=== PATIENT | male | born 1975 | race Hispanic/Latino ===

== ENCOUNTER 2018-02-06 14:19 | Emergency (ER) | payer SELFPAY ==
[2018-02-06] MEDS ORDERED: hydrALAZINE 25 MG TAB ONE (17:40)
[2018-02-06] MEDS ORDERED: hydrALAZINE 10 MG TAB PO SCH (17:45)
--- NOTE | 2018-02-08 14:47 | EKG ---
Test Reason : DIZZINESS Blood Pressure : / mmHG Vent. Rate : 071 BPM Atrial Rate : 071 BPM P-R Int : 148 ms QRS Dur : 082 ms QT Int : 378 ms P-R-T Axes : 034 014 075 degrees QTc Int : 410 ms Normal sinus rhythm Normal ECG Confirmed by SILVESTRE GRANGER ([id number]), newspaper photo editor SHERIN ALONSO ([id number]) on 02/08/2018 2:46:56 PM Referred By: Confirmed By:SILVESTRE GRANGER
== END 2018-02-06 18:46 | disposition home or self-care (01) ==
LOC: ERS 14:19
DX: E11.65 Type 2 diabetes mellitus with hyperglycemia (principal); H92.02 Otalgia, left ear; I10 Essential (primary) hypertension; E78.5 Hyperlipidemia, unspecified
CPT/HCPCS: 36416; 93005

== ENCOUNTER 2018-02-09 07:05 | Inpatient (IN) | payer SELFPAY ==
[2018-02-09] MEDS ORDERED: Metoclopramide HCl 10 MG/2 ML VIAL ONE (07:30)
[2018-02-09] MEDS ORDERED: Meclizine HCl 25 MG TAB ONE (07:30)
[2018-02-09] MEDS ORDERED: hydrALAZINE 20 MG/ML VIAL ONE (07:30)
[2018-02-09 07:53] LABS: #Basophils 0.1 thou/uL (0.0-0.2); #Eosinphils 0.3 thou/uL (0.0-0.7); #Lymphocytes 1.9 thou/uL (1.20-3.40); #Monocytes 0.6 thou/uL (0.11-0.59); #Neutrophils 5.2 thou/uL (1.40-6.50); %Eosinophils 3.9 % (0.0-10.0); %Lymphocytes 23.3 % (21.0-51.0); %Monocytes 7.6 % (0.0-10.0); %Neutrophils 64.2 % (42.0-75.0); Hemoglobin 15.9 g/dL (14.0-18.0); Mean Corpuscular HGB CONC 34.5 g/dL (32.0-36.0); Mean Corpuscular Hemoglobin 34.4 pg (27.0-31.0); Mean Corpuscular Volume 99.7 fl (80.0-94.0); Mean Platelet Volume 9.1 fL (7.4-10.4); Platelet Count 257 thou/uL (130-400); RBC Distribution Width 11.4 % (11.5-14.5); Red Blood Cell (RBC) Count 4.61 mill/uL (4.70-6.10); White Blood Cell (WBC) Count 8.1 thou/uL (4.8-10.8)
--- NOTE | 2018-02-09 08:05 | CT ---
CT HEAD WITHOUT CONTRAST: Date: 02/09/18 COMPARISON: None. HISTORY: Hypertension and dizziness. TECHNIQUE: Serial axial CT imaging at 5 mm intervals from vertex through skull base without contrast. FINDINGS: Imaged paranasal sinuses and mastoid air cells appear well aerated. There is no displaced calvarial f racture. No intracranial hemorrhage, midline shift, or mass effect is seen. There is hypodensity within the in ferior aspect of the left cerebellar hemisphere measuring 3.4 cm. This focal area of hypodensity with in the left inferior cerebellar hemisphere medially is suspicious for infarction, possibly acute. Rec ommend further evaluation with brain MRI. IMPRESSION: Age-indeterminate area of infarction suspected within left cerebellar hemisphere inferomedially. Furt her assessment via MRI with and without contrast is advised. POS: TACO
[2018-02-09 08:10] LABS: ALT (SGPT) 20 U/L (8-55); AST (SGOT) 13 U/L (5-34); Albumin 4.2 g/dL (3.5-5.0); Alkaline Phosphatase 50 U/L (40-150); Anion Gap 15 mmol/L (10-20); BUN (Urea Nitrogen) 16 mg/dL (8.9-20.6); Bilirubin, Total 0.5 mg/dL (0.2-1.2); CK (CPK) 37 U/L (30-200); Calc. Creatinine Clearance 0 mL/min (70-130); Calcium 10.2 mg/dL (7.8-10.44); Carbon Dioxide 28 mmol/L (22-29); Chloride 99 mmol/L (98-107); Estimated GFR-MDRD 63; Glucose 300 mg/dL (70-105); Potassium 4.2 mmol/L (3.5-5.1); Protein, Total 7.2 g/dL (6.0-8.3); Sodium 138 mmol/L (136-145)
[2018-02-09 08:14] LABS: CKMB 0.3 ng/mL (0-6.6); Troponin I Less than 0.010 ng/mL (< 0.028)
[2018-02-09] MEDS ORDERED: Aspirin 325 MG TAB ONE (08:25)
[2018-02-09 09:44] VITALS: BMI 25.1
[2018-02-09] MEDS ORDERED: Ondansetron HCl/PF 4 MG/2 ML Vial IVP PRN (09:50)
[2018-02-09] MEDS ORDERED: Acetaminophen 325 MG TAB PO PRN (09:50)
[2018-02-09] MEDS ORDERED: Ondansetron ODT 4 MG TAB SL PRN (09:50)
[2018-02-09 11:18] LABS: Troponin I Less than 0.010 ng/mL (< 0.028)
[2018-02-09] MEDS ORDERED: Gadobenate Dimeglumine 529 MG/1 ML (20ML VIAL) ONE (11:30)
[2018-02-09] MEDS ORDERED: hydrALAZINE 20 MG/ML VIAL SLOW IVP PRN (12:25)
[2018-02-09] MEDS ORDERED: HumaLOG 300 UNITS/3 ML VIAL SC PRN (12:25)
[2018-02-09] MEDS ORDERED: HYDROcodone/Acetaminophen 5/325 mg Tablet PO PRN (12:25)
[2018-02-09] MEDS ORDERED: Dextrose 5% in Water 1,000 ML IV PRN (12:25)
[2018-02-09] MEDS ORDERED: Dextrose 50% Abboject 50 ML SYRINGE SLOW IVP PRN (12:25)
--- NOTE | 2018-02-09 14:22 | HP ---
DATE OF ADMISSION: 02/09/2018 CHIEF COMPLAINT: Dizziness. HISTORY OF PRESENT ILLNESS: This is a 42-year-old young male with a known history of type 2 diabetes mellitus and hypertension, diagnosed more than 10 years ago, but he stopped taking medicati ons since then and never went to her primary care doctor. For the past 3 months, he has been noticin g worsening dizziness and some blurred vision, and he initially ignored until today. He was severely dizzy and was having difficulty with his vision and was having severe pain, so he came to the ER for further evaluation, and based on his symptoms, I did CT of the head which showed a cerebellar infarc tion, age undetermined on the left cerebellar hemispheres. The patient is seen today on the floor wh o is alert and oriented. Denies having any chest pain, no nausea, no vomiting, no diarrhea, no const ipation. He does also complain of tingling, numbness in his lower feet which has been going on for a long time. Denies having any vision problems right now, but he continues to have dizziness. PAST MEDICAL HISTORY: 1. Type 2 diabetes mellitus. 2. Hypertension. PAST SURGICAL HISTORY: None. PAST SURGICAL HISTORY: The patient had had an abscess on the buttocks when he was in the halfway many [place] ears ago and was treated with surgical incision and drainage. SOCIAL HISTORY: The patient is a known smoker and does drink alcohol and does drink beer almost ever y day. Last drink was on Tuesday. He denies having any withdrawal symptoms if he does not drink alco hol. No other history of illicit drug use. 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 FAMILY HISTORY: Has a significant family history of her mother dying at the age of 40s with severe M I and acute coronary artery disease. ALLERGIES: PENICILLIN. HOME MEDICATIONS: None. REVIEW OF SYSTEMS: All 12 systems are reviewed with the patient thoroughly and found to be negative. Systems reviewed are HEENT, CVS, HEAD LOFT WORKER, respiratory, GI, and . All systems are reviewed and found to be negative except the ones described in the HPI. Constitutional: Weight loss or gain, sense of well-being, ability to conduct usual activities, exerc ise tolerance. Skin/Breast: Rash, itching, changes in hair growth or loss, nail changes, breast lumps, tenderness, swelling, nipple discharge. Eyes: Vision, double vision, tearing, blind spots, pain. ENT/Mouth: Headaches (location, time of onset, duration, precipitating factors), vertigo, lightheadedness, injury. Vision, double vision, tearing, blind spots, pain, nose b leeding, colds, obstruction, discharge, dental difficulties, gingival bleeding, dentures, neck stiffn ess, pain, tenderness, masses in thyroid or other areas Cardiovascular: Precordial pain, substernal distress, palpitations, syncope, dyspnea on exertion, or thopnea, nocturnal paroxysmal dyspnea, edema, cyanosis, hypertension, heart murmurs, varicosities, ph lebitis, claudication. Respiratory: Pain, shortness of breath, wheezing, stridor, cough, hemoptysis, fever or night sweats Gastrointestinal: Poor appetite, dysphagia, indigestion, abdominal pain, heartburn, eructation, naus ea, vomiting, hematemesis, jaundice, constipation, or diarrhea, abnormal stools (clement-colored, tarry, bloody, greasy, foul smelling), flatulence, hemorrhoids, recent changes in bowel habits. Genitourinary: Urgency, frequency, dysuria, nocturia, hematuria, polyuria, oliguria, unusual (or kathy nge in) color of urine, stones, hesitancy, change in size of stream, dribbling, acute retention or in continence, libido, potency. Musculoskeletal: Pain, swelling, redness or heat of muscles or joints, limitation, of motion, muscular weakness, atrophy, cramps. Neurologic/Psychiatric: Convulsions, paralyses, tremor, incoordination, parasthesias, difficulties w ith memory of speech, sensory or motor disturbances, or muscular coordination (ataxia, tremor), emoti onal problems, anxiety, depression, previous psychiatric care, unusual perceptions, hallucinations. Allergy/Immunologic: Skin rash, anemia, bleeding tendency, polydipsia, polyuria, intolerance to heat or cold. PHYSICAL EXAMINATION: VITAL SIGNS: Blood pressures are 147/85, heart rate is 80, respiratory rate 16, saturation 97%. GENERAL: The patient is moderately built and moderately nourished. He does not appear to be in acut e distress at this time. Alert and oriented x3. HEENT: Atraumatic, normocephalic. PERRLA. Extraocular movements were intact. Oral mucosa is pink and moist. CARDIOVASCULAR: S1, S2 normal. No murmurs, rubs or gallops. LUNGS: Bilateral air entry was equal. No wheezing, no crackles. ABDOMEN: Soft, nontender. No guarding, no rebound tenderness. Bowel sounds normal. MUSCULOSKELETAL: No calf tenderness. No pedal edema. No joint tenderness. No joint swelling. SKIN: No cyanosis, no erythema, no rash, no pallor. CENTRAL NERVOUS SYSTEM: Examination was done. The patient has a gait abnormality otherwise no foca l neurologic deficits. No cranial nerve deficits were noted. LABORATORY DATA: Showed WBC 8.1, hemoglobin is 15.9, hematocrit is 46.0, platelets 257. Sodium 130, potassium 4.2, chloride is 99, BUN is 16, creatinine 1.24, blood sugar is 300. A CT of the head was done showing an evidence of a age undetermined left-sided cerebellar infarction, recommending us an MRI. ASSESSMENT: 1. Acute or subacute left cerebellar ischemic stroke. 2. Poorly controlled type 2 diabetes mellitus. 3. Poorly controlled hypertension. 4. Moderate dehydration. PLAN: 1. Plan is to closely monitor this patient. The patient is a high risk for coronary artery disease and stroke secondary to comorbidities and being noncompliant. We will order MRI of the brain with an d without contrast at this time and will do the MRA to look for any evidence of vertebral artery plaq ues. 2. We will do a 2D echo to look for any evidence of thromboembolic phenomenon contributing to the pr esent stroke. 3. The patient has poorly controlled type 2 diabetes mellitus. We will start the patient on Levemir 20 units at this time with sliding scale insulin and will get a hemoglobin A1c. We will need a diab etic education with the patient and possibly discharge the patient with metformin. 4. We will get a PT, OT evaluation for possible rehab placement. 5. The patient has uncontrolled hypertension. At this time, we will allow permissive hypertension a t least for 24 hours and will closely monitor the blood pressures. We will treat blood pressures if anything more than 180 systolic. 6. Deep venous thrombosis prophylaxis, Lovenox 40 mg subcu daily. I spent 75 minutes with this patient.
[2018-02-09 14:40] LABS: Troponin I Less than 0.010 ng/mL (< 0.028)
--- NOTE | 2018-02-09 15:59 | MRI ---
MRA NECK WITH AND WITHOUT GADOLINIUM CONTRAST: HISTORY: Vascular disease. CVA. FINDINGS: There is normal branching of the great vessels at the aortic arch. Vertebral and carotid arteries ar e patent. Each carotid bifurcation has a normal appearance. No evidence of stenosis or filling defe ct. IMPRESSION: Normal MRA neck. POS: TACO
--- NOTE | 2018-02-09 16:02 | MRI ---
MRI BRAIN WITH AND WITHOUT IV CONTRAST: Date: 02/09/18 HISTORY: Hypertension and dizziness. FINDINGS: Correlation is made with CT scan from earlier today. There is age-restricted diffusion predominantly in the inferomedial aspect of the left cerebellar hem isphere. These demonstrate low signal on ADC maps. There are foci of increased T1 signal without abn ormality on gradient echo sequences. There is minimal increased enhancement in the left cerebellar he misphere through the lateral aspect of the infarct. No significant mass effect is seen on the fourth ventricle. The ventricular sizes are normal and the basilar cisterns are patent. No midline shift or abnormal extra-axial fluid collections are seen. Th ere is foci of T2 prolongation in the periventricular white matter consistent with mild chronic small vessel ischemic disease. IMPRESSION: Acute left cerebellar hemispheric infarction with possible hemorrhagic components. Underlying mass or vascular malformation cannot be excluded. A follow-up exam is recommended. This exam was interpreted in consultation with Emile Beaver and Jl Crowder who concur. POS: TACO
--- NOTE | 2018-02-09 16:17 | MRI ---
MRA BRAIN NONCONTRAST: 02/09/18 HISTORY: CVA. FINDINGS: Good flow is apparent within each internal carotid artery and the vertebrobasilar system. [place] is patent with predominant origin of the right posterior cerebral artery. Superior cerebe llar arteries are patent. Inferior cerebellar arteries not well visualized. No focal aneurysm or fill ing defect are apparent. IMPRESSION: No acute vascular abnormalities are demonstrated. POS: TACO
[2018-02-09] MEDS: HumaLOG 300 UNITS/3 ML VIAL SC PRN (17:10)
[2018-02-09] MEDS ORDERED: Atorvastatin Calcium 40 MG TAB PO SCH (21:00)
[2018-02-09] MEDS ORDERED: Insulin Glargine 20 UNITS in Pre-Filled Syringe 1 EACH SC SCH (21:00)
--- NOTE | 2018-02-09 21:21 | CON ---
DATE OF CONSULTATION: 02/09/2018 CONSULTING PHYSICIAN: Hospitalist Service. IMPRESSION: Lacunar infarction in the left cerebellum resulting in secondary dizziness and ataxia. PLAN: 1. Aspirin. 2. Statin. 3. The patient can be discharged home tomorrow. HISTORY OF PRESENT ILLNESS: Mr. Bonds is a 42-year-old man with a past history of diabetes and hy pertension. He also has a history of tobacco and some alcohol use. He felt acute onset of dizziness with nausea and vomiting. He had difficulty walking straight. There was no slurred speech, difficu lty swallowing, lateralized weakness or numbness. His MRI of the brain revealed a left cerebellar in farct. His MRA of the carotids were clear. His echocardiogram shows a normal ejection fraction. He has been admitted for treatment. He denies any history of similar symptoms. He denies any illicit drug use. PAST MEDICAL HISTORY: As listed. ALLERGIES: PENICILLIN. SOCIAL HISTORY: As noted above. FAMILY HISTORY: Noncontributory. REVIEW OF SYSTEMS: Positive for some headache. No tinnitus or hearing loss. PHYSICAL EXAMINATION: GENERAL: He is alert and appropriate. His speech is fluent and clear. NEUROLOGIC: Cranial nerves II-XII are intact. Motor exam showed symmetric strength. Sensation is i ntact to light touch. No tremor or dysmetria was noted. The patient notes some instability when he is trying to sit up. HEENT: Unremarkable. NECK: Supple. EXTREMITIES: No cyanosis, clubbing, or edema. SUMMARY: This is a middle-aged man with a small stroke in the cerebellum. His prognosis is good for a full recovery. I agree with the workup and the plan of treatment. I would be happy to follow up with him as an outpatient.
[2018-02-09] MEDS: Docusate 100 MG CAP PO SCH (21:29)
[2018-02-09] MEDS: Famotidine 20 MG TAB PO SCH (21:29)
[2018-02-10 04:56] LABS: #Basophils 0.1 thou/uL (0.0-0.2); #Eosinphils 0.4 thou/uL (0.0-0.7); #Lymphocytes 2.7 thou/uL (1.20-3.40); #Monocytes 0.7 thou/uL (0.11-0.59); #Neutrophils 4.9 thou/uL (1.40-6.50); %Basophils 1.4 % (0.0-1.0); %Eosinophils 4.5 % (0.0-10.0); %Lymphocytes 30.2 % (21.0-51.0); %Monocytes 7.8 % (0.0-10.0); %Neutrophils 56.1 % (42.0-75.0); Hemoglobin 14.8 g/dL (14.0-18.0); Mean Corpuscular Hemoglobin 34.6 pg (27.0-31.0); Mean Corpuscular Volume 98.8 fl (80.0-94.0); Mean Platelet Volume 8.8 fL (7.4-10.4); Platelet Count 233 thou/uL (130-400); RBC Distribution Width 11.2 % (11.5-14.5); Red Blood Cell (RBC) Count 4.28 mill/uL (4.70-6.10); White Blood Cell (WBC) Count 8.8 thou/uL (4.8-10.8)
[2018-02-10 05:12] LABS: Anion Gap 12 mmol/L (10-20); BUN (Urea Nitrogen) 13 mg/dL (8.9-20.6); Calc. Creatinine Clearance 104 mL/min (70-130); Calcium 9.8 mg/dL (7.8-10.44); Carbon Dioxide 29 mmol/L (22-29); Cardiac Risk 4.7 (Less than 4.5); Chloride 100 mmol/L (98-107); Cholesterol 161 mg/dl (< 200 Desired); Estimated GFR-MDRD 85; Glucose 213 mg/dL (70-105); HDL Cholesterol 34 mg/dL (>60 Neg Risk); LDL Cholesterol, Calculated 92 mg/dL; Potassium 3.7 mmol/L (3.5-5.1); Sodium 137 mmol/L (136-145); Triglycerides 174 mg/dL (Less than 150)
[2018-02-10] MEDS: HumaLOG 300 UNITS/3 ML VIAL SC PRN ×2 (06:24→12:37)
[2018-02-10] MEDS ORDERED: Aspirin 81 mg Enteric Coated Tablet PO SCH (09:00)
[2018-02-10] MEDS ORDERED: Enoxaparin Sodium 40 MG/0.4 ML SYRINGE SC SCH (09:00)
[2018-02-10] MEDS: Famotidine 20 MG TAB PO SCH (09:26)
[2018-02-10] MEDS: Docusate 100 MG CAP PO SCH (09:26)
[2018-02-10 12:23] LABS: Hemoglobin A1c 10.5 % (4.0-6.0)
[2018-02-10 15:47] VITALS: BP 142/93; TEMP 98.3
[2018-02-10] MEDS ORDERED: Acetaminophen 325 MG TAB PO PRN (16:35)
== END 2018-02-10 18:15 | disposition home or self-care (01) | DRG 66 ==
LOC: ERS 07:05 → 2SE 09:28 → OBSVTOIN 09:28
PROVIDERS: ADMIT Family Medicine; ATTEND Family Medicine
DX: I63.9 Cerebral infarction, unspecified (principal); I10 Essential (primary) hypertension; Z88.0 Allergy status to penicillin; F17.210 Nicotine dependence, cigarettes, uncomplicated; E11.65 Type 2 diabetes mellitus with hyperglycemia; E86.0 Dehydration; R27.0 Ataxia, unspecified; Z79.84 Long term (current) use of oral hypoglycemic drugs; Z79.4 Long term (current) use of insulin
CPT/HCPCS: 36415; 36416; 70450; 70544; 70549; 70553; 80048; 80053; 80061; 82550; 82553; 83036; 84484; 85025; 93005; 93306; 96365; 96375; A9579; G8978-GP-CK; G8979-GP-CJ; G8987-GO-CI; G8988-GO-CI; G8989-GO-CI; G8996-GN-CH; G8997-GN-CH; G8998-GN-CH; J0360; J1650; J2405; J2765

== ENCOUNTER 2018-09-25 05:51 | Inpatient (IN) | payer SELFPAY ==
[2018-09-25] MEDS ORDERED: Nitroglycerin 50 MG/250 ML BOT 250 ML ONE (06:10)
[2018-09-25 06:29] LABS: #Basophils 0.1 thou/uL (0.0-0.2); #Eosinphils 0.3 thou/uL (0.0-0.7); #Lymphocytes 2.2 thou/uL (1.20-3.40); #Monocytes 0.9 thou/uL (0.11-0.59); #Neutrophils 11.6 thou/uL (1.40-6.50); %Basophils 0.9 % (0.0-1.0); %Eosinophils 2.2 % (0.0-10.0); %Lymphocytes 14.7 % (21.0-51.0); %Monocytes 5.6 % (0.0-10.0); %Neutrophils 76.7 % (42.0-75.0); Hemoglobin 14.7 g/dL (14.0-18.0); Mean Corpuscular Hemoglobin 33.6 pg (27.0-31.0); Mean Corpuscular Volume 98.6 fL (78.0-98.0); Mean Platelet Volume 10.6 fL (7.4-10.4); Platelet Count 223 thou/uL (130-400); RBC Distribution Width 11.4 % (11.5-14.5); Red Blood Cell (RBC) Count 4.37 mill/uL (4.70-6.10); White Blood Cell (WBC) Count 15.2 thou/uL (4.8-10.8)
[2018-09-25] MEDS ORDERED: Lorazepam 2 MG/ML VIAL ONE (06:35)
[2018-09-25] MEDS ORDERED: Furosemide 40 MG/4 ML VIAL ONE ×2 (06:36→14:34)
[2018-09-25] MEDS ORDERED: Ondansetron PF 4 MG/2 ML Vial ONE (06:40)
[2018-09-25 06:44] LABS: ALT (SGPT) 13 U/L (8-55); AST (SGOT) 12 U/L (5-34); Acetaminophen Less than 6.0 mcg/mL (10.0-30.0); Albumin 4.2 g/dL (3.5-5.0); Alcohol Less than 10 mg/dL (Less than 10); Alkaline Phosphatase 68 U/L (40-150); Anion Gap 12 mmol/L (10-20); BUN (Urea Nitrogen) 20 mg/dL (8.9-20.6); Bilirubin, Total 0.5 mg/dL (0.2-1.2); Calc. Creatinine Clearance 0 mL/min (70-130); Calcium 10.1 mg/dL (7.8-10.44); Carbon Dioxide 24 mmol/L (22-29); Chloride 104 mmol/L (98-107); Estimated GFR-MDRD 55; Globulin 3.3 g/dL (2.4-3.5); Glucose 359 mg/dL (70-105); Magnesium 2.1 mg/dL (1.6-2.6); Potassium 4.3 mmol/L (3.5-5.1); Protein, Total 7.5 g/dL (6.0-8.3); Salicylate Less than 8.0 mg/dL (15.0-30.0); Sodium 136 mmol/L (136-145)
[2018-09-25 07:06] LABS: CKMB 1.5 ng/mL (0-6.6)
[2018-09-25] MEDS ORDERED: Nitroglycerin 2% Ointment 1 INCH/1 GM Packet ONE ×2 (07:10→07:45)
[2018-09-25 07:25] LABS: Bilirubin Negative (Negative); Blood, Urine Moderate (Negative); Clarity CLEAR (Clear); Glucose, Urine (Dipstick) >=1000 mg/dL (Negative); Leukocyte Negative (Negative); Nitrite Negative (Negative); Protein, Urine (Dipstick) 30 mg/dL (Neg-Trace); Specific Gravity, Urine 1.017 (1.002-1.036); Urobilinogen 0.2 mg/dL (0.2-1.0); pH, Urine 5.5 (5.0-9.0)
[2018-09-25 07:27] LABS: Bacteria/HPF None Seen HPF (None Seen); Hyaline Casts/LPF 0-3 HYALINE CAST LPF (0-3 Hyaline); RBC/HPF 0-3 HPF (0-3); Squamous Epithelial None Seen HPF (0-3); WBC/HPF None Seen HPF (0-3)
[2018-09-25 07:35] LABS: Medtox Reader # READER 1; Phencyclidine (PCP) Not Detected (NotDetected); THC/Cannabinoid Screen Not Detected (NotDetected)
[2018-09-25 07:36] LABS: Amphetamine Not Detected (NotDetected); Barbiturates Screen Not Detected (NotDetected); Benzodiazepine Screen Not Detected (NotDetected); Cocaine Metabolite Screen Detected (NotDetected); Medtox Control Line Valid? VALID (VALID); Methadone Not Detected (NotDetected); Methamphetamine Not Detected (NotDetected); Opiate Screen Not Detected (NotDetected); Oxycodone Screen Not Detected (NotDetected); Tricyclic Screen Not Detected (NotDetected)
[2018-09-25] MEDS ORDERED: Zolpidem Tartrate 5 MG TAB PO PRN (08:03)
[2018-09-25] MEDS ORDERED: HYDROcodone/Acetaminophen 5/325 mg Tablet PO PRN (08:03)
[2018-09-25] MEDS ORDERED: Cepastat Lozenges 1 LOZ PO PRN (08:03)
[2018-09-25] MEDS ORDERED: Eucerin (Mineral Oil/Petrolatum,White) 30 gm Jar TOP PRN (08:03)
[2018-09-25] MEDS ORDERED: Bisacodyl 5 MG TAB PO PRN (08:03)
[2018-09-25] MEDS ORDERED: Loperamide HCl 2 MG CAP PO PRN (08:03)
[2018-09-25] MEDS ORDERED: Ondansetron ODT 4 MG TAB PO PRN (08:03)
[2018-09-25] MEDS ORDERED: Dextrose 5% in Water 1,000 ML IV PRN (08:03)
[2018-09-25] MEDS ORDERED: Senokot S 8.6-50 MG TAB PO PRN (08:03)
[2018-09-25] MEDS ORDERED: Loratadine 10 MG TAB PO PRN (08:03)
[2018-09-25] MEDS ORDERED: Diabetic Tussin 200 MG/10 ML UDCUP PO PRN (08:03)
[2018-09-25] MEDS ORDERED: Calcium Carbonate 500 MG ChewTAB PO PRN (08:03)
[2018-09-25] MEDS ORDERED: Nitroglycerin 0.4 MG TAB (25 Tab Bottle) SL PRN (08:03)
[2018-09-25] MEDS ORDERED: Bisacodyl 10 MG SUPP PR PRN (08:03)
[2018-09-25] MEDS ORDERED: hydrALAZINE 20 MG/ML VIAL SLOW IVP PRN (08:03)
[2018-09-25] MEDS ORDERED: Dextrose 50% Abboject 50 ML SYRINGE SLOW IVP PRN (08:03)
[2018-09-25] MEDS ORDERED: Artificial Tears 18 DROP/0.9 ML EA EYE PRN (08:03)
[2018-09-25] MEDS ORDERED: Sodium Chloride 0.65% Nasal 44 ML BOT EA NARE PRN (08:03)
[2018-09-25] MEDS ORDERED: Ondansetron PF 4 MG/2 ML Vial IVP PRN (08:03)
[2018-09-25 08:06] LABS: Hemoglobin A1c 10.5 % (4.0-6.0)
[2018-09-25] MEDS ORDERED: Aspirin Chewable 81 MG TAB ONE (08:39)
--- NOTE | 2018-09-25 08:48 | RAD ---
CHEST 1 VIEW: INDICATION: History of dyspnea. FINDINGS: There is airspace opacity within both infrahilar regions which is new. No pleural effusion or pneumo thorax is evident. No acute osseous abnormality is evident. IMPRESSION: Bilateral lower lobe airspace opacities. Recommend correlation for pneumonia. Radiographic followup to resolution is recommended. POS: BH
[2018-09-25] MEDS ORDERED: Lisinopril 10 MG TAB PO SCH (09:00)
[2018-09-25] MEDS ORDERED: Enoxaparin Sodium 40 MG/0.4 ML SYRINGE ONE (09:00)
[2018-09-25] MEDS ORDERED: Famotidine 20 MG TAB ONE (09:00)
[2018-09-25] MEDS: Enoxaparin Sodium 40 MG/0.4 ML SYRINGE SC SCH (09:05)
[2018-09-25] MEDS: Famotidine 20 MG TAB PO SCH ×2 (09:07→21:45)
[2018-09-25 10:24] LABS: Troponin I 0.041 ng/mL (< 0.028)
[2018-09-25] MEDS ORDERED: HumaLOG 300 UNITS/3 ML VIAL ONE (10:52)
[2018-09-25] MEDS: HumaLOG 300 UNITS/3 ML VIAL SC PRN ×3 (10:57→21:46)
--- NOTE | 2018-09-25 11:36 | HP ---
PRIMARY CARE PHYSICIAN: [facility]. REASON FOR ADMISSION: Hypertensive emergency, acute pulmonary edema, demand ischemia of myocardium, and acute kidney injury. HISTORY OF PRESENT ILLNESS: A 43-year-old male, who has underlying history of hypertension. He ran out all his medication about 2 to 3 months ago. He had cocaine abuse on last Tuesday. He abuses cocaine periodically, nowadays every week. He was not measuring his blood pressure and he was not taking any medication. Last night, the patient was having increasing shortness of breath, diaphoresis, and orthopnea. He was not able to talk in full sentence and that is why his condition deteriorated slowly over period of time and he decided to come to emergency room for evaluation. When he came to emergency room, he was tachypneic, tachycardic, and hypertensive with the highest blood pressure was 222/156. His saturation was 78% on room air and after that, he required BiPAP. He improved significantly after Lasix and nitroglycerin drip. Subsequently, BiPAP was discontinued and nitroglycerin drip was discontinued and the patient kept on nitroglycerin patch. His blood pressure was well controlled. He was comfortable this morning. He had routine blood test, which showed elevated troponin as well as acute kidney injury. His blood sugar is also out of control. His urine drug screen is also positive for cocaine. REVIEW OF SYSTEMS: CONSTITUTIONAL: Negative for weight loss or gain, ability to conduct usual activities. SKIN: Negative for rash, itching. EYES: Negative for double vision, pain. ENT/MOUTH: Negative for nose bleeding, neck stiffness, pain, tenderness. CARDIOVASCULAR: Negative for palpitations, dyspnea on exertion, orthopnea. RESPIRATORY: Negative for shortness of breath, wheezing, cough, hemoptysis, fever or night sweats. GASTROINTESTINAL: Negative for poor appetite, abdominal pain, heartburn, nausea, vomiting, constipation, or diarrhea. GENITOURINARY: Negative for urgency, frequency, dysuria, nocturia. MUSCULOSKELETAL: Negative for pain, swelling. NEUROLOGIC/PSYCHIATRIC: Negative for anxiety, depression. ALLERGY/IMMUNOLOGIC: Negative for skin rash, bleeding tendency. Please see my HPI for pertinent positive and negative. All other review of systems reviewed and negative except as mentioned in HPI. PAST MEDICAL HISTORY: Diabetes type 2, hypertension, dyslipidemia, polysubstance abuse, and history of TIA. PAST SURGICAL HISTORY: Left thigh cyst removal. PAST PSYCHIATRIC HISTORY: Reviewed and negative. SOCIAL HISTORY: The patient drinks alcohol on weekend. He abuses cocaine periodically. He currently denies any smoking. FAMILY HISTORY: No family history of coronary artery disease, stroke, or cancer. ALLERGY: Penicillin. CURRENT HOME MEDICATIONS: The patient ran out of all his previous medication. He was not taking any medication before coming to the hospital. EMERGENCY ROOM COURSE: The patient was given aspirin 324 mg, nitroglycerin patch, Lasix 40 mg, Ativan 1 mg, and Zofran 4 mg. The patient was also given nitroglycerin drip and subsequently it was discontinued. PHYSICAL EXAMINATION: VITAL SIGNS: Highest blood pressure in the emergency room; blood pressure 222/156, pulse 111, respiratory rate 28, and saturation 78% on room air. Weight 81.1 kg. GENERAL: The patient is currently alert and awake. No obvious acute distress. HEENT: Head; normocephalic and atraumatic. Eyes, pupils are round and reactive to light. Extraocular muscle intact. ENT, oropharynx within normal limits. Moist mucous membranes. No oral lesion. No pharyngeal erythema. No exudate. NECK: Supple. No JVD. No thyromegaly. No carotid bruit. LUNGS: Basilar rales noted. CARDIAC: S1 and S2. Regular. Tachycardia. No murmur. No gallop. No rub. ABDOMEN: Soft. Bowel sounds present. Nontender and nondistended. No organomegaly. No mass. No suprapubic tenderness. BACK: Unremarkable. No CVA tenderness. EXTREMITIES: Upper extremities, passive movement of all joints are normal. Lower extremities, no edema. Good distal pulsation. SKIN: No skin rash. HEMATOLOGICAL SYSTEM: No lymphadenopathy. PSYCHIATRIC: Normal affect. NEUROLOGIC: Nonfocal examination. SIGNIFICANT IMAGING DATA: EKG showing sinus tachycardia, left atrial enlargement. Chest x-ray showing pulmonary congestion with edema. LABORATORY DATA: Significant labs, CBC; WBC 15.2, hemoglobin 14.7, MCV 98.6, and platelet 223. BMP; sodium 136, potassium 4.3, chloride 104, BUN 20, creatinine 1.40, glucose 359, and calcium 10.1. LFT; AST 12, ALT 13, alkaline phosphatase 68, and albumin 4.2. CK-MB 1.5, troponin 0.041, and BNP 240.5. TSH 0.80. Urinalysis showing protein, glucose, and trace rbc. Urine drug screen positive for cocaine. Serum drug screen negative. Influenza A and B negative. ASSESSMENT AND PLAN: 1. Hypertensive emergency. This patient's blood pressure was severely high when he came in, that was resolved with the nitroglycerin drip and currently controlled with nitroglycerin patch. He has pulmonary edema as well as acute kidney injury and that is why, he has end-organ damage and in this way, the patient has hypertensive emergency, which has been controlled with parenteral medication in the emergency room. 2. Acute pulmonary edema, resolved with Lasix and nitroglycerin drip. Currently, he is off bilevel positive airway pressure and he is saturating normal with 2 L nasal cannula. 3. Demand ischemia of myocardium, likely due to hypertensive emergency. We will do serial cardiac enzyme x3. Cardiology has been consulted from the emergency room. 4. Acute kidney injury, likely due to very high blood pressure. We will monitor renal function. We will repeat labs tomorrow. We will avoid nephrotoxic agents. 5. History of hypertension with medication noncompliance. We will start his lisinopril 10 mg p.o. daily. 6. Dyslipidemia. We will start Lipitor 40 mg p.o. at bedtime. 7. Diabetes type 2, uncontrolled. We will start NPH insulin 6 units subcu twice daily. Diabetic diet will be given. We will also resume metformin upon discharge. 8. Polysubstance abuse including cocaine abuse, counseling is given to avoid polysubstance abuse. Healthy lifestyle measure discussed with the patient. 9. Deep venous thrombosis prophylaxis, Lovenox 40 mg subcu daily. Gastrointestinal prophylaxis, Pepcid 20 mg p.o. b.i.d. CODE STATUS: The patient is full code. The patient does not have any surrogate decision maker. DISPOSITION PLAN: Based on clinical course, we are expecting the patient's stay in hospital more than 2 midnights. Plan of care discussed with the patient in detail. Job ID: [id number]
[2018-09-25] MEDS: Acetaminophen 325 MG TAB PO PRN (12:26)
[2018-09-25] MEDS ORDERED: Acetaminophen 325 MG TAB ONE (12:27)
[2018-09-25 13:29] LABS: Troponin I 0.042 ng/mL (< 0.028)
[2018-09-25] MEDS: Furosemide 40 MG/4 ML VIAL SLOW IVP SCH (14:38)
[2018-09-25] MEDS: Aspirin 325 MG TAB PO SCH (16:34)
[2018-09-25] MEDS: NPH, Human Insulin Isophane 300 UNIT/3 ML VIAL SC SCH ×2 (16:34→21:46)
[2018-09-25] MEDS: Nitroglycerin 2% Ointment 1 INCH/1 GM Packet TOP SCH ×2 (16:34→21:45)
--- NOTE | 2018-09-25 17:10 | CON ---
DATE OF CONSULTATION: HISTORY: Kory Bonds is a 43-year-old male with history of hypertension, diabetes, and hypercholesterolemia. He also was admitted in January 2018 for dizziness. MRI of the brain revealed acute left cerebellar hemispheric infarct with possible hemorrhagic component. Also, echocardiogram at that time revealed ejection fraction of 60% to 65% with moderate concentric left ventricular hypertrophy, mild mitral regurgitation, and mild tricuspid regurgitation. He ran out of his medication 2 to 3 months ago. He also abused cocaine on September 22. He awoke in the middle of night, last night, with acute onset of shortness of breath, diaphoresis, and orthopnea. He denied any chest discomfort. In the emergency room, blood pressure was 222/156, O2 saturation 78%. He required BiPAP. He was placed on a nitroglycerin drip as well as given intravenous Lasix. He denies any cough or fever. He denies any leg edema. PAST MEDICAL HISTORY: Hypertension, diabetes, and hypercholesterolemia, left cerebral hemispheric infarct with possible hemorrhagic component in January 2018. MEDICATIONS: None at the present time. When he was discharged in January 2018, he was on metformin 1000 b.i.d., lisinopril 10 mg b.i.d., atorvastatin 40 at bedtime, aspirin 81 daily. ALLERGIES: PENICILLIN. SOCIAL HISTORY: He does not smoke. He drinks a 12 pack of beer per day. He also abuses cocaine. OPERATIONS: Drainage of left buttocks abscess in 2009. FAMILY HISTORY: Unremarkable. REVIEW OF SYSTEMS: A 10-point review of systems is otherwise unremarkable. PHYSICAL EXAMINATION: VITAL SIGNS: Blood pressure of 142/93, pulse of 83. Sinus rhythm. HEENT: PERRL. NECK: Supple. CHEST: Reveals crackles at the right base and crackles one long term of the left posterior lung field. CARDIOVASCULAR: S1 and S2 normal without any S3, S4, or murmurs. Carotid upstrokes are normal without bruits. ABDOMEN: Normal bowel sounds without tenderness or organomegaly. EXTREMITIES: Revealed no clubbing, cyanosis, or edema. NEUROLOGIC: Grossly intact. SKIN: Warm and dry. LABORATORY DATA: EKG reveals normal sinus rhythm with possible left atrial enlargement. Chest x-ray revealed increased pulmonary vascularity. White count 15,200, hemoglobin 14.7, hematocrit 43.1, platelets 223,000. Sodium 136, potassium 4.3, chloride 104, carbon dioxide 24, BUN 20, creatinine 1.40. BNP 240.5. TSH is normal. Troponin I 0.042. IMPRESSION: 1. Acute pulmonary edema, probably due to noncompliance with blood pressure medications. 2. Mildly elevated troponin I without chest discomfort, probably due to demand ischemia. 3. Glucose of 445, secondary noncompliance with diabetes medications. 4. History of hypercholesterolemia. 5. EtOH abuse-12 pack per day. He did have normal ejection fraction in January 2018, but certainly may have developed alcoholic cardiomyopathy. 6. Noncompliance with medications. 7. Cocaine abuse. 8. Left cerebellar CVA 01/2018. RECOMMENDATIONS: Echocardiogram will be performed to reassess left ventricular function. He will be placed on thiamine with history of 12-pack per day EtOH abuse. He will need to be watched closely for withdrawal from alcohol. He will gently be diuresed. Job ID: [id number] [facility]
[2018-09-25] MEDS: Carvedilol 3.125 MG TAB PO SCH (17:11)
[2018-09-25] MEDS: Atorvastatin Calcium 40 MG TAB PO SCH (21:45)
[2018-09-26] MEDS: Acetaminophen 325 MG TAB PO PRN (04:05)
[2018-09-26 05:25] LABS: #Basophils 0.1 thou/uL (0.0-0.2); #Eosinphils 0.4 thou/uL (0.0-0.7); #Lymphocytes 2.7 thou/uL (1.20-3.40); #Monocytes 0.7 thou/uL (0.11-0.59); #Neutrophils 5.3 thou/uL (1.40-6.50); %Basophils 1.1 % (0.0-1.0); %Eosinophils 4.6 % (0.0-10.0); %Lymphocytes 29.4 % (21.0-51.0); %Monocytes 7.9 % (0.0-10.0); %Neutrophils 57.1 % (42.0-75.0); Hemoglobin 12.4 g/dL (14.0-18.0); Mean Corpuscular HGB CONC 34.4 g/dL (32.0-36.0); Mean Corpuscular Hemoglobin 34.2 pg (27.0-31.0); Mean Corpuscular Volume 99.3 fL (78.0-98.0); Mean Platelet Volume 10.5 fL (7.4-10.4); Platelet Count 185 thou/uL (130-400); RBC Distribution Width 11.3 % (11.5-14.5); Red Blood Cell (RBC) Count 3.64 mill/uL (4.70-6.10); White Blood Cell (WBC) Count 9.3 thou/uL (4.8-10.8)
[2018-09-26 05:42] LABS: Anion Gap 10 mmol/L (10-20); BUN (Urea Nitrogen) 22 mg/dL (8.9-20.6); Calc. Creatinine Clearance 76 mL/min (70-130); Calcium 9.6 mg/dL (7.8-10.44); Carbon Dioxide 29 mmol/L (22-29); Cardiac Risk 4.6 (Less than 4.5); Chloride 102 mmol/L (98-107); Cholesterol 185 mg/dl (< 200 Desired); Estimated GFR-MDRD 54; Glucose 298 mg/dL (70-105); HDL Cholesterol 40 mg/dL (>60 Neg Risk); LDL Cholesterol, Calculated 110 mg/dL; Potassium 4.2 mmol/L (3.5-5.1); Sodium 137 mmol/L (136-145); Triglycerides 174 mg/dL (Less than 150)
[2018-09-26] MEDS: Furosemide 40 MG/4 ML VIAL SLOW IVP SCH ×2 (05:44→13:56)
[2018-09-26] MEDS: Aspirin 325 MG TAB PO SCH (09:15)
[2018-09-26] MEDS: Carvedilol 3.125 MG TAB PO SCH ×2 (09:16→16:43)
[2018-09-26] MEDS: metFORMIN 500 MG TAB PO SCH ×2 (09:17→16:43)
[2018-09-26] MEDS: Aspirin 81 mg Enteric Coated Tablet PO SCH (09:18)
[2018-09-26] MEDS: Enoxaparin Sodium 40 MG/0.4 ML SYRINGE SC SCH (09:18)
[2018-09-26] MEDS: Famotidine 20 MG TAB PO SCH ×2 (09:19→21:34)
[2018-09-26] MEDS: Lisinopril 10 MG TAB PO SCH ×2 (09:19→21:34)
[2018-09-26] MEDS: NPH, Human Insulin Isophane 300 UNIT/3 ML VIAL SC SCH ×2 (09:50→21:34)
[2018-09-26] MEDS: HumaLOG 300 UNITS/3 ML VIAL SC PRN ×2 (11:31→18:17)
--- NOTE | 2018-09-26 12:12 | PDOC.PN ---
- Subjective Encounter Start Date: 09/26/18 Encounter Start Time: 07:15 -: old records requested/rev Patient seen and examined. No new complaints. No overnight events - Objective Resuscitation Status - Order Detail: 09/25/18 07:35 Resuscitation Status Routine Resuscitation Status: FULL: Full Resuscitation MAR Reviewed: Yes Vital Signs & Weight: Vital Signs (12 hours) Temp Pulse Resp BP Pulse Ox 09/26/18 11:29 98 F 66 16 109/58 L 95 09/26/18 08:41 97.7 F 67 16 135/75 97 09/26/18 06:00 94 L 09/26/18 03:41 97.6 F 68 14 120/71 97 Weight Weight 169 lb 3.2 oz I&O: 09/25/18 09/26/18 09/27/18 06:59 06:59 06:59 Intake Total 910 Output Total 0 Balance 910 Result Diagrams: 09/26/18 05:03 09/26/18 05:03 Additional Labs: Accuchecks 09/26/18 09/26/18 09/25/18 10:59 05:48 20:30 POC Glucose 447 H 261 H 263 H 09/25/18 09/25/18 17:00 12:25 POC Glucose 337 H 291 H EKG Reviewed by me: Yes (nsr) Phys Exam - Physical Examination Constitutional: NAD HEENT: PERRLA, moist MMs, sclera anicteric Neck: no JVD, supple Respiratory: no wheezing, no rales, no rhonchi, clear to auscultation bilateral Cardiovascular: RRR, no significant murmur, no rub Gastrointestinal: soft, non-tender, no distention, positive bowel sounds Musculoskeletal: no edema, pulses present Neurological: non-focal, normal sensation, moves all 4 limbs Lymphatic: no nodes Psychiatric: normal affect, A&O x 3 Skin: no rash, normal turgor Dx/Plan (1) Hypertensive emergency Code(s): I16.1 - HYPERTENSIVE EMERGENCY Status: Resolved (2) Acute pulmonary edema Code(s): J81.0 - ACUTE PULMONARY EDEMA Status: Resolved (3) Cocaine abuse Code(s): F14.10 - COCAINE ABUSE, UNCOMPLICATED Status: Chronic (4) Diabetes type 2, uncontrolled Code(s): E11.65 - TYPE 2 DIABETES MELLITUS WITH HYPERGLYCEMIA Status: Chronic (5) Noncompliance with medication regimen Code(s): Z91.14 - PATIENT'S OTHER NONCOMPLIANCE WITH MEDICATION REGIMEN Status : Chronic (6) Demand ischemia Code(s): I24.8 - OTHER FORMS OF ACUTE ISCHEMIC HEART DISEASE Status: Acute (7) CKD (chronic kidney disease) stage 3, GFR 30-59 ml/min Code(s): N18.3 - CHRONIC KIDNEY DISEASE, STAGE 3 (MODERATE) Status: Chronic - Plan cont current plan of care * today echo * DC nitro patch * start lisinopril * cardiology following * medication reviewed as below * symptomatic treatment. * increase nph 10 unit sc bid Review of Systems - Review of Systems ENT: negative: Ear Pain, Ear Discharge, Nose Pain, Nose Discharge, Nose Congestion, Mouth Pain, Mouth Swelling, Throat Pain, Throat Swelling, Other Respiratory: negative: Cough, Dry, Shortness of Breath, Hemoptysis, SOB with Excertion, Pleuritic Pain, Sputum, Wheezing Cardiovascular: negative: chest pain, palpitations, orthopnea, paroxysmal nocturnal dyspnea, edema, light headedness, other Gastrointestinal: negative: Nausea, Vomiting, Abdominal Pain, Diarrhea, Constipation, Melena, Hematochezia, Other Genitourinary: negative: Dysuria, Frequency, Incontinence, Hematuria, Retention , Other Musculoskeletal: negative: Neck Pain, Shoulder Pain, Arm Pain, Back Pain, Hand Pain, Leg Pain, Foot Pain, Other Skin: negative: Rash, Lesions, Deon, Bruising, Other - Medications/Allergies Allergies/Adverse Reactions: Allergies Allergy/AdvReac Type Severity Reaction Status Date / Time penicillin Allergy Verified 09/25/18 15:50 Medications: Current Medications Acetaminophen (Tylenol) 650 mg PO Q4H PRN PRN Reason: Headache/Fever/Mild Pain (1-3) Last Admin: 09/26/18 04:05 Dose: 650 mg Hydrocodone Bitart/Acetaminophen ([place] 5/325) 1 tab PO Q4H PRN PRN Reason: Moderate Pain (4-6) Artificial Tears (Tears Naturale) 2 drop EA EYE PRN PRN PRN Reason: Dry Eyes Aspirin (Aspirin) 325 mg PO DAILY [facility] Last Admin: 09/26/18 09:15 Dose: Not Given Aspirin (Ecotrin) 81 mg PO DAILY [facility] Last Admin: 09/26/18 09:18 Dose: 81 mg Atorvastatin Calcium (Lipitor) 40 mg PO [facility] Last Admin: 09/25/18 21:45 Dose: 40 mg Bisacodyl (Dulcolax) 10 mg PO DAILYPRN PRN PRN Reason: Constipation Bisacodyl (Dulcolax) 10 mg NC DAILYPRN PRN PRN Reason: Constipation Calcium Carbonate (Tums) 1,000 mg PO Q4H PRN PRN Reason: Heartburn or Indigestion Carvedilol (Coreg) 3.125 mg PO BID-[facility] Last Admin: 09/26/18 09:16 Dose: 3.125 mg Dextrose/Water (Dextrose 50%) 25 gm SLOW IVP PRN PRN PRN Reason: Hypoglycemia Enoxaparin Sodium (Lovenox) 40 mg SC 0900 [facility] Last Admin: 09/26/18 09:18 Dose: 40 mg Famotidine (Pepcid) 20 mg PO BID [facility] Last Admin: 09/26/18 09:19 Dose: 20 mg Furosemide (Lasix) 40 mg SLOW IVP 0600,1400 [facility] Last Admin: 09/26/18 05:44 Dose: 40 mg Glucagon (Glucagon) 1 mg IM PRN PRN PRN Reason: Hypoglycemia Guaifenesin (Robitussin Sf) 200 mg PO Q4H PRN PRN Reason: Cough Hydralazine HCl (Apresoline) 10 mg SLOW IVP Q4H PRN PRN Reason: SBP > 180 and HR < 70 Dextrose/Water (D5w) 1,000 mls @ 0 mls/hr IV .Q0M PRN PRN Reason: Hypoglycemia Insulin Human Lispro (Humalog) 0 units SC .BEDTIME SLIDING SC PRN PRN Reason: Bedtime Correctional Scale Last Admin: 09/25/18 21:46 Dose: 3 unit Insulin Human Lispro (Humalog) 0 units SC .AGGRESSIVE SLIDING PRN PRN Reason: Aggressive Correctional Scale Last Admin: 09/26/18 11:31 Dose: 13 units Insulin Human NPH (Humulin N) 10 unit SC BID [facility] Last Admin: 09/26/18 09:50 Dose: 10 unit Lisinopril (Zestril) 10 mg PO BID [facility] Last Admin: 09/26/18 09:19 Dose: 10 mg Loperamide HCl (Imodium) 2 mg PO PRN PRN PRN Reason: Diarrhea/Loose Stools Loratadine (Claritin) 10 mg PO DAILYPRN PRN PRN Reason: Sinus Symptoms Metformin HCl (Glucophage) 1,000 mg PO BID-[facility] Last Admin: 09/26/18 09:17 Dose: 1,000 mg Mineral Oil/White Petrolatum (Eucerin Cream) 0 gm TOP BIDPRN PRN PRN Reason: Dry Skin Nitroglycerin (Nitrostat) 0.4 mg SL Q5MIN PRN PRN Reason: Chest Pain Ondansetron HCl (Zofran Odt) 4 mg PO Q6H PRN PRN Reason: Nausea/Vomiting Ondansetron HCl (Zofran) 4 mg IVP Q6H PRN PRN Reason: Nausea/Vomiting Senna/Docusate Sodium (Senokot S) 2 tab PO BID PRN PRN Reason: Constipation Sodium Chloride ([place] Nasal Golden 0.65%) 0 ml EA NARE QIDPRN PRN PRN Reason: Nasal Congestion Sodium Chloride (Flush - Normal Saline) 10 ml IVF Q12HR [facility] Last Admin: 09/26/18 09:20 Dose: 10 ml Sodium Chloride (Flush - Normal Saline) 10 ml IVF PRN PRN PRN Reason: Saline Flush Throat Lozenges (Cepastat Lozenges) 1 suraj PO Q2H PRN PRN Reason: Sore Throat Zolpidem Tartrate (Ambien) 5 mg PO HSPRN PRN PRN Reason: Insomnia
[2018-09-26 14:02] VITALS: BMI 25.7
[2018-09-26] MEDS: Atorvastatin Calcium 40 MG TAB PO SCH (21:34)
[2018-09-27] MEDS: Furosemide 40 MG/4 ML VIAL SLOW IVP SCH (06:10)
[2018-09-27 07:38] VITALS: TEMP 97.5
[2018-09-27] MEDS: Famotidine 20 MG TAB PO SCH (09:04)
[2018-09-27] MEDS: Aspirin 81 mg Enteric Coated Tablet PO SCH (09:04)
[2018-09-27] MEDS: metFORMIN 500 MG TAB PO SCH (09:04)
[2018-09-27] MEDS: Lisinopril 10 MG TAB PO SCH (09:05)
[2018-09-27] MEDS: NPH, Human Insulin Isophane 300 UNIT/3 ML VIAL SC SCH (09:05)
[2018-09-27] MEDS: Carvedilol 3.125 MG TAB PO SCH (09:05)
[2018-09-27] MEDS: Enoxaparin Sodium 40 MG/0.4 ML SYRINGE SC SCH (09:05)
--- NOTE | 2018-09-27 10:09 | DIS ---
DATE OF ADMISSION: 09/25/2018 DATE OF DISCHARGE: 09/27/2018 PRIMARY CARE PHYSICIAN: [facility] Call admission. DISCHARGE DISPOSITION: Home. PRIMARY DISCHARGE DIAGNOSES: 1. Hypertensive emergency, resolved. 2. Acute pulmonary edema, resolved. 3. Cocaine abuse. 4. Demand ischemia. SECONDARY DISCHARGE DIAGNOSES: Chronic kidney disease, stage 3; diabetes type 2, noncompliance with medication regimen; polysubstance abuse. PRIMARY PROCEDURE/OPERATION: None. RADIOLOGICAL INVESTIGATION: Chest x-ray showed pulmonary edema. Echocardiography showed diastolic dysfunction. SIGNIFICANT LABORATORY DATA: WBC 9.3, hemoglobin 12.4, and platelet 185. Sodium 137, potassium 4.2, BUN 22, creatinine 1.41, and calcium 9.6. Hemoglobin A1c 10.5. LDL 110. Troponin 0.041. LFT normal. BNP 240. Urinalysis, glucosuria. Urine drug screen positive for cocaine. Serum drug screen negative. Influenza A and B negative. DISCHARGE MEDICATIONS: 1. Aspirin 81 mg p.o. daily. 2. Lipitor 40 mg p.o. at bedtime. 3. Coreg 3.125 mg b.i.d. 4. Glyburide 5 mg p.o. b.i.d. 5. Folic acid 1 mg daily. 6. Hydrochlorothiazide 25 mg p.o. daily. 7. Lisinopril 10 mg p.o. b.i.d. 8. Metformin 1000 mg p.o. b.i.d. 9. Thiamine 100 mg p.o. daily. CONTRAINDICATION: None. CODE STATUS: Full code. INPATIENT HEALTH EDUCATION TEACHER: Dr. Swanson was consulted while in the hospital. TEST RESULTS PENDING ON DISCHARGE: None. ALLERGIES: PENICILLIN. DISCHARGE PLAN: Post-hospital, the patient will follow up with primary care physician in 1 week. HOSPITAL COURSE: A 43-year-old male, who did cocaine on Tuesday and over weekend, he was feeling not good. The night before admission, he was feeling shortness of breath and his shortness of breath gotten worse very quickly. He was not able to breathe. He was hypoxic on admission. He was very hypertensive on admission. Chest x-ray was consistent with pulmonary edema. Initially in the emergency room, he required BiPAP. He was also given Lasix. Subsequently, he was admitted to telemetry floor. In the emergency room, nitroglycerin drip was discontinued and his blood pressure was controlled with nitroglycerin patch. He did not require any further BiPAP. While in the hospital, we consulted Cardiology. His urine drug screen was positive for cocaine. He had demand ischemia with cocaine. His blood sugar was out of control. While in the hospital, we gave him insulin, but the patient reported to try oral medication and that is why we changed to glyburide and metformin upon discharge. The above-mentioned medication adjusted while in the hospital. At this point, the patient's blood pressure is well controlled. He is completely asymptomatic. He is on room air, ambulatory, tolerating p.o. well. The patient is seen and examined at bedside today. All review of systems reviewed with him and negative. His physical examination is normal. Counseling has been provided to avoid any illicit drugs. Dietary education was given. All new medication prescription sent to his pharmacy. The patient is medically stable for discharge today. Job ID: [id number]
[2018-09-27] MEDS: HumaLOG 300 UNITS/3 ML VIAL SC PRN (12:39)
[2018-09-27 12:49] VITALS: BP 134/82
--- NOTE | 2018-10-07 17:36 | EKG ---
Test Reason : Blood Pressure : / mmHG Vent. Rate : 094 BPM Atrial Rate : 094 BPM P-R Int : 132 ms QRS Dur : 080 ms QT Int : 354 ms P-R-T Axes : 031 -04 087 degrees QTc Int : 442 ms Normal sinus rhythm Possible Left atrial enlargement Borderline ECG Confirmed by JOY JEFFRIES ([id number]), electronic news gathering editor SHERIN ALONSO ([id number]) on 10/07/2018 5:35:48 PM Referred By: Confirmed By:JOY JEFFRIES
--- NOTE | 2018-10-07 17:36 | EKG ---
Test Reason : Blood Pressure : / mmHG Vent. Rate : 097 BPM Atrial Rate : 097 BPM P-R Int : 128 ms QRS Dur : 082 ms QT Int : 344 ms P-R-T Axes : 042 022 081 degrees QTc Int : 436 ms Normal sinus rhythm Possible Left atrial enlargement Borderline ECG Confirmed by JOY JEFFRIES ([id number]), newspaper photo editor SHERIN ALONSO ([id number]) on 10/07/2018 5:35:47 PM Referred By: ADRI JEFFRIES Confirmed By:JOY JEFFRIES
== END 2018-09-27 13:08 | disposition home or self-care (01) | DRG 304 ==
LOC: ERS 05:51 → ERHOLD 07:55 → 2NO 15:41
PROVIDERS: ADMIT Internal Medicine; ATTEND Internal Medicine
PROC: 5A09357 Assistance with Respiratory Ventilation, Less than 24 Consecutive Hours, Continuous Positive Airway Pressure (ICD-10-PCS; principal; 2018-09-25)
DX: I16.1 Hypertensive emergency (principal); J81.0 Acute pulmonary edema; N17.9 Acute kidney failure, unspecified; I24.8 Other forms of acute ischemic heart disease; E78.5 Hyperlipidemia, unspecified; F19.10 Other psychoactive substance abuse, uncomplicated; F10.10 Alcohol abuse, uncomplicated; F14.10 Cocaine abuse, uncomplicated; I12.9 Hypertensive chronic kidney disease with stage 1 through stage 4 chronic kidney disease, or unspecified chronic kidney disease; N18.3 Chronic kidney disease, stage 3 (moderate); E11.22 Type 2 diabetes mellitus with diabetic chronic kidney disease; R09.02 Hypoxemia; Z86.73 Personal history of transient ischemic attack (TIA), and cerebral infarction without residual deficits; Z98.890 Other specified postprocedural states; Z88.0 Allergy status to penicillin; Z71.51 Drug abuse counseling and surveillance of drug abuser; Z79.82 Long term (current) use of aspirin; Z79.84 Long term (current) use of oral hypoglycemic drugs; Z91.14 Patient's other noncompliance with medication regimen
CPT/HCPCS: 36415; 36416; 71045; 80048; 80053; 80061; 80306; 80307; 81003; 81015; 82553; 83036; 83735; 83880; 84443; 84484; 85025; 87804; 93005; 93306; 94660; 96365; 96375; 96376; J1650; J1815; J1940; J2060; J2405; J3411; J7050

== ENCOUNTER 2018-10-23 01:15 | Observation (INO) | payer SELFPAY ==
[2018-10-23 02:19] LABS: CKMB 1.8 ng/mL (0-6.6)
[2018-10-23 02:39] LABS: #Basophils 0.1 thou/uL (0.0-0.2); #Eosinphils 0.5 thou/uL (0.0-0.7); #Lymphocytes 1.9 thou/uL (1.20-3.40); #Monocytes 0.5 thou/uL (0.11-0.59); #Neutrophils 4.1 thou/uL (1.40-6.50); %Eosinophils 6.9 % (0.0-10.0); %Lymphocytes 26.9 % (21.0-51.0); %Monocytes 6.8 % (0.0-10.0); %Neutrophils 58.4 % (42.0-75.0); Hemoglobin 12.4 g/dL (14.0-18.0); Mean Corpuscular HGB CONC 35.1 g/dL (32.0-36.0); Mean Corpuscular Hemoglobin 34.9 pg (27.0-31.0); Mean Corpuscular Volume 99.3 fL (78.0-98.0); Mean Platelet Volume 10.1 fL (7.4-10.4); Platelet Count 196 thou/uL (130-400); Red Blood Cell (RBC) Count 3.54 mill/uL (4.70-6.10); White Blood Cell (WBC) Count 7.1 thou/uL (4.8-10.8)
[2018-10-23 02:46] LABS: ALT (SGPT) 21 U/L (8-55); AST (SGOT) 19 U/L (5-34); Albumin 3.9 g/dL (3.5-5.0); Alkaline Phosphatase 52 U/L (40-150); Anion Gap 10 mmol/L (10-20); BUN (Urea Nitrogen) 21 mg/dL (8.9-20.6); Bilirubin, Total 0.2 mg/dL (0.2-1.2); Calc. Creatinine Clearance 0 mL/min (70-130); Carbon Dioxide 25 mmol/L (22-29); Chloride 108 mmol/L (98-107); Estimated GFR-MDRD 71; Globulin 2.8 g/dL (2.4-3.5); Glucose 251 mg/dL (70-105); Potassium 4.4 mmol/L (3.5-5.1); Protein, Total 6.7 g/dL (6.0-8.3); Sodium 139 mmol/L (136-145)
[2018-10-23] MEDS ORDERED: Furosemide 40 MG/4 ML VIAL ONE (03:42)
[2018-10-23] MEDS ORDERED: Nitroglycerin 2% Ointment 1 INCH/1 GM Packet ONE (03:42)
[2018-10-23] MEDS ORDERED: Aspirin Chewable 81 MG TAB ONE (03:42)
[2018-10-23 03:50] LABS: Amphetamine Not Detected (NotDetected); Barbiturates Screen Not Detected (NotDetected); Benzodiazepine Screen Not Detected (NotDetected); Cocaine Metabolite Screen Detected (NotDetected); Medtox Control Line Valid? VALID (VALID); Medtox Reader # READER 1; Methadone Not Detected (NotDetected); Methamphetamine Not Detected (NotDetected); Opiate Screen Not Detected (NotDetected); Oxycodone Screen Not Detected (NotDetected); Phencyclidine (PCP) Not Detected (NotDetected); THC/Cannabinoid Screen Not Detected (NotDetected); Tricyclic Screen Not Detected (NotDetected)
[2018-10-23 05:18] LABS: Troponin I 0.072 ng/mL (< 0.028)
--- NOTE | 2018-10-23 05:32 | HP ---
PRIMARY CARE PHYSICIAN: None. CHIEF COMPLAINT: Shortness of breath. HISTORY OF PRESENT ILLNESS: The patient is a 43-year-old male with past medical history of cocaine abuse, hypertension, diabetes, who presents to the emergency department for shortness of breath. The patient has had some cocaine recently and then today he became very hypoxic and came to the ER. While the patient was in the ER, the patient was started on BiPAP and was given Lasix and nitroglycerin paste, which improved the patient's symptoms. The patient reports now he is feeling a lot better at this point. The patient reports that he has been trying to quit cocaine, but he is having a hard time. The patient reports also drinking alcohol at this point. The patient does not have a PCP. PAST MEDICAL HISTORY: Drug abuse, alcohol abuse, hypertension, and diabetes. PAST SURGICAL HISTORY: Removal of cyst. FAMILY HISTORY: Positive for diabetes. SOCIAL HISTORY: Positive for drug use and alcohol use. He denies any smoking. ALLERGIES: PENICILLIN. HOME MEDICATIONS: Include hydrochlorothiazide. I reviewed the chart indicate that the patient was on; 1. Aspirin. 2. Lipitor. 3. Coreg. 4. Glyburide. 5. Folic acid. 6. Hydrochlorothiazide and lisinopril. 7. Metformin. 8. Thiamine. REVIEW OF SYSTEMS: Negative other than mentioned in the HPI. PHYSICAL EXAMINATION: VITAL SIGNS: Blood pressure 168/107, pulse 94, respiratory rate 21, temperature 98.2 Fahrenheit, and O2 saturation 97% on 2 L of oxygen. GENERAL: The patient is alert, on nasal cannula, and in no acute distress. HEENT: Head is atraumatic. Ear, nose, and throat, no exudate, drainage, or bleeding noted. NECK: No lymphadenopathy noted. CARDIOVASCULAR: No murmur, rubs, or gallops. Regular rate and rhythm. PULMONARY: Clear bilaterally. No wheezes or rales noted. ABDOMEN: Soft, nontender. Bowel sounds positive. EXTREMITIES: Lower extremity, no edema noted. NEUROLOGIC: The patient is alert and he is cooperative. SKIN: No rashes noted. LABORATORY DATA: Sodium 139, potassium 4.4, chloride 108, carbon dioxide 25, BUN 21, creatinine 1.12, and glucose 251. Troponin 0.048. BNP 160. CK-MB 1.8. Hemoglobin 12.4, WBC 7.1, hematocrit 35.2, and platelets 196. Toxicology screen positive for cocaine, otherwise negative. EKG reviewed and appears to have normal sinus and no ST-segment elevation noted. X-ray, official report pending, but appears to have no pulmonary congestion or acute cardiopulmonary abnormality noted. ASSESSMENT: 1. Acute respiratory failure due to hypoxia. 2. Cocaine abuse. 3. Diabetes. 4. Hypertension. PLAN: The patient doing well after he was treated with BiPAP, Lasix, and nitroglycerin paste. The patient now breathing well on nasal cannula. We will admit to tele for further observation. We will wean off oxygen. DuoNebs added. Anticipate discharge today if the patient appears to remain stable. Elevated blood pressure likely due to noncompliance with his medication, cocaine use. We will add hydralazine p.r.n. Restart home medication. Diabetes type 2 with hyperglycemia. We will start SSI. Restart home medications at discharge. Cocaine abuse. The patient was counseled on drug abuse and advised to seek help. The patient was also counseled on alcohol abuse. The patient is full code. Medical power of disability attorney, the patient's aunt. DVT prophylaxis addressed. Job ID: [id number]
--- NOTE | 2018-10-23 05:58 | RAD ---
CHEST TWO VIEWS: INDICATIONS: History of dyspnea. COMPARISON: 03/12/2015 FINDINGS: There is perihilar interstitial prominence, which is nonspecific but can be seen with viral illness o r other atypical infectious agents. No artur consolidation is evident. Heart size is normal. No pl eural effusion is noted. No acute osseous abnormality is noted. IMPRESSION: Perihilar interstitial prominence, nonspecific and can be seen with atypical infectious processes. R ecommend radiographic followup. POS: [facility]
[2018-10-23 06:29] VITALS: BMI 26.9
[2018-10-23] MEDS ORDERED: Acetaminophen 325 MG TAB PO PRN (06:52)
[2018-10-23] MEDS ORDERED: hydrALAZINE 20 MG/ML VIAL SLOW IVP PRN (06:52)
[2018-10-23] MEDS ORDERED: Dextrose 5% in Water 1,000 ML IV PRN (06:52)
[2018-10-23] MEDS ORDERED: HumaLOG 300 UNITS/3 ML VIAL SC PRN (06:52)
[2018-10-23] MEDS ORDERED: Dextrose 50% Abboject 50 ML SYRINGE SLOW IVP PRN (06:52)
[2018-10-23] MEDS ORDERED: Ondansetron PF 4 MG/2 ML Vial IVP PRN (06:52)
[2018-10-23 08:19] LABS: Troponin I 0.095 ng/mL (< 0.028)
[2018-10-23] MEDS ORDERED: Nitroglycerin 2% Ointment 1 INCH/1 GM Packet TOP SCH (09:00)
[2018-10-23] MEDS ORDERED: Enoxaparin Sodium 40 MG/0.4 ML SYRINGE SC SCH (09:00)
[2018-10-23] MEDS ORDERED: Hydrochlorothiazide 25 MG TAB PO SCH (09:00)
[2018-10-23] MEDS ORDERED: Lisinopril 10 MG TAB PO SCH (09:00)
[2018-10-23] MEDS ORDERED: Aspirin 81 mg Enteric Coated Tablet PO SCH (09:00)
[2018-10-23 12:22] VITALS: TEMP 98.1
[2018-10-23 14:31] VITALS: BP 140/79
--- NOTE | 2018-10-23 15:53 | DIS ---
DATE OF ADMISSION: 10/23/2018 DATE OF DISCHARGE: 10/23/2018 DISCHARGE DISPOSITION: Home. PRIMARY CARE PHYSICIAN: Dr. Brownlee. DISCHARGE DIAGNOSES: 1. Chest pain secondary to coronary spasm from cocaine intoxication. 2. Demand ischemia from cocaine abuse. 3. Hypertension. 4. Diabetes mellitus. 5. Cocaine abuse. DISCHARGE MEDICATIONS: Discharge medications remain the same as admission medication. No changes were made and are as follows; 1. Aspirin 81 mg daily. 2. Lisinopril 10 mg p.o. b.i.d. 3. Hydrochlorothiazide 25 mg daily. 4. Carvedilol 3.125 mg p.o. b.i.d. the patient will resume this after 48 hours once the cocaine is out of his system to prevent unopposed alpha blocking action. 5. Lipitor 40 mg daily. 6. Metformin 1000 mg p.o. b.i.d. 7. Glyburide 5 mg p.o. b.i.d. PROCEDURES DONE IN HOSPITAL: Chest x-ray, which was unremarkable. HISTORY OF PRESENT ILLNESS: Mr. Bonds is a 43-year-old male with known history of diabetes. Hypertension, and cocaine abuse, multiple hospitalization with same presentation, came back again with similar presentation with chest pain, shortness of breath, and generalized malaise. He was found to have uncontrolled hypertension upon presentation and was briefly treated with BiPAP for hypoxia in the ER. He was admitted for further evaluation and cardiac enzymes were ordered. Please see history and physical for further details. HOSPITAL COURSE: Mr. Bonds was monitored overnight. He was quickly weaned off BiPAP and was hemodynamically stable. His blood pressure was controlled and he was restarted on his home medication except for the exception of beta-malissa as he was positive for cocaine abuse. On my examination this morning, he is feeling much better except for some headache, which is likely due to some nitroglycerin paste applied earlier. Otherwise, he is stable and eager to go home. Long discussion was made with the patient about his cocaine abuse history and he is willing to quit. I have instructed him to stay off his carvedilol for another few days until the cocaine is excreted out of his system. He will follow up with primary care physician in the outpatient setting as well. PHYSICAL EXAMINATION: VITAL SIGNS: This morning, temperature 98.1, saturating 97% on room air, and blood pressure 158/95. GENERAL: No acute distress. CHEST: Clear to auscultation bilaterally. HEART: Rate and rhythm are regular. DISCHARGE PLAN: Discharge plan was discussed with the patient, who verbalized understanding. Job ID: [id number]
[2018-10-23] MEDS ORDERED: glyBURIDE 5 MG TAB PO SCH (17:00)
[2018-10-23] MEDS ORDERED: Atorvastatin Calcium 40 MG TAB PO SCH (21:00)
== END 2018-10-23 17:38 | disposition home or self-care (01) ==
LOC: ERS 01:15 → 2SW 05:08
PROVIDERS: ADMIT Family Medicine; ATTEND Family Medicine
DX: F14.129 Cocaine abuse with intoxication, unspecified (principal); R07.9 Chest pain, unspecified; I24.8 Other forms of acute ischemic heart disease; I10 Essential (primary) hypertension; F14.10 Cocaine abuse, uncomplicated; E11.65 Type 2 diabetes mellitus with hyperglycemia; J96.01 Acute respiratory failure with hypoxia; Z88.0 Allergy status to penicillin; Z91.14 Patient's other noncompliance with medication regimen; Z79.82 Long term (current) use of aspirin; Z79.84 Long term (current) use of oral hypoglycemic drugs; Z79.899 Other long term (current) drug therapy; Z98.890 Other specified postprocedural states
CPT/HCPCS: 36415; 36416; 71046; 80053; 80306; 82553; 83880; 84484; 85025; 93005; 96372; 96374; G0378; J1650; J1940

== ENCOUNTER 2018-11-06 15:48 | Emergency (ER) | payer SELFPAY ==
[2018-11-06 17:11] LABS: #Basophils 0.1 thou/uL (0.0-0.2); #Eosinphils 0.2 thou/uL (0.0-0.7); #Lymphocytes 2.2 thou/uL (1.20-3.40); #Monocytes 0.6 thou/uL (0.11-0.59); #Neutrophils 6.4 thou/uL (1.40-6.50); %Basophils 1.3 % (0.0-1.0); %Eosinophils 2.5 % (0.0-10.0); %Lymphocytes 22.9 % (21.0-51.0); %Monocytes 5.9 % (0.0-10.0); %Neutrophils 67.5 % (42.0-75.0); Hemoglobin 13.6 g/dL (14.0-18.0); Mean Corpuscular Hemoglobin 32.8 pg (27.0-31.0); Mean Corpuscular Volume 96.5 fL (78.0-98.0); Mean Platelet Volume 9.8 fL (7.4-10.4); Platelet Count 236 thou/uL (130-400); RBC Distribution Width 11.3 % (11.5-14.5); Red Blood Cell (RBC) Count 4.13 mill/uL (4.70-6.10); White Blood Cell (WBC) Count 9.4 thou/uL (4.8-10.8)
--- NOTE | 2018-11-06 17:21 | RAD ---
TWO VIEW CHEST: Comparison: 10-23-18 Indication: New onset shortness of breath, emergency exam. FINDINGS: Lungs are clear. No effusion or pneumothorax. No free air beneath the hemidiaphragms. Cardiac silhoue tte is normal in size. Osseous structures intact. IMPRESSION: No focal consolidation. POS: [facility]
[2018-11-06 17:32] LABS: ALT (SGPT) 18 U/L (8-55); AST (SGOT) 14 U/L (5-34); Albumin 4.3 g/dL (3.5-5.0); Alkaline Phosphatase 68 U/L (40-150); Anion Gap 12 mmol/L (10-20); BUN (Urea Nitrogen) 17 mg/dL (8.9-20.6); Bilirubin, Total 0.4 mg/dL (0.2-1.2); Calc. Creatinine Clearance 0 mL/min (70-130); Calcium 9.8 mg/dL (7.8-10.44); Carbon Dioxide 29 mmol/L (22-29); Chloride 100 mmol/L (98-107); Estimated GFR-MDRD 51; Globulin 2.7 g/dL (2.4-3.5); Glucose 328 mg/dL (70-105); Sodium 136 mmol/L (136-145)
[2018-11-06 17:54] LABS: CKMB 1.4 ng/mL (0-6.6)
[2018-11-06 20:36] LABS: Troponin I 0.038 ng/mL (< 0.028)
[2018-11-06] MEDS ORDERED: cloNIDine 0.1 MG TAB ONE (20:52)
[2018-11-06] MEDS ORDERED: Aspirin 325 MG TAB ONE (20:52)
--- NOTE | 2018-11-11 17:02 | EKG ---
Test Reason : Blood Pressure : / mmHG Vent. Rate : 070 BPM Atrial Rate : 070 BPM P-R Int : 136 ms QRS Dur : 080 ms QT Int : 398 ms P-R-T Axes : 040 012 089 degrees QTc Int : 429 ms Normal sinus rhythm Nonspecific ST and T wave abnormality Abnormal ECG No acute changes compared to old EKG Confirmed by SILVESTRE GRANGER ([id number]), clinical editor LAURA BURTON ([id number]) on 11/11/2018 5:01:32 PM Referred By: Confirmed By:SILVESTRE GRANGER
== END 2018-11-06 21:30 | disposition home or self-care (01) ==
LOC: ERS 15:48
DX: R06.02 Shortness of breath (principal); I11.0 Hypertensive heart disease with heart failure; I50.9 Heart failure, unspecified; E11.9 Type 2 diabetes mellitus without complications; E78.5 Hyperlipidemia, unspecified; F41.9 Anxiety disorder, unspecified; F32.9 Major depressive disorder, single episode, unspecified; Z79.84 Long term (current) use of oral hypoglycemic drugs; Z79.899 Other long term (current) drug therapy
CPT/HCPCS: 36415; 71046; 80053; 82553; 83880; 84484; 85025; 93005

== ENCOUNTER 2019-07-24 06:50 | Inpatient (IN) | payer OTHER, SELFPAY ==
[2019-07-24 07:24] LABS: #Lymphocytes 0.6 thou/uL (1.20-3.40); #Monocytes 0.2 thou/uL (0.11-0.59); #Neutrophils 7.7 thou/uL (1.40-6.50); %Eosinophils 0.1 % (0.0-10.0); %Lymphocytes 6.6 % (21.0-51.0); %Monocytes 2.2 % (0.0-10.0); %Neutrophils 91.1 % (42.0-75.0); Mean Corpuscular HGB CONC 34.7 g/dL (32.0-36.0); Mean Corpuscular Hemoglobin 33.8 pg (27.0-31.0); Mean Corpuscular Volume 97.5 fL (78.0-98.0); Mean Platelet Volume 11.6 fL (7.4-10.4); Platelet Count 121 thou/uL (130-400); RBC Distribution Width 11.5 % (11.5-14.5); Red Blood Cell (RBC) Count 4.44 mill/uL (4.70-6.10); White Blood Cell (WBC) Count 8.5 thou/uL (4.8-10.8)
[2019-07-24 07:39] LABS: Bacteria/HPF None Seen HPF (None Seen); Bilirubin Negative (Negative); Blood, Urine 1+ (Negative); Clarity Clear (Clear); Glucose, Urine (Dipstick) Greater than 1000 mg/dL (Negative); Leukocyte Negative Leu/uL (Negative); Nitrite Negative (Negative); Protein, Urine (Dipstick) 300 mg/dL (Neg-Trace); RBC/HPF 0-3 HPF (0-3); Squamous Epithelial 0-3 HPF (0-3); Urobilinogen Normal mg/dL (Less than 2); WBC/HPF 0-3 HPF (0-3)
[2019-07-24 07:41] LABS: Acetaminophen Less than 6.0 mcg/mL (10.0-30.0); Alcohol Less than 10 mg/dL (Less than 10); CK (CPK) 237 U/L (30-200); Salicylate Less than 8.0 mg/dL (15.0-30.0)
[2019-07-24 07:43] LABS: ALT (SGPT) 21 U/L (8-55); AST (SGOT) 38 U/L (5-34); Albumin 3.4 g/dL (3.5-5.0); Alkaline Phosphatase 92 U/L (40-110); Anion Gap 12 mmol/L (10-20); BUN (Urea Nitrogen) 33 mg/dL (8.9-20.6); Bilirubin, Total 0.4 mg/dL (0.2-1.2); Calc. Creatinine Clearance 0 mL/min (70-130); Calcium 8.5 mg/dL (7.8-10.44); Carbon Dioxide 27 mmol/L (22-29); Chloride 91 mmol/L (98-107); Estimated GFR-MDRD 33; Globulin 3.4 g/dL (2.4-3.5); Glucose 386 mg/dL (70-105); Lipase 111 U/L (8-78); Potassium 3.4 mmol/L (3.5-5.1); Protein, Total 6.8 g/dL (6.0-8.3); Sodium 127 mmol/L (136-145)
--- NOTE | 2019-07-24 07:45 | RAD ---
Chest one view HISTORY: Fever. Dyspnea. COMPARISON: 11/06/2018. FINDINGS: Cardiac silhouette is magnified by projection. Pulmonary vasculature slightly engorged. Ethan ewhat dense infiltrate with air bronchograms in the right upper and lower lobes and the left lower lobe. Mediastinum is midline. No evidence of pneumothorax. potable water treatment operator leads overlie the chest. IMPRESSION: Bilateral multifocal pneumonitis. Consider pneumonia.
[2019-07-24 08:02] LABS: CKMB 0.4 ng/mL (0-6.6)
[2019-07-24 08:03] LABS: Cocaine Metabolite Screen Not Detected (NotDetected); Medtox Reader # READER 1; Methamphetamine Not Detected (NotDetected); Opiate Screen Not Detected (NotDetected); Phencyclidine (PCP) Not Detected (NotDetected); THC/Cannabinoid Screen Not Detected (NotDetected)
[2019-07-24 08:04] LABS: Amphetamine Not Detected (NotDetected); Barbiturates Screen Not Detected (NotDetected); Benzodiazepine Screen Not Detected (NotDetected); Medtox Control Line Valid? VALID (VALID); Methadone Not Detected (NotDetected); Oxycodone Screen Not Detected (NotDetected); Tricyclic Screen Not Detected (NotDetected)
[2019-07-24] MEDS ORDERED: Acetaminophen 500 MG TAB ONE (08:33)
[2019-07-24] MEDS ORDERED: Aspirin Chewable 81 MG TAB ONE (09:03)
[2019-07-24 10:26] LABS: Lactic Acid 1.7 mmol/L (0.5-2.2)
[2019-07-24 10:32] LABS: Troponin I 0.084 ng/mL (< 0.028)
[2019-07-24] MEDS ORDERED: Bisacodyl 10 MG SUPP PR PRN (11:45)
[2019-07-24] MEDS ORDERED: HumaLOG 300 UNITS/3 ML VIAL SC PRN (11:45)
[2019-07-24] MEDS ORDERED: Calcium Carbonate 500 MG ChewTAB PO PRN (11:45)
[2019-07-24] MEDS ORDERED: Dextrose 5% in Water 1,000 ML IV PRN (11:45)
[2019-07-24] MEDS ORDERED: Senokot S 8.6-50 MG TAB PO PRN (11:45)
[2019-07-24 12:09] VITALS: BMI 25.9
[2019-07-24 12:28] LABS: HBCM Index 0.04 S/CO (0-0.79); HBSAg Index 0.15 S/CO (0-0.99); HIV (1/2) Antibody/Antigen Non-Reactive (NonReactive); HIV 1/2 INDEX 0.11 S/CO (<1.00); Hep A IgM AB Non-Reactive (NonReactive); Hep A IgM S/CO 0.04 S/CO (0-0.79); Hep B Surf Ag Non-Reactive S/CO (NonReactive); Hepatitis B Core IgM Abs Non-Reactive (NonReactive)
[2019-07-24 12:30] LABS: Hep C IgG Ab Reflex HepC Qnt (NonReactive); Hep C Index 11.42 S/CO (0-0.79)
--- NOTE | 2019-07-24 12:31 | HP ---
REASON FOR ADMISSION: Sepsis, pneumonia, acute kidney injury, hyponatremia, substance abuse, likely noncompliance with medication. HISTORY OF PRESENTING ILLNESS: The patient gives history of not feeling good from Tuesday. He has been coughing green sputum and had severe nausea and vomiting. He has not been able to eat anything from the last 2 days. He did not know that he was brought to the emergency room by his girlfriend until he realized he was in the ER. The patient does not recall if he passed out. No complaints of chest pain or palpitation. He has shortness of breath on minimal exertion. He also states he has had prior stroke and is a little unsteady on his gait, but manages to do all his activities of daily living by himself. No trouble swallowing per patient. Admits to using cocaine a week back. No complaints of chest pain or palpitations at present. On arrival, had a fever of 103 in the ER. PAST MEDICAL AND SURGICAL HISTORY: History of diabetes mellitus, type 2; history of CHF with diastolic dysfunction in the past; history of left cerebellar CVA in January of 2018; dyslipidemia; hypertension; history of testicular and abdominal surgeries in the past; left thigh cyst removal; and prior history of pleural effusions, likely due to congestive heart failure. CURRENT MEDICATIONS: The patient does not recall any of his medications. He knows he takes eight tablets, but no insulin as such. Per prior records here, the patient is on: 1. Aspirin 81 mg daily. 2. Atorvastatin 40 mg p.o. at bedtime. 3. Coreg 3.125 mg twice daily. 4. Glyburide 5 mg twice daily. 5. Hydrochlorothiazide 25 mg daily. 6. Lisinopril 10 mg twice daily. 7. Metformin 1000 mg twice daily. ALLERGIES: ALLERGIC TO PENICILLIN. PERSONAL HISTORY: The patient admits to using cocaine a week back. Drinks on social occasions per the patient. Smokes 3 to 4 cigarettes a day. Lives with his girlfriend. FAMILY HISTORY: The mother at the age of 53 years, she has had history of heart failure. He does not know much about his father. CODE STATUS: Full. Power of contract attorney is his , Ms. Susie Kraft. The patient has a 24-year-old son as well. REVIEW OF SYSTEMS: CONSTITUTIONAL: Negative for weight loss or gain, ability to conduct usual activities. SKIN: Negative for rash, itching. EYES: Negative for double vision, pain. ENT/MOUTH: Negative for nose bleeding, neck stiffness, pain, tenderness. CARDIOVASCULAR: Negative for palpitations, dyspnea on exertion, orthopnea. RESPIRATORY: Negative for shortness of breath, wheezing, cough, hemoptysis, fever or night sweats. GASTROINTESTINAL: Negative for poor appetite, abdominal pain, heartburn, nausea , vomiting, constipation, or diarrhea. GENITOURINARY: Negative for urgency, frequency, dysuria, nocturia. MUSCULOSKELETAL: Negative for pain, swelling. NEUROLOGIC/PSYCHIATRIC: Negative for anxiety, depression. ALLERGY/IMMUNOLOGIC: Negative for skin rash, bleeding tendency. PHYSICAL EXAMINATION: GENERAL: The patient is a 44-year-old male, who is currently not in any acute distress. VITAL SIGNS: Blood pressure 184/112, pulse 106 per minute, respiratory rate 26 per minute, temperature 103.3 degrees Fahrenheit, and saturating 94% on room air. NECK: Supple. No elevated JVD. HEENT: Eyes, extraocular muscles intact. Pupils reacting to light. Oral cavity, mucous membranes are dry. No exudates or congestion. CARDIOVASCULAR SYSTEM: S1 and S2 heard. Regular rhythm. RESPIRATORY SYSTEM: Air entry 1+ bilateral. Coarse rales bilateral. ABDOMEN: Soft. Bowel sounds heard. No tenderness, rigidity, or guarding. EXTREMITIES: No peripheral edema or calf tenderness. VASCULAR SYSTEM: Peripheral pulses 1+ bilateral. No ischemic ulcerations or gangrene. CENTRAL NERVOUS SYSTEM: No gross focal deficits noted. The patient is lethargic, but responds well to verbal questions. PSYCHIATRIC SYSTEM: No obvious hallucinations or delusions. LABORATORY DATA: White count of 8, H and H 15 and 43, platelet count 121 with 91% neutrophils, and MCV is 97. Sodium 127, potassium 3.4, serum chloride 91, bicarb is 27, BUN 33, creatinine 2.1, serum glucose 386, AST 38, ALT 21, alkaline phosphatase 92, and total bilirubin 0.4. Troponin I is indeterminate, peaking up to 0.08. CK-MB 0.4. Albumin is 3.4. Lipase is 111. TSH 1.3. UA shows greater than 1000 mg/dL of glucose, more than 300 mg/dL of protein. Urine drug screen is negative. Beta-hydroxybutyrate is 0.28. Influenza A and B antigens are negative. IMAGING STUDIES: Chest x-ray done shows multifocal pneumonia. EKG done shows sinus tach at 112 beats per minute. There is LVH strain pattern with poor R-wave progression seen. CLINICAL IMPRESSION AND PLAN: The patient will be admitted to telemetry for pneumonia, sepsis, acute kidney injury, history of substance abuse, multiple electrolyte abnormalities, intractable nausea and vomiting with abdominal pain likely due to cocaine. The patient will be gently hydrated with normal saline at 100 mL per hour. He will be on cefepime and Levaquin. We will continue his glyburide at 5 mg twice daily and aggressive sliding scale Humalog for now. We will continue aspirin, Lipitor, and Coreg for now. Consultations with Dr. Hinds for Pulmonology and Dr. Stafford for Nephrology will be obtained. We will obtain an HIV test and acute hepatitis panel as well. The patient has known history of noncompliance with medications. We will continue to closely monitor him on telemetry. Job ID: [id number] [id number]
[2019-07-24] MEDS: Ondansetron PF 4 MG/2 ML Vial IVP PRN ×2 (13:13→18:46)
[2019-07-24] MEDS: Guaifenesin DM 100-10/5 ML UDCUP PO PRN ×2 (13:16→19:50)
[2019-07-24] MEDS: Acetaminophen 325 MG TAB PO PRN ×2 (13:48→19:50)
[2019-07-24] MEDS ORDERED: Sodium Chloride 0.9% 1,000 ML IV SCH (16:15)
[2019-07-24] MEDS ORDERED: Lactated Ringer's 1,000 ML IV SCH (16:45)
--- NOTE | 2019-07-24 17:36 | CON ---
DATE OF CONSULTATION: 07/24/2019 SERVICE: Pulmonary Medicine. REASON FOR CONSULT: Pneumonia. HISTORY OF PRESENT ILLNESS: The patient is a 44-year-old male with past medical history significant for incarceration. Otherwise, he was in his usual state of health up until five days prior to admission. He started having nausea, and vomiting. He was unable to keep down any food. He started having shaking chills, rigors, and fevers though. He felt hot and cold, had some sweats. He did not have any hot, red, or swollen joints, constipation, diarrhea, abdominal pain, or chest pain. He presented to the Emergency Department because he was increasingly short of breath. There, he was discovered to have an abnormal chest x-ray consistent with a pneumonia. He was appropriately given some antibiotics and tucked into the hospital. I was consulted because he had three lobes involved, consistent with a more severe pneumonia. PAST MEDICAL HISTORY: 1. Type 2 diabetes mellitus. 2. Chronic diastolic heart failure. 3. History of left CVA. 4. Polysubstance drug abuse, including cocaine. 5. Dyslipidemia. 6. Hypertension. PAST SURGICAL HISTORY: 1. Testicular surgery. 2. Abdominal surgery. 3. Removal of growth from left thigh. ALLERGIES: PENICILLIN. MEDICATIONS: List of his inpatient medications was reviewed. Multiple updates were made including modification to antibiotics. FAMILY HISTORY: Noncontributory. SOCIAL HISTORY: Negative for current significant alcohol use. He does use cocaine. The last use was about a week and a half ago. He smokes less than a half a pack on a daily basis and has greater than a 20 pack year history of smoking. He was previously incarcerated, but has been out of shelter for a long period of time. Currently lives with his girlfriend. REVIEW OF SYSTEMS: General, head, ears, eyes, nose, throat, cardiovascular, respiratory, GI, , musculoskeletal, neurologic, and skin is negative except as mentioned in HPI. PHYSICAL EXAMINATION: VITAL SIGNS: Afebrile, pulse 84, blood pressure 133/81 respirations 14, and saturation 90% on room air. GENERAL: The patient is awake and alert, in no apparent distress. LUNGS: Very good air entry. No prolonged expiratory phase is present. There is extensive crackling present, but it is much worse on the right compared to the left. No prolonged expiratory phase or wheezing is appreciated. HEART: Normal rate. Regular. ABDOMEN: Soft, nontender, and nondistended. Bowel sounds are positive. MUSCULOSKELETAL: No cyanosis or clubbing. There is no pitting edema. SKIN: Dry. His tongue is dry. NEUROLOGIC: Grossly nonfocal. : No Cruz. LABORATORY DATA: WBC 8.5, hemoglobin 15.0, and platelets 121,000. Neutrophil count is 91%. Troponin is gently uptrending and BNP 41. Lactate 1.7. Creatinine 2.17, well above baseline. Basic metabolic profile and liver function studies are unremarkable. TSH falls within the normal limits. Urinalysis is unremarkable except for proteinuria and glycosuria. Urine drug screen is pretty completely unremarkable, consistent with the patient's story. Salicylates, acetaminophen, and alcohol level are negative. Beta-hydroxybutyrate is unremarkable. Hepatitis C is positive, though he has previously cleared this based on what his history. IMAGING: Chest x-ray demonstrates multi focal consolidating lesions with air bronchograms in the right upper lobe, right lower lobe and to a lesser extent to left lower lobe. This is not a cardiogenic process so far as I can tell. The cardiac silhouette appears to be fairly small. ASSESSMENT: 1. Acute hypoxic respiratory failure. 2. Community-acquired pneumonia, severe. 3. History of hepatitis C, resolved. PLAN: We will do a strep and urine Legionella antigen. T-spot. I will send a hepatitis C RNA load. Antibiotics are going to be directed at community- acquired organisms. As such, we can drop the cefepime, and just simply give him Rocephin. This will be 2 g daily. Once he clears his inflammatory profile, we can consider him for transition oral agents. That being said, I would like to make certain blood cultures x2 are negative before that occurs. This patient has a very high chance of getting worse before getting better. I agree with Dr. Turner, that he is on the dry side. 70 minutes have been devoted to this patient in various activities. I personally reviewed all imaging studies and laboratory data noted within this document. For fifty percent of this time, I was interacting with the patient at the bedside or coordinating care with the care team. For the remainder of the time I was immediately available to the patient in the hospital unit. Job ID: [id number] [facility]
[2019-07-24] MEDS: cefTRIAXone\\ROCEPHIN 2 GM in Sodium Chloride 0.9% 100 ML IVPB SCH (18:40)
[2019-07-24] MEDS: Carvedilol 3.125 MG TAB PO SCH (18:43)
[2019-07-24] MEDS: glyBURIDE 5 MG TAB PO SCH (18:44)
[2019-07-24] MEDS: HumaLOG 300 UNITS/3 ML VIAL SC PRN (18:50)
[2019-07-24] MEDS: Atorvastatin Calcium 40 MG TAB PO SCH (19:50)
[2019-07-24 20:14] LABS: Legionella Urinary Ag Negative (Negative); Strep pneumo Urine Ag NEGATIVE (NEGATIVE)
[2019-07-24] MEDS ORDERED: Cefepime 1 GM in Sodium Chloride 0.9% 100 ML IVPB SCH (21:00)
[2019-07-24] MEDS ORDERED: Benzonatate 100 MG CAP PO SCH (21:00)
[2019-07-24] MEDS: Melatonin 3 MG TAB PO PRN (22:26)
[2019-07-25 05:45] LABS: Anion Gap 11 mmol/L (10-20); BUN (Urea Nitrogen) 20 mg/dL (8.9-20.6); Calc. Creatinine Clearance 80 mL/min (70-130); Calcium 7.3 mg/dL (7.8-10.44); Carbon Dioxide 24 mmol/L (22-29); Chloride 101 mmol/L (98-107); Estimated GFR-MDRD 61; Sodium 133 mmol/L (136-145)
[2019-07-25 05:49] LABS: Glucose 54 mg/dL (70-105); Phosphorus 1.9 mg/dL (2.3-4.7)
[2019-07-25 06:01] LABS: #Lymphocytes 0.7 thou/uL (1.20-3.40); #Monocytes 0.2 thou/uL (0.11-0.59); #Neutrophils 3.7 thou/uL (1.40-6.50); %Basophils 0.9 % (0.0-1.0); %Eosinophils 0.1 % (0.0-10.0); %Monocytes 4.7 % (0.0-10.0); %Neutrophils 79.3 % (42.0-75.0); Hemoglobin 12.8 g/dL (14.0-18.0); Mean Corpuscular HGB CONC 33.6 g/dL (32.0-36.0); Mean Corpuscular Hemoglobin 32.5 pg (27.0-31.0); Mean Corpuscular Volume 96.6 fL (78.0-98.0); Mean Platelet Volume 11.1 fL (7.4-10.4); Platelet Count 118 thou/uL (130-400); RBC Distribution Width 11.5 % (11.5-14.5); Red Blood Cell (RBC) Count 3.93 mill/uL (4.70-6.10); White Blood Cell (WBC) Count 4.6 thou/uL (4.8-10.8)
[2019-07-25] MEDS ORDERED: Sodium Chloride 0.9% 1,000 ML IV SCH (08:08)
[2019-07-25] MEDS ORDERED: Potassium Phosphate 30 MMOL in Sodium Chloride 0.9% 500 ML IVPB SCH (08:15)
[2019-07-25] MEDS ORDERED: Potassium Chloride 20 MEQ TAB PO SCH (08:15)
[2019-07-25] MEDS ORDERED: Magnesium Sulfate 2 GM in Sodium Chloride 0.9% 100 ML IVPB SCH (08:15)
[2019-07-25] MEDS ORDERED: Magnesium 2 GM/50 ML 2 GM in Premix Bag 1 BAG IVPB SCH (08:30)
[2019-07-25] MEDS: Carvedilol 3.125 MG TAB PO SCH ×2 (09:14→17:59)
[2019-07-25] MEDS: Enoxaparin Sodium 30 MG/0.3 ML SYRINGE SC SCH (09:15)
[2019-07-25] MEDS: Aspirin 81 mg Enteric Coated Tablet PO SCH (09:15)
[2019-07-25] MEDS: glyBURIDE 5 MG TAB PO SCH ×2 (09:15→17:28)
[2019-07-25] MEDS ORDERED: Labetalol HCl 100 MG/20 ML VIAL SLOW IVP PRN (09:37)
[2019-07-25] MEDS ORDERED: Lisinopril 10 MG TAB PO SCH ×3 (09:55→21:00)
--- NOTE | 2019-07-25 10:06 | PRG ---
DATE OF SERVICE: 07/25/2019 SERVICE: Pulmonary Medicine. INTERVAL HISTORY: The patient is doing outstanding from respiratory standpoint. Breathing comfortably. His appetite is much improved. Denies any fevers currently. He did have a chill or two overnight, but it was less dramatic than he experienced previously. Otherwise, there has been no interval change to his condition. PHYSICAL EXAMINATION: VITAL SIGNS: Afebrile currently with a T-max overnight of 102.1. Pulse 96, blood pressure 185/100, respirations 18, saturation 95% on 2.5 L nasal cannula. GENERAL: The patient is awake and alert, in no apparent distress. LUNGS: Decent air entry. Rhonchi are present. It is little worse on the right compared to the left. HEART: Normal rate and regular. ABDOMEN: Soft, nontender, and nondistended. Bowel sounds are positive. MUSCULOSKELETAL: No cyanosis or clubbing. There is no pitting. The skin tenting is improved. NEUROLOGIC: Grossly nonfocal. LABORATORY DATA: WBC 4.6, hemoglobin 12.8, platelets 118,000. Neutrophil count is 79% and downtrending. Blood sugar 84. Phosphorus 1.9, magnesium 1.6, potassium 3.0. Sodium has improved to 133. Strep and Legionella urine antigens are negative. Blood cultures x2 and influenza A and B are negative. ASSESSMENT: 1. Acute hypoxic respiratory failure. 2. Community-acquired pneumonia, severe. 3. Acute kidney injury, resolved. 4. History of hepatitis C, status post therapy. DISCUSSION AND PLAN: The patient is actually doing quite a bit better from respiratory standpoint. His appetite has improved dramatically and he is tolerating p.o. As such, IV fluids will be interrupted. We will add back some of his home blood pressure medications including the lisinopril. I will hold off the lisinopril and hydrochlorothiazide. Pulmonary/Critical Care will continue to follow along while the patient remains inhouse. Ultimately, on discharge from the hospital, he will need a repeat chest x-ray in 4 to 6 weeks to verify these infiltrates have cleared. Job ID: [id number]
[2019-07-25] MEDS: Acetaminophen 325 MG TAB PO PRN (12:03)
--- NOTE | 2019-07-25 13:49 | RAD ---
CHEST ONE VIEW: INDICATIONS: Hypoxia and fever. COMPARISON: 07/24/2019 FINDINGS: Bilateral air space opacities persist. Cardiomegaly is stable appearing. No pleural effusion or pneum othorax is evident. No acute osseous abnormality is evident. IMPRESSION: Persistent multifocal air space opacities, suspicious for pneumonia. POS: TPC
[2019-07-25] MEDS: cefTRIAXone\\ROCEPHIN 2 GM in Sodium Chloride 0.9% 100 ML IVPB SCH (17:59)
--- NOTE | 2019-07-25 20:52 | PDOC.HOSPP ---
- Subjective Encounter Date: 07/25/19 Encounter Time: 20:46 Subjective: The patient continues to feel short of breath and has some discomfort when taking a deep breath. He is coughing up clear phlegm. He is still on oxygen, but doesn't wear it at home. - Objective Vital Signs & Weight: Vital Signs (12 hours) Temp Pulse Resp BP BP Pulse Ox Pulse Ox 07/25/19 18:08 66 16 95 07/25/19 17:10 18 94 L 07/25/19 15:30 97.5 F L 77 20 126/80 92 L 07/25/19 14:15 82 L 07/25/19 13:34 82 18 07/25/19 11:59 100.4 F H 108 H 20 163/93 H 93 L 07/25/19 10:33 159/84 H 07/25/19 09:24 148/79 H Weight Admit Weight 170 lb Weight 170 lb 14.4 oz I&O: 07/24/19 07/25/19 07/26/19 06:59 06:59 06:59 Intake Total 2160 Output Total 850 650 Balance -850 1510 Result Diagrams: 07/25/19 04:55 07/25/19 04:55 Additional Labs: Accuchecks 07/25/19 07/25/19 07/25/19 20:20 18:56 18:08 POC Glucose 98 74 57 L* 07/25/19 07/25/19 07/25/19 16:40 10:33 05:38 POC Glucose 53 L* 90 84 07/25/19 05:12 POC Glucose 54 L* Hospitalist ROS - Review of Systems Constitutional: denies: fever, chills - Medication Medications: Active Medications Generic Name Dose Route Start Last Admin Trade Name Freq PRN Reason Stop Dose Admin Acetaminophen 650 mg 07/24/19 11:45 07/25/19 12:03 Tylenol PO 650 mg Q4H PRN Administration Headache/Fever/Mild Pain (1-3) Albuterol/Ipratropium 3 ml 07/24/19 13:00 07/25/19 18:08 Duoneb NEB 3 ml [id number] VERONICA Administration Aspirin 81 mg 07/25/19 09:00 07/25/19 09:15 Ecotrin PO 81 mg DAILY VERONICA Administration Atorvastatin Calcium 40 mg 07/24/19 21:00 07/24/19 19:50 Lipitor PO 40 mg HS VERONICA Administration Carvedilol 3.125 mg 07/24/19 17:00 07/25/19 17:59 Coreg PO 3.125 mg BID-WM VERONICA Administration Enoxaparin Sodium 30 mg 07/25/19 09:00 07/25/19 09:15 Lovenox SC 30 mg 0900 VERONICA Administration Glyburide 5 mg 07/24/19 17:00 07/25/19 17:28 Diabeta PO Not Given BID-WM VERONICA Ceftriaxone Sodium 2 gm/ 100 mls @ 200 mls/hr 07/24/19 17:00 07/25/19 17:59 Sodium Chloride IVPB 100 mls 1700 VERONICA Administration Levofloxacin 750 mg/ Device 150 mls @ 100 mls/hr 07/25/19 09:00 07/25/19 10: 32 IVPB 150 mls 0900 VERONICA Administration Insulin Human Lispro 0 units 07/24/19 11:45 07/24/19 18:50 Humalog SC 6 unit .AGGRESSIVE SLIDING PRN Administration Aggressive Correctional Scale Melatonin 3 mg 07/24/19 22:19 07/24/19 22:26 Melatonin PO 3 mg HS PRN Administration Insomnia Ondansetron HCl 4 mg 07/24/19 11:45 07/24/19 18:46 Zofran IVP 4 mg Q6H PRN Administration Nausea/Vomiting Sodium Chloride 10 ml 07/25/19 09:00 07/25/19 09:16 Flush - Normal Saline IVF 10 ml Q12HR VERONICA Administration - Exam General Appearance: NAD, ill appearing Eye: PERRL, anicteric sclera ENT: normocephalic atraumatic, no oropharyngeal lesions Neck: supple, symmetric, no JVD, no thyromegaly Heart: RRR, no murmur, no gallops, no rubs Respiratory - other findings: diminished breath sounds diffusely with some rales Gastrointestinal: soft, non-tender, non-distended. negative: no palpable masses Extremities: no cyanosis, no clubbing, no edema Skin: normal turgor, no lesions, no rashes Neurological: cranial nerve grossly intact, normal sensation to touch, no new deficit Musculoskeletal: normal tone, normal strength Hosp A/P - Plan Chest X ray: multifocal pneumonia EKG: LVH with poor R wave progression This is a 44 year old male who presented with productive cough, severe nausea and vomiting, found to have multifocal pneumonia #Sepsis secondary to multifocal pneumonia #Hepatitis C #Transaminitis - febrile, tachycardic on admission, on vanc, cefepime and levaquin - blood culture negative, influenza negative. Chest x ray shows multifocal pneumoina - HIV negative, urine legionella and strep negative - AST slighty elevated, hep C was positive, viral load pending. Will place hep C genotype test Elevated troponin - was 0.084, and came down to 0.110 - Hyponatremia - sodium 133, was on gentle IV hydration . Improved from 120's - discontinued due to elevated BP Hypokalemia - potassium 3.0 , given potassium replenishment, will recheck Hypophosphatemia - given IV K phos by Dr. Hinds Anemia - Hb 12.8 , was 15 yesterday. Probably from IV fluids, will recheck tomorro w Leukopenia - WBC 4.6, continue to monitor, likely dilutiaonl Thrombocytopenia - platelets 118, continue to monitor Type II DM Hypoglycemia - hold glyburide - blood sugar 57 this am, hold insulin sliding scale if patient runs low Diet: heart healthy DVT prophylaxis: enoxaparin Code status: full code
[2019-07-25] MEDS: Lisinopril 10 MG TAB PO SCH (21:32)
[2019-07-25 21:33] LABS: Anion Gap 10 mmol/L (10-20); BUN (Urea Nitrogen) 17 mg/dL (8.9-20.6); Calc. Creatinine Clearance 77 mL/min (70-130); Calcium 7.2 mg/dL (7.8-10.44); Carbon Dioxide 25 mmol/L (22-29); Chloride 102 mmol/L (98-107); Estimated GFR-MDRD 58; Glucose 72 mg/dL (70-105); Phosphorus 2.2 mg/dL (2.3-4.7); Potassium 3.5 mmol/L (3.5-5.1); Sodium 133 mmol/L (136-145)
[2019-07-25] MEDS: Atorvastatin Calcium 40 MG TAB PO SCH (21:33)
[2019-07-25] MEDS: Melatonin 3 MG TAB PO PRN (21:49)
[2019-07-25] MEDS: Dextrose 50% Abboject 50 ML SYRINGE SLOW IVP PRN (23:34)
[2019-07-26] MEDS ORDERED: Bacteriostatic Water 30 ML VIAL FS PRN (00:08)
[2019-07-26] MEDS ORDERED: methylPREDNISolone Sod Succ/PF 125 MG/2 ML VIAL IVP SCH (00:15)
[2019-07-26] MEDS ORDERED: Ketorolac Tromethamine 30 MG/ML VIAL IVP SCH (00:45)
--- NOTE | 2019-07-26 00:49 | PDOC.EVN ---
Event Note - Event Note Event Note: Called by nursing regarding increased O2 requirement in context of multifocal PNA on Levaquin/Rocephin. Placed on NRB with O2 sats increasing to mid 90's. Alert, responds to question, ill-appearing, mild distress, tachypnea, LCTAB, CV S1, S2 with tachycardia, ABD soft, Neuro nonfocal PCXR - no acute findings Tele - Sinus tachycardia in low 100's Add Duonebs q4h, Solumedrol 125mg IV x 1 now then 40mg IV q6h, Continue Levaquin /Rocephin, O2 to maintain sats >90%, Toradol 30mg IV q6h Continue close monitoring, initial blood cx negative, Influenza A/B neg
[2019-07-26] MEDS: Ondansetron PF 4 MG/2 ML Vial IVP PRN (00:51)
[2019-07-26 04:36] LABS: Anion Gap 8 mmol/L (10-20); BUN (Urea Nitrogen) 17 mg/dL (8.9-20.6); Calc. Creatinine Clearance 77 mL/min (70-130); Calcium 7.3 mg/dL (7.8-10.44); Carbon Dioxide 23 mmol/L (22-29); Chloride 104 mmol/L (98-107); Estimated GFR-MDRD 58; Glucose 155 mg/dL (70-105); Phosphorus 2.9 mg/dL (2.3-4.7); Potassium 3.3 mmol/L (3.5-5.1); Sodium 132 mmol/L (136-145)
[2019-07-26 04:40] LABS: #Lymphocytes 0.4 thou/uL (1.20-3.40); #Monocytes 0.2 thou/uL (0.11-0.59); #Neutrophils 4.1 thou/uL (1.40-6.50); %Eosinophils 0.1 % (0.0-10.0); %Lymphocytes 8.4 % (21.0-51.0); %Monocytes 4.3 % (0.0-10.0); %Neutrophils 87.2 % (42.0-75.0); Hemoglobin 12.3 g/dL (14.0-18.0); Mean Corpuscular HGB CONC 34.7 g/dL (32.0-36.0); Mean Corpuscular Hemoglobin 33.4 pg (27.0-31.0); Mean Corpuscular Volume 96.3 fL (78.0-98.0); Platelet Count 116 thou/uL (130-400); RBC Distribution Width 11.6 % (11.5-14.5); Red Blood Cell (RBC) Count 3.68 mill/uL (4.70-6.10); White Blood Cell (WBC) Count 4.7 thou/uL (4.8-10.8)
[2019-07-26] MEDS: Ketorolac Tromethamine 30 MG/ML VIAL IVP SCH ×4 (05:56→23:59)
[2019-07-26] MEDS: methylPREDNISolone Sod Succ 40 MG VIAL IVP SCH ×4 (05:57→18:45)
[2019-07-26] MEDS ORDERED: Potassium Chloride 20 MEQ TAB PO SCH (07:30)
[2019-07-26] MEDS ORDERED: Hydrochlorothiazide 25 MG TAB PO SCH (09:00)
[2019-07-26] MEDS: Lisinopril 10 MG TAB PO SCH ×2 (09:41→22:05)
[2019-07-26] MEDS: Aspirin 81 mg Enteric Coated Tablet PO SCH (09:41)
[2019-07-26] MEDS: Carvedilol 3.125 MG TAB PO SCH ×2 (09:41→16:32)
[2019-07-26] MEDS: Enoxaparin Sodium 30 MG/0.3 ML SYRINGE SC SCH (09:42)
--- NOTE | 2019-07-26 09:48 | CT ---
CT OF THE CHEST WITH IV CONTRAST INDICATION: Pneumonia COMPARISON: None FINDINGS: CHEST: Lungs: There are scattered areas of diffuse groundglass airspace opacity in a crazy paving pattern wi th more focal regions of airspace consolidation involving the posterior segment of the right upper lobe and superior segment of the right lower lobe. There are also focal regions of pulmonary cystic a bnormality involving the diffuse groundglass opacity. There is interlobular and intralobular septal thickening. Pleural space: There are small bilateral pleural effusions Mediastinum: There are some mildly enlarged lymph nodes mediastinum. One of the largest within the me diastinum is seen within the precarinal region measuring 9 mm. Upper abdomen:No acute abnormality. Osseous structures: No acute osseous abnormality. No destructive osteolytic or osteoblastic lesion i s identified. Soft tissues:Normal. IMPRESSION: 1. Diffuse groundglass opacities with superimposed septal thickening consistent with a crazy paving p attern. There are scattered areas of small pulmonary cysts. There are regions of artur airspace consolidation the right upper lobe and right lower lobe. Differential considerations include pneumocy stis pneumonia or acute interstitial pneumonia. Entities such as diffuse alveolar hemorrhage, cryptogenic organizing pneumonia or eosinophilic pneumonia is not excluded. 2. Small bilateral pleural effusions. 3. Mild mediastinal lymphadenopathy
[2019-07-26] MEDS: HumaLOG 300 UNITS/3 ML VIAL SC PRN ×2 (11:26→22:06)
[2019-07-26] MEDS: Lorazepam 0.5 MG TAB PO PRN ×2 (13:11→22:05)
--- NOTE | 2019-07-26 13:59 | CON ---
DATE OF CONSULTATION: REASON FOR CONSULTATION: Hepatitis C. HISTORY OF PRESENT ILLNESS: Mr. Bonds is a 44-year-old gentleman, who was admitted to the hospital on the for pneumonia. Apparently, he had been sick for about a week, cough productive, some nausea and vomiting, really was not able to eat for a couple of days and he came in. He was confused and he was very short of breath. He has been diagnosed with pneumonia and is on broad-spectrum antibiotics. His confusion is improved. His fevers did come down and overall he states he feels much better. In part of his workup, he was found to have elevated AST and notes that he drinks fairly heavily and he continues to smoke. He reports that he was diagnosed with hepatitis C in the past. He was at [facility] at that time and notes that he thinks he was treated then. SOCIAL HISTORY: He drinks alcohol, does smoke, and uses some cocaine as well at times. PAST MEDICAL HISTORY: Diabetes; CHF; diastolic dysfunction; past history of left CVA in the past January of 2018; dyslipidemia; hypertension; cyst removed from the thigh; depression; pleural effusion, likely due to heart failure. PAST SURGICAL HISTORY: Surgery on his testicles secondary to trauma. He has actually been able to have children, which they told him that he would not be able to. MEDICATIONS AT HOME: 1. Aspirin. 2. Atorvastatin. 3. Coreg. 4. Glyburide. 5. Hydrochlorothiazide. 6. Lisinopril. 7. Metformin. ALLERGIES: PENICILLIN. FAMILY HISTORY: Mother at age 43 of heart failure. There are a lot of alcohol problems in his family he states. REVIEW OF SYSTEMS: Negative for weight loss or weight gain. Negative for icterus. Negative for acute hepatitis that he is aware of. Negative for HIV that he is aware of. Negative for edema, abdominal distention, GI bleeding, dysphagia, or odynophagia. PHYSICAL EXAMINATION: VITAL SIGNS: Temperature 96.1 today, pulse 86, blood pressure 131/71, O2 saturation 95% on 3.5 L. GENERAL: He is sitting in bed. He is a little bit anxious. He is moving around. He states that he does feel better than when he came in. HEENT: He is nonicteric. LUNGS: Notable for coarse rhonchi, diminished breath sounds. ABDOMEN: Soft and nontender. There is no palpable hepatosplenomegaly, shifting dullness, or fluid wave. EXTREMITIES: No clubbing, cyanosis, or edema. SKIN: Mild erythema of the palms. There is no spider angiomata seen. NEUROLOGIC: Intact. He is alert and oriented. MUSCULOSKELETAL: Normal tone and normal strength. Noted some muscle atrophy. PRESENT MEDICATIONS: Here in the hospital, 1. Tylenol. 2. DuoNeb. 3. Ecotrin. 4. Lipitor. 5. Dulcolax. 6. Tums. 7. Coreg. 8. Rocephin. 9. Lovenox. 10. Humalog. 11. Toradol p.r.n. 12. Normodyne. 13. Levofloxacin. 14. Methylprednisolone. 15. Zofran. 16. Senokot. LABORATORY DATA: White count is 4.7; hemoglobin 12.3; platelet count 116, back in October it was 236. It has been low with admission. Sodium 132, potassium 3.3, chloride 104, bicarb 23, BUN 17, creatinine 1.32, glucose 155, phosphorus 2.9. On admission, his creatinine was 2.17, that has improved. His AST was 38, his ALT was 21, and his alkaline phosphatase was 92. His albumin was 3.4 with a protein of 6.8 and a bilirubin of 0.4. TSH is 1.33. Lipase is 111. The patient had a CAT scan of his chest on 07/26. This carried a small pulmonary cyst, pneumonia in the right upper lobe and right lower lobe, and mild mediastinal adenopathy. ASSESSMENT: 1. This is a 44-year-old gentleman, who is admitted with pneumonia and maybe a little bit immunosuppressed. He is a heavy drinker. He smokes and does use some drugs. He has previously been at [facility]. His human immunodeficiency virus was nonreactive on the . However, he seems to be doing better since admission, although this is my first time to see him. He states he feels better. 2. He has been noted to have a mildly elevated AST consistent with history of heavy alcohol use. He does not show any stigmata of cirrhosis on exam. His platelet count is low, but it was normal back in October of this year and I suspect the low platelet count may just because of his infection and pneumonia. 3. He has hepatitis C antibody positive. He states he has been aware of this for at least 7 to 10 years when he was in [facility]. He thought he was treated then. He does not recall getting shots or what actually was given. I am concerned that he was not treated as [facility] in the past did not typically treat for hepatitis C. RECOMMENDATIONS: 1. At this time, I will continue treatment for his pneumonia. 2. I would get a hepatitis C RNA. If that is positive, we can look at genotype etc., all that can be done in the outpatient setting and we can consider treating him. He states he is going to stop drinking and doing drugs, and I would probably let him do that and get over the pneumonia before embarking on therapy. Job ID: [id number]
--- NOTE | 2019-07-26 15:51 | PRG ---
DATE OF SERVICE: 07/26/2019 SUBJECTIVE: Kory Bonds says he is feeling 100% better than he felt on presentation. He says he feels like he was near deaf on presentation. He is in no distress. CT of his chest was done yesterday showing diffuse patchy ground-glass haziness. The differential for this is broad. The radiologist included in the differential, multiple different diagnoses. He continues on antibiotics and steroids. He is clinically improving. OBJECTIVE: VITAL SIGNS: He is afebrile. Heart rate 86, respiratory rate is 18, oximetry is 95% on 3 L, and blood pressure 131/77. LUNGS: Clear. HEART: Regular rhythm. ABDOMEN: Soft. EXTREMITIES: Without edema or clubbing. He has no peripheral palpable purpura. He denies having hemoptysis or hematuria in the past. IMPRESSION: Pneumonia, clinically improving. I would not [place] less common diagnoses at this point in time. It is not unreasonable to send any antineutrophil cytoplasmic antibody, etc., but I think it is more likely clinically at this time given his rapid improvement in the very acute onset of his symptoms, this is an infectious process. Inhaling cocaine can lead to radiographic abnormalities. Certainly, this is in the differential. We will continue to follow. I would not recommend bronchoscopy or lung biopsies at this time. Job ID: [id number]
[2019-07-26] MEDS: cefTRIAXone\\ROCEPHIN 2 GM in Sodium Chloride 0.9% 100 ML IVPB SCH (16:32)
[2019-07-26 17:57] LABS: Glucose 713 mg/dL (70-105)
--- NOTE | 2019-07-26 18:08 | PDOC.HOSPP ---
- Subjective Encounter Date: 07/26/19 Encounter Time: 18:06 Subjective: The patient reports that he still feels short of breath and is coughing up some phlegm. Overall he feels better. Overnight, he desaturated and was placed on venturi mask. He was started on IV steroids. CT chest showing diffuse bilateral infiltrates, possibly autoimmune vs infectious Blood sugar was low at 46 this morning, discontinued glyburide. In evening blood sugar was > 700, due to patient being on steroids so this was weaned. - Objective Vital Signs & Weight: Vital Signs (12 hours) Temp Pulse Pulse Resp BP BP BP 07/26/19 15:42 97.6 F 81 18 119/70 07/26/19 14:38 83 16 07/26/19 11:47 96.1 F L 86 18 131/77 07/26/19 11:21 83 16 07/26/19 11:20 07/26/19 11:18 07/26/19 10:38 81 131/77 07/26/19 09:41 125/75 07/26/19 09:40 97.4 F L 86 20 125/75 07/26/19 06:30 07/26/19 06:29 70 16 Pulse Ox Pulse Ox Pulse Ox Pulse Ox 07/26/19 15:42 96 07/26/19 14:38 07/26/19 11:47 95 07/26/19 11:21 07/26/19 11:20 100 07/26/19 11:18 95 07/26/19 10:38 88 L 94 L 90 L 07/26/19 09:41 07/26/19 09:40 91 L 07/26/19 06:30 96 07/26/19 06:29 Weight Admit Weight 170 lb Weight 170 lb 14.4 oz I&O: 07/25/19 07/26/19 07/27/19 06:59 06:59 06:59 Intake Total 3140 1735 Output Total 850 1850 Balance -850 1290 1735 Result Diagrams: 07/26/19 04:00 07/26/19 17:31 Additional Labs: Accuchecks 07/26/19 07/26/19 07/25/19 10:57 05:35 23:48 POC Glucose Greater than 550 H* 208 H 176 H 07/25/19 07/25/19 07/25/19 23:27 23:14 20:20 POC Glucose 60 L 48 L* 98 07/25/19 07/25/19 18:56 18:08 POC Glucose 74 57 L* Hospitalist ROS - Review of Systems Constitutional: denies: fever, chills - Medication Medications: Active Medications Generic Name Dose Route Start Last Admin Trade Name Freq PRN Reason Stop Dose Admin Acetaminophen 650 mg 07/24/19 11:45 07/25/19 12:03 Tylenol PO 650 mg Q4H PRN Administration Headache/Fever/Mild Pain (1-3) Albuterol/Ipratropium 3 ml 07/26/19 02:30 07/26/19 14:38 Duoneb NEB 3 ml [id number] VERONICA Administration Aspirin 81 mg 07/25/19 09:00 07/26/19 09:41 Ecotrin PO 81 mg DAILY VERONICA Administration Atorvastatin Calcium 40 mg 07/24/19 21:00 07/25/19 21:33 Lipitor PO 40 mg HS VERONICA Administration Carvedilol 3.125 mg 07/24/19 17:00 07/26/19 16:32 Coreg PO 3.125 mg BID-WM VERONICA Administration Dextrose/Water 25 gm 07/24/19 11:45 07/25/19 23:34 Dextrose 50% SLOW IVP 25 gm PRN PRN Administration Hypoglycemia Enoxaparin Sodium 30 mg 07/25/19 09:00 07/26/19 09:42 Lovenox SC 30 mg 0900 VERONICA Administration Ceftriaxone Sodium 2 gm/ 100 mls @ 200 mls/hr 07/24/19 17:00 07/26/19 16:32 Sodium Chloride IVPB 100 mls 1700 VERONICA Administration Levofloxacin 750 mg/ Device 150 mls @ 100 mls/hr 07/25/19 09:00 07/26/19 09: 42 IVPB 150 mls 0900 VERONICA Administration Insulin Human Lispro 0 units 07/24/19 11:45 07/26/19 11:26 Humalog SC 13 unit .AGGRESSIVE SLIDING PRN Administration Aggressive Correctional Scale Ketorolac Tromethamine 30 mg 07/26/19 06:00 07/26/19 11:24 Toradol IVP 07/31/19 06:01 Not Given Q6HR VERONICA Lisinopril 10 mg 07/25/19 21:00 07/26/19 09:41 Zestril PO 10 mg BID VERONICA Administration Lorazepam 0.5 mg 07/26/19 12:52 07/26/19 13:11 Ativan PO 0.5 mg Q4H PRN Administration Anxiety Melatonin 3 mg 07/24/19 22:19 07/25/19 21:49 Melatonin PO 3 mg HS PRN Administration Insomnia Methylprednisolone Sodium Succinate 40 mg 07/26/19 06:00 07/26/19 11:26 Solu-Medrol IVP 40 mg Q6HR VERONICA Administration Ondansetron HCl 4 mg 07/24/19 11:45 07/26/19 00:51 Zofran IVP 4 mg Q6H PRN Administration Nausea/Vomiting Sodium Chloride 10 ml 07/25/19 09:00 07/26/19 09:42 Flush - Normal Saline IVF 10 ml Q12HR VERONICA Administration - Exam General Appearance: NAD, awake alert Eye: PERRL, anicteric sclera ENT: normocephalic atraumatic, no oropharyngeal lesions Neck: supple, symmetric, no JVD, no thyromegaly Heart: RRR, no murmur, no gallops, no rubs Respiratory: CTAB, no rales, no ronchi Respiratory - other findings: diminished breath sounds at the bases with crackles Gastrointestinal: soft, non-tender, non-distended Extremities: no cyanosis, no clubbing Skin: normal turgor, no lesions, no rashes Neurological: cranial nerve grossly intact, normal sensation to touch, no focal deficits, no new deficit Musculoskeletal: normal tone, normal strength, no muscle wasting Psychiatric: normal affect, normal behavior, A&O x 3, oriented to person, oriented to place, oriented to time Hosp A/P - Plan Chest X ray: multifocal pneumonia EKG: LVH with poor R wave progression CT chest: Small bilateral pleural effusion, mild mediastinal lymphadenopathy, diffuse ground glass opacities with airspace consolidation RUL and RLL. Differential include PCP or AIP This is a 44 year old male who presented with productive cough, severe nausea and vomiting, found to have multifocal pneumonia #Acute hypoxic respiratory failure secondary to sepsis from multifocal pneumonia - febrile, tachycardic on admission, on vanc, cefepime and levaquin - blood culture negative, influenza negative. Chest x ray shows multifocal pneumonia. Continue current antibiotics. Oxygen weaned down to 3L nasal cannula - wean steroids to 20 mg IV q8 due to hyperglycemia - HIV negative, urine legionella and strep negative - CT chest showed artur airspace consolidation in the right upper and lower lobe. Per Dr Xiao continue current treatment - ANCA panel and YARITZA panel ordered, anti-GBM, cryoglobulin, immunoglobulin panel normal #Hepatitis C #Transaminitis - AST slighty elevated, hep C was positive, viral load pending, GI consulted - patient states that he was treated in the past and thought he cleared it. Elevated troponin - was 0.084, and came down to 0.110 - ECHO ordered Hyponatremia and hypokalemia - sodium 132, potassium 3.3 - stopped hydrochlorothiazide Hypophosphatemia- resolved Anemia - Hb 12.3, stable Leukopenia - WBC 4.6, continue to monitor, likely dilutiaonl Thrombocytopenia - platelets 116, continue to monitor Type II DM Hypoglycemia - held glyburide due to blood sugar 46 this am - currently blood sugar 770, give 26 units humalog + order 10 units lantus - Diet: heart healthy DVT prophylaxis: enoxaparin Code status: full code
[2019-07-26] MEDS ORDERED: HumaLOG 300 UNITS/3 ML VIAL SC SCH (18:15)
[2019-07-26] MEDS ORDERED: Insulin Glargine 10 UNITS in Pre-Filled Syringe SC SCH (18:15)
[2019-07-26 18:49] LABS: Anion Gap 15 mmol/L (10-20); BUN (Urea Nitrogen) 31 mg/dL (8.9-20.6); Calc. Creatinine Clearance 47 mL/min (70-130); Calcium 7.7 mg/dL (7.8-10.44); Carbon Dioxide 19 mmol/L (22-29); Chloride 99 mmol/L (98-107); Estimated GFR-MDRD 33; Glucose 725 mg/dL (70-105); Sodium 129 mmol/L (136-145)
[2019-07-26] MEDS: Atorvastatin Calcium 40 MG TAB PO SCH (22:05)
[2019-07-27] MEDS: Ketorolac Tromethamine 30 MG/ML VIAL IVP SCH ×2 (02:04→12:47)
[2019-07-27] MEDS: methylPREDNISolone Sod Succ 40 MG VIAL IVP SCH ×2 (02:12→09:14)
[2019-07-27 05:01] LABS: Hemoglobin 11.6 g/dL (14.0-18.0); Mean Corpuscular HGB CONC 34.4 g/dL (32.0-36.0); Mean Corpuscular Hemoglobin 32.9 pg (27.0-31.0); Mean Corpuscular Volume 95.7 fL (78.0-98.0); Mean Platelet Volume 10.4 fL (7.4-10.4); Platelet Count 176 thou/uL (130-400); RBC Distribution Width 11.5 % (11.5-14.5); Red Blood Cell (RBC) Count 3.54 mill/uL (4.70-6.10); White Blood Cell (WBC) Count 12.1 thou/uL (4.8-10.8)
[2019-07-27 05:02] LABS: #Lymphocytes 0.8 thou/uL (1.20-3.40); #Monocytes 0.5 thou/uL (0.11-0.59); #Neutrophils 10.4 thou/uL (1.40-6.50); %Basophils 0.1 % (0.0-1.0); %Lymphocytes 6.6 % (21.0-51.0); %Monocytes 4.5 % (0.0-10.0); %Neutrophils 88.8 % (42.0-75.0); Hemoglobin 11.7 g/dL (14.0-18.0); Mean Corpuscular HGB CONC 34.9 g/dL (32.0-36.0); Mean Corpuscular Hemoglobin 33.4 pg (27.0-31.0); Mean Corpuscular Volume 95.6 fL (78.0-98.0); Mean Platelet Volume 10.6 fL (7.4-10.4); Platelet Count 173 thou/uL (130-400); RBC Distribution Width 11.8 % (11.5-14.5); Red Blood Cell (RBC) Count 3.49 mill/uL (4.70-6.10); White Blood Cell (WBC) Count 11.7 thou/uL (4.8-10.8)
[2019-07-27 05:34] LABS: ALT (SGPT) 39 U/L (8-55); AST (SGOT) 70 U/L (5-34); Albumin 2.6 g/dL (3.5-5.0); Alkaline Phosphatase 104 U/L (40-110); Anion Gap 13 mmol/L (10-20); BUN (Urea Nitrogen) 35 mg/dL (8.9-20.6); Bilirubin, Total 0.2 mg/dL (0.2-1.2); Calc. Creatinine Clearance 56 mL/min (70-130); Calcium 7.7 mg/dL (7.8-10.44); Carbon Dioxide 21 mmol/L (22-29); Chloride 104 mmol/L (98-107); Estimated GFR-MDRD 41; Globulin 2.7 g/dL (2.4-3.5); Glucose 303 mg/dL (70-105); Phosphorus 3.6 mg/dL (2.3-4.7); Potassium 3.7 mmol/L (3.5-5.1); Protein, Total 5.3 g/dL (6.0-8.3); Sodium 134 mmol/L (136-145)
[2019-07-27] MEDS: HumaLOG 300 UNITS/3 ML VIAL SC PRN ×3 (06:29→17:07)
[2019-07-27] MEDS: Enoxaparin Sodium 30 MG/0.3 ML SYRINGE SC SCH (09:14)
[2019-07-27] MEDS: Lisinopril 10 MG TAB PO SCH ×2 (09:14→20:29)
[2019-07-27] MEDS: Aspirin 81 mg Enteric Coated Tablet PO SCH (09:14)
[2019-07-27] MEDS: Carvedilol 3.125 MG TAB PO SCH ×2 (09:15→17:07)
[2019-07-27 13:10] LABS: Hep C PCR-Quant HCV Not Detected IU/mL (.)
--- NOTE | 2019-07-27 13:38 | PRG ---
DATE OF SERVICE: 07/27/2019 SUBJECTIVE: The patient is up, brushing his teeth. He feels better. OBJECTIVE: VITAL SIGNS: On exam; temperature 97.5, pulse 86, respirations 20, O2 saturation 98% on 3.5L, and blood pressure 126/75. HEENT: Unremarkable. NECK: No adenopathy, JVD, or bruits. LUNGS: He has inspiratory crackles in his left base. CARDIOVASCULAR: S1 and S2. Regular. ABDOMEN: Soft and nontender. EXTREMITIES: No edema. LABORATORY DATA: White blood cell count 12, hematocrit 33.8, and platelet count 176. Sodium 134, potassium 3.7, chloride 104, CO2 of 21, BUN 35, creatinine 1.8, and glucose 303. HIV test was negative. ASSESSMENT: Pneumonia, diffuse and bilateral. PLAN: He seems to be getting better on the antibiotics and steroids. The goal now is to wean his oxygen and then probably switch him over to oral Omnicef and Levaquin and complete about 10-14 days of therapy. He should be able to go home once his oxygenation has improved. Job ID: [id number]
--- NOTE | 2019-07-27 13:48 | PDOC.HOSPP ---
- Subjective Encounter Date: 07/27/19 Encounter Time: 13:46 Subjective: The patient had a fell today, states that he was walking to the bathroom and fell on his right side. Has some scratches on the right side. He walked with physical therapy today. Patient reports only mild cough, mild shortness of breath, no chest pain. Patient confused, asks questions and when given an answer, he asks the same question two minutes later. Patient says he feels foggy and is not paying attention. Appears to have maybe ADD, per nurse patient later confirmed this diagnosis. - Objective Vital Signs & Weight: Vital Signs (12 hours) Temp Pulse Resp BP Pulse Ox 07/27/19 13:00 89 117/73 95 07/27/19 11:18 97.5 F L 86 20 126/75 98 07/27/19 10:54 80 16 07/27/19 09:15 97.9 F 94 20 116/72 92 L 07/27/19 07:20 92 L 07/27/19 07:18 88 16 92 L 07/27/19 03:38 97.4 F L 81 14 118/73 94 L Weight Admit Weight 170 lb Weight 170 lb 14.4 oz I&O: 07/26/19 07/27/19 07/28/19 06:59 06:59 06:59 Intake Total 3140 2455 Output Total 1850 1400 Balance 1290 1055 Result Diagrams: 07/27/19 04:07 07/27/19 04:07 Additional Labs: Accuchecks 07/27/19 07/27/19 07/27/19 11:14 06:22 00:13 POC Glucose 461 H 337 H 232 H 07/26/19 07/26/19 20:17 16:39 POC Glucose 520 H Greater than 550 H* Hospitalist ROS - Review of Systems Constitutional: denies: fever, chills Gastrointestinal: denies: nausea, vomiting - Medication Medications: Active Medications Generic Name Dose Route Start Last Admin Trade Name Freq PRN Reason Stop Dose Admin Acetaminophen 650 mg 07/24/19 11:45 07/25/19 12:03 Tylenol PO 650 mg Q4H PRN Administration Headache/Fever/Mild Pain (1-3) Albuterol/Ipratropium 3 ml 07/26/19 02:30 07/27/19 10:54 Duoneb NEB 3 ml [id number] VERONICA Administration Aspirin 81 mg 07/25/19 09:00 07/27/19 09:14 Ecotrin PO 81 mg DAILY VERONICA Administration Atorvastatin Calcium 40 mg 07/24/19 21:00 07/26/19 22:05 Lipitor PO 40 mg HS VERONICA Administration Carvedilol 3.125 mg 07/24/19 17:00 07/27/19 09:15 Coreg PO 3.125 mg BID-WM VERONICA Administration Dextrose/Water 25 gm 07/24/19 11:45 07/25/19 23:34 Dextrose 50% SLOW IVP 25 gm PRN PRN Administration Hypoglycemia Enoxaparin Sodium 30 mg 07/25/19 09:00 07/27/19 09:14 Lovenox SC 30 mg 0900 VERONICA Administration Ceftriaxone Sodium 2 gm/ 100 mls @ 200 mls/hr 07/24/19 17:00 07/26/19 16:32 Sodium Chloride IVPB 100 mls 1700 VERONICA Administration Levofloxacin 750 mg/ Device 150 mls @ 100 mls/hr 07/25/19 09:00 07/27/19 09: 14 IVPB 150 mls 0900 VERONICA Administration Insulin Human Lispro 0 units 07/24/19 11:45 07/27/19 11:48 Humalog SC 13 unit .AGGRESSIVE SLIDING PRN Administration Aggressive Correctional Scale Lisinopril 10 mg 07/25/19 21:00 07/27/19 09:14 Zestril PO 10 mg BID VERONICA Administration Lorazepam 0.5 mg 07/26/19 12:52 07/26/19 22:05 Ativan PO 0.5 mg Q4H PRN Administration Anxiety Melatonin 3 mg 07/24/19 22:19 07/25/19 21:49 Melatonin PO 3 mg HS PRN Administration Insomnia Ondansetron HCl 4 mg 07/24/19 11:45 07/26/19 00:51 Zofran IVP 4 mg Q6H PRN Administration Nausea/Vomiting Sodium Chloride 10 ml 07/25/19 09:00 07/27/19 09:13 Flush - Normal Saline IVF 10 ml Q12HR VERONICA Administration - Exam General Appearance: NAD, awake alert General - other findings: on 2L oxygen Eye: PERRL, anicteric sclera ENT: normocephalic atraumatic, no oropharyngeal lesions Neck: supple, symmetric Heart: RRR, no murmur, no gallops, no rubs Respiratory - other findings: clear in upper lungs, some crackles in lower lungs Gastrointestinal: soft, non-tender, non-distended, normal bowel sounds Extremities: no cyanosis, no clubbing, no edema Skin: normal turgor Skin - other findings: mild skin abrasion on right flank Neurological: no new deficit Hosp A/P - Plan Chest X ray: multifocal pneumonia EKG: LVH with poor R wave progression CT chest: Small bilateral pleural effusion, mild mediastinal lymphadenopathy, diffuse ground glass opacities with airspace consolidation RUL and RLL. Differential include PCP or AIP This is a 44 year old male who presented with productive cough, severe nausea and vomiting, found to have multifocal pneumonia #Acute hypoxic respiratory failure secondary to sepsis from multifocal pneumonia - improving - febrile, tachycardic on admission, Xray showing multifocal pneumonia, CT showing consolidation RUL and RLL. Blood cultures and flu negative . HIV, urine legionella and strep negative - on IV ceftriaxone since , will switch to oral cefpodoxime tomorrow. On IV levaquin since , switch to oral tomorrow - wean oxygen saturation to 92%, currently on 2L - taper IV steroids to 20 mg daily starting tomorrow - unlikely to be diffuse alveolar hemorrhage or AIP or autoimmune cuase per Dr. Xiao. Immunoglobulin panel normal, ANCA/YARITZA/anti-GBM, cryoglobulin pending #Hepatitis C #Transaminitis - AST slighty elevated, hep C was positive, quant RNA negative. Patient states he was treated in long-term for it? Elevated troponin - was 0.084, and came down to 0.110 - ECHO ordered and pending Metabolic encephalopathy acute - possibly from hyperglycemia - tapering steroids - possibly ADD component Anemia - Hb 12.3, stable Leukocytosis - likely from steroid. Will monitor - no fevers Thrombocytopenia - platelets 116, continue to monitor Type II DM Hyperglycemia - taper steroids - increase lantus to 14 units tonight Hyponatremia - mild - continue to monitor - stopped hydrochlorothiazide Hypophosphatemia- resolved Dispo: wean off oxygen Diet: heart healthy DVT prophylaxis: enoxaparin Code status: full code
--- NOTE | 2019-07-27 14:37 | PRG ---
DATE OF SERVICE: 07/27/2019 SUBJECTIVE: Mr. Bonds feels better. He is eating better. He feels he is breathing better. He has had no fever. OBJECTIVE: VITAL SIGNS: Temperature is 97, pulse 86, blood pressure 122/75. GENERAL: He just looks overall better. He is breathing easily. ASSESSMENT: 1. Pneumonia, being treated by Internal Medicine, Pulmonary thought he has improved markedly since admission, he says he has improved markedly. He is still requiring a bit of oxygen. 2. Hepatitis C antibody positive, with prior history of possible treatment at the [facility]. 3. Cocaine use. 4. Alcohol abuse. RECOMMENDATION: He can follow up with me in the outpatient setting after he gets discharged. If his hep-C RNA is positive, we will get a genotype done and get him treated. We will sign off for now. Job ID: [id number]
--- NOTE | 2019-07-27 16:14 | EKG ---
Test Reason : Blood Pressure : / mmHG Vent. Rate : 112 BPM Atrial Rate : 112 BPM P-R Int : 138 ms QRS Dur : 090 ms QT Int : 328 ms P-R-T Axes : 053 -33 081 degrees QTc Int : 447 ms Sinus tachycardia Possible Left atrial enlargement Left axis deviation Nonspecific T wave abnormality Abnormal ECG Confirmed by ZACK SOFIA, JAIR ([id number]), editor at large SHERIN ALONSO ([id number]) on 07/27/2019 4:13:01 PM Referred By: Confirmed By:JAIR DIXON MD
[2019-07-27 17:01] LABS: EliA Vaculitis New Method **** NEW METHOD ****; Glomerular Basemt Membrane Ab Less than 1.9 EliAU/mL (<7 Negative)
[2019-07-27] MEDS: Acetaminophen 325 MG TAB PO PRN ×2 (17:07→20:31)
[2019-07-27] MEDS: Lorazepam 0.5 MG TAB PO PRN ×2 (17:07→20:29)
[2019-07-27] MEDS: cefTRIAXone\\ROCEPHIN 2 GM in Sodium Chloride 0.9% 100 ML IVPB SCH (17:08)
[2019-07-27] MEDS: Atorvastatin Calcium 40 MG TAB PO SCH (20:30)
[2019-07-27] MEDS ORDERED: Insulin Regular 300 UNITS/3 ML VIAL SC SCH (20:30)
[2019-07-27] MEDS: Insulin Glargine 14 UNITS in Pre-Filled Syringe 1 EACH SC SCH (20:41)
[2019-07-27 20:44] LABS: Hemoglobin A1c 11.2 % (4.0-6.0)
[2019-07-27 20:55] LABS: Anion Gap 15 mmol/L (10-20); BUN (Urea Nitrogen) 39 mg/dL (8.9-20.6); Calc. Creatinine Clearance 59 mL/min (70-130); Calcium 8.1 mg/dL (7.8-10.44); Carbon Dioxide 22 mmol/L (22-29); Chloride 103 mmol/L (98-107); Estimated GFR-MDRD 43; Glucose 300 mg/dL (70-105); Potassium 4.1 mmol/L (3.5-5.1); Sodium 136 mmol/L (136-145)
[2019-07-27] MEDS ORDERED: Insulin Glargine 10 UNITS in Pre-Filled Syringe SC SCH (21:00)
[2019-07-28] MEDS: Dextrose 50% Abboject 50 ML SYRINGE SLOW IVP PRN (03:57)
[2019-07-28] MEDS ORDERED: methylPREDNISolone Sod Succ 40 MG VIAL IVP SCH ×3 (04:15→09:00)
[2019-07-28 05:00] LABS: Actual Bicarbonate (HCO3a) 19.3 mEq/L (22-28); Base Excess (BEa) -3.4 mEq/L (-2.0 to +3.0); CO2 Tension 28.4 mmHg (35.0-45.0); Calcium, Ionized 1.11 mmol/L (1.12-1.30); Carboxyhemoglobin (COHb) 0.9 gm% (0.0-3.0); Hemoglobin (Hb) 13.4 g/dL (14.0-18.0); O2 Tension (PaO2) 64.7 mmHg (80.0-100.0); Potassium - ABG Lab 3.37 mmol/L (3.70-5.30); pH, Arterial 7.45 (7.35-7.45)
[2019-07-28 05:02] LABS: Puncture Site R RADIAL
[2019-07-28] MEDS: Acetaminophen 325 MG TAB PO PRN ×2 (05:45→12:04)
[2019-07-28 06:32] LABS: Band 4 % (5-11); Hemoglobin 13.7 g/dL (14.0-18.0); Lymphocytes 5 % (21-51); MDiff Complete? YES; Mean Corpuscular HGB CONC 34.8 g/dL (32.0-36.0); Mean Corpuscular Hemoglobin 33.4 pg (27.0-31.0); Mean Platelet Volume 9.8 fL (7.4-10.4); Monocytes 3 % (0-10); Neutrophil 88 % (42-75); Platelet Count 261 thou/uL (130-400); Platelet Morphology Comment Appears Adequate; RBC Distribution Width 11.8 % (11.5-14.5); Red Blood Cell (RBC) Count 4.12 mill/uL (4.70-6.10); White Blood Cell (WBC) Count 17.3 thou/uL (4.8-10.8)
[2019-07-28 06:38] LABS: Anion Gap 12 mmol/L (10-20); BUN (Urea Nitrogen) 33 mg/dL (8.9-20.6); Calc. Creatinine Clearance 71 mL/min (70-130); Calcium 8.4 mg/dL (7.8-10.44); Carbon Dioxide 25 mmol/L (22-29); Chloride 104 mmol/L (98-107); Estimated GFR-MDRD 54; Glucose 97 mg/dL (70-105); Potassium 3.4 mmol/L (3.5-5.1); Sodium 138 mmol/L (136-145)
[2019-07-28] MEDS: Ipratropium Bromide 2.5 ml Neb NEB SCH ×3 (07:45→19:24)
--- NOTE | 2019-07-28 07:57 | RAD ---
CHEST 1 VIEW: INDICATION: Low sats, respiratory distress. COMPARISON: Prior exam dated 07/25/2019. IMPRESSION: Diffuse airspace disease is stable. No pleural effusion or pneumothorax is evident. Heart size is a ccentuated by the exam technique. No acute osseous abnormality is noted. POS: BH
[2019-07-28] MEDS: Carvedilol 3.125 MG TAB PO SCH ×2 (08:59→17:17)
[2019-07-28] MEDS: Aspirin 81 mg Enteric Coated Tablet PO SCH (08:59)
[2019-07-28] MEDS: Lisinopril 10 MG TAB PO SCH ×2 (08:59→20:06)
[2019-07-28] MEDS: Enoxaparin Sodium 30 MG/0.3 ML SYRINGE SC SCH (08:59)
[2019-07-28] MEDS ORDERED: Furosemide 20 MG/2 ML VIAL IVP SCH (11:00)
--- NOTE | 2019-07-28 11:05 | PRG ---
DATE OF SERVICE: 07/28/2019 SUBJECTIVE: The patient was transferred to [facility] last night to start BiPAP as he was having more problems with hypoxemia. He does not like having the BiPAP on. OBJECTIVE: VITAL SIGNS: Temperature is 99.8, pulse 122, blood pressure 149/86, and O2 saturation generally in the 90s. HEENT: Unremarkable. NECK: No adenopathy or JVD. LUNGS: Diffuse crackles. CARDIAC: S1 and S2. Regular. ABDOMEN: Soft. EXTREMITIES: No edema. LABORATORY DATA: Sodium 138, potassium 3.4, chloride 104, CO2 of 25, BUN 33, creatinine 1.4, and glucose 97. White blood cell count 17.3, hematocrit 39.5, and platelet count 261. ABG; pH of 7.45, pCO2 of 28, and pO2 of 64, that was on CPAP 5 and pressure support 10 with FiO2 of 60%. His chest x-ray does not show much change from previous. He still has profound alveolar type densities bilaterally. ASSESSMENT: 1. Bilateral pneumonia. 2. Question of concurrent heart failure. He has moderate mitral regurgitation on the echo. PLAN: 1. I will try a high-flow oxygen. 2. Increase steroids. 3. Continue antibiotics. 4. Try one dose of diuretics, on the off chance this could be pulmonary edema. Job ID: [id number]
--- NOTE | 2019-07-28 11:05 | PDOC.HOSPP ---
- Subjective Encounter Date: 07/28/19 Encounter Time: 11:02 Subjective: Mr. Bonds was seen today in follow-up of respiratory failure and pneumonia. He continues to complain of dyspnea, and notes swelling in his right arm. - Objective Vital Signs & Weight: Vital Signs (12 hours) Temp Pulse Resp BP BP Pulse Ox 07/28/19 10:31 96 37 H 99 07/28/19 08:59 132/86 07/28/19 08:00 99 07/28/19 07:46 94 07/28/19 07:42 94 30 H 96 07/28/19 07:10 99.8 F H 07/28/19 05:06 113 H 99 07/28/19 04:30 100.3 F H 98 07/28/19 04:10 133 H 26 H 188/95 H 85 L 07/28/19 04:00 98.8 F 108 H 14 154/84 H 76 L 07/28/19 03:55 99 F 128 H 26 H 168/90 H 90 L 07/28/19 03:48 104 H 24 H 93 L 07/28/19 03:40 110 H 26 H 75 L 07/28/19 03:35 98.9 F 88 20 146/72 H 76 L Weight Admit Weight 170 lb Weight 170 lb 14.4 oz Most Recent Monitor Data Heart Rate from ECG 122 NIBP 149/86 NIBP BP-Mean 107 Respiration from ECG 44 SpO2 78 I&O: 07/27/19 07/28/19 07/29/19 06:59 06:59 06:59 Intake Total 2455 2850 Output Total 1400 2325 Balance 1055 525 Result Diagrams: 07/28/19 05:54 07/28/19 05:54 Additional Labs: Accuchecks 07/28/19 07/28/19 07/28/19 10:12 05:31 04:16 POC Glucose 126 H 115 H 144 H 07/28/19 07/27/19 07/27/19 03:57 20:38 16:45 POC Glucose 58 L* 321 H 421 H 07/27/19 11:14 POC Glucose 461 H Hospitalist ROS - Medication Medications: Active Medications Generic Name Dose Route Start Last Admin Trade Name Freq PRN Reason Stop Dose Admin Acetaminophen 650 mg 07/24/19 11:45 07/28/19 05:45 Tylenol PO 650 mg Q4H PRN Administration Headache/Fever/Mild Pain (1-3) Albuterol/Ipratropium 3 ml 07/26/19 02:30 07/28/19 10:31 Duoneb NEB 3 ml [id number] VERONICA Administration Aspirin 81 mg 07/25/19 09:00 07/28/19 08:59 Ecotrin PO 81 mg DAILY VERONICA Administration Atorvastatin Calcium 40 mg 07/24/19 21:00 07/27/19 20:30 Lipitor PO 40 mg HS VERONICA Administration Carvedilol 3.125 mg 07/24/19 17:00 07/28/19 08:59 Coreg PO 3.125 mg BID-WM VERONICA Administration Cefpodoxime Proxetil 200 mg 07/28/19 09:00 07/28/19 08:59 Vantin PO 200 mg Q12HR VERONICA Administration Dextrose/Water 25 gm 07/24/19 11:45 07/28/19 03:57 Dextrose 50% SLOW IVP 25 gm PRN PRN Administration Hypoglycemia Enoxaparin Sodium 30 mg 07/25/19 09:00 07/28/19 08:59 Lovenox SC 30 mg 0900 VERONICA Administration Ceftriaxone Sodium 2 gm/ 100 mls @ 200 mls/hr 07/24/19 17:00 07/27/19 17:08 Sodium Chloride IVPB 100 mls 1700 VERONICA Administration Insulin Glargine 14 units/ 0.14 mls @ 0 mls/hr 07/27/19 21:00 07/27/19 20:41 Miscellaneous Medication SC 0.14 mls HS VERONICA Administration Levofloxacin 750 mg/ Device 150 mls @ 100 mls/hr 07/28/19 09:00 07/28/19 09: 00 IVPB 150 mls Q24HR VERONICA Administration Insulin Human Lispro 0 units 07/24/19 11:45 07/27/19 17:07 Humalog SC 13 unit .AGGRESSIVE SLIDING PRN Administration Aggressive Correctional Scale Ipratropium [place] 2.5 ml 07/28/19 07:00 07/28/19 07:45 Atrovent NEB Not Given [id number] VERONICA Lisinopril 10 mg 07/25/19 21:00 07/28/19 08:59 Zestril PO 10 mg BID VERONICA Administration Lorazepam 0.5 mg 07/26/19 12:52 07/27/19 20:29 Ativan PO 0.5 mg Q4H PRN Administration Anxiety Melatonin 3 mg 07/24/19 22:19 07/25/19 21:49 Melatonin PO 3 mg HS PRN Administration Insomnia Ondansetron HCl 4 mg 07/24/19 11:45 07/26/19 00:51 Zofran IVP 4 mg Q6H PRN Administration Nausea/Vomiting Sodium Chloride 10 ml 07/25/19 09:00 07/27/19 20:50 Flush - Normal Saline IVF Not Given Q12HR VERONICA - Exam Eye: PERRL, anicteric sclera Heart: RRR, no murmur, no gallops, no rubs Respiratory: rales (bilaterally and decreased breath sounds at the bases) Gastrointestinal: soft, non-tender, non-distended, normal bowel sounds, no palpable masses, no hepatomegaly, no splenomegaly Extremities: no cyanosis, no clubbing, no edema Hosp A/P (1) Pneumonia Code(s): J18.9 - PNEUMONIA, UNSPECIFIED ORGANISM Status: Acute (2) Acute respiratory failure with hypoxemia Code(s): J96.01 - ACUTE RESPIRATORY FAILURE WITH HYPOXIA Status: Acute (3) Hypertension Code(s): I10 - ESSENTIAL (PRIMARY) HYPERTENSION Status: Chronic (4) Diabetes type 2, uncontrolled Code(s): E11.65 - TYPE 2 DIABETES MELLITUS WITH HYPERGLYCEMIA Status: Chronic - Plan * Acute hypoxic respiratory failure- on Levaquin and Rocephin * Patient decompensated last night with increasing oxygen requirements- discussed with Dr. Moreno- He will be given a dose of Lasix, as well as increase his steroid dose, and monitor * Work-up for alternative causes is in progress * He has been placed on high flow oxygen * Right upper extremity swelling- will check a upper extremity venous ultrasound * HTN- blood pressure is stable * DM- blood glucose is a bit labile- will observe on the current regimen and adjust as needed
[2019-07-28] MEDS ORDERED: Potassium Chloride 20 MEQ TAB PO SCH (11:15)
--- NOTE | 2019-07-28 11:57 | PRG ---
DATE OF SERVICE: 07/28/2019 SUBJECTIVE: Mr. Bonds was moved to the IMU last night, started on BiPAP, significant hypoxemia. There is some concern there maybe a little bit of heart failure with moderate MR on his echo and he has been given a little bit of diuretic. He is without complaints today. OBJECTIVE: VITAL SIGNS: Temperature 98.7, blood pressure 153/93. He is on high-flow O2 60%. ABDOMEN: Soft and nontender. LABORATORY DATA: White count has come up to 17.3, hemoglobin is 13.7, platelet count is 261. Hepatitis C RNA is nondetectable. ASSESSMENT: 1. Pneumonia. Moved to the IMU, followed by Pulmonary and Internal Medicine. 2. He has a history of hepatitis C. This has been cleared. He has a negative RNA. He has no overt signs of cirrhosis with a normal platelet count. He had mildly elevated AST on admission. He was drinking alcohol regularly. My recommendation as far as liver disease is that he should avoid alcohol. In the past, he apparently was using some other drugs including cocaine and he is to avoid those. He has been overall doing much better. At the present, he has no need for GI followup. He has no hep C and no signs of cirrhosis. We will sign off. If I can be of any further assistance with the patient's care, please do not hesitate to contact me. Job ID: [id number]
[2019-07-28] MEDS: methylPREDNISolone Sod Succ 40 MG VIAL IVP SCH ×2 (11:58→17:18)
--- NOTE | 2019-07-28 16:01 | ULT ---
DOPPLER VENOUS ULTRASOUND OF THE RIGHT LOWER EXTREMITY: 07/28/19 INDICATION: Right upper extremity edema. TECHNIQUE: Avelar scale, color Doppler, and spectral Doppler images were obtained of the venous structures of the right upper extremity. The right internal jugular vein, right subclavian vein, right axillary, and ri ght cephalic vein, right brachial vein, right basilic vein and right radial veins were assessed. FINDINGS: There is complete occlusion of the right radial vein. There is complete occlusion of the right cephal ic vein from the wrist to the upper arm. There is a partially occlusive thrombus seen involving the right basilic vein in the upper arm. The r ight IJ, right subclavian, right axillary and right brachial veins appear patent. IMPRESSION: 1. Completely occlusive thrombus within the right radial vein and right cephalic vein. 2. Partially occlusive thrombus within the right basilic vein and at the level of the upper arm. 3. Results were relayed by the permit technician to the IMCU nurse at 3:07 p.m. POS: [id number]
[2019-07-28] MEDS: cefTRIAXone\\ROCEPHIN 2 GM in Sodium Chloride 0.9% 100 ML IVPB SCH (17:18)
[2019-07-28] MEDS: HumaLOG 300 UNITS/3 ML VIAL SC PRN (17:19)
[2019-07-28] MEDS: Enoxaparin Sodium 80 MG/0.8 ML SYRINGE SC SCH (20:06)
[2019-07-28] MEDS: Atorvastatin Calcium 40 MG TAB PO SCH (20:06)
[2019-07-28] MEDS: Lorazepam 0.5 MG TAB PO PRN (20:06)
[2019-07-28] MEDS: Insulin Glargine 14 UNITS in Pre-Filled Syringe 1 EACH SC SCH (20:07)
[2019-07-29] MEDS: Ipratropium Bromide 2.5 ml Neb NEB SCH ×4 (00:20→19:42)
[2019-07-29] MEDS: methylPREDNISolone Sod Succ 40 MG VIAL IVP SCH ×4 (00:37→17:27)
[2019-07-29] MEDS: Acetaminophen 325 MG TAB PO PRN (00:37)
[2019-07-29] MEDS: Lorazepam 0.5 MG TAB PO PRN (03:13)
[2019-07-29 04:21] LABS: Band 3 % (5-11); Hemoglobin 12.3 g/dL (14.0-18.0); Lymphocytes 3 % (21-51); MDiff Complete? YES; Mean Corpuscular HGB CONC 33.9 g/dL (32.0-36.0); Mean Corpuscular Hemoglobin 32.9 pg (27.0-31.0); Mean Corpuscular Volume 96.9 fL (78.0-98.0); Mean Platelet Volume 10.3 fL (7.4-10.4); Monocytes 1 % (0-10); Neutrophil 93 % (42-75); Platelet Count 182 thou/uL (130-400); Platelet Morphology Comment Appears Adequate; RBC Distribution Width 11.8 % (11.5-14.5); RBC Morphology Normal; Red Blood Cell (RBC) Count 3.75 mill/uL (4.70-6.10); White Blood Cell (WBC) Count 9.7 thou/uL (4.8-10.8)
[2019-07-29 04:25] LABS: Anion Gap 11 mmol/L (10-20); BUN (Urea Nitrogen) 31 mg/dL (8.9-20.6); Calc. Creatinine Clearance 84 mL/min (70-130); Calcium 7.2 mg/dL (7.8-10.44); Carbon Dioxide 24 mmol/L (22-29); Chloride 100 mmol/L (98-107); Estimated GFR-MDRD 65; Glucose 234 mg/dL (70-105); Magnesium 1.8 mg/dL (1.6-2.6); Phosphorus 3.1 mg/dL (2.3-4.7); Sodium 131 mmol/L (136-145)
[2019-07-29] MEDS: Enoxaparin Sodium 80 MG/0.8 ML SYRINGE SC SCH ×2 (10:31→21:32)
[2019-07-29] MEDS: Carvedilol 3.125 MG TAB PO SCH ×2 (10:32→15:15)
[2019-07-29] MEDS: Lisinopril 10 MG TAB PO SCH ×2 (10:32→21:32)
[2019-07-29] MEDS: HumaLOG 300 UNITS/3 ML VIAL SC PRN ×3 (10:32→21:33)
[2019-07-29] MEDS: Aspirin 81 mg Enteric Coated Tablet PO SCH (10:32)
[2019-07-29] MEDS ORDERED: Benzonatate 100 MG CAP PO PRN (10:42)
--- NOTE | 2019-07-29 10:44 | PDOC.HOSPP ---
- Subjective Encounter Date: 07/29/19 Encounter Time: 10:43 Subjective: Mr. Bonds was seen today in follow-up of Pneumonia with respiratory failure. He notes some numbness on the left side of his face. He continues to cough quite a bit. - Objective Vital Signs & Weight: Vital Signs (12 hours) Temp Pulse Resp Pulse Ox 07/29/19 10:29 85 34 H 94 L 07/29/19 08:19 80 23 H 94 L 07/29/19 07:12 97.7 F 07/29/19 05:05 98.0 F 07/29/19 03:31 96 07/29/19 03:30 98 07/29/19 00:27 100.0 F H 07/28/19 23:33 96 07/28/19 23:32 96 Weight Admit Weight 170 lb Weight 170 lb 14.4 oz Most Recent Monitor Data Heart Rate from ECG 83 NIBP 115/74 NIBP BP-Mean 87 Respiration from ECG 24 SpO2 94 I&O: 07/28/19 07/29/19 07/30/19 06:59 06:59 06:59 Intake Total 2850 1580 Output Total 2325 5 Balance 525 -445 Result Diagrams: 07/29/19 03:15 07/29/19 03:15 Additional Labs: Accuchecks 07/29/19 07/29/19 07/28/19 10:21 06:46 20:07 POC Glucose 347 H 275 H 204 H 07/28/19 17:09 POC Glucose 327 H Hospitalist ROS - Medication Medications: Active Medications Generic Name Dose Route Start Last Admin Trade Name Freq PRN Reason Stop Dose Admin Acetaminophen 650 mg 07/24/19 11:45 07/29/19 00:37 Tylenol PO 650 mg Q4H PRN Administration Headache/Fever/Mild Pain (1-3) Albuterol/Ipratropium 3 ml 07/26/19 02:30 07/29/19 10:29 Duoneb NEB 3 ml [id number] VERONICA Administration Aspirin 81 mg 07/25/19 09:00 07/28/19 08:59 Ecotrin PO 81 mg DAILY VERONICA Administration Atorvastatin Calcium 40 mg 07/24/19 21:00 07/28/19 20:06 Lipitor PO 40 mg HS VERONICA Administration Carvedilol 3.125 mg 07/24/19 17:00 07/28/19 17:17 Coreg PO 3.125 mg BID-WM VERONICA Administration Cefpodoxime Proxetil 200 mg 07/28/19 09:00 07/28/19 20:05 Vantin PO 200 mg Q12HR VERONICA Administration Dextrose/Water 25 gm 07/24/19 11:45 07/28/19 03:57 Dextrose 50% SLOW IVP 25 gm PRN PRN Administration Hypoglycemia Enoxaparin Sodium 80 mg 07/28/19 21:00 07/28/19 20:06 Lovenox SC 80 mg 0900,2100 VERONICA Administration Ceftriaxone Sodium 2 gm/ 100 mls @ 200 mls/hr 07/24/19 17:00 07/28/19 17:18 Sodium Chloride IVPB 100 mls 1700 VERONICA Administration Insulin Glargine 14 units/ 0.14 mls @ 0 mls/hr 07/27/19 21:00 07/28/19 20:07 Miscellaneous Medication SC 0.14 mls HS VERONICA Administration Levofloxacin 750 mg/ Device 150 mls @ 100 mls/hr 07/28/19 09:00 07/28/19 09: 00 IVPB 150 mls Q24HR VERONICA Administration Insulin Human Lispro 0 units 07/24/19 11:45 07/28/19 17:19 Humalog SC 11 unit .AGGRESSIVE SLIDING PRN Administration Aggressive Correctional Scale Ipratropium [place] 2.5 ml 07/28/19 07:00 07/29/19 08:19 Atrovent NEB Not Given [id number] VERONICA Lisinopril 10 mg 07/25/19 21:00 07/28/19 20:06 Zestril PO 10 mg BID VERONICA Administration Lorazepam 0.5 mg 07/26/19 12:52 07/29/19 03:13 Ativan PO 0.5 mg Q4H PRN Administration Anxiety Melatonin 3 mg 07/24/19 22:19 07/25/19 21:49 Melatonin PO 3 mg HS PRN Administration Insomnia Methylprednisolone Sodium Succinate 40 mg 07/28/19 12:00 07/29/19 06:23 Solu-Medrol IVP 40 mg Q6HR VERONICA Administration Ondansetron HCl 4 mg 07/24/19 11:45 07/26/19 00:51 Zofran IVP 4 mg Q6H PRN Administration Nausea/Vomiting Sodium Chloride 10 ml 07/25/19 09:00 07/28/19 20:06 Flush - Normal Saline IVF 10 ml Q12HR VERONICA Administration - Exam Eye: PERRL Heart: RRR, no murmur, no gallops, no rubs, normal peripheral pulses Respiratory: rales (bilaterally, throughout) Gastrointestinal: soft, non-tender, non-distended, normal bowel sounds, no palpable masses, no hepatomegaly, no splenomegaly Extremities: no cyanosis, no clubbing, 1+ LE edema (+ swelling in the right upper extremity- improved) Neurological: cranial nerve grossly intact, no focal deficits (muscle strength is 5/5 in both upper and lower extremities, there is no facial muscle weakness) Hosp A/P (1) Pneumonia Code(s): J18.9 - PNEUMONIA, UNSPECIFIED ORGANISM Status: Acute (2) Acute respiratory failure with hypoxemia Code(s): J96.01 - ACUTE RESPIRATORY FAILURE WITH HYPOXIA Status: Acute (3) Hypertension Code(s): I10 - ESSENTIAL (PRIMARY) HYPERTENSION Status: Chronic (4) Diabetes type 2, uncontrolled Code(s): E11.65 - TYPE 2 DIABETES MELLITUS WITH HYPERGLYCEMIA Status: Chronic - Plan * Acute hypoxic respiratory failure- on Levaquin and Rocephin * Continue IV steroids as well * Continue high flow oxygen, and his requirements have improved * Add a medication for cough * Work-up for alternative causes is in progress * Right upper extremity DVT- continue Lovenox- and can transition to an oral agent tomorrow * HTN- blood pressure is stable * DM- blood glucose is elevated- will increase the dose of Lantus
--- NOTE | 2019-07-29 11:56 | PRG ---
DATE OF SERVICE: 07/29/2019 SUBJECTIVE: He continues to be fairly ill; however, we have been able to wean his high-flow oxygen down to about 45%. OBJECTIVE: VITAL SIGNS: Temperature 97.7, pulse 83, blood pressure 115/74, and saturation 94%. HEENT: Unremarkable. NECK: No adenopathy or JVD. LUNGS: Diffuse mild crackles. CARDIAC: S1 and S2. Regular. ABDOMEN: Soft. EXTREMITIES: No edema. LABORATORY DATA: White blood cell count 9.7, hematocrit 36.3, and platelet count 182. Sodium 131, potassium 4, chloride 100, CO2 of 24, BUN 31, creatinine 1.2, and glucose 234. ASSESSMENT: 1. Bilateral pneumonia. 2. Right upper extremity deep venous thrombosis. 3. Question of concurrent heart failure. PLAN: The patient is currently on ceftriaxone and Levaquin, which should be adequate coverage for community-acquired pneumonia. He will also remain on steroids. Anticoagulation was started by the hospitalist group for the DVT. We will continue to try to wean high-flow oxygen. ANCA and other panels are pending. Job ID: [id number]
[2019-07-29] MEDS ORDERED: Insulin Glargine 10 UNITS in Pre-Filled Syringe 1 EACH SC SCH (12:00)
[2019-07-29] MEDS: guaiFENesin/Codeine Phosphate 200 mg/20 mg 10 ml UD Cup PO SCH ×2 (15:14→21:33)
[2019-07-29] MEDS: Calcium Carbonate 500 MG TAB PO SCH (15:15)
[2019-07-29] MEDS: cefTRIAXone\\ROCEPHIN 2 GM in Sodium Chloride 0.9% 100 ML IVPB SCH (15:15)
[2019-07-29] MEDS: Atorvastatin Calcium 40 MG TAB PO SCH (21:32)
[2019-07-29] MEDS: Insulin Glargine 20 UNITS in Pre-Filled Syringe 1 EACH SC SCH (21:33)
[2019-07-30] MEDS: methylPREDNISolone Sod Succ 40 MG VIAL IVP SCH ×3 (00:26→13:16)
[2019-07-30] MEDS: Ipratropium Bromide 2.5 ml Neb NEB SCH ×4 (01:00→21:25)
[2019-07-30] MEDS: Lorazepam 0.5 MG TAB PO PRN (03:43)
[2019-07-30 04:17] LABS: #Lymphocytes 0.3 thou/uL (1.20-3.40); #Monocytes 0.3 thou/uL (0.11-0.59); %Lymphocytes 3.2 % (21.0-51.0); %Neutrophils 93.8 % (42.0-75.0); Hemoglobin 12.3 g/dL (14.0-18.0); Mean Corpuscular HGB CONC 34.4 g/dL (32.0-36.0); Mean Corpuscular Hemoglobin 33.4 pg (27.0-31.0); Mean Corpuscular Volume 97.2 fL (78.0-98.0); Mean Platelet Volume 9.7 fL (7.4-10.4); Platelet Count 204 thou/uL (130-400); RBC Distribution Width 11.8 % (11.5-14.5); Red Blood Cell (RBC) Count 3.68 mill/uL (4.70-6.10); White Blood Cell (WBC) Count 10.7 thou/uL (4.8-10.8)
[2019-07-30 04:35] LABS: Anion Gap 12 mmol/L (10-20); BUN (Urea Nitrogen) 33 mg/dL (8.9-20.6); Calc. Creatinine Clearance 87 mL/min (70-130); Calcium 7.4 mg/dL (7.8-10.44); Carbon Dioxide 24 mmol/L (22-29); Chloride 102 mmol/L (98-107); Estimated GFR-MDRD 67; Glucose 322 mg/dL (70-105); Phosphorus 2.9 mg/dL (2.3-4.7); Potassium 3.9 mmol/L (3.5-5.1); Sodium 134 mmol/L (136-145)
[2019-07-30] MEDS: HumaLOG 300 UNITS/3 ML VIAL SC PRN ×3 (05:53→17:25)
--- NOTE | 2019-07-30 07:44 | RAD ---
Chest AP view INDICATION: Pneumonia COMPARISON: None FINDINGS: Lungs:Bilateral airspace opacities are stable. Cardiac silhouette:The cardiomediastinal silhouette appears within normal limits. Pulmonary vasculature:Normal Pleural spaces:Small bilateral pleural effusions, right greater than left. Upper abdomen:No abnormality seen. Osseous structures: No acute osseous abnormality. Additional findings:None. IMPRESSION: Persistent parenchymal opacities within both lungs consistent with stable pneumonia. Ther e is a new small right and tiny left pleural effusion.
[2019-07-30] MEDS ORDERED: Insulin Glargine 10 UNITS in Pre-Filled Syringe 1 EACH SC SCH (09:00)
[2019-07-30] MEDS ORDERED: Ergocalciferol 1.25 MG(50,000 UNITS) CAP PO SCH (09:00)
--- NOTE | 2019-07-30 09:37 | PDOC.HOSPP ---
- Subjective Encounter Date: 07/30/19 Encounter Time: 09:35 Subjective: Mr. Bonds was seen today in follow-up of pneumonia with respiratory failure. He continues to have some coughing, and dyspnea, but overall appears better today than yesterday. - Objective Vital Signs & Weight: Vital Signs (12 hours) Temp Pulse Resp Pulse Ox 07/30/19 07:31 96.9 F L 07/30/19 07:06 61 18 100 07/30/19 03:53 95 07/30/19 03:44 98.4 F 07/30/19 01:01 96 07/30/19 00:25 98.4 F 07/30/19 00:20 100 Weight Admit Weight 170 lb Weight 170 lb 14.4 oz Most Recent Monitor Data Heart Rate from ECG 86 NIBP 140/108 NIBP BP-Mean 118 Respiration from ECG 30 SpO2 98 I&O: 07/29/19 07/30/19 07/31/19 06:59 06:59 06:59 Intake Total 1580 2060 Output Total 2024 1525 Balance -445 535 Result Diagrams: 07/30/19 03:25 07/30/19 03:25 Additional Labs: Accuchecks 07/29/19 07/29/19 07/29/19 21:28 16:09 10:21 POC Glucose 340 H 386 H 347 H Hospitalist ROS - Medication Medications: Active Medications Generic Name Dose Route Start Last Admin Trade Name Freq PRN Reason Stop Dose Admin Acetaminophen 650 mg 07/24/19 11:45 07/29/19 00:37 Tylenol PO 650 mg Q4H PRN Administration Headache/Fever/Mild Pain (1-3) Albuterol/Ipratropium 3 ml 07/26/19 02:30 07/30/19 07:06 Duoneb NEB 3 ml [id number] VERONICA Administration Aspirin 81 mg 07/25/19 09:00 07/29/19 10:32 Ecotrin PO 81 mg DAILY VERONICA Administration Atorvastatin Calcium 40 mg 07/24/19 21:00 07/29/19 21:32 Lipitor PO 40 mg HS VERONICA Administration Benzonatate 100 mg 07/29/19 10:42 07/30/19 03:43 Tessalon PO 100 mg Q4H PRN Administration Cough Calcium Carbonate 500 mg 07/29/19 17:00 07/29/19 15:15 Oscal-500 PO 500 mg BID-WM VERONICA Administration Carvedilol 3.125 mg 07/24/19 17:00 07/29/19 15:15 Coreg PO 3.125 mg BID-WM VERONICA Administration Cefpodoxime Proxetil 200 mg 07/28/19 09:00 07/29/19 21:32 Vantin PO 200 mg Q12HR VERONICA Administration Dextrose/Water 25 gm 07/24/19 11:45 07/28/19 03:57 Dextrose 50% SLOW IVP 25 gm PRN PRN Administration Hypoglycemia Guaifenesin/Codeine Phosphate 0 ml 07/29/19 15:00 07/29/19 21:33 Robitussin Ac PO 07/31/19 09:01 10 ml TID VERONICA Administration Ceftriaxone Sodium 2 gm/ 100 mls @ 200 mls/hr 07/24/19 17:00 07/29/19 15:15 Sodium Chloride IVPB 100 mls 1700 VERONICA Administration Levofloxacin 750 mg/ Device 150 mls @ 100 mls/hr 07/28/19 09:00 07/29/19 10: 31 IVPB 150 mls Q24HR VERONICA Administration Insulin Glargine 20 units/ 0.2 mls @ 0 mls/hr 07/29/19 21:00 07/29/19 21:33 Miscellaneous Medication SC 0.2 mls HS VERONICA Administration Insulin Human Lispro 0 units 07/24/19 11:45 07/30/19 05:53 Humalog SC 11 unit .AGGRESSIVE SLIDING PRN Administration Aggressive Correctional Scale Ipratropium [place] 2.5 ml 07/28/19 07:00 07/30/19 01:00 Atrovent NEB Not Given [id number] VERONICA Lisinopril 10 mg 07/25/19 21:00 07/29/19 21:32 Zestril PO 10 mg BID VERONICA Administration Lorazepam 0.5 mg 07/26/19 12:52 07/30/19 03:43 Ativan PO 0.5 mg Q4H PRN Administration Anxiety Melatonin 3 mg 07/24/19 22:19 07/25/19 21:49 Melatonin PO 3 mg HS PRN Administration Insomnia Methylprednisolone Sodium Succinate 40 mg 07/28/19 12:00 07/30/19 05:53 Solu-Medrol IVP 40 mg Q6HR VERONICA Administration Ondansetron HCl 4 mg 07/24/19 11:45 07/26/19 00:51 Zofran IVP 4 mg Q6H PRN Administration Nausea/Vomiting Sodium Chloride 10 ml 07/25/19 09:00 07/29/19 21:34 Flush - Normal Saline IVF 10 ml Q12HR VERONICA Administration - Exam Eye: PERRL Heart: RRR, no murmur, no gallops, no rubs, normal peripheral pulses Respiratory: no wheezes, no ronchi, rales (fine crackles at both bases) Gastrointestinal: soft, non-tender, non-distended, normal bowel sounds, no palpable masses, no hepatomegaly, no splenomegaly Extremities: no cyanosis, no clubbing, no edema Hosp A/P (1) Pneumonia Code(s): J18.9 - PNEUMONIA, UNSPECIFIED ORGANISM Status: Acute (2) Acute respiratory failure with hypoxemia Code(s): J96.01 - ACUTE RESPIRATORY FAILURE WITH HYPOXIA Status: Acute (3) Hypertension Code(s): I10 - ESSENTIAL (PRIMARY) HYPERTENSION Status: Chronic (4) Diabetes type 2, uncontrolled Code(s): E11.65 - TYPE 2 DIABETES MELLITUS WITH HYPERGLYCEMIA Status: Chronic - Plan * Acute hypoxic respiratory failure with hypoxemia- due to Pneumonia. He continues on high flow oxygen * Continue IV steroids, Rocephin and Levaquin * Right upper extremity DVT- will transition to Eliquis today * HTN- blood pressure is labile, but overall stable * DM- blood glucose is elevated- will continue to titrate the dose of Lantus * Increase ambulation
[2019-07-30] MEDS: guaiFENesin/Codeine Phosphate 200 mg/20 mg 10 ml UD Cup PO SCH ×3 (09:45→20:56)
[2019-07-30] MEDS: Calcium Carbonate 500 MG TAB PO SCH ×2 (09:50→16:31)
[2019-07-30] MEDS: Aspirin 81 mg Enteric Coated Tablet PO SCH (09:50)
[2019-07-30] MEDS: Apixaban 5 MG TAB PO SCH ×2 (09:50→20:56)
[2019-07-30] MEDS: Carvedilol 3.125 MG TAB PO SCH ×2 (09:50→16:31)
[2019-07-30] MEDS: Lisinopril 10 MG TAB PO SCH ×2 (09:50→20:57)
[2019-07-30] MEDS: Insulin Glargine 20 UNITS in Pre-Filled Syringe 1 EACH SC SCH ×2 (09:52→21:08)
[2019-07-30 12:08] LABS: A/G Ratio 0.7 (0.7-1.7); Albumin 2.3 g/dL (2.9-4.4); Alpha 1 0.5 g/dL (0.0-0.4); Alpha 2 1.2 g/dL (0.4-1.0); Beta 0.8 g/dL (0.7-1.3); Gamma 0.6 g/dL (0.4-1.8); Globulin, Total 3.1 g/dL (2.2-3.9); M-Spike Not Observed g/dL (Not Observed)
--- NOTE | 2019-07-30 14:22 | PRG ---
DATE OF SERVICE: 07/30/2019 SERVICE: Pulmonary Medicine. INTERVAL HISTORY: The patient is doing great from a respiratory standpoint. Oxygen requirements are improving. Denies any current chest discomfort, fevers, or chills. Otherwise, there has been no interval change to his condition. PHYSICAL EXAMINATION: VITAL SIGNS: Afebrile, pulse 75, blood pressure 125/87, respirations 22, saturation 99%, currently on 65% FiO2 delivered via high-flow nasal cannula. GENERAL: The patient is awake and alert, in no apparent distress. LUNGS: Decent air entry. Crackles are present dependently. No prolonged expiratory phase or wheezing is appreciated. HEART: Normal rate, regular. ABDOMEN: Soft, nontender, and nondistended. Bowel sounds are positive. MUSCULOSKELETAL: No cyanosis or clubbing. There is no pitting in the bilateral lower extremities. NEUROLOGIC: Grossly nonfocal. LABORATORY DATA: WBC 10.7, hemoglobin 12.3, and platelets 204,000. Sodium 134. Basic metabolic profile is otherwise unremarkable. Creatinine 1.17, which is come down from 2.16. Calcium 7.4, phosphorus 2.9. Hepatitis C was abnormal, though the RNA count was not present. HIV-1 and 2, strep Legionella and urinary antigens are unremarkable. Blood cultures x2 are negative. Influenza x2 is negative. IMAGING STUDIES: Chest x-ray demonstrates parenchymal opacities in bilateral lung carpenter consistent with pneumonia. Small right effusion is present. Overall, this is an improving appearance. Vascular ultrasound demonstrates occlusive thrombus in the right radial vein and right cephalic vein. Partially occlusive thrombus in the right basilic of the upper arm. Echocardiogram demonstrates normal ejection fraction and a mildly dilated left atrium with moderate mitral regurgitation. CT of the chest demonstrates diffuse areas of ground-glass opacification and overt consolidating lesions. Some areas have some crazy paving appearance. ASSESSMENT: 1. Acute hypoxic respiratory failure. 2. Community-acquired pneumonia, severe. 3. Acute kidney injury, resolved. 4. Abnormal CT, characterized by consolidating lesions, ground-glass opacifications, and some interstitial fullness with areas of "crazy paving.". 5. Right upper extremity deep venous thrombosis. DISCUSSION AND PLAN: Tomorrow, the patient will have completed his course of antibiotics. Anti-GBM antibodies were unremarkable. ANCAs are currently pending. The patient has been initiated on empiric steroids. I will decrease to once daily. We will continue mobilization efforts, and start moving the patient as tolerated. Pulmonary/Critical Care will continue to follow very closely. At this point, he is stable for transition out of the ICU to the medical unit. Job ID: [id number]
[2019-07-30 16:08] LABS: Cytoplasmic (C-ANCA) <1:20 titer (Neg:<1:20); Myeloperoxidase AutoAbs <9.0 U/mL (0.0-9.0); Perinuclear (P-ANCA) <1:20 titer (Neg:<1:20); Proteinase-3 AutoAbs Less than 3.5 U/mL (0.0-3.5)
[2019-07-30] MEDS: cefTRIAXone\\ROCEPHIN 2 GM in Sodium Chloride 0.9% 100 ML IVPB SCH (16:31)
[2019-07-30] MEDS: Atorvastatin Calcium 40 MG TAB PO SCH (20:57)
[2019-07-31] MEDS: Ipratropium Bromide 2.5 ml Neb NEB SCH ×4 (01:36→19:28)
[2019-07-31] MEDS: HumaLOG 300 UNITS/3 ML VIAL SC PRN ×2 (05:45→16:48)
[2019-07-31] MEDS: Aspirin 81 mg Enteric Coated Tablet PO SCH (08:33)
[2019-07-31] MEDS: Apixaban 5 MG TAB PO SCH ×2 (08:33→20:13)
[2019-07-31] MEDS: Carvedilol 3.125 MG TAB PO SCH ×2 (08:34→15:01)
[2019-07-31] MEDS: Calcium Carbonate 500 MG TAB PO SCH ×2 (08:34→15:08)
[2019-07-31] MEDS: predniSONE 20 MG TAB PO SCH (08:34)
[2019-07-31] MEDS: Insulin Glargine 20 UNITS in Pre-Filled Syringe 1 EACH SC SCH ×2 (08:36→20:13)
[2019-07-31] MEDS: Lisinopril 10 MG TAB PO SCH ×2 (08:36→20:17)
[2019-07-31] MEDS: guaiFENesin/Codeine Phosphate 200 mg/20 mg 10 ml UD Cup PO SCH (10:19)
[2019-07-31 13:10] LABS: Albumin-Ur 77.6 % (.); Alpha 1 - Ur 2.1 % (.); Alpha 2 - Ur 5.2 % (.); Beta-Ur 8.6 % (.); Gamma-Ur 6.5 % (.); M-Spike,% Not Observed % (Not Observed); Protein, Urine 166.2 mg/dL (Not Estab.)
[2019-07-31] MEDS: cefTRIAXone\\ROCEPHIN 2 GM in Sodium Chloride 0.9% 100 ML IVPB SCH (15:01)
[2019-07-31] MEDS ORDERED: Oseltamivir 75 MG CAP PO SCH (15:45)
--- NOTE | 2019-07-31 15:47 | PRG ---
DATE OF SERVICE: 07/31/2019 SERVICE: Pulmonary Medicine. INTERVAL HISTORY: The patient is doing really well from a respiratory standpoint. He denies any chest discomfort, nausea, or vomiting. Otherwise, there has been no interval change to his condition. He continues to cough, but his breathing has improved slightly. PHYSICAL EXAMINATION: VITAL SIGNS: Afebrile, pulse 94, blood pressure 147/94, respirations 20, saturation 95% on high-flow nasal cannula. GENERAL: The patient is awake and alert, in no apparent distress. LUNGS: Wonderful air entry. No prolonged expiratory phase or wheezing is appreciated. HEART: Normal rate, regular. ABDOMEN: Soft, nontender, and nondistended. Bowel sounds are positive. MUSCULOSKELETAL: No cyanosis or clubbing. No pitting in the bilateral lower extremities. NEUROLOGIC: Grossly nonfocal. LABORATORY DATA: Respiratory virus panel is positive for influenza A. H1 was detected. ASSESSMENT: 1. Acute hypoxic respiratory failure. 2. Community-acquired pneumonia, secondary to influenza. 3. Acute kidney injury. 4. Abnormal CT, characterized by consolidated lesions, ground-glass opacifications, and areas of "crazy paving.". 5. Right upper extremity deep venous thrombosis. DISCUSSION AND PLAN: All laboratories are essentially unremarkable. The CT findings are most consistent with influenza. I will repeat a chest x-ray tomorrow morning. He has completed a course of antibiotics and these will be discontinued. At this point, where through the window in which Tamiflu would be effective, but if he is having a hard time clearing his viral load, there is a possibility there is a role here for 5-day course. Pulmonary/Critical Care will continue to follow along. The patient will remain in-house until he liberates from oxygen. Job ID: [id number]
--- NOTE | 2019-07-31 17:30 | PDOC.HOSPP ---
- Subjective Encounter Date: 07/31/19 Encounter Time: 17:28 Subjective: Mr. Bonds was seen today in follow-up of pneumonia and respiratory failure. He is beginning to be less short of breath. He is sitting up in bed eating. - Objective Vital Signs & Weight: Vital Signs (12 hours) Temp Pulse Resp BP Pulse Ox 07/31/19 16:43 97.7 F 70 20 99/66 95 07/31/19 16:10 67 16 100 07/31/19 11:45 97.9 F 94 20 147/94 H 95 07/31/19 10:15 94 L 07/31/19 07:38 97.8 F 82 22 H 155/92 H 95 07/31/19 06:38 76 16 94 L Weight Admit Weight 170 lb Weight 170 lb 14.4 oz Most Recent Monitor Data Heart Rate from ECG 69 NIBP 131/87 NIBP BP-Mean 101 Respiration from ECG 20 SpO2 99 I&O: 07/30/19 07/31/19 08/01/19 06:59 06:59 06:59 Intake Total 2060 1592 1850 Output Total 1525 1775 Balance 535 -183 1850 Result Diagrams: 07/30/19 03:25 07/30/19 03:25 Additional Labs: Accuchecks 07/31/19 07/31/19 07/31/19 16:49 11:51 04:32 POC Glucose 237 H 114 H 291 H 07/30/19 19:47 POC Glucose 196 H Hospitalist ROS - Medication Medications: Active Medications Generic Name Dose Route Start Last Admin Trade Name Freq PRN Reason Stop Dose Admin Acetaminophen 650 mg 07/24/19 11:45 07/29/19 00:37 Tylenol PO 650 mg Q4H PRN Administration Headache/Fever/Mild Pain (1-3) Albuterol/Ipratropium 3 ml 07/26/19 02:30 07/31/19 16:10 Duoneb NEB 3 ml [id number] VERONICA Administration Apixaban 10 mg 07/30/19 09:00 07/31/19 08:33 Eliquis PO 10 mg BID VERONICA Administration Aspirin 81 mg 07/25/19 09:00 07/31/19 08:33 Ecotrin PO 81 mg DAILY VERONICA Administration Atorvastatin Calcium 40 mg 07/24/19 21:00 07/30/19 20:57 Lipitor PO 40 mg HS VERONICA Administration Calcium Carbonate 500 mg 07/29/19 17:00 07/31/19 15:08 Oscal-500 PO 500 mg BID-WM VERONICA Administration Carvedilol 3.125 mg 07/24/19 17:00 07/31/19 15:01 Coreg PO 3.125 mg BID-WM VERONICA Administration Dextrose/Water 25 gm 07/24/19 11:45 07/28/19 03:57 Dextrose 50% SLOW IVP 25 gm PRN PRN Administration Hypoglycemia Ergocalciferol 1.25 mg 07/30/19 09:00 07/30/19 09:50 Drisdol PO 1.25 mg Q7DAYS VERONICA Administration Insulin Glargine 20 units/ 0.2 mls @ 0 mls/hr 07/29/19 21:00 07/30/19 21:08 Miscellaneous Medication SC 0.2 mls HS VERONICA Administration Insulin Glargine 20 units/ 0.2 mls @ 0 mls/hr 07/30/19 09:00 07/31/19 08:36 Miscellaneous Medication SC 0.2 mls QAM VERONICA Administration Insulin Human Lispro 0 units 07/24/19 11:45 07/31/19 16:48 Humalog SC 9 unit .AGGRESSIVE SLIDING PRN Administration Aggressive Correctional Scale Ipratropium [place] 2.5 ml 07/28/19 07:00 07/31/19 13:03 Atrovent NEB Not Given [id number] VERONICA Lisinopril 10 mg 07/25/19 21:00 07/31/19 08:36 Zestril PO 10 mg BID VERONICA Administration Melatonin 3 mg 07/24/19 22:19 07/25/19 21:49 Melatonin PO 3 mg HS PRN Administration Insomnia Ondansetron HCl 4 mg 07/24/19 11:45 07/26/19 00:51 Zofran IVP 4 mg Q6H PRN Administration Nausea/Vomiting Oseltamivir Phosphate 75 mg 07/31/19 15:45 07/31/19 16:44 Tamiflu PO 07/31/19 17:45 75 mg NOW VERONICA Administration Prednisone 40 mg 07/31/19 08:00 07/31/19 08:34 Prednisone PO 40 mg QAM-WM VERONICA Administration Senna/Docusate Sodium 2 tab 07/24/19 11:45 07/30/19 09:50 Senokot S PO 2 tab BIDPRN PRN Administration Constipation Sodium Chloride 10 ml 07/25/19 09:00 07/31/19 08:38 Flush - Normal Saline IVF 10 ml Q12HR VERONICA Administration - Exam Eye: PERRL Heart: RRR, no murmur, no gallops, no rubs, normal peripheral pulses Respiratory: no ronchi, normal chest expansion, rales Gastrointestinal: soft, non-tender, non-distended, normal bowel sounds, no palpable masses, no hepatomegaly, no splenomegaly Extremities: no cyanosis, no clubbing, no edema Hosp A/P (1) Pneumonia Code(s): J18.9 - PNEUMONIA, UNSPECIFIED ORGANISM Status: Acute (2) Acute respiratory failure with hypoxemia Code(s): J96.01 - ACUTE RESPIRATORY FAILURE WITH HYPOXIA Status: Acute (3) Hypertension Code(s): I10 - ESSENTIAL (PRIMARY) HYPERTENSION Status: Chronic (4) Diabetes type 2, uncontrolled Code(s): E11.65 - TYPE 2 DIABETES MELLITUS WITH HYPERGLYCEMIA Status: Chronic - Plan * Acute hypoxic respiratory failure with hypoxemia- his influenza screen was positive- He was started on Tamiflu * He has been placed in respiratory isolation * DM- blood glucose is stable * HTN- blood pressure is a bit elevated, but acceptable * Continue to mobilize
[2019-07-31] MEDS: Atorvastatin Calcium 40 MG TAB PO SCH (20:14)
[2019-07-31] MEDS: Oseltamivir 75 MG CAP PO SCH (20:14)
[2019-08-01] MEDS: Ipratropium Bromide 2.5 ml Neb NEB SCH ×3 (02:07→13:49)
[2019-08-01] MEDS ORDERED: predniSONE 20 MG TAB ONE (07:05)
[2019-08-01] MEDS ORDERED: Carvedilol 3.125 MG TAB ONE (07:05)
[2019-08-01] MEDS ORDERED: Lisinopril 5 MG TAB ONE (07:05)
[2019-08-01] MEDS ORDERED: Aspirin 81 mg Enteric Coated Tablet ONE (07:05)
[2019-08-01] MEDS: Carvedilol 3.125 MG TAB PO SCH ×2 (08:30→17:52)
[2019-08-01] MEDS: Oseltamivir 75 MG CAP PO SCH ×2 (09:00→19:56)
--- NOTE | 2019-08-01 11:40 | RAD ---
Chest 2 views HISTORY: Pneumonia. Influenza. COMPARISON: 07/30/2019. FINDINGS: Cardiac silhouette is magnified by projection. Pulmonary vasculature remains engorged with patchy areas of dense parenchymal infiltrate throughout each lung similar in appearance to the prior exam. Consolidation most pronounced at the right lower lobe. Minimal fluid in the right pleural fissures. No evidence of pneumothorax. IMPRESSION: Multifocal infiltrates and other findings are stable.
[2019-08-01] MEDS: Aspirin 81 mg Enteric Coated Tablet PO SCH (13:48)
[2019-08-01] MEDS: Apixaban 5 MG TAB PO SCH ×2 (13:48→19:56)
[2019-08-01] MEDS: Calcium Carbonate 500 MG TAB PO SCH ×2 (13:48→18:03)
[2019-08-01] MEDS: Insulin Glargine 20 UNITS in Pre-Filled Syringe 1 EACH SC SCH ×2 (13:48→19:56)
[2019-08-01] MEDS: predniSONE 20 MG TAB PO SCH (13:48)
[2019-08-01] MEDS: Lisinopril 10 MG TAB PO SCH ×2 (13:48→19:56)
--- NOTE | 2019-08-01 17:30 | PDOC.HOSPP ---
- Subjective Encounter Date: 08/01/19 Encounter Time: 17:28 Subjective: Mr. Bonds was seen today in follow-up of pneumonia and respiratory failure. He has improved some, and is now on a nasal canula. - Objective Vital Signs & Weight: Vital Signs (12 hours) Temp Pulse Resp BP BP Pulse Ox 08/01/19 16:30 98.6 F 93 20 145/83 H 91 L 08/01/19 13:50 79 20 89 L 08/01/19 13:48 124/70 08/01/19 13:47 87 08/01/19 12:00 98.1 F 87 18 122/78 90 L 08/01/19 08:00 94 L 08/01/19 07:30 99.1 F 69 20 149/85 H 94 L Weight Admit Weight 170 lb Weight 170 lb 14.4 oz Most Recent Monitor Data Heart Rate from ECG 69 NIBP 131/87 NIBP BP-Mean 101 Respiration from ECG 20 SpO2 99 I&O: 07/31/19 08/01/19 08/02/19 06:59 06:59 06:59 Intake Total 1592 1850 Output Total 1775 Balance -183 1850 Result Diagrams: 07/30/19 03:25 07/30/19 03:25 Additional Labs: Accuchecks 08/01/19 08/01/19 08/01/19 16:29 11:58 04:26 POC Glucose 302 H 83 123 H 07/31/19 19:43 POC Glucose 336 H Hospitalist ROS - Medication Medications: Active Medications Generic Name Dose Route Start Last Admin Trade Name Freq PRN Reason Stop Dose Admin Acetaminophen 650 mg 07/24/19 11:45 07/29/19 00:37 Tylenol PO 650 mg Q4H PRN Administration Headache/Fever/Mild Pain (1-3) Apixaban 10 mg 07/30/19 09:00 08/01/19 13:48 Eliquis PO Not Given BID VERONICA Aspirin 81 mg 07/25/19 09:00 08/01/19 13:48 Ecotrin PO Not Given DAILY VERONICA Atorvastatin Calcium 40 mg 07/24/19 21:00 07/31/19 20:14 Lipitor PO 40 mg HS VERONICA Administration Calcium Carbonate 500 mg 07/29/19 17:00 07/31/19 15:08 Oscal-500 PO 500 mg BID-WM VERONICA Administration Carvedilol 3.125 mg 07/24/19 17:00 08/01/19 08:30 Coreg PO Not Given BID-WM [facility] Dextrose/Water 25 gm 07/24/19 11:45 07/28/19 03:57 Dextrose 50% SLOW IVP 25 gm PRN PRN Administration Hypoglycemia Ergocalciferol 1.25 mg 07/30/19 09:00 07/30/19 09:50 Drisdol PO 1.25 mg Q7DAYS VERONICA Administration Insulin Glargine 20 units/ 0.2 mls @ 0 mls/hr 07/29/19 21:00 07/31/19 20:13 Miscellaneous Medication SC 0.2 mls HS VERONICA Administration Insulin Glargine 20 units/ 0.2 mls @ 0 mls/hr 07/30/19 09:00 08/01/19 13:48 Miscellaneous Medication SC Not Given QAM [facility] Insulin Human Lispro 0 units 07/24/19 11:45 07/31/19 16:48 Humalog SC 9 unit .AGGRESSIVE SLIDING PRN Administration Aggressive Correctional Scale Lisinopril 10 mg 07/25/19 21:00 08/01/19 13:48 Zestril PO Not Given BID [facility] Melatonin 3 mg 07/24/19 22:19 07/25/19 21:49 Melatonin PO 3 mg HS PRN Administration Insomnia Ondansetron HCl 4 mg 07/24/19 11:45 07/26/19 00:51 Zofran IVP 4 mg Q6H PRN Administration Nausea/Vomiting Oseltamivir Phosphate 75 mg 07/31/19 21:00 08/01/19 13:49 Tamiflu PO 08/04/19 21:01 Not Given BID [facility] Prednisone 40 mg 07/31/19 08:00 08/01/19 13:48 Prednisone PO Not Given QAM[facility] Senna/Docusate Sodium 2 tab 07/24/19 11:45 07/30/19 09:50 Senokot S PO 2 tab BIDPRN PRN Administration Constipation Sodium Chloride 10 ml 07/25/19 09:00 08/01/19 13:49 Flush - Normal Saline IVF Not Given Q12HR VERONICA - Exam Eye: PERRL Heart: RRR, no murmur, no gallops, no rubs, normal peripheral pulses Respiratory: CTAB, rales Gastrointestinal: soft, non-tender, non-distended, normal bowel sounds, no palpable masses, no hepatomegaly, no splenomegaly Extremities: no cyanosis, no clubbing, no edema Hosp A/P (1) Pneumonia Code(s): J18.9 - PNEUMONIA, UNSPECIFIED ORGANISM Status: Acute (2) Acute respiratory failure with hypoxemia Code(s): J96.01 - ACUTE RESPIRATORY FAILURE WITH HYPOXIA Status: Acute (3) Hypertension Code(s): I10 - ESSENTIAL (PRIMARY) HYPERTENSION Status: Chronic (4) Diabetes type 2, uncontrolled Code(s): E11.65 - TYPE 2 DIABETES MELLITUS WITH HYPERGLYCEMIA Status: Chronic - Plan * Acute hypoxic respiratory failure - continue supportive care * Continue Tamiflu * DM- blood glucose is a bit labile- continue Lantus and SSI * HTN- blood pressure is stable
[2019-08-01] MEDS: HumaLOG 300 UNITS/3 ML VIAL SC PRN (17:52)
[2019-08-01 19:09] LABS: QuantiFERON-TB Gold Plus Indeterminate (Negative)
[2019-08-01] MEDS: Atorvastatin Calcium 40 MG TAB PO SCH (19:56)
[2019-08-02] MEDS: Lisinopril 10 MG TAB PO SCH ×2 (08:36→21:01)
[2019-08-02] MEDS: Carvedilol 3.125 MG TAB PO SCH ×2 (08:36→16:08)
[2019-08-02] MEDS: Aspirin 81 mg Enteric Coated Tablet PO SCH (08:36)
[2019-08-02] MEDS: Apixaban 5 MG TAB PO SCH ×2 (08:36→21:01)
[2019-08-02] MEDS: predniSONE 20 MG TAB PO SCH (08:37)
[2019-08-02] MEDS: Oseltamivir 75 MG CAP PO SCH ×2 (10:19→21:01)
[2019-08-02] MEDS: Insulin Glargine 20 UNITS in Pre-Filled Syringe 1 EACH SC SCH ×2 (10:19→21:06)
[2019-08-02] MEDS: Calcium Carbonate 500 MG TAB PO SCH ×2 (10:20→16:09)
[2019-08-02] MEDS: HumaLOG 300 UNITS/3 ML VIAL SC PRN ×2 (12:56→16:11)
--- NOTE | 2019-08-02 15:26 | PDOC.HOSPP ---
- Subjective Encounter Date: 08/02/19 Encounter Time: 15:24 Subjective: Mr. Bonds was seen today in follow-up of respiratory failure with pneumonia. He is feeling better, less short of breath,and asking when he can go home. - Objective Vital Signs & Weight: Vital Signs (12 hours) Temp Pulse Resp BP BP Pulse Ox 08/02/19 11:56 98.9 F 86 20 135/84 96 08/02/19 08:41 94 L 08/02/19 08:36 163/98 H 08/02/19 07:43 98.0 F 88 18 163/98 H 94 L Weight Admit Weight 170 lb Weight 170 lb 14.4 oz Most Recent Monitor Data Heart Rate from ECG 69 NIBP 131/87 NIBP BP-Mean 101 Respiration from ECG 20 SpO2 99 I&O: 08/01/19 08/02/19 08/03/19 06:59 06:59 06:59 Intake Total 1850 2320 Output Total 1300 Balance 1850 1020 Result Diagrams: 07/30/19 03:25 07/30/19 03:25 Additional Labs: Accuchecks 08/02/19 08/02/19 08/01/19 12:11 05:39 19:34 POC Glucose 161 H 92 391 H 08/01/19 16:29 POC Glucose 302 H Hospitalist ROS - Medication Medications: Active Medications Generic Name Dose Route Start Last Admin Trade Name Freq PRN Reason Stop Dose Admin Acetaminophen 650 mg 07/24/19 11:45 07/29/19 00:37 Tylenol PO 650 mg Q4H PRN Administration Headache/Fever/Mild Pain (1-3) Albuterol/Ipratropium 3 ml 08/01/19 19:00 08/02/19 14:00 Duoneb NEB Not Given [id number] VERONICA Apixaban 10 mg 07/30/19 09:00 08/02/19 08:36 Eliquis PO 10 mg BID VERONICA Administration Aspirin 81 mg 07/25/19 09:00 08/02/19 08:36 Ecotrin PO 81 mg DAILY VERONICA Administration Atorvastatin Calcium 40 mg 07/24/19 21:00 08/01/19 19:56 Lipitor PO 40 mg HS VERONICA Administration Calcium Carbonate 500 mg 07/29/19 17:00 08/02/19 10:20 Oscal-500 PO 500 mg BID-WM VERONICA Administration Carvedilol 3.125 mg 07/24/19 17:00 08/02/19 08:36 Coreg PO 3.125 mg BID-WM VERONICA Administration Dextrose/Water 25 gm 07/24/19 11:45 07/28/19 03:57 Dextrose 50% SLOW IVP 25 gm PRN PRN Administration Hypoglycemia Ergocalciferol 1.25 mg 07/30/19 09:00 07/30/19 09:50 Drisdol PO 1.25 mg Q7DAYS VERONICA Administration Insulin Glargine 20 units/ 0.2 mls @ 0 mls/hr 07/29/19 21:00 08/01/19 19:56 Miscellaneous Medication SC 0.2 mls HS VERONICA Administration Insulin Glargine 20 units/ 0.2 mls @ 0 mls/hr 07/30/19 09:00 08/02/19 10:19 Miscellaneous Medication SC 0.2 mls QAM VERONICA Administration Insulin Human Lispro 0 units 07/24/19 11:45 08/02/19 12:56 Humalog SC 3 unit .AGGRESSIVE SLIDING PRN Administration Aggressive Correctional Scale Lisinopril 10 mg 07/25/19 21:00 08/02/19 08:36 Zestril PO 10 mg BID VERONICA Administration Melatonin 3 mg 07/24/19 22:19 07/25/19 21:49 Melatonin PO 3 mg HS PRN Administration Insomnia Ondansetron HCl 4 mg 07/24/19 11:45 07/26/19 00:51 Zofran IVP 4 mg Q6H PRN Administration Nausea/Vomiting Oseltamivir Phosphate 75 mg 07/31/19 21:00 08/02/19 10:19 Tamiflu PO 08/04/19 21:01 75 mg BID VERONICA Administration Prednisone 40 mg 07/31/19 08:00 08/02/19 08:37 Prednisone PO 40 mg QAM-WM VERNOICA Administration Senna/Docusate Sodium 2 tab 07/24/19 11:45 07/30/19 09:50 Senokot S PO 2 tab BIDPRN PRN Administration Constipation Sodium Chloride 10 ml 07/25/19 09:00 08/02/19 08:44 Flush - Normal Saline IVF 10 ml Q12HR VERONICA Administration - Exam Eye: PERRL Heart: RRR, no murmur, no gallops, no rubs, normal peripheral pulses Respiratory: CTAB (with rales at both bases) Gastrointestinal: soft, non-tender, non-distended, normal bowel sounds, no palpable masses, no hepatomegaly, no splenomegaly Extremities: no cyanosis, no clubbing, no edema Hosp A/P (1) Pneumonia Code(s): J18.9 - PNEUMONIA, UNSPECIFIED ORGANISM Status: Acute (2) Acute respiratory failure with hypoxemia Code(s): J96.01 - ACUTE RESPIRATORY FAILURE WITH HYPOXIA Status: Acute (3) Hypertension Code(s): I10 - ESSENTIAL (PRIMARY) HYPERTENSION Status: Chronic (4) Diabetes type 2, uncontrolled Code(s): E11.65 - TYPE 2 DIABETES MELLITUS WITH HYPERGLYCEMIA Status: Chronic - Plan * Acute hypoxic respiratory failure - continue supportive care * Continue Tamiflu * Will continue to wean his oxygen * Luisana steroids * DM- blood glucose is a bit labile- continue Lantus and SSI * HTN- blood pressure is stable * Hopefully home in 1-2 days
--- NOTE | 2019-08-02 18:17 | PRG ---
DATE OF SERVICE: 08/02/2019 SERVICE: Pulmonary Medicine. INTERVAL HISTORY: The patient is doing fine from a respiratory standpoint. He has been weaned down to 2 L nasal cannula. He has been able to work with physical therapy. Otherwise, there has been notable change to his condition. PHYSICAL EXAMINATION: VITALS SIGNS: Afebrile. Pulse 86, blood pressure 135/84, respirations 20. Saturation 96% on 2 L nasal cannula. GENERAL: The patient is awake and alert, in no apparent distress. LUNGS: Decent air entry. Crackles are present. No prolonged expiratory phase or wheezing is appreciated. HEART: Normal rate and regular. ABDOMEN: Soft nontender nondistended. Bowel sounds are positive. MUSCULOSKELETAL: No cyanosis or clubbing. No pitting in the bilateral lower extremities. NEUROLOGIC: Grossly nonfocal. IMAGING: Chest x-ray demonstrates interval improvement in the opacifications throughout bilateral lung carpenter. It is densest in the right lower lobe. Otherwise, there has been no significant interval change. ASSESSMENT: 1. Acute hypoxic respiratory failure. 2. Community-acquired pneumonia secondary to influenza. 3. Acute kidney injury, resolved. 4. Abnormal CT, characterized by consolidating lesions, ground-glass opacifications, and "crazy paving.". 5. Right upper extremity deep venous thrombosis. DISCUSSION AND PLAN: The patient is doing fine from respiratory standpoint. At this point, he has no further requirements for inpatient Pulmonary or Critical Care opinion. Once he is off oxygen, he can be considered for discharge from the hospital. Please call with additional questions or concerns through time. He needs a repeat chest x-ray in 4 to 6 weeks in the outpatient setting to make certain his infiltrates have cleared. Job ID: [id number]
[2019-08-02] MEDS: Atorvastatin Calcium 40 MG TAB PO SCH (21:01)
[2019-08-03] MEDS ORDERED: hydrALAZINE 20 MG/ML VIAL SLOW IVP PRN (00:16)
[2019-08-03] MEDS ORDERED: cloNIDine 0.1 MG TAB PO PRN (00:16)
[2019-08-03] MEDS: HumaLOG 300 UNITS/3 ML VIAL SC PRN ×2 (06:12→17:20)
[2019-08-03] MEDS ORDERED: predniSONE 20 MG TAB PO SCH (08:00)
[2019-08-03] MEDS: Carvedilol 3.125 MG TAB PO SCH ×2 (09:13→17:20)
[2019-08-03] MEDS: Oseltamivir 75 MG CAP PO SCH ×2 (09:13→20:05)
[2019-08-03] MEDS: Apixaban 5 MG TAB PO SCH ×2 (09:13→20:05)
[2019-08-03] MEDS: Lisinopril 10 MG TAB PO SCH ×2 (09:13→20:06)
[2019-08-03] MEDS: Calcium Carbonate 500 MG TAB PO SCH ×2 (09:14→17:20)
[2019-08-03] MEDS: Aspirin 81 mg Enteric Coated Tablet PO SCH (09:14)
[2019-08-03] MEDS: Insulin Glargine 20 UNITS in Pre-Filled Syringe 1 EACH SC SCH ×2 (09:14→20:10)
[2019-08-03] MEDS: Acetaminophen 325 MG TAB PO PRN ×2 (09:21→20:10)
--- NOTE | 2019-08-03 12:31 | PDOC.HOSPP ---
- Subjective Encounter Date: 08/03/19 Encounter Time: 10:30 Subjective: Expresses no complaint.. - Objective Vital Signs & Weight: Vital Signs (12 hours) Temp Pulse Resp BP BP BP Pulse Ox 08/03/19 10:52 98.3 F 87 18 144/80 H 93 L 08/03/19 09:13 146/87 H 08/03/19 07:23 94 L 08/03/19 07:12 98.4 F 93 16 146/87 H 94 L 08/03/19 06:29 90 20 91 L 08/03/19 04:01 98.8 F 93 20 150/89 H 92 L 08/03/19 01:57 177/99 H 08/03/19 00:35 78 172/115 H Weight Admit Weight 170 lb Weight 170 lb 14.4 oz Most Recent Monitor Data Heart Rate from ECG 69 NIBP 131/87 NIBP BP-Mean 101 Respiration from ECG 20 SpO2 99 I&O: 08/02/19 08/03/19 08/04/19 06:59 06:59 06:59 Intake Total 2320 2800 Output Total 1300 3200 Balance 1020 -400 Result Diagrams: 07/30/19 03:25 07/30/19 03:25 Additional Labs: Accuchecks 08/03/19 08/03/19 08/02/19 10:58 04:03 19:09 POC Glucose 76 164 H 332 H 08/02/19 08/02/19 16:14 12:11 POC Glucose 225 H 161 H Hospitalist ROS - Medication Medications: Active Medications Generic Name Dose Route Start Last Admin Trade Name Freq PRN Reason Stop Dose Admin Acetaminophen 650 mg 07/24/19 11:45 08/03/19 09:21 Tylenol PO 650 mg Q4H PRN Administration Headache/Fever/Mild Pain (1-3) Albuterol/Ipratropium 3 ml 08/01/19 19:00 08/03/19 06:29 Duoneb NEB 3 ml [id number] VERONICA Administration Apixaban 10 mg 07/30/19 09:00 08/03/19 09:13 Eliquis PO 10 mg BID VERONICA Administration Aspirin 81 mg 07/25/19 09:00 08/03/19 09:14 Ecotrin PO 81 mg DAILY VERONICA Administration Atorvastatin Calcium 40 mg 07/24/19 21:00 08/02/19 21:01 Lipitor PO 40 mg HS VERONICA Administration Calcium Carbonate 500 mg 07/29/19 17:00 08/03/19 09:14 Oscal-500 PO 500 mg BID-WM VERONICA Administration Carvedilol 3.125 mg 07/24/19 17:00 08/03/19 09:13 Coreg PO 3.125 mg BID-WM VERONICA Administration Dextrose/Water 25 gm 07/24/19 11:45 07/28/19 03:57 Dextrose 50% SLOW IVP 25 gm PRN PRN Administration Hypoglycemia Ergocalciferol 1.25 mg 07/30/19 09:00 07/30/19 09:50 Drisdol PO 1.25 mg Q7DAYS VERONICA Administration Hydralazine HCl 10 mg 08/03/19 00:16 08/03/19 00:35 Apresoline SLOW IVP 10 mg Q6H PRN Administration SBP GREATER THAN 160 Insulin Glargine 20 units/ 0.2 mls @ 0 mls/hr 07/29/19 21:00 08/02/19 21:06 Miscellaneous Medication SC 0.2 mls HS VERONICA Administration Insulin Glargine 20 units/ 0.2 mls @ 0 mls/hr 07/30/19 09:00 08/03/19 09:14 Miscellaneous Medication SC 0.2 mls QAM VERONICA Administration Insulin Human Lispro 0 units 07/24/19 11:45 08/03/19 06:12 Humalog SC 3 unit .AGGRESSIVE SLIDING PRN Administration Aggressive Correctional Scale Lisinopril 10 mg 07/25/19 21:00 08/03/19 09:13 Zestril PO 10 mg BID VERONICA Administration Melatonin 3 mg 07/24/19 22:19 07/25/19 21:49 Melatonin PO 3 mg HS PRN Administration Insomnia Ondansetron HCl 4 mg 07/24/19 11:45 07/26/19 00:51 Zofran IVP 4 mg Q6H PRN Administration Nausea/Vomiting Oseltamivir Phosphate 75 mg 07/31/19 21:00 08/03/19 09:13 Tamiflu PO 08/04/19 21:01 75 mg BID VERONICA Administration Senna/Docusate Sodium 2 tab 07/24/19 11:45 07/30/19 09:50 Senokot S PO 2 tab BIDPRN PRN Administration Constipation Sodium Chloride 10 ml 07/25/19 09:00 08/03/19 09:14 Flush - Normal Saline IVF 10 ml Q12HR VERONICA Administration - Exam General Appearance: NAD (On O2 via N/C) Neck: no JVD Heart: RRR Respiratory: rhonchi Gastrointestinal: soft Extremities: no edema Neurological: no weakness Psychiatric: A&O x 3 Hosp A/P (1) Acute respiratory failure with hypoxemia Code(s): J96.01 - ACUTE RESPIRATORY FAILURE WITH HYPOXIA Status: Acute (2) Pneumonia Code(s): J18.9 - PNEUMONIA, UNSPECIFIED ORGANISM Status: Acute (3) Hypertension Code(s): I10 - ESSENTIAL (PRIMARY) HYPERTENSION Status: Chronic (4) CKD (chronic kidney disease) stage 3, GFR 30-59 ml/min Code(s): N18.3 - CHRONIC KIDNEY DISEASE, STAGE 3 (MODERATE) Status: Chronic (5) Cocaine abuse Code(s): F14.10 - COCAINE ABUSE, UNCOMPLICATED Status: Chronic (6) Diabetes type 2, uncontrolled Code(s): E11.65 - TYPE 2 DIABETES MELLITUS WITH HYPERGLYCEMIA Status: Chronic - Plan Still hypoxic on R/A.. Home when hypoxia on R/A corrected.
[2019-08-03] MEDS: Atorvastatin Calcium 40 MG TAB PO SCH (20:06)
[2019-08-04] MEDS: Carvedilol 3.125 MG TAB PO SCH (08:42)
[2019-08-04] MEDS: Calcium Carbonate 500 MG TAB PO SCH (08:42)
[2019-08-04] MEDS: Apixaban 5 MG TAB PO SCH (08:42)
[2019-08-04] MEDS: Oseltamivir 75 MG CAP PO SCH (08:42)
[2019-08-04] MEDS: Lisinopril 10 MG TAB PO SCH (08:42)
[2019-08-04] MEDS: Aspirin 81 mg Enteric Coated Tablet PO SCH (08:42)
[2019-08-04] MEDS: Insulin Glargine 20 UNITS in Pre-Filled Syringe 1 EACH SC SCH (09:00)
[2019-08-04] MEDS: HumaLOG 300 UNITS/3 ML VIAL SC PRN (11:47)
[2019-08-04 14:26] VITALS: BP 134/85; TEMP 97.7
--- NOTE | 2019-08-05 04:04 | DIS ---
DATE OF ADMISSION: 07/24/2019 DATE OF DISCHARGE: 08/04/2019 PROCEDURE: Procedure done in the hospital include chest x-ray EKG, CT of the chest, echocardiogram, venous Doppler of the right upper extremity, which showed complete occlusion of the right vein and right cephalic vein along with partial occlusion of the right basilic vein. Job ID: [id number]
--- NOTE | 2019-08-05 04:11 | DIS ---
DATE OF ADMISSION: 07/24/2019 DATE OF DISCHARGE: 08/04/2019 ADMITTING DIAGNOSES: 1. Acute kidney injury with history of substance abuse. 2. Electrolyte imbalance. DISCHARGE DIAGNOSES: 1. Acute kidney injury with history of substance abuse. 2. Electrolyte imbalance. 3. Viral pneumonia. 4. Chronic kidney disease. COURSE OF HOSPITALIZATION: Uncomplicated, responding well to management. The patient is clinically stable at this time, being discharged home. DISCHARGE MEDICATIONS: Please see discharge medication reconciliation sheet. The patient is to follow up with his primary care physician and also with the product development consultant. PHYSICAL EXAMINATION: GENERAL: Today, the patient is alert, oriented, in no distress. VITAL SIGNS: His latest vital signs show a temperature of 98.5, pulse rate 86, respiratory rate 17, blood pressure 171/84. HEAD AND NECK: Normal. HEART: He has a regular S1, S2. LUNGS: Clear. ABDOMEN: Soft. LUNGS: Show no edema. We have to mention that he had problems with hypoxia, which is currently resolved. DISCHARGE TIME: 32 minutes. Again, as we mentioned earlier, he is to follow up with his primary care physician and also with the product development consultant for discharge medication. Please see discharge medication reconciliation sheet. Job ID: [id number]
== END 2019-08-04 15:17 | disposition home or self-care (01) | DRG 871 ==
LOC: ERS 06:50 → 2NO 11:42 → IMCU/EMU 07-28 04:35 → T4-A 07-30 18:11
PROVIDERS: ADMIT Internal Medicine; ATTEND Internal Medicine
DX: A41.9 Sepsis, unspecified organism (principal); J12.9 Viral pneumonia, unspecified; J96.01 Acute respiratory failure with hypoxia; G93.41 Metabolic encephalopathy; N17.9 Acute kidney failure, unspecified; E87.1 Hypo-osmolality and hyponatremia; I13.0 Hypertensive heart and chronic kidney disease with heart failure and stage 1 through stage 4 chronic kidney disease, or unspecified chronic kidney disease; I50.32 Chronic diastolic (congestive) heart failure; I82.621 Acute embolism and thrombosis of deep veins of right upper extremity; F19.10 Other psychoactive substance abuse, uncomplicated; E87.8 Other disorders of electrolyte and fluid balance, not elsewhere classified; E11.22 Type 2 diabetes mellitus with diabetic chronic kidney disease; E78.5 Hyperlipidemia, unspecified; F41.9 Anxiety disorder, unspecified; F32.9 Major depressive disorder, single episode, unspecified; B19.20 Unspecified viral hepatitis C without hepatic coma; F17.210 Nicotine dependence, cigarettes, uncomplicated; E87.6 Hypokalemia; E83.39 Other disorders of phosphorus metabolism; F10.10 Alcohol abuse, uncomplicated; D63.1 Anemia in chronic kidney disease; R74.0 Nonspecific elevation of levels of transaminase and lactic acid dehydrogenase [LDH]; R79.89 Other specified abnormal findings of blood chemistry; N18.3 Chronic kidney disease, stage 3 (moderate); D69.6 Thrombocytopenia, unspecified; E11.649 Type 2 diabetes mellitus with hypoglycemia without coma; E11.65 Type 2 diabetes mellitus with hyperglycemia; Z79.4 Long term (current) use of insulin; Z88.0 Allergy status to penicillin; Z86.73 Personal history of transient ischemic attack (TIA), and cerebral infarction without residual deficits; Z91.14 Patient's other noncompliance with medication regimen
CPT/HCPCS: 36415; 36416; 71045; 71046; 71250; 80048; 80053; 80074; 80306; 80307; 81003; 81015; 82010; 82140; 82306; 82550; 82553; 82595; 82805; 83036; 83516; 83520; 83605; 83690; 83735; 83880; 84100; 84165; 84166; 84443; 84484; 85025; 86256; 86480; 87040; 87389; 87449; 87522; 87633; 87798; 87804; 87899; 87902; 93005; 93306; 94640; 94660; 96361; 96365; 96366; J0360; J0696; J1650; J1815; J1885; J1940; J1956; J2405; J2920; J2930; J3475; J3490; J7050; J7512; J7620

== ENCOUNTER 2019-08-15 14:35 | Outpatient (CLI) | payer OTHER ==
--- NOTE | 2019-08-15 15:38 | RAD ---
CHEST 2 VIEWS: HISTORY: Shortness of breath. COMPARISON: 08/01/2019. FINDINGS: Persistent alveolar nodular and interstitial parenchymal changes somewhat confluent in the right mid and lower and left mid and lower lateral lung zones. Heart size is normal. No significant pleural e ffusion. IMPRESSION: Fairly extensive persistent abnormal opacity changes in the more peripheral mid and lower lung zones. Continued short-term followup for clearing or stability. POS: TPC
== END 2019-08-15 14:36 | disposition home or self-care (01) ==
LOC: BICRAD 14:35
PROVIDERS: ATTEND Nurse Practitioner Family
DX: R06.02 Shortness of breath (principal); R91.8 Other nonspecific abnormal finding of lung field
CPT/HCPCS: 71046

== ENCOUNTER 2019-08-29 10:52 | Inpatient (IN) | payer SELFPAY ==
--- NOTE | 2019-08-29 11:24 | RAD ---
EXAM: Single view of the chest HISTORY: Difficulty breathing and dyspnea COMPARISON: 07/30/2019 FINDINGS: Single view of the chest shows a normal sized cardiomediastinal silhouette. Stable multifoc al infiltrates are seen scattered throughout the lungs. The bones are unremarkable. IMPRESSION: Multifocal pneumonia
[2019-08-29] MEDS ORDERED: cefTRIAXone\\ROCEPHIN 2 GM VIAL ONE (11:32)
[2019-08-29] MEDS ORDERED: Sodium Chloride 0.9% 100 ML ONE (11:33)
[2019-08-29 11:45] LABS: Actual Bicarbonate (HCO3a) 17.5 mEq/L (22-28); Base Excess (BEa) -5.2 mEq/L (-2.0 to +3.0); Carboxyhemoglobin (COHb) 0.1 gm% (0.0-3.0); Hemoglobin (Hb) 11.4 g/dL (14.0-18.0)
[2019-08-29 11:46] LABS: Analyzer IN Cardio ER; Calcium, Ionized 1.16 mmol/L (1.12-1.30); Puncture Site RBA; pH, Arterial 7.45 (7.35-7.45)
[2019-08-29 11:46] LABS: Hemoglobin 11.6 g/dL (14.0-18.0); Mean Corpuscular HGB CONC 34.2 g/dL (32.0-36.0); Mean Corpuscular Hemoglobin 32.3 pg (27.0-31.0); Mean Corpuscular Volume 94.5 fL (78.0-98.0); Mean Platelet Volume 10.8 fL (7.4-10.4); Platelet Count 205 thou/uL (130-400); RBC Distribution Width 12.5 % (11.5-14.5); Red Blood Cell (RBC) Count 3.59 mill/uL (4.70-6.10)
[2019-08-29 11:52] LABS: Eosinophils 3 % (0-10); Hypersemented Neutrophil SLIGHT; Lymphocytes 2 % (21-51); MDiff Complete? YES; Monocytes 10 % (0-10); Neutrophil 83 % (42-75); Platelet Morphology Comment Appears Adequate; RBC Morphology Normal; Reactive Lymphocytes 1 % (0-10); White Blood Cell (WBC) Count 26.6 thou/uL (4.8-10.8)
[2019-08-29 12:09] LABS: ALT (SGPT) 10 U/L (8-55); AST (SGOT) 15 U/L (5-34); Albumin 3.4 g/dL (3.5-5.0); Alkaline Phosphatase 61 U/L (40-110); Anion Gap 14 mmol/L (10-20); BUN (Urea Nitrogen) 15 mg/dL (8.9-20.6); Bilirubin, Total 0.5 mg/dL (0.2-1.2); Calc. Creatinine Clearance 0 mL/min (70-130); Calcium 8.9 mg/dL (7.8-10.44); Carbon Dioxide 21 mmol/L (22-29); Chloride 107 mmol/L (98-107); Estimated GFR-MDRD 71; Globulin 3.4 g/dL (2.4-3.5); Glucose 200 mg/dL (70-105); Lipase 23 U/L (8-78); Potassium 3.4 mmol/L (3.5-5.1); Protein, Total 6.8 g/dL (6.0-8.3); Sodium 139 mmol/L (136-145)
[2019-08-29] MEDS ORDERED: Azithromycin 500 MG VIAL ONE (12:13)
[2019-08-29] MEDS ORDERED: Acetaminophen 500 MG TAB ONE (12:13)
[2019-08-29 12:18] LABS: Bacteria/HPF None Seen HPF (None Seen); Bilirubin Negative (Negative); Blood, Urine 2+ (Negative); Clarity Clear (Clear); Glucose, Urine (Dipstick) 200 mg/dL (Negative); Leukocyte Negative Leu/uL (Negative); Nitrite Negative (Negative); Protein, Urine (Dipstick) 300 mg/dL (Neg-Trace); Squamous Epithelial 0-3 HPF (0-3); Urobilinogen Normal mg/dL (Less than 2); WBC/HPF 0-3 HPF (0-3)
--- NOTE | 2019-08-29 15:09 | PDOC.HHP ---
Hospitalist HPI - History of Present Illness Shortness of breath, cough History of Present Illness: Mr. Bonds is a 44 y/o gentleman with PMH of T2DM, TIA, HTN who presents to the emergency room with cough, fever, and shortness of breath. He states that two days ago became very shortness of breath while walking and got anxious when he layed down flat because he could not breathe. He started coughing yellowish sputum as well. He felt feverish at home but did not record his temperature. Reportedly, he was admitted last month with [facility] for multifocal pneumonia. He stated he got better but then this past week he started feeling the symptoms again. Today, he was so short of breathe that he decided to come to the ED. Denies cp, palpiations, abdominal pain, diarrhea, dysuira, recent sick contacts, recent travel. In the ED, patient tachy into the 120s, tachypneic into the high 20s placed on non-rebreather than on nasal cannula 5L saturating at 94%, WBC count of 26k, given 2L ns fluids and empiric antibiotics. Hospitalist ROS - Review of Systems Constitutional: reports: fever, chills, sweats. denies: weakness, malaise, other Eyes: denies: pain, vision change, conjunctivae inflammation, eyelid inflammation, redness, other ENT: denies: ear pain, ear discharge, nose pain, nose discharge, nose congestion , mouth pain, mouth swelling, throat pain, throat swelling, other Respiratory: reports: cough, shortness of breath. denies: dry, hemoptysis, SOB with excertion, pleuritic pain, sputum, wheezing, other Cardiovascular: denies: chest pain, palpitations, orthopnea, paroxysmal noc. dyspnea, edema, light headedness, other Gastrointestinal: denies: nausea, vomiting, abdominal pain, diarrhea, constipation, melena, hematochezia, other Genitourinary: denies: dysuria, frequency, incontinence, hematuria, retention, other Musculoskeletal: denies: neck pain, shoulder pain, arm pain, back pain, hand pain, leg pain, foot pain, other Skin: denies: rash, lesions, fredrick, bruising, other - Medication Medications: metFORMIN TueAug 29, 2019 11:47 BLU Herrera, [facility] TABLET : Strength - 1,000 mg : ORAL Patient Dose: 1000 mg Oral 2 times a day. lisinopril TueAug 29, 2019 11:48 BLU Herrera, Karen Wahl tablet : Strength - 10 mg : ORAL Patient Dose: unk. 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: reports: no pertinent history Gastrointestinal: reports: no pertinent history Heme/Onc: reports: no pertinent history Hepatobiliary: reports: no pertinent history Psych: reports: no pertinent history Musculoskeletal: reports: no pertinent history Rheumatologic: reports: no pertinent history Infectious Disease: reports: no pertinent history ENT: reports: no pertinent history Renal/: reports: no pertinent history Endocrine: reports: Diabetes Dermatology: reports: no pertinent history - Past Surgical History Past Surgical History: reports: no pertinent history - Family History Family History: reports: no pertinent history - Social History Smoking Status: Former smoker Drugs: reports: Other (former user) Living Situation: With Family Activity level: independent ambulation - Exam General Appearance: NAD, awake alert, ill appearing Eye: PERRL, anicteric sclera ENT: normocephalic atraumatic, no oropharyngeal lesions, moist mucosa Neck: supple, symmetric, no JVD, no thyromegaly, no lymphadenopathy, no carotid bruit Heart: RRR, no murmur, no gallops, no rubs, normal peripheral pulses Respiratory: CTAB, no wheezes, no rales, no ronchi, normal chest expansion, normal percussion, tachypneic Respiratory - other findings: on nasal cannula Gastrointestinal: soft, non-tender, non-distended, normal bowel sounds, no palpable masses, no hepatomegaly, no splenomegaly, no bruit Extremities: no cyanosis, no clubbing, no edema Skin: normal turgor, no lesions, no rashes Neurological: cranial nerve grossly intact, normal sensation to touch, no weakness, no focal deficits, no new deficit Musculoskeletal: normal tone, normal strength, no muscle wasting Psychiatric: normal affect, normal behavior, A&O x 3 Hospitalist Results - Labs Result Diagrams: 08/29/19 11:20 08/29/19 11:20 Lab results: WBC 26.6 thou/uL (4.8-10.8) H 08/29/19 11:20 Hgb 11.6 g/dL (14.0-18.0) L 08/29/19 11:20 Hct 34.0 % (42.0-52.0) L 08/29/19 11:20 MCV 94.5 fL (78.0-98.0) 08/29/19 11:20 Plt Count 205 thou/uL (130-400) 08/29/19 11:20 ABG pH 7.45 (7.35-7.45) 08/29/19 11:21 ABG pCO2 26.0 mmHg (35.0-45.0) L 08/29/19 11:21 ABG pO2 98.0 mmHg (80.0-100.0) 08/29/19 11:21 Sodium 139 mmol/L (136-145) 08/29/19 11:20 Potassium 3.4 mmol/L (3.5-5.1) L 08/29/19 11:20 Chloride 107 mmol/L (98-107) 08/29/19 11:20 Carbon Dioxide 21 mmol/L (22-29) L 08/29/19 11:20 BUN 15 mg/dL (8.9-20.6) 08/29/19 11:20 Creatinine 1.11 mg/dL (0.7-1.3) 08/29/19 11:20 Glucose 200 mg/dL (70-105) H 08/29/19 11:20 Lactic Acid 1.4 mmol/L (0.5-2.2) 08/29/19 11:20 Calcium 8.9 mg/dL (7.8-10.44) 08/29/19 11:20 Total Bilirubin 0.5 mg/dL (0.2-1.2) 08/29/19 11:20 AST 15 U/L (5-34) 08/29/19 11:20 ALT 10 U/L (8-55) 08/29/19 11:20 Alkaline Phosphatase 61 U/L (40-110) 08/29/19 11:20 Troponin I 0.014 ng/mL (< 0.028) 08/29/19 11:20 B-Natriuretic Peptide 251.2 pg/mL (0-100) H 08/29/19 11:20 Serum Total Protein 6.8 g/dL (6.0-8.3) 08/29/19 11:20 Albumin 3.4 g/dL (3.5-5.0) L 08/29/19 11:20 Lipase 23 U/L (8-78) 08/29/19 11:20 Urine Ketones Trace mg/dL (Negative) A 08/29/19 12:01 Urine Blood 2+ (Negative) A 08/29/19 12:01 Urine Nitrite Negative (Negative) 08/29/19 12:01 Ur Leukocyte Esterase Negative [place]/uL (Negative) 08/29/19 12:01 Urine RBC 11-20 HPF (0-3) A 08/29/19 12:01 Urine WBC 0-3 HPF (0-3) 08/29/19 12:01 Ur Squamous Epith Cells 0-3 HPF (0-3) 08/29/19 12:01 Urine Bacteria None Seen HPF (None Seen) 08/29/19 12:01 Additional comment: VITAL SIGNS Wed Aug 29, 2019 13:45 BLU Herrera, [facility] BP: 171/111, MAP: 131, Pulse: 122, Resp: 20, Pain: 0, O2 sat: 92 on (4L Oxygen) , Time: 08/29/2019 13:45. - EKG Interpretation EK lead EKG shows, sinus tachycardia, Rate (beats per minute): 121, with no ectopics, Conduction normal, ST segments normal, T waves, peaked, Leads affected : V2, Leads affected: V3, [place] normal, Clinical impression:, non-specific EKG. - Radiology Interpretation Chest x-ray Status: report reviewed by al Hospitalist H&P A/P - Problem (1) Sepsis due to pneumonia Code(s): J18.9 - PNEUMONIA, UNSPECIFIED ORGANISM; A41.9 - SEPSIS, UNSPECIFIED ORGANISM Status: Acute Assessment and Plan: Recurrent, multifocal, likely bacterial (2) Recurrent pneumonia Code(s): J18.9 - PNEUMONIA, UNSPECIFIED ORGANISM Status: Acute (3) Type 2 diabetes mellitus Status: Chronic (4) Hypertension Code(s): I10 - ESSENTIAL (PRIMARY) HYPERTENSION Status: Chronic - Plan Plan: Admit to IMCU for sepsis/recurrent pneumonia. Likely greater than 2 midnights required in eval and tx. 2L ns given, continue NS @ 75ml/hr Given recent admission for pneumonia, would cover for HCAP organisms. Vancomycin and Cefepime Consult pulmonology for further input, given recent admission for pneumonia CT scan reviewed from last month, multifocal pneumonia seen at that time. Will repeat CT scan to see if further progression or differentiation from that time. Would consider infectious disease consult if pt worsens, given the possibility of differential is large including fungal, COOP, eosinophilic pneumonia, etc. Legionella and strep urine antigen studies Blood and sputum cultures DVT Prophyalxis: SCDs Code status: Full Code ACP: Aunt is surrogate decision maker Disposition: Admit to IMCU for tx of sepsis and pneumonia.
--- NOTE | 2019-08-29 15:37 | CT ---
EXAM: CT of the chest without contrast HISTORY: Multifocal pneumonia COMPARISON: 07/26/2019 TECHNIQUE: Multiple contiguous axial images were obtained in a CT the chest without contrast. Coronal and sagittal reformats were performed. FINDINGS: HEART: Normal in size without focal cardiac abnormality MEDIASTINUM: No hilar or mediastinal lymphadenopathy. Evaluation of the mediastinum is limited withou t IV contrast. LUNGS: Diffuse multifocal airspace opacities scattered throughout the lungs. When compared to the [place] or exam, slight increased interstitial lung disease is seen. PLEURAL SPACE: Small bilateral pleural effusions. CHEST WALL SOFT TISSUES: Unremarkable OSSEOUS STRUCTURES: Unremarkable VISUALIZED SUBDIAPHRAGMATIC STRUCTURES: Unremarkable IMPRESSION: 1. Multifocal pneumonia/infiltrates 2. Bilateral pleural effusions
[2019-08-29 17:46] LABS: Legionella Urinary Ag Negative (Negative)
[2019-08-29 17:47] LABS: Strep pneumo Urine Ag NEGATIVE (NEGATIVE)
[2019-08-29] MEDS: Cefepime 2 GM in Sodium Chloride 0.9% 100 ML IVPB SCH (18:20)
[2019-08-29] MEDS: Vancomycin HCl 1.25 GM in Sodium Chloride 0.9% 250 ML 250 ML IVPB SCH (19:38)
[2019-08-29] MEDS ORDERED: Acetaminophen 650 MG Suppository PR PRN (19:49)
[2019-08-29] MEDS ORDERED: Carvedilol 3.125 MG TAB PO SCH (20:00)
[2019-08-29] MEDS: Acetaminophen 325 MG TAB PO PRN (20:19)
[2019-08-29] MEDS ORDERED: Lisinopril 10 MG TAB PO SCH (21:00)
[2019-08-29] MEDS ORDERED: Vancomycin HCl 1 GM in Sodium Chloride 0.9% 250 ML 250 ML IVPB SCH (21:00)
[2019-08-29] MEDS ORDERED: Dextrose 50% Abboject 50 ML SYRINGE SLOW IVP PRN (21:36)
[2019-08-29] MEDS ORDERED: Dextrose 5% in Water 1,000 ML IV PRN (21:36)
[2019-08-29] MEDS ORDERED: cloNIDine 0.1 MG TAB PO PRN (23:45)
[2019-08-30 00:07] LABS: Amphetamine Not Detected (NotDetected); Barbiturates Screen Not Detected (NotDetected); Benzodiazepine Screen Not Detected (NotDetected); Cocaine Metabolite Screen Not Detected (NotDetected); Medtox Control Line Valid? VALID (VALID); Medtox Reader # READER 4; Methadone Not Detected (NotDetected); Methamphetamine Detected (NotDetected); Opiate Screen Not Detected (NotDetected); Oxycodone Screen Not Detected (NotDetected); Phencyclidine (PCP) Not Detected (NotDetected); THC/Cannabinoid Screen Not Detected (NotDetected); Tricyclic Screen Not Detected (NotDetected)
[2019-08-30] MEDS ORDERED: Lorazepam 1 MG TAB PO PRN (00:43)
[2019-08-30] MEDS ORDERED: Lorazepam 2 MG/ML VIAL SLOW IVP PRN (00:51)
[2019-08-30] MEDS: Acetaminophen 325 MG TAB PO PRN ×2 (02:40→11:22)
[2019-08-30 04:18] LABS: Anion Gap 13 mmol/L (10-20); BUN (Urea Nitrogen) 12 mg/dL (8.9-20.6); Calc. Creatinine Clearance 97 mL/min (70-130); Calcium 8.1 mg/dL (7.8-10.44); Carbon Dioxide 19 mmol/L (22-29); Chloride 105 mmol/L (98-107); Estimated GFR-MDRD 77; Glucose 230 mg/dL (70-105); Potassium 3.4 mmol/L (3.5-5.1); Sodium 134 mmol/L (136-145)
[2019-08-30 04:45] LABS: Band 6 % (5-11); Hemoglobin 10.3 g/dL (14.0-18.0); Hypochromia SLIGHT = 6-15 cells (100X) (0-5/hpf); Lymphocytes 14 % (21-51); MDiff Complete? YES; Mean Corpuscular HGB CONC 34.5 g/dL (32.0-36.0); Mean Corpuscular Hemoglobin 32.5 pg (27.0-31.0); Mean Corpuscular Volume 94.1 fL (78.0-98.0); Mean Platelet Volume 11.3 fL (7.4-10.4); Monocytes 1 % (0-10); Neutrophil 79 % (42-75); Platelet Count 173 thou/uL (130-400); Platelet Morphology Comment Appears Adequate; RBC Distribution Width 12.4 % (11.5-14.5); Red Blood Cell (RBC) Count 3.17 mill/uL (4.70-6.10); White Blood Cell (WBC) Count 21.5 thou/uL (4.8-10.8)
[2019-08-30] MEDS: Cefepime 2 GM in Sodium Chloride 0.9% 100 ML IVPB SCH ×2 (05:39→17:06)
[2019-08-30] MEDS: Vancomycin HCl 1.25 GM in Sodium Chloride 0.9% 250 ML 250 ML IVPB SCH ×2 (06:20→20:26)
[2019-08-30] MEDS: HumaLOG 300 UNITS/3 ML VIAL SC PRN ×4 (06:31→20:41)
[2019-08-30] MEDS ORDERED: Furosemide 40 MG/4 ML VIAL SLOW IVP SCH (07:45)
[2019-08-30] MEDS ORDERED: Lorazepam 2 MG/ML VIAL ONE ×2 (07:58→10:02)
[2019-08-30] MEDS ORDERED: Carvedilol 3.125 MG TAB PO SCH (08:00)
[2019-08-30] MEDS: Lisinopril 20 MG TAB PO SCH ×2 (08:03→20:25)
[2019-08-30] MEDS ORDERED: Labetalol HCl 100 MG/20 ML VIAL ONE (08:05)
[2019-08-30] MEDS: Carvedilol 6.25 MG TAB PO SCH ×2 (08:05→17:06)
[2019-08-30] MEDS ORDERED: Lorazepam 2 MG/ML VIAL SLOW IVP SCH (08:15)
--- NOTE | 2019-08-30 12:22 | CON ---
DATE OF CONSULTATION: 08/30/2019 SERVICE: Pulmonary Medicine. REASON FOR CONSULT: Abnormal CT. HISTORY OF PRESENT ILLNESS: The patient is a 44-year-old male with past medical history significant for polysubstance drug abuse. He presented to the hospital with a 2-day history of increasing shortness of breath, fever, and cough. This happened while he was walking and got anxious. He lie down flat because he could not breathe. He started coughing up yellow sputum. This progressed to the point, where he could not breathe and he presented to the Emergency Department, where he was discovered to be hypoxemic. He denies any current fevers, chills, nausea, vomiting, or diarrhea. In the Emergency Department, he was found to be tachypneic, and tachycardic. He was placed on a nonrebreather. His white blood cell count was 26,000 and he was given 2 L of fluid, and empiric antibiotics. Overnight, the patient has had ongoing respiratory difficulties. I reviewed his previous hospital stay. At that point, he had abnormal CT findings, and was discovered to be in heart failure. It is my suspicion that he has chronic lung disease associated with his historic use of inhaled street drugs. PAST MEDICAL HISTORY: 1. Type 2 diabetes mellitus. 2. Hypertension. 3. Chronic diastolic heart failure. 4. Mitral regurgitation, [id number]. 5. Dyslipidemia. 6. Hypertension. 7. History of left CVA. 8. History of polysubstance drug abuse, including cocaine. PAST SURGICAL HISTORY: 1. Testicular surgery. 2. Abdominal surgery. 3. Removal of growth from left thigh. ALLERGIES: PENICILLIN. MEDICATIONS: List of his inpatient medications was reviewed. Multiple updates were made at this time. Specifically, IV fluids were interrupted, we initiated a dose of Lasix. FAMILY HISTORY: Noncontributory. SOCIAL HISTORY: The patient is absolutely adamant that he would no longer uses any recreational drugs. He also denies current alcohol use. He smokes about a half pack on a daily basis and has a greater than 20 pack year history of smoking. He was previously incarcerated, but he has been out of retirement for very long period of time. He has no exposure to chemicals, dust, asbestos, or tuberculosis. REVIEW OF SYSTEMS: General, head, ears, eyes, nose, throat, cardiovascular, respiratory, GI, , musculoskeletal, neurologic, and skin are negative except as mentioned in the HPI. PHYSICAL EXAMINATION: VITAL SIGNS: Current temperature 101.4, pulse 112, blood pressure 174/108, respirations 45, and saturation 97%, currently on 80% FiO2 delivered via high- flow nasal cannula. GENERAL: The patient is awake and alert. He is in mild respiratory distress. LUNGS: Good air entry. Extensive crackling is present throughout bilateral lung carpenter. HEART: Normal rate. Regular. ABDOMEN: Soft, nontender, and nondistended. Bowel sounds are positive. MUSCULOSKELETAL: No cyanosis or clubbing. There is trace pitting in the bilateral lower extremities. NEUROLOGIC: Grossly nonfocal. LABORATORY DATA: WBC 21.5, hemoglobin 10.3, and platelets 173,000. Neutrophil count is 73% on top of 6% bands. A pH of 7.45, pCO2 of 26, and pO2 of 98, at that time, he was on a nonrebreather. Creatinine 1.04, which is gently downtrending. Potassium 3.4. Basic metabolic profile is otherwise unremarkable. Troponin is negative x1. Lactate is unremarkable. Liver function studies are unremarkable. His BNP is in historic high on presentation at 251. Urinalysis is positive for proteinuria and glycosuria, but otherwise it is unremarkable. Urine drug screen is positive for methamphetamines. Previously, ANCAs and anti-GBM antibodies were unremarkable. T-SPOT was previously indeterminate. Strep and Legionella urine antigens are once again unremarkable. HIV-1 and 2, hepatitis A and hepatitis B were unremarkable. Respiratory virus panel is currently unremarkable. Urine culture , influenza A and B, and blood culture x2 are currently negative to-date. IMAGIN. CT of the chest demonstrates bilateral infiltrates, characterized by crazy paving pattern. The distribution is actually quite similar to a prior CT of the chest. There is bilateral pleural effusions, which are present and quite small. The distribution of these infiltrates tend to favor the dependent and posterior aspects of the lung. Interstitial fullness, ground-glass opacifications are present. There are actually areas of overt consolidating changes. There is massive dilation to the left atrium, and the left ventricle is generous in size as well. 2. Prior echocardiogram demonstrates normal ejection fraction. There is moderate mitral regurgitation present as well as some degree of tricuspid regurgitation. ASSESSMENT: 1. Acute hypoxic respiratory failure, recurring. 2. Pulmonary infiltrate, characterized by crazy paving. 3. Acute on chronic diastolic and valvular heart failure. 4. Hypertensive emergency. 5. Sepsis without end-organ damage. DISCUSSION AND PLAN: Empirically give him some antifungal coverage in addition to what he is currently on. I will initiate some steroids. Because of his mitral regurgitation, he cannot tolerate severe range hypertension as this will absolutely flood his lungs and cause him to have abrupt onset of respiratory failure. Pulmonary/Critical Care will continue to follow along. We will titrate FiO2 as tolerated. There is a very good chance that this patient is going to end up on mechanical ventilator before the end of this hospital stay, particularly if we cannot turn this around quickly. 70 minutes have been devoted to this patient in various activities. I personally reviewed all imaging studies and laboratory data noted within this document. For fifty percent of this time, I was interacting with the patient at the bedside or coordinating care with the care team. For the remainder of the time I was immediately available to the patient in the hospital unit. Job ID: [id number] MTDD
[2019-08-30] MEDS: Micafungin 100 MG in Sodium Chloride 0.9% 100 ML IVPB SCH (12:52)
[2019-08-30] MEDS: methylPREDNISolone Sod Succ 40 MG VIAL IVP SCH ×2 (12:52→17:07)
[2019-08-30] MEDS: Potassium Chloride 20 MEQ TAB PO SCH ×3 (12:52→19:58)
--- NOTE | 2019-08-30 14:59 | PDOC.HOSPP ---
- Subjective Encounter Date: 08/30/19 Encounter Time: 11:00 Subjective: on high flow and nonrebreather as well is not oriented well sob+ - Objective Vital Signs & Weight: Vital Signs (12 hours) Temp BP Pulse Ox 08/30/19 14:31 89 L 08/30/19 11:00 101.8 F H 08/30/19 08:31 202/113 H 08/30/19 08:05 202/113 H 08/30/19 08:03 202/113 H 08/30/19 08:00 94 L 08/30/19 07:14 101.4 F H 08/30/19 05:00 99.8 F H 08/30/19 03:43 101.0 F H 08/30/19 03:15 93 L Weight Weight 168 lb 14.4 oz Most Recent Monitor Data Heart Rate from ECG 86 NIBP 116/71 NIBP BP-Mean 86 Respiration from ECG 31 SpO2 93 I&O: 08/29/19 08/30/19 08/31/19 06:59 06:59 06:59 Intake Total 880 150 Output Total 1200 1700 Balance -320 -1550 Result Diagrams: 08/30/19 03:26 08/30/19 03:26 Additional Labs: Accuchecks 08/30/19 08/30/19 08/29/19 11:02 05:54 21:30 POC Glucose 212 H 228 H 195 H Hospitalist ROS - Medication Medications: Active Medications Generic Name Dose Route Start Last Admin Trade Name Freq PRN Reason Stop Dose Admin Acetaminophen 650 mg 08/29/19 19:49 08/30/19 11:22 Tylenol PO 650 mg Q6H PRN Administration Headache/Fever or Pain Carvedilol 6.25 mg 08/30/19 08:00 08/30/19 08:05 Coreg PO 6.25 mg BID-WM VERONICA Administration Clonidine 0.1 mg 08/29/19 23:45 08/30/19 00:05 Catapres PO 0.1 mg Q4H PRN Administration SBP > 180 Cefepime HCl 2 gm/ Sodium 100 mls @ 200 mls/hr 08/29/19 18:00 08/30/19 05:39 Chloride IVPB 100 mls 0600,1800 VERONICA Administration Vancomycin HCl 1.25 gm/ Sodium 250 mls @ 166.667 mls/hr 08/29/19 19:00 06:20 Chloride IVPB 250 mls 0700,1900 VERONICA Administration Micafungin Sodium 100 mg/ 100 mls @ 100 mls/hr 08/30/19 12:00 08/30/19 12:52 Sodium Chloride IVPB 09/05/19 12:59 100 mls 1200 VERONICA Administration Insulin Human Lispro 0 units 08/29/19 21:36 08/30/19 11:33 Humalog SC 3 unit .MILD SLIDING SCALE PRN Administration Mild Correctional Scale Lisinopril 20 mg 08/30/19 09:00 08/30/19 08:03 Zestril PO 20 mg BID VERONICA Administration Methylprednisolone Sodium Succinate 40 mg 08/30/19 12:00 08/30/19 12:52 Solu-Medrol IVP 40 mg Q6HR VERONICA Administration Potassium Chloride 40 meq 08/30/19 11:45 08/30/19 12:52 K-Dur PO 08/30/19 19:46 40 meq Q4H VERONICA Administration - Exam General Appearance: awake alert Eye: PERRL, anicteric sclera ENT: no oropharyngeal lesions, moist mucosa Neck: supple, no JVD Heart: no murmur, no gallops Respiratory: rales, rhonchi Gastrointestinal: soft, non-tender, non-distended, normal bowel sounds Extremities: no cyanosis, no edema Neurological: cranial nerve grossly intact, no focal deficits Hosp A/P (1) Acute respiratory failure with hypoxemia Code(s): J96.01 - ACUTE RESPIRATORY FAILURE WITH HYPOXIA Status: Acute (2) Recurrent pneumonia Code(s): J18.9 - PNEUMONIA, UNSPECIFIED ORGANISM Status: Acute (3) Methamphetamine abuse Code(s): F15.10 - OTHER STIMULANT ABUSE, UNCOMPLICATED Status: Acute (4) Sepsis due to pneumonia Code(s): J18.9 - PNEUMONIA, UNSPECIFIED ORGANISM; A41.9 - SEPSIS, UNSPECIFIED ORGANISM Status: Acute (5) Type 2 diabetes mellitus Status: Chronic Qualifiers: Diabetes 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 insulin use: without long-term use (6) CKD (chronic kidney disease) stage 3, GFR 30-59 ml/min Code(s): N18.3 - CHRONIC KIDNEY DISEASE, STAGE 3 (MODERATE) Status: Chronic (7) Hypertension Code(s): I10 - ESSENTIAL (PRIMARY) HYPERTENSION Status: Chronic Qualifiers: Hypertension type: essential hypertension Qualified Code(s): I10 - Essential (primary) hypertension (8) Noncompliance with medication regimen Code(s): Z91.14 - PATIENT'S OTHER NONCOMPLIANCE WITH MEDICATION REGIMEN Status : Chronic (9) Acute pulmonary edema Code(s): J81.0 - ACUTE PULMONARY EDEMA Status: Resolved (10) Hypertensive emergency Code(s): I16.1 - HYPERTENSIVE EMERGENCY Status: Resolved - Plan is on cefipime and vanc, steroids, nebs continue coreg, lisinopril prior echo showed ef of 55%, has mod mitral regurg tmax of 101 degrees hemostable appreciate help from
[2019-08-30] MEDS: Lorazepam 2 MG/ML VIAL SLOW IVP PRN (22:02)
[2019-08-31] MEDS: methylPREDNISolone Sod Succ 40 MG VIAL IVP SCH ×4 (00:15→18:05)
[2019-08-31] MEDS: Insulin Regular 300 UNITS/3 ML VIAL SC PRN ×2 (00:26→21:22)
[2019-08-31 04:53] LABS: Anion Gap 13 mmol/L (10-20); BUN (Urea Nitrogen) 23 mg/dL (8.9-20.6); Calc. Creatinine Clearance 76 mL/min (70-130); Calcium 8.6 mg/dL (7.8-10.44); Carbon Dioxide 20 mmol/L (22-29); Chloride 106 mmol/L (98-107); Estimated GFR-MDRD 59; Glucose 394 mg/dL (70-105); Magnesium 1.8 mg/dL (1.6-2.6); Phosphorus 2.3 mg/dL (2.3-4.7); Potassium 4.5 mmol/L (3.5-5.1); Sodium 134 mmol/L (136-145)
[2019-08-31 05:29] LABS: Band 4 % (5-11); Lymphocytes 4 % (21-51); MDiff Complete? YES; Mean Corpuscular Hemoglobin 32.2 pg (27.0-31.0); Mean Corpuscular Volume 94.6 fL (78.0-98.0); Mean Platelet Volume 11.1 fL (7.4-10.4); Monocytes 2 % (0-10); Neutrophil 90 % (42-75); Platelet Count 163 thou/uL (130-400); RBC Distribution Width 12.2 % (11.5-14.5); Red Blood Cell (RBC) Count 3.12 mill/uL (4.70-6.10); White Blood Cell (WBC) Count 19.5 thou/uL (4.8-10.8)
[2019-08-31] MEDS: Cefepime 2 GM in Sodium Chloride 0.9% 100 ML IVPB SCH ×2 (05:37→17:24)
[2019-08-31] MEDS ORDERED: Furosemide 20 MG/2 ML VIAL SLOW IVP SCH (06:00)
[2019-08-31] MEDS: HumaLOG 300 UNITS/3 ML VIAL SC PRN ×3 (06:25→18:19)
[2019-08-31] MEDS: Carvedilol 6.25 MG TAB PO SCH ×2 (08:56→16:31)
[2019-08-31] MEDS: Lisinopril 20 MG TAB PO SCH ×2 (08:57→21:03)
[2019-08-31] MEDS: Vancomycin HCl 1.25 GM in Sodium Chloride 0.9% 250 ML 250 ML IVPB SCH ×2 (10:08→21:03)
[2019-08-31] MEDS: Micafungin 100 MG in Sodium Chloride 0.9% 100 ML IVPB SCH (12:51)
--- NOTE | 2019-08-31 14:28 | PRG ---
DATE OF SERVICE: 08/31/2019 SERVICE: Pulmonary Medicine. INTERVAL HISTORY: The patient is doing really well from respiratory standpoint. He is breathing much better. He has no complaints of chest discomfort, nausea, or vomiting. He is having few respiratory events. He is no longer requiring noninvasive ventilation. PHYSICAL EXAMINATION: VITAL SIGNS: Afebrile currently. Pulse 95, blood pressure 141/89, respirations 23, saturation 96%, currently on 60% via high-flow nasal cannula. GENERAL: The patient is awake and alert, in no apparent distress. He is less tachypneic, and has less conversational dyspnea today. LABORATORY DATA: WBC 19.5, hemoglobin 10.0, platelets 163,000. Magnesium 1.8, phosphorus 2.3. Potassium 4.5. Creatinine 1.31 and gently up trending. Urinalysis is otherwise unremarkable. Respiratory virus panel is unremarkable. All culture results remain negative to date. Echocardiogram demonstrates mild mitral regurgitation, mild tricuspid regurgitation, moderate concentric left ventricular hypertrophy, ejection fraction is normal. Of note, this was performed with a normal blood pressure. ASSESSMENT: 1. Acute hypoxic respiratory failure, recurring. 2. Pulmonary infiltrate, characterized by "crazy paving.". 3. Acute on chronic diastolic and valvular heart failure. 4. Hypertensive emergency, resolved. 5. Sepsis without end-organ damage. DISCUSSION AND PLAN: The patient is doing fine from respiratory standpoint. Pulmonary/Critical Care will continue to follow along. I will leave him in the IMCU for 1 more day. If his oxygen requirements continue to improve, he can be considered for transition to the floor. I will replace a dose of magnesium. I will back off on Lasix to once daily and switch over to p.o. medication. Pulmonary/Critical Care will follow. Job ID: [id number]
[2019-08-31] MEDS ORDERED: Magnesium 2 GM/50 ML 2 GM in Premix Bag 1 BAG IVPB SCH (14:30)
[2019-08-31] MEDS: glyBURIDE 5 MG TAB PO SCH (16:31)
[2019-08-31] MEDS: metFORMIN 500 MG TAB PO SCH (16:31)
--- NOTE | 2019-08-31 17:51 | PDOC.HOSPP ---
- Subjective Encounter Date: 08/31/19 Encounter Time: 12:00 Subjective: is oriented well this am, has 2 family members at bedside no sob, is on high flow O2 - Objective Vital Signs & Weight: Vital Signs (12 hours) Temp BP Pulse Ox 08/31/19 16:31 141/95 H 08/31/19 15:14 98.8 F 08/31/19 11:09 98.7 F 08/31/19 08:57 141/95 H 08/31/19 08:56 141/95 H 08/31/19 08:00 94 L 08/31/19 07:49 96 08/31/19 07:10 98.2 F Weight Weight 162 lb 8 oz Most Recent Monitor Data Heart Rate from ECG 88 NIBP 150/100 NIBP BP-Mean 116 Respiration from ECG 37 SpO2 95 I&O: 08/30/19 08/31/19 09/01/19 06:59 06:59 06:59 Intake Total 880 1910 Output Total 1200 3750 Balance -320 -1840 Result Diagrams: 08/31/19 03:39 08/31/19 03:39 Additional Labs: Accuchecks 08/31/19 08/31/19 08/30/19 05:56 00:18 21:04 POC Glucose 393 H 381 H 472 H 08/30/19 19:50 POC Glucose 450 H Hospitalist ROS - Medication Medications: Active Medications Generic Name Dose Route Start Last Admin Trade Name Freq PRN Reason Stop Dose Admin Acetaminophen 650 mg 08/29/19 19:49 08/30/19 11:22 Tylenol PO 650 mg Q6H PRN Administration Headache/Fever or Pain Carvedilol 6.25 mg 08/30/19 08:00 08/31/19 16:31 Coreg PO 6.25 mg BID-WM VERONICA Administration Clonidine 0.1 mg 08/29/19 23:45 08/30/19 00:05 Catapres PO 0.1 mg Q4H PRN Administration SBP > 180 Glyburide 5 mg 08/31/19 17:00 08/31/19 16:31 Diabeta PO 5 mg BID-WM VERONICA Administration Cefepime HCl 2 gm/ Sodium 100 mls @ 200 mls/hr 08/29/19 18:00 08/31/19 17:24 Chloride IVPB 100 mls 0600,1800 VERONICA Administration Micafungin Sodium 100 mg/ 100 mls @ 100 mls/hr 08/30/19 12:00 08/31/19 12:51 Sodium Chloride IVPB 09/05/19 12:59 100 mls 1200 VERONICA Administration Vancomycin HCl 1.25 gm/ Sodium 250 mls @ 166.667 mls/hr 08/30/19 20:00 10:08 Chloride IVPB 250 mls 0800,2000 VERONICA Administration Insulin Human Lispro 0 units 08/31/19 11:23 08/31/19 11:45 Humalog SC 13 unit .AGGRESSIVE SLIDING PRN Administration AGGRESSIVE SLIDING SCALE Protocol Insulin Human Regular 0 units 08/29/19 21:36 08/31/19 00:26 Humulin R SC 5 unit .BEDTIME SLIDING SC PRN Administration Bedtime Correctional Scale Lisinopril 20 mg 08/30/19 09:00 08/31/19 08:57 Zestril PO 20 mg BID VERONICA Administration Lorazepam 1 mg 08/30/19 10:15 08/30/19 22:02 Ativan SLOW IVP 1 mg Q6H PRN Administration Anxiety/Agitation Metformin HCl 1,000 mg 08/31/19 17:00 08/31/19 16:31 Glucophage PO 1,000 mg BID-WM VERONICA Administration Methylprednisolone Sodium Succinate 40 mg 08/30/19 12:00 08/31/19 12:52 Solu-Medrol IVP 40 mg Q6HR VERONICA Administration Quetiapine Fumarate 25 mg 08/30/19 21:00 08/31/19 08:56 Seroquel PO 25 mg BID VERONICA Administration - Exam General Appearance: NAD, awake alert Eye: PERRL, anicteric sclera ENT: no oropharyngeal lesions, moist mucosa Neck: supple, no JVD Heart: RRR, no murmur Respiratory: no wheezes, rales, rhonchi Gastrointestinal: soft, non-tender, non-distended, normal bowel sounds Extremities: no cyanosis, no edema Neurological: cranial nerve grossly intact, no focal deficits Psychiatric: A&O x 3 Hosp A/P (1) Acute respiratory failure with hypoxemia Code(s): J96.01 - ACUTE RESPIRATORY FAILURE WITH HYPOXIA Status: Acute (2) Recurrent pneumonia Code(s): J18.9 - PNEUMONIA, UNSPECIFIED ORGANISM Status: Acute (3) Methamphetamine abuse Code(s): F15.10 - OTHER STIMULANT ABUSE, UNCOMPLICATED Status: Acute (4) Sepsis due to pneumonia Code(s): J18.9 - PNEUMONIA, UNSPECIFIED ORGANISM; A41.9 - SEPSIS, UNSPECIFIED ORGANISM Status: Acute (5) Type 2 diabetes mellitus Status: Chronic Qualifiers: Diabetes mellitus rodent exterminator insulin use: without shelter use (6) CKD (chronic kidney disease) stage 3, GFR 30-59 ml/min Code(s): N18.3 - CHRONIC KIDNEY DISEASE, STAGE 3 (MODERATE) Status: Chronic (7) Hypertension Code(s): I10 - ESSENTIAL (PRIMARY) HYPERTENSION Status: Chronic Qualifiers: Hypertension type: essential hypertension Qualified Code(s): I10 - Essential (primary) hypertension (8) Noncompliance with medication regimen Code(s): Z91.14 - PATIENT'S OTHER NONCOMPLIANCE WITH MEDICATION REGIMEN Status : Chronic (9) Acute pulmonary edema Code(s): J81.0 - ACUTE PULMONARY EDEMA Status: Resolved (10) Hypertensive emergency Code(s): I16.1 - HYPERTENSIVE EMERGENCY Status: Resolved - Plan is on cefipime and vanc, steroids, nebs continue coreg, lisinopril echo showed ef of 55%, has mild mitral regurg hemostable appreciate help from to ambulate in room as tolerated
[2019-08-31] MEDS ORDERED: Labetalol HCl 100 MG/20 ML VIAL SLOW IVP PRN (21:09)
[2019-08-31] MEDS: Acetaminophen 325 MG TAB PO PRN (21:29)
[2019-09-01] MEDS: methylPREDNISolone Sod Succ 40 MG VIAL IVP SCH ×2 (00:20→06:02)
[2019-09-01] MEDS: Lorazepam 2 MG/ML VIAL SLOW IVP PRN ×2 (00:28→23:54)
[2019-09-01 04:35] LABS: Anion Gap 15 mmol/L (10-20); BUN (Urea Nitrogen) 29 mg/dL (8.9-20.6); Calc. Creatinine Clearance 78 mL/min (70-130); Calcium 8.4 mg/dL (7.8-10.44); Carbon Dioxide 19 mmol/L (22-29); Chloride 105 mmol/L (98-107); Estimated GFR-MDRD 63; Glucose 370 mg/dL (70-105); Magnesium 2.3 mg/dL (1.6-2.6); Sodium 135 mmol/L (136-145)
[2019-09-01 05:21] LABS: Band 9 % (5-11); Hemoglobin 9.8 g/dL (14.0-18.0); Large Platelets SLIGHT; Lymphocytes 4 % (21-51); MDiff Complete? YES; Mean Corpuscular HGB CONC 33.9 g/dL (32.0-36.0); Mean Corpuscular Hemoglobin 31.9 pg (27.0-31.0); Mean Corpuscular Volume 94.2 fL (78.0-98.0); Mean Platelet Volume 11.3 fL (7.4-10.4); Monocytes 2 % (0-10); Neutrophil 85 % (42-75); Platelet Count 183 thou/uL (130-400); Platelet Morphology Comment Appears Adequate; Polychromasia SLIGHT = 2-3 cells (100X) (0-2/hpf); Red Blood Cell (RBC) Count 3.05 mill/uL (4.70-6.10); Target Cells SLIGHT = 2-5 cells (100X) (0-1/hpf); White Blood Cell (WBC) Count 26.2 thou/uL (4.8-10.8)
[2019-09-01] MEDS: Cefepime 2 GM in Sodium Chloride 0.9% 100 ML IVPB SCH ×2 (06:02→17:27)
[2019-09-01] MEDS: HumaLOG 300 UNITS/3 ML VIAL SC PRN ×4 (06:07→23:05)
[2019-09-01] MEDS ORDERED: Insulin Glargine 25 UNITS in Pre-Filled Syringe 1 EACH SC SCH (07:37)
[2019-09-01] MEDS: glyBURIDE 5 MG TAB PO SCH ×2 (09:34→17:27)
[2019-09-01] MEDS: metFORMIN 500 MG TAB PO SCH ×2 (09:34→17:27)
[2019-09-01] MEDS: predniSONE 20 MG TAB PO SCH (09:34)
[2019-09-01] MEDS: Furosemide 20 MG TAB PO SCH (09:34)
[2019-09-01] MEDS: Vancomycin HCl 1.25 GM in Sodium Chloride 0.9% 250 ML 250 ML IVPB SCH ×2 (09:34→20:17)
[2019-09-01] MEDS: Lisinopril 20 MG TAB PO SCH ×2 (09:34→20:23)
[2019-09-01] MEDS: Carvedilol 6.25 MG TAB PO SCH ×2 (09:35→17:27)
--- NOTE | 2019-09-01 12:27 | PDOC.HOSPP ---
- Subjective Encounter Date: 09/01/19 Encounter Time: 08:35 Subjective: awake, oriented, no sob at rest, is on high flow per staff gets severe sob on minimal exertion tolerating oral diet - Objective Vital Signs & Weight: Vital Signs (12 hours) Temp BP Pulse Ox 09/01/19 09:35 188/119 H 09/01/19 09:34 188/119 H 09/01/19 07:09 100 09/01/19 04:00 98.1 F 09/01/19 02:44 95 Weight Weight 163 lb 4.8 oz Most Recent Monitor Data Heart Rate from ECG 84 NIBP 149/94 NIBP BP-Mean 112 Respiration from ECG 24 SpO2 95 I&O: 08/31/19 09/01/19 09/02/19 06:59 06:59 06:59 Intake Total 1910 2800 Output Total 4227 1465 Balance -1840 -235 Result Diagrams: 09/01/19 03:42 09/01/19 03:42 Additional Labs: Accuchecks 09/01/19 09/01/19 08/31/19 11:54 05:49 21:23 POC Glucose 400 H 376 H 357 H 08/31/19 08/31/19 08/31/19 16:49 10:54 10:52 POC Glucose Greater than 550 H* Greater than 550 H* Greater than 550 H* Hospitalist ROS - Medication Medications: Active Medications Generic Name Dose Route Start Last Admin Trade Name Freq PRN Reason Stop Dose Admin Acetaminophen 650 mg 08/29/19 19:49 08/31/19 21:29 Tylenol PO 650 mg Q6H PRN Administration Headache/Fever or Pain Carvedilol 6.25 mg 08/30/19 08:00 09/01/19 09:35 Coreg PO 6.25 mg BID-WM VERONICA Administration Clonidine 0.1 mg 08/29/19 23:45 08/30/19 00:05 Catapres PO 0.1 mg Q4H PRN Administration SBP > 180 Furosemide 20 mg 09/01/19 09:00 09/01/19 09:34 Lasix PO 20 mg DAILY VERONICA Administration Glyburide 5 mg 08/31/19 17:00 09/01/19 09:34 Diabeta PO 5 mg BID-WM VERONICA Administration Cefepime HCl 2 gm/ Sodium 100 mls @ 200 mls/hr 08/29/19 18:00 09/01/19 06:02 Chloride IVPB 100 mls 0600,1800 VERONICA Administration Micafungin Sodium 100 mg/ 100 mls @ 100 mls/hr 08/30/19 12:00 08/31/19 12:51 Sodium Chloride IVPB 09/05/19 12:59 100 mls 1200 VERONICA Administration Vancomycin HCl 1.25 gm/ Sodium 250 mls @ 166.667 mls/hr 08/30/19 20:00 09:34 Chloride IVPB 250 mls 0800,2000 VERONICA Administration Insulin Human Lispro 0 units 08/31/19 11:23 09/01/19 11:53 Humalog SC 13 unit .AGGRESSIVE SLIDING PRN Administration AGGRESSIVE SLIDING SCALE Protocol Insulin Human Regular 0 units 08/29/19 21:36 08/31/19 21:22 Humulin R SC 5 unit .BEDTIME SLIDING SC PRN Administration Bedtime Correctional Scale Labetalol HCl 20 mg 08/31/19 21:09 08/31/19 21:13 Normodyne SLOW IVP 20 mg Q15MIN PRN Administration UNTIL SBP <180 Lisinopril 20 mg 08/30/19 09:00 09/01/19 09:34 Zestril PO 20 mg BID VERONICA Administration Lorazepam 1 mg 08/30/19 10:15 09/01/19 00:28 Ativan SLOW IVP 1 mg Q6H PRN Administration Anxiety/Agitation Metformin HCl 1,000 mg 08/31/19 17:00 09/01/19 09:34 Glucophage PO 1,000 mg BID-WM VERONICA Administration Prednisone 40 mg 09/01/19 08:00 09/01/19 09:34 Prednisone PO 40 mg QAM-WM VERONICA Administration Quetiapine Fumarate 25 mg 08/30/19 21:00 09/01/19 09:35 Seroquel PO 25 mg BID VERONICA Administration - Exam General Appearance: awake alert Eye: PERRL, anicteric sclera ENT: no oropharyngeal lesions, moist mucosa Neck: supple, no JVD Heart: RRR, no murmur Respiratory: no wheezes, rales, rhonchi Gastrointestinal: soft, non-tender, non-distended, normal bowel sounds Extremities: no cyanosis, no edema Neurological: cranial nerve grossly intact, no focal deficits Psychiatric: normal affect, A&O x 3 Hosp A/P (1) Acute respiratory failure with hypoxemia Code(s): J96.01 - ACUTE RESPIRATORY FAILURE WITH HYPOXIA Status: Acute (2) Recurrent pneumonia Code(s): J18.9 - PNEUMONIA, UNSPECIFIED ORGANISM Status: Acute (3) Methamphetamine abuse Code(s): F15.10 - OTHER STIMULANT ABUSE, UNCOMPLICATED Status: Acute (4) Sepsis due to pneumonia Code(s): J18.9 - PNEUMONIA, UNSPECIFIED ORGANISM; A41.9 - SEPSIS, UNSPECIFIED ORGANISM Status: Acute (5) Type 2 diabetes mellitus Status: Chronic Qualifiers: Diabetes mellitus 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 chain 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 insulin use: without jail use (6) CKD (chronic kidney disease) stage 3, GFR 30-59 ml/min Code(s): N18.3 - CHRONIC KIDNEY DISEASE, STAGE 3 (MODERATE) Status: Chronic (7) Hypertension Code(s): I10 - ESSENTIAL (PRIMARY) HYPERTENSION Status: Chronic Qualifiers: Hypertension type: essential hypertension Qualified Code(s): I10 - Essential (primary) hypertension (8) Noncompliance with medication regimen Code(s): Z91.14 - PATIENT'S OTHER NONCOMPLIANCE WITH MEDICATION REGIMEN Status : Chronic (9) Acute pulmonary edema Code(s): J81.0 - ACUTE PULMONARY EDEMA Status: Resolved (10) Hypertensive emergency Code(s): I16.1 - HYPERTENSIVE EMERGENCY Status: Resolved - Plan is on cefipime, micafungin and vanc, change iv steroids to oral, nebs dm is uncontrolled due to steroids, one dose lantus now continue coreg, lisinopril echo showed ef of 55%, has mild mitral regurg hemostable appreciate help from to ambulate in room as tolerated, may tx to med floor if ok with
[2019-09-01] MEDS: Micafungin 100 MG in Sodium Chloride 0.9% 100 ML IVPB SCH (14:04)
--- NOTE | 2019-09-01 15:56 | PRG ---
DATE OF SERVICE: 09/01/2019 SERVICE: Pulmonary Medicine. INTERVAL HISTORY: The patient is doing really well from respiratory standpoint. Oxygen requirements continue to improve. He has no complaints of chest discomfort, nausea, or vomiting. Otherwise, there has been no interval change to his condition. PHYSICAL EXAMINATION: VITAL SIGNS: Afebrile, pulse 89, blood pressure 155/98, respirations 24, saturation 95%, currently on 38% FiO2 delivered via high-flow nasal cannula. GENERAL: The patient is awake and alert, in no apparent distress. LUNGS: Decent air entry. There is no prolonged expiratory phase or wheezing. Crackles have dramatically improved. HEART: Normal rate, regular. ABDOMEN: Soft, nontender, nondistended. Bowel sounds are positive. MUSCULOSKELETAL: No cyanosis or clubbing. There is no pitting in the bilateral lower extremities. NEUROLOGIC: Grossly nonfocal. LABORATORY DATA: WBC 26.2, hemoglobin 9.8 and roughly stable, and platelets 183,000. PH 7.45, pCO2 of 26, pO2 of 98. Sodium 135, bicarb 19, anion gap 15. Creatinine 1.23, which is improving. Basic metabolic profile is otherwise unremarkable. Magnesium 2.3. All cultures remain negative to date. This includes a respiratory virus panel. ASSESSMENT: 1. Acute hypoxic respiratory failure, recurring. 2. Pulmonary infiltrate, characterized by crazy paving. 3. Acute on chronic diastolic and valvular heart failure. 4. Hypertensive emergency, resolved. 5. Sepsis without end-organ damage. DISCUSSION AND PLAN: We will continue supportive care including antibiotics, nebulized medications, and steroids. At this point, he is likely stable for transition out of the IM to the medical unit. Critical Care will follow. Ultimately, once his oxygen requirements improve, if this happens another time, he may require a bronchoscopy and/or open lung biopsy. Job ID: [id number]
[2019-09-01] MEDS: hydrALAZINE 20 MG/ML VIAL SLOW IVP PRN (18:51)
[2019-09-02] MEDS: Cefepime 2 GM in Sodium Chloride 0.9% 100 ML IVPB SCH ×2 (06:05→16:56)
[2019-09-02 06:46] VITALS: BMI 26.2
[2019-09-02] MEDS: predniSONE 20 MG TAB PO SCH (08:22)
[2019-09-02] MEDS: metFORMIN 500 MG TAB PO SCH ×2 (08:22→16:55)
[2019-09-02] MEDS: Lisinopril 20 MG TAB PO SCH ×2 (08:22→20:57)
[2019-09-02] MEDS: Carvedilol 6.25 MG TAB PO SCH ×2 (08:22→16:55)
[2019-09-02] MEDS: glyBURIDE 5 MG TAB PO SCH ×2 (08:22→16:55)
[2019-09-02] MEDS: Furosemide 20 MG TAB PO SCH (08:22)
[2019-09-02] MEDS: Vancomycin HCl 1.25 GM in Sodium Chloride 0.9% 250 ML 250 ML IVPB SCH ×2 (08:23→20:55)
--- NOTE | 2019-09-02 09:48 | RAD ---
PORTABLE CHEST ONE VIEW: 09/02/2019 7:08 a.m. HISTORY: Follow up infiltrates. COMPARISON: 08/29/2019 FINDINGS: The heart size is stable. The lungs are well expanded with stable bilateral multifocal infiltrates. M ultifocal infiltrates scattered throughout the lungs. No pneumothoraces or large effusions are seen. IMPRESSION: Stable examination. Multifocal pneumonia. POS: [facility]
[2019-09-02] MEDS: Micafungin 100 MG in Sodium Chloride 0.9% 100 ML IVPB SCH (11:27)
--- NOTE | 2019-09-02 15:26 | PDOC.HOSPP ---
- Subjective Encounter Date: 09/02/19 Encounter Time: 10:00 Subjective: Pt seen for followup re: pneumonia. Feels better. - Objective Vital Signs & Weight: Vital Signs (12 hours) Temp Pulse Resp BP Pulse Ox 09/02/19 10:46 94 L 09/02/19 10:40 95 09/02/19 08:21 93 L 09/02/19 08:00 93 L 09/02/19 07:42 97.7 F 82 20 90 L 09/02/19 07:00 92 L 09/02/19 04:00 97.6 F 74 18 136/86 97 Weight Weight 166 lb 14.4 oz Most Recent Monitor Data Heart Rate from ECG 81 NIBP 169/126 NIBP BP-Mean 140 Respiration from ECG 27 SpO2 95 I&O: 09/01/19 09/02/19 09/03/19 06:59 06:59 06:59 Intake Total 2800 900 Output Total 3525 1850 Balance -725 -950 Result Diagrams: 09/01/19 03:42 09/01/19 03:42 Additional Labs: Accuchecks 09/02/19 09/02/19 09/01/19 11:52 04:17 19:28 POC Glucose 125 H 134 H 235 H 09/01/19 17:26 POC Glucose 295 H labs and MARs reviewed by me. Hospitalist ROS - Review of Systems Gastrointestinal: denies: nausea, vomiting, abdominal pain, diarrhea, constipation, melena, hematochezia Genitourinary: denies: dysuria, frequency, incontinence, hematuria, retention - Medication Medications: Active Medications Generic Name Dose Route Start Last Admin Trade Name Clq PRN Reason Stop Dose Admin Acetaminophen 650 mg 08/29/19 19:49 08/31/19 21:29 Tylenol PO 650 mg Q6H PRN Administration Headache/Fever or Pain Carvedilol 6.25 mg 08/30/19 08:00 09/02/19 08:22 Coreg PO 6.25 mg BID-WM VERONICA Administration Clonidine 0.1 mg 08/29/19 23:45 08/30/19 00:05 Catapres PO 0.1 mg Q4H PRN Administration SBP > 180 Furosemide 20 mg 09/01/19 09:00 09/02/19 08:22 Lasix PO 20 mg DAILY VERONICA Administration Glyburide 5 mg 08/31/19 17:00 09/02/19 08:22 Diabeta PO 5 mg BID-WM VERONICA Administration Hydralazine HCl 10 mg 08/29/19 19:54 09/01/19 18:51 Apresoline SLOW IVP 10 mg Q4H PRN Administration SBP > 180 and HR < 70 Cefepime HCl 2 gm/ Sodium 100 mls @ 200 mls/hr 08/29/19 18:00 09/02/19 06:05 Chloride IVPB 100 mls 0600,1800 VERONICA Administration Micafungin Sodium 100 mg/ 100 mls @ 100 mls/hr 08/30/19 12:00 09/02/19 11:27 Sodium Chloride IVPB 09/05/19 12:59 100 mls 1200 VERONICA Administration Vancomycin HCl 1.25 gm/ Sodium 250 mls @ 166.667 mls/hr 08/30/19 20:00 08:23 Chloride IVPB 250 mls 0800,2000 VERONICA Administration Insulin Human Lispro 0 units 08/31/19 11:23 09/01/19 17:30 Humalog SC 9 unit .AGGRESSIVE SLIDING PRN Administration AGGRESSIVE SLIDING SCALE Protocol Insulin Human Lispro 0 units 09/01/19 22:44 09/01/19 23:05 Humalog SC 2 unit .BEDTIME SLIDING SC PRN Administration Bedtime Correctional Scale Labetalol HCl 20 mg 08/31/19 21:09 08/31/19 21:13 Normodyne SLOW IVP 20 mg Q15MIN PRN Administration UNTIL SBP <180 Lisinopril 20 mg 08/30/19 09:00 09/02/19 08:22 Zestril PO 20 mg BID VERONICA Administration Lorazepam 1 mg 08/30/19 10:15 09/01/19 23:54 Ativan SLOW IVP 1 mg Q6H PRN Administration Anxiety/Agitation Metformin HCl 1,000 mg 08/31/19 17:00 09/02/19 08:22 Glucophage PO 1,000 mg BID-WM VERONICA Administration Prednisone 40 mg 09/01/19 08:00 09/02/19 08:22 Prednisone PO 40 mg QAM-WM VERONICA Administration Quetiapine Fumarate 25 mg 08/30/19 21:00 09/02/19 08:22 Seroquel PO 25 mg BID VERONICA Administration - Exam General Appearance: NAD Eye: anicteric sclera ENT: moist mucosa Neck: supple Heart: RRR Respiratory: CTAB Gastrointestinal: soft, non-tender Psychiatric: normal affect, normal behavior Hosp A/P - Plan Hosp A/P (1) Acute respiratory failure with hypoxemia Code(s): J96.01 - ACUTE RESPIRATORY FAILURE WITH HYPOXIA Status: Acute (2) Recurrent pneumonia Code(s): J18.9 - PNEUMONIA, UNSPECIFIED ORGANISM Status: Acute (3) Methamphetamine abuse Code(s): F15.10 - OTHER STIMULANT ABUSE, UNCOMPLICATED Status: Acute (4) Sepsis due to pneumonia Code(s): J18.9 - PNEUMONIA, UNSPECIFIED ORGANISM; A41.9 - SEPSIS, UNSPECIFIED ORGANISM Status: Acute (5) Type 2 diabetes mellitus Status: Chronic Qualifiers: Diabetes mellitus intermediate accountant insulin use: without [place] use (6) CKD (chronic kidney disease) stage 3, GFR 30-59 ml/min Code(s): N18.3 - CHRONIC KIDNEY DISEASE, STAGE 3 (MODERATE) Status: Chronic (7) Hypertension Code(s): I10 - ESSENTIAL (PRIMARY) HYPERTENSION Status: Chronic Qualifiers: Hypertension type: essential hypertension Qualified Code(s): I10 - Essential (primary) hypertension (8) Noncompliance with medication regimen Code(s): Z91.14 - PATIENT'S OTHER NONCOMPLIANCE WITH MEDICATION REGIMEN Status : Chronic (9) Acute pulmonary edema Code(s): J81.0 - ACUTE PULMONARY EDEMA Status: Resolved (10) Hypertensive emergency Code(s): I16.1 - HYPERTENSIVE EMERGENCY Status: Resolved - Plan Continue cefipime, micafungin and vancomycin continue coreg, lisinopril hemostable to ambulate in room as tolerated, may tx to med floor if ok with Continue glyburide and metformin.
[2019-09-02] MEDS: HumaLOG 300 UNITS/3 ML VIAL SC PRN ×2 (17:02→20:59)
--- NOTE | 2019-09-02 20:01 | PRG ---
DATE OF SERVICE: 09/02/2019 SERVICE: Pulmonary Medicine. INTERVAL HISTORY: The patient is doing really well from respiratory standpoint. Breathing comfortably. No complaints of chest discomfort, nausea, or vomiting. He is breathing comfortably on 2.5 L nasal cannula. Otherwise, there has been no interval change to his condition. PHYSICAL EXAMINATION: VITAL SIGNS: Afebrile, pulse 99, blood pressure 160/100, respirations 20, and saturation 93% on 2 L nasal cannula. GENERAL: The patient is awake and alert, in no apparent distress. LUNGS: Very good air entry with no prolonged expiratory phase or wheezing present. HEART: Normal rate, regular. ABDOMEN: Soft, nontender, and nondistended. Bowel sounds positive. MUSCULOSKELETAL: No cyanosis or clubbing. No pitting in the bilateral lower extremities. NEUROLOGIC: Grossly nonfocal. LABORATORY DATA: WBC 26.2, hemoglobin 9.8, platelets 183,000, neutrophil count is 85% on top of 9% bands. All culture results remain negative to date. IMAGING: Chest x-ray demonstrates stable exam with multifocal infiltrates present. I feel that the diaphragms are more demarcated on this evaluation suggesting less edema. ASSESSMENT: 1. Acute hypoxic respiratory failure, resolving once again. 2. Pulmonary infiltrate, characterized by crazy paving. 3. Acute on chronic diastolic and valvular heart failure. 4. Hypertensive emergency, resolved. 5. Sepsis without end-organ damage. DISCUSSION AND PLAN: The patient remains stable from a respiratory standpoint. At this point, he is pretty close to euvolemia. We will keep his blood pressure low. On discharge from the hospital this time around, I would like to him to be discharged on a protracted course of steroids. Critical Care will continue to follow through time. Job ID: [id number] [facility]
[2019-09-02] MEDS: Lorazepam 2 MG/ML VIAL SLOW IVP PRN (22:52)
[2019-09-03 05:16] LABS: #Eosinphils 0.4 thou/uL (0.0-0.7); #Lymphocytes 2.7 thou/uL (1.20-3.40); #Monocytes 1.3 thou/uL (0.11-0.59); #Neutrophils 11.5 thou/uL (1.40-6.50); %Basophils 0.3 % (0.0-1.0); %Eosinophils 2.6 % (0.0-10.0); %Lymphocytes 17.2 % (21.0-51.0); %Monocytes 8.3 % (0.0-10.0); %Neutrophils 71.7 % (42.0-75.0); Hemoglobin 10.2 g/dL (14.0-18.0); Mean Corpuscular HGB CONC 33.6 g/dL (32.0-36.0); Mean Corpuscular Hemoglobin 31.9 pg (27.0-31.0); Mean Corpuscular Volume 94.9 fL (78.0-98.0); Mean Platelet Volume 10.9 fL (7.4-10.4); Platelet Count 204 thou/uL (130-400); RBC Distribution Width 12.5 % (11.5-14.5)
[2019-09-03] MEDS: Cefepime 2 GM in Sodium Chloride 0.9% 100 ML IVPB SCH ×2 (05:19→17:01)
[2019-09-03 05:23] LABS: Anion Gap 12 mmol/L (10-20); BUN (Urea Nitrogen) 22 mg/dL (8.9-20.6); Calc. Creatinine Clearance 104 mL/min (70-130); Calcium 8.4 mg/dL (7.8-10.44); Carbon Dioxide 25 mmol/L (22-29); Chloride 107 mmol/L (98-107); Estimated GFR-MDRD 85; Glucose 136 mg/dL (70-105); Magnesium 1.8 mg/dL (1.6-2.6); Potassium 3.5 mmol/L (3.5-5.1); Sodium 140 mmol/L (136-145)
[2019-09-03] MEDS: metFORMIN 500 MG TAB PO SCH ×2 (08:07→17:00)
[2019-09-03] MEDS: glyBURIDE 5 MG TAB PO SCH ×2 (08:08→17:00)
[2019-09-03] MEDS: Furosemide 20 MG TAB PO SCH (08:08)
[2019-09-03] MEDS: predniSONE 20 MG TAB PO SCH (08:08)
[2019-09-03] MEDS: Lisinopril 20 MG TAB PO SCH ×2 (08:09→20:42)
[2019-09-03] MEDS: Vancomycin HCl 1.25 GM in Sodium Chloride 0.9% 250 ML 250 ML IVPB SCH ×2 (08:09→21:46)
[2019-09-03] MEDS: Carvedilol 6.25 MG TAB PO SCH ×2 (08:09→17:00)
--- NOTE | 2019-09-03 10:10 | PDOC.HOSPP ---
- Subjective Encounter Date: 09/03/19 Encounter Time: 09:00 Subjective: no sob, is on nasal canula says he is amb in room - Objective Vital Signs & Weight: Vital Signs (12 hours) Temp Pulse Resp BP BP Pulse Ox 09/03/19 09:31 134/86 09/03/19 08:09 167/99 H 09/03/19 04:00 97.8 F 77 18 162/100 H 98 09/02/19 23:35 97.9 F 83 18 170/91 H 95 Weight Weight 166 lb 14.4 oz Most Recent Monitor Data Heart Rate from ECG 81 NIBP 169/126 NIBP BP-Mean 140 Respiration from ECG 27 SpO2 95 I&O: 09/02/19 09/03/19 09/04/19 06:59 06:59 06:59 Intake Total 1800 Output Total 3050 Balance -1250 Result Diagrams: 09/03/19 04:41 09/03/19 04:41 Additional Labs: Accuchecks 09/03/19 09/02/19 09/02/19 04:22 19:44 17:00 POC Glucose 144 H 306 H 388 H 09/02/19 11:52 POC Glucose 125 H Hospitalist ROS - Medication Medications: Active Medications Generic Name Dose Route Start Last Admin Trade Name Freq PRN Reason Stop Dose Admin Acetaminophen 650 mg 08/29/19 19:49 08/31/19 21:29 Tylenol PO 650 mg Q6H PRN Administration Headache/Fever or Pain Carvedilol 6.25 mg 08/30/19 08:00 09/03/19 08:09 Coreg PO 6.25 mg BID-WM VERONICA Administration Clonidine 0.1 mg 08/29/19 23:45 08/30/19 00:05 Catapres PO 0.1 mg Q4H PRN Administration SBP > 180 Furosemide 20 mg 09/01/19 09:00 09/03/19 08:08 Lasix PO 20 mg DAILY VERONICA Administration Glyburide 5 mg 08/31/19 17:00 09/03/19 08:08 Diabeta PO 5 mg BID-WM VERONICA Administration Hydralazine HCl 10 mg 08/29/19 19:54 09/01/19 18:51 Apresoline SLOW IVP 10 mg Q4H PRN Administration SBP > 180 and HR < 70 Cefepime HCl 2 gm/ Sodium 100 mls @ 200 mls/hr 08/29/19 18:00 09/03/19 05:19 Chloride IVPB 100 mls 0600,1800 VERONICA Administration Micafungin Sodium 100 mg/ 100 mls @ 100 mls/hr 08/30/19 12:00 09/02/19 11:27 Sodium Chloride IVPB 09/05/19 12:59 100 mls 1200 VERONICA Administration Vancomycin HCl 1.25 gm/ Sodium 250 mls @ 166.667 mls/hr 08/30/19 20:00 08:09 Chloride IVPB 250 mls 0800,2000 VERONICA Administration Insulin Human Lispro 0 units 08/31/19 11:23 09/02/19 17:02 Humalog SC 11 unit .AGGRESSIVE SLIDING PRN Administration AGGRESSIVE SLIDING SCALE Protocol Insulin Human Lispro 0 units 09/01/19 22:44 09/02/19 20:59 Humalog SC 4 unit .BEDTIME SLIDING SC PRN Administration Bedtime Correctional Scale Labetalol HCl 20 mg 08/31/19 21:09 08/31/19 21:13 Normodyne SLOW IVP 20 mg Q15MIN PRN Administration UNTIL SBP <180 Lisinopril 20 mg 08/30/19 09:00 09/03/19 08:09 Zestril PO 20 mg BID VERONICA Administration Lorazepam 1 mg 08/30/19 10:15 09/02/19 22:52 Ativan SLOW IVP 1 mg Q6H PRN Administration Anxiety/Agitation Metformin HCl 1,000 mg 08/31/19 17:00 09/03/19 08:07 Glucophage PO 1,000 mg BID-WM VERONICA Administration Prednisone 40 mg 09/01/19 08:00 09/03/19 08:08 Prednisone PO 40 mg QAM-WM VERONICA Administration Quetiapine Fumarate 25 mg 08/30/19 21:00 09/03/19 08:09 Seroquel PO 25 mg BID VERONICA Administration - Exam General Appearance: awake alert Eye: PERRL, anicteric sclera ENT: no oropharyngeal lesions, moist mucosa Neck: supple, no JVD Heart: RRR, no murmur Respiratory: no wheezes, rales, rhonchi Gastrointestinal: soft, non-tender, non-distended, normal bowel sounds Extremities: no cyanosis, no edema Neurological: cranial nerve grossly intact, no focal deficits Psychiatric: normal affect, A&O x 3 Hosp A/P (1) Acute respiratory failure with hypoxemia Code(s): J96.01 - ACUTE RESPIRATORY FAILURE WITH HYPOXIA Status: Resolved (2) Recurrent pneumonia Code(s): J18.9 - PNEUMONIA, UNSPECIFIED ORGANISM Status: Acute (3) Methamphetamine abuse Code(s): F15.10 - OTHER STIMULANT ABUSE, UNCOMPLICATED Status: Acute (4) Sepsis due to pneumonia Code(s): J18.9 - PNEUMONIA, UNSPECIFIED ORGANISM; A41.9 - SEPSIS, UNSPECIFIED ORGANISM Status: Resolved (5) Type 2 diabetes mellitus Status: Chronic Qualifiers: Diabetes mellitus nursing home insulin use: without nursing home use (6) CKD (chronic kidney disease) stage 3, GFR 30-59 ml/min Code(s): N18.3 - CHRONIC KIDNEY DISEASE, STAGE 3 (MODERATE) Status: Chronic (7) Hypertension Code(s): I10 - ESSENTIAL (PRIMARY) HYPERTENSION Status: Chronic Qualifiers: Hypertension type: essential hypertension Qualified Code(s): I10 - Essential (primary) hypertension (8) Noncompliance with medication regimen Code(s): Z91.14 - PATIENT'S OTHER NONCOMPLIANCE WITH MEDICATION REGIMEN Status : Chronic (9) Acute pulmonary edema Code(s): J81.0 - ACUTE PULMONARY EDEMA Status: Resolved (10) Hypertensive emergency Code(s): I16.1 - HYPERTENSIVE EMERGENCY Status: Resolved - Plan is on cefipime, micafungin and vanc, steroids, nebs dm is uncontrolled due to steroids, metformin and glyburide continue coreg, lisinopril echo showed ef of 55%, has mild mitral regurg hemostable appreciate help from to ambulate in room as tolerated, wean O2 to spo2 of 90%
[2019-09-03] MEDS: Micafungin 100 MG in Sodium Chloride 0.9% 100 ML IVPB SCH (11:30)
[2019-09-03] MEDS: HumaLOG 300 UNITS/3 ML VIAL SC PRN ×3 (11:31→21:40)
[2019-09-04] MEDS: Lorazepam 2 MG/ML VIAL SLOW IVP PRN ×2 (00:05→23:56)
[2019-09-04] MEDS: Vancomycin HCl 1 GM in Premix Bag 1 BAG IVPB SCH ×2 (00:07→12:40)
[2019-09-04] MEDS: Cefepime 2 GM in Sodium Chloride 0.9% 100 ML IVPB SCH ×2 (05:22→17:31)
[2019-09-04 05:52] LABS: #Basophils 0.1 thou/uL (0.0-0.2); #Eosinphils 0.7 thou/uL (0.0-0.7); #Lymphocytes 3.1 thou/uL (1.20-3.40); #Monocytes 1.2 thou/uL (0.11-0.59); #Neutrophils 10.2 thou/uL (1.40-6.50); %Basophils 0.4 % (0.0-1.0); %Eosinophils 4.6 % (0.0-10.0); %Lymphocytes 20.1 % (21.0-51.0); %Monocytes 7.7 % (0.0-10.0); %Neutrophils 67.3 % (42.0-75.0); Hemoglobin 10.3 g/dL (14.0-18.0); Mean Corpuscular HGB CONC 33.9 g/dL (32.0-36.0); Mean Corpuscular Volume 94.4 fL (78.0-98.0); Mean Platelet Volume 10.7 fL (7.4-10.4); Platelet Count 208 thou/uL (130-400); RBC Distribution Width 12.3 % (11.5-14.5); Red Blood Cell (RBC) Count 3.22 mill/uL (4.70-6.10); White Blood Cell (WBC) Count 15.2 thou/uL (4.8-10.8)
[2019-09-04 06:10] LABS: Anion Gap 12 mmol/L (10-20); BUN (Urea Nitrogen) 18 mg/dL (8.9-20.6); Calc. Creatinine Clearance 119 mL/min (70-130); Calcium 8.1 mg/dL (7.8-10.44); Carbon Dioxide 26 mmol/L (22-29); Chloride 107 mmol/L (98-107); Estimated GFR-MDRD Greater than 90; Glucose 97 mg/dL (70-105); Magnesium 1.7 mg/dL (1.6-2.6); Potassium 3.3 mmol/L (3.5-5.1); Sodium 142 mmol/L (136-145)
[2019-09-04] MEDS: Carvedilol 6.25 MG TAB PO SCH ×2 (07:59→17:31)
[2019-09-04] MEDS: glyBURIDE 5 MG TAB PO SCH ×2 (07:59→17:31)
[2019-09-04] MEDS: metFORMIN 500 MG TAB PO SCH ×2 (08:00→17:31)
[2019-09-04] MEDS: predniSONE 20 MG TAB PO SCH (08:00)
[2019-09-04] MEDS: Lisinopril 20 MG TAB PO SCH ×2 (08:00→20:43)
[2019-09-04] MEDS: Furosemide 20 MG TAB PO SCH (08:00)
--- NOTE | 2019-09-04 11:20 | PDOC.HOSPP ---
- Subjective Encounter Date: 09/04/19 Encounter Time: 08:30 Subjective: feels better, is amb to restroom and back eating better no new complaints - Objective Vital Signs & Weight: Vital Signs (12 hours) Temp Pulse Resp BP BP BP Pulse Ox 09/04/19 11:17 97.5 F L 82 18 153/98 H 97 09/04/19 08:00 175/111 H 96 09/04/19 07:59 175/111 H 09/04/19 07:49 97.9 F 76 18 175/111 H 96 09/04/19 05:15 97.8 F 78 20 169/99 H 97 09/03/19 23:49 97.5 F L 80 20 167/99 H 95 Weight Weight 166 lb 14.4 oz Most Recent Monitor Data Heart Rate from ECG 81 NIBP 169/126 NIBP BP-Mean 140 Respiration from ECG 27 SpO2 95 I&O: 09/03/19 09/04/19 09/05/19 06:59 06:59 06:59 Intake Total 1800 1200 Output Total 3050 1000 Balance -1250 200 Result Diagrams: 09/04/19 05:11 09/04/19 05:11 Additional Labs: Accuchecks 09/04/19 09/03/19 09/03/19 05:13 19:34 16:28 POC Glucose 102 281 H 461 H 09/03/19 11:08 POC Glucose 253 H Hospitalist ROS - Medication Medications: Active Medications Generic Name Dose Route Start Last Admin Trade Name Freq PRN Reason Stop Dose Admin Acetaminophen 650 mg 08/29/19 19:49 08/31/19 21:29 Tylenol PO 650 mg Q6H PRN Administration Headache/Fever or Pain Carvedilol 6.25 mg 08/30/19 08:00 09/04/19 07:59 Coreg PO 6.25 mg BID-WM VERONICA Administration Clonidine 0.1 mg 08/29/19 23:45 08/30/19 00:05 Catapres PO 0.1 mg Q4H PRN Administration SBP > 180 Furosemide 20 mg 09/01/19 09:00 09/04/19 08:00 Lasix PO 20 mg DAILY VERONICA Administration Glyburide 5 mg 08/31/19 17:00 09/04/19 07:59 Diabeta PO 5 mg BID-WM VERONICA Administration Hydralazine HCl 10 mg 08/29/19 19:54 09/01/19 18:51 Apresoline SLOW IVP 10 mg Q4H PRN Administration SBP > 180 and HR < 70 Cefepime HCl 2 gm/ Sodium 100 mls @ 200 mls/hr 08/29/19 18:00 09/04/19 05:22 Chloride IVPB 100 mls 0600,1800 VERONICA Administration Micafungin Sodium 100 mg/ 100 mls @ 100 mls/hr 08/30/19 12:00 09/03/19 11:30 Sodium Chloride IVPB 09/05/19 12:59 100 mls 1200 VERONICA Administration Vancomycin HCl 1 gm/ Device 200 mls @ 200 mls/hr 09/04/19 01:00 09/04/19 00: 07 IVPB 200 mls 0100,1300 VERONICA Administration Insulin Human Lispro 0 units 08/31/19 11:23 09/03/19 17:00 Humalog SC 13 unit .AGGRESSIVE SLIDING PRN Administration AGGRESSIVE SLIDING SCALE Protocol Insulin Human Lispro 0 units 09/01/19 22:44 09/03/19 21:40 Humalog SC 3 unit .BEDTIME SLIDING SC PRN Administration Bedtime Correctional Scale Labetalol HCl 20 mg 08/31/19 21:09 08/31/19 21:13 Normodyne SLOW IVP 20 mg Q15MIN PRN Administration UNTIL SBP <180 Lisinopril 20 mg 08/30/19 09:00 09/04/19 08:00 Zestril PO 20 mg BID VERONICA Administration Lorazepam 1 mg 08/30/19 10:15 09/04/19 00:05 Ativan SLOW IVP 1 mg Q6H PRN Administration Anxiety/Agitation Metformin HCl 1,000 mg 08/31/19 17:00 09/04/19 08:00 Glucophage PO 1,000 mg BID-WM VERONICA Administration Prednisone 20 mg 09/04/19 08:00 09/04/19 08:00 Prednisone PO 20 mg QAM-WM VERONICA Administration Quetiapine Fumarate 25 mg 08/30/19 21:00 09/04/19 08:00 Seroquel PO 25 mg BID VERONICA Administration - Exam General Appearance: awake alert Eye: PERRL, anicteric sclera ENT: no oropharyngeal lesions, moist mucosa Neck: supple, no JVD Heart: RRR, no murmur Respiratory: no wheezes, rales, rhonchi Gastrointestinal: soft, non-tender, non-distended, normal bowel sounds Extremities: no cyanosis, no edema Neurological: cranial nerve grossly intact, no focal deficits Psychiatric: normal affect, A&O x 3 Hosp A/P (1) Acute respiratory failure with hypoxemia Code(s): J96.01 - ACUTE RESPIRATORY FAILURE WITH HYPOXIA Status: Resolved (2) Recurrent pneumonia Code(s): J18.9 - PNEUMONIA, UNSPECIFIED ORGANISM Status: Acute (3) Methamphetamine abuse Code(s): F15.10 - OTHER STIMULANT ABUSE, UNCOMPLICATED Status: Acute (4) Sepsis due to pneumonia Code(s): J18.9 - PNEUMONIA, UNSPECIFIED ORGANISM; A41.9 - SEPSIS, UNSPECIFIED ORGANISM Status: Resolved (5) Type 2 diabetes mellitus Status: Chronic Qualifiers: Diabetes mellitus buttermaker continuous churn insulin use: without buttermaker continuous churn use (6) CKD (chronic kidney disease) stage 3, GFR 30-59 ml/min Code(s): N18.3 - CHRONIC KIDNEY DISEASE, STAGE 3 (MODERATE) Status: Chronic (7) Hypertension Code(s): I10 - ESSENTIAL (PRIMARY) HYPERTENSION Status: Chronic Qualifiers: Hypertension type: essential hypertension Qualified Code(s): I10 - Essential (primary) hypertension (8) Noncompliance with medication regimen Code(s): Z91.14 - PATIENT'S OTHER NONCOMPLIANCE WITH MEDICATION REGIMEN Status : Chronic (9) Acute pulmonary edema Code(s): J81.0 - ACUTE PULMONARY EDEMA Status: Resolved (10) Hypertensive emergency Code(s): I16.1 - HYPERTENSIVE EMERGENCY Status: Resolved - Plan is on cefipime, micafungin and vanc, steroids, nebs dm is uncontrolled due to steroids, metformin and glyburide, will change dosing or add new meds in am. He is currently on prednisone 20mg from yesterday. continue coreg, lisinopril, prolonged steroid taper per pulm adv echo showed ef of 55%, has mild mitral regurg hemostable appreciate help from to ambulate in room as tolerated, wean O2 to spo2 of 90% PT eval
[2019-09-04] MEDS: Micafungin 100 MG in Sodium Chloride 0.9% 100 ML IVPB SCH (11:38)
[2019-09-04] MEDS: HumaLOG 300 UNITS/3 ML VIAL SC PRN ×2 (11:41→17:33)
--- NOTE | 2019-09-04 16:41 | PRG ---
DATE OF SERVICE: 09/04/2019 SERVICE: Pulmonary Medicine. INTERVAL HISTORY: The patient is doing fine from respiratory standpoint. Breathing comfortably. No complaints of chest discomfort, nausea, or vomiting. Otherwise, he is returning to his usual state of health. He still gets a little bit short-winded when he gets around the room. He is making progress day-by-day however. PHYSICAL EXAMINATION: VITAL SIGNS: Afebrile, pulse 82, blood pressure 153/98, respirations 18, and saturation 97% on 2 L nasal cannula. HEENT: Normocephalic, atraumatic. Sclerae white. Conjunctivae pink. Oral mucosa is moist without lesions. LUNGS: Decent air entry. Dependent crackles have improved dramatically. No prolonged expiratory phase or wheezing is appreciated. HEART: Normal rate and regular. ABDOMEN: Soft, nontender, nondistended. Bowel sounds are positive. MUSCULOSKELETAL: No cyanosis or clubbing. There is no pitting edema. NEUROLOGIC: Grossly nonfocal. LABORATORY DATA: WBC 15.2, hemoglobin 10.3, platelets 208,000. Potassium 3.3, magnesium 1.7, calcium 8.1. All culture results remain negative to date. ASSESSMENT: 1. Acute hypoxic respiratory failure. 2. Pulmonary infiltrate, characterized by "crazy paving.". 3. Acute on chronic diastolic and valvular heart failure. 4. Hypertensive emergency. 5. Sepsis without end-organ damage. DISCUSSION AND PLAN: At this point, I think the patient is approaching being ready for discharge from the hospital. We will need to arrange for oxygen in the outpatient setting, tapering dose of steroids over 2 months, and p.r.n. Lasix. Additionally, we are going to have to be good about keeping his blood pressure under excellent control. I would like to see him in clinic in 6 weeks in the outpatient setting with a preclinic chest x-ray. At this point, he has no further requirements for inpatient Pulmonary or Critical Care opinion, and I will sign off. He has complaints of very significant neurologic abnormalities. He is curious as to whether or not, there is a possibility of a stroke. As such, CT of the brain will be performed. I will follow intermittently during the hospital stay. Job ID: [id number]
[2019-09-04] MEDS ORDERED: Magnesium 2 GM/50 ML 2 GM in Premix Bag 1 BAG IVPB SCH (17:00)
[2019-09-04] MEDS: Potassium Chloride 20 MEQ TAB PO SCH ×2 (17:31→20:44)
[2019-09-05] MEDS: Vancomycin HCl 1 GM in Premix Bag 1 BAG IVPB SCH ×2 (00:01→13:11)
[2019-09-05] MEDS: Cefepime 2 GM in Sodium Chloride 0.9% 100 ML IVPB SCH ×2 (05:06→17:05)
[2019-09-05] MEDS: metFORMIN 500 MG TAB PO SCH ×2 (08:08→17:06)
[2019-09-05] MEDS: Furosemide 20 MG TAB PO SCH (08:08)
[2019-09-05] MEDS: predniSONE 20 MG TAB PO SCH (08:08)
[2019-09-05] MEDS: glyBURIDE 5 MG TAB PO SCH ×2 (08:08→17:06)
[2019-09-05] MEDS: Lisinopril 20 MG TAB PO SCH ×2 (08:08→20:30)
[2019-09-05] MEDS: Carvedilol 6.25 MG TAB PO SCH ×2 (08:09→17:06)
--- NOTE | 2019-09-05 11:00 | PDOC.HOSPP ---
- Subjective Encounter Date: 09/05/19 Encounter Time: 07:00 Subjective: no sob or pain feels better, is amb in hallway is down to 1 liter by NC - Objective Vital Signs & Weight: Vital Signs (12 hours) Temp Pulse Resp BP BP Pulse Ox 09/05/19 09:00 98.2 F 85 18 168/93 H 97 09/05/19 08:09 168/93 H 09/05/19 08:08 168/93 H 09/05/19 08:00 97 09/05/19 05:14 98.1 F 75 20 151/97 H 99 Weight Weight 166 lb 14.4 oz Most Recent Monitor Data Heart Rate from ECG 81 NIBP 169/126 NIBP BP-Mean 140 Respiration from ECG 27 SpO2 95 I&O: 09/04/19 09/05/19 09/06/19 06:59 06:59 06:59 Intake Total 1200 840 Output Total 1000 750 Balance 200 90 Result Diagrams: 09/04/19 05:11 09/04/19 05:11 Additional Labs: Accuchecks 09/05/19 09/04/19 09/04/19 05:20 19:37 16:56 POC Glucose 77 156 H 394 H 09/04/19 11:16 POC Glucose 248 H Hospitalist ROS - Medication Medications: Active Medications Generic Name Dose Route Start Last Admin Trade Name Freq PRN Reason Stop Dose Admin Acetaminophen 650 mg 08/29/19 19:49 08/31/19 21:29 Tylenol PO 650 mg Q6H PRN Administration Headache/Fever or Pain Carvedilol 6.25 mg 08/30/19 08:00 09/05/19 08:09 Coreg PO 6.25 mg BID-WM VERONICA Administration Clonidine 0.1 mg 08/29/19 23:45 08/30/19 00:05 Catapres PO 0.1 mg Q4H PRN Administration SBP > 180 Furosemide 20 mg 09/01/19 09:00 09/05/19 08:08 Lasix PO 20 mg DAILY VERONICA Administration Glyburide 5 mg 08/31/19 17:00 09/05/19 08:08 Diabeta PO 5 mg BID-WM VERONICA Administration Hydralazine HCl 10 mg 08/29/19 19:54 09/01/19 18:51 Apresoline SLOW IVP 10 mg Q4H PRN Administration SBP > 180 and HR < 70 Cefepime HCl 2 gm/ Sodium 100 mls @ 200 mls/hr 08/29/19 18:00 09/05/19 05:06 Chloride IVPB 100 mls 0600,1800 VERONICA Administration Micafungin Sodium 100 mg/ 100 mls @ 100 mls/hr 08/30/19 12:00 09/04/19 11:38 Sodium Chloride IVPB 09/05/19 12:59 100 mls 1200 VERONICA Administration Vancomycin HCl 1 gm/ Device 200 mls @ 200 mls/hr 09/04/19 01:00 09/05/19 00: 01 IVPB 200 mls 0100,1300 VERONICA Administration Insulin Human Lispro 0 units 08/31/19 11:23 09/04/19 17:33 Humalog SC 13 unit .AGGRESSIVE SLIDING PRN Administration AGGRESSIVE SLIDING SCALE Protocol Insulin Human Lispro 0 units 09/01/19 22:44 09/03/19 21:40 Humalog SC 3 unit .BEDTIME SLIDING SC PRN Administration Bedtime Correctional Scale Labetalol HCl 20 mg 08/31/19 21:09 08/31/19 21:13 Normodyne SLOW IVP 20 mg Q15MIN PRN Administration UNTIL SBP <180 Lisinopril 20 mg 08/30/19 09:00 09/05/19 08:08 Zestril PO 20 mg BID VERONICA Administration Lorazepam 1 mg 08/30/19 10:15 09/04/19 23:56 Ativan SLOW IVP 1 mg Q6H PRN Administration Anxiety/Agitation Metformin HCl 1,000 mg 08/31/19 17:00 09/05/19 08:08 Glucophage PO 1,000 mg BID-WM VERONICA Administration Prednisone 20 mg 09/04/19 08:00 09/05/19 08:08 Prednisone PO 20 mg QAM-WM VERONICA Administration Quetiapine Fumarate 25 mg 08/30/19 21:00 09/05/19 08:08 Seroquel PO 25 mg BID VERONICA Administration - Exam General Appearance: awake alert Eye: PERRL, anicteric sclera ENT: no oropharyngeal lesions, moist mucosa Neck: supple, no JVD Heart: RRR, no murmur Respiratory: no wheezes, rales, rhonchi Gastrointestinal: soft, non-tender, non-distended, normal bowel sounds Extremities: no cyanosis, no edema Neurological: cranial nerve grossly intact, no focal deficits Psychiatric: normal affect, A&O x 3 Hosp A/P (1) Acute respiratory failure with hypoxemia Code(s): J96.01 - ACUTE RESPIRATORY FAILURE WITH HYPOXIA Status: Resolved (2) Recurrent pneumonia Code(s): J18.9 - PNEUMONIA, UNSPECIFIED ORGANISM Status: Acute (3) Methamphetamine abuse Code(s): F15.10 - OTHER STIMULANT ABUSE, UNCOMPLICATED Status: Acute (4) Sepsis due to pneumonia Code(s): J18.9 - PNEUMONIA, UNSPECIFIED ORGANISM; A41.9 - SEPSIS, UNSPECIFIED ORGANISM Status: Resolved (5) Type 2 diabetes mellitus Status: Chronic Qualifiers: Diabetes mellitus care home insulin use: 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 (6) CKD (chronic kidney disease) stage 3, GFR 30-59 ml/min Code(s): N18.3 - CHRONIC KIDNEY DISEASE, STAGE 3 (MODERATE) Status: Chronic (7) Hypertension Code(s): I10 - ESSENTIAL (PRIMARY) HYPERTENSION Status: Chronic Qualifiers: Hypertension type: essential hypertension Qualified Code(s): I10 - Essential (primary) hypertension (8) Noncompliance with medication regimen Code(s): Z91.14 - PATIENT'S OTHER NONCOMPLIANCE WITH MEDICATION REGIMEN Status : Chronic (9) Acute pulmonary edema Code(s): J81.0 - ACUTE PULMONARY EDEMA Status: Resolved (10) Hypertensive emergency Code(s): I16.1 - HYPERTENSIVE EMERGENCY Status: Resolved - Plan is on cefipime, micafungin last dose today and vanc, steroids, nebs. May switch to omnicef if ok with pulm dm is uncontrolled due to steroids, metformin and glyburide. continue coreg, lisinopril, prolonged steroid taper per pulm adv x 4 weeks echo showed ef of 55%, has mild mitral regurg hemostable appreciate help from to ambulate as tolerated, wean O2 to spo2 of 90% PT eval Likely dc plan in am, may need home O2?
[2019-09-05] MEDS: Micafungin 100 MG in Sodium Chloride 0.9% 100 ML IVPB SCH (12:12)
[2019-09-05] MEDS: HumaLOG 300 UNITS/3 ML VIAL SC PRN ×2 (12:19→17:11)
[2019-09-05] MEDS: hydrALAZINE 20 MG/ML VIAL SLOW IVP PRN (17:20)
[2019-09-06] MEDS: Vancomycin HCl 1 GM in Premix Bag 1 BAG IVPB SCH (00:27)
[2019-09-06] MEDS: Cefepime 2 GM in Sodium Chloride 0.9% 100 ML IVPB SCH (05:24)
[2019-09-06] MEDS: Carvedilol 6.25 MG TAB PO SCH (08:03)
[2019-09-06] MEDS: Furosemide 20 MG TAB PO SCH (08:03)
[2019-09-06] MEDS: metFORMIN 500 MG TAB PO SCH (08:03)
[2019-09-06] MEDS: predniSONE 20 MG TAB PO SCH (08:04)
[2019-09-06] MEDS: Lisinopril 20 MG TAB PO SCH (08:04)
[2019-09-06] MEDS: glyBURIDE 5 MG TAB PO SCH (08:04)
--- NOTE | 2019-09-06 11:18 | PDOC.HOSPP ---
- Subjective Encounter Date: 09/06/19 Encounter Time: 10:00 Subjective: no sob, feels better he has ambulated in hallway yesterday without oxygen and kept his spo2 >92% - Objective Vital Signs & Weight: Vital Signs (12 hours) Temp Pulse Resp BP BP Pulse Ox 09/06/19 08:00 94 L 09/06/19 07:46 98.2 F 79 20 165/98 H 94 L 09/06/19 05:00 98.1 F 84 18 146/89 H 94 L 09/06/19 04:45 98.1 F 84 18 146/89 H 94 L 09/06/19 01:00 98.2 F 88 18 169/91 H 92 L 09/05/19 23:48 98.2 F 88 18 169/91 H 92 L Weight Weight 166 lb 14.4 oz Most Recent Monitor Data Heart Rate from ECG 81 NIBP 169/126 NIBP BP-Mean 140 Respiration from ECG 27 SpO2 95 I&O: 09/05/19 09/06/19 09/07/19 06:59 06:59 06:59 Intake Total 840 Output Total 750 Balance 90 Result Diagrams: 09/04/19 05:11 09/04/19 05:11 Additional Labs: Accuchecks 09/06/19 09/05/19 09/05/19 04:47 20:09 17:14 POC Glucose 87 140 H 294 H 09/05/19 12:19 POC Glucose 333 H Hospitalist ROS - Medication Medications: Active Medications Generic Name Dose Route Start Last Admin Trade Name Freq PRN Reason Stop Dose Admin Acetaminophen 650 mg 08/29/19 19:49 08/31/19 21:29 Tylenol PO 650 mg Q6H PRN Administration Headache/Fever or Pain Carvedilol 6.25 mg 08/30/19 08:00 09/06/19 08:03 Coreg PO 6.25 mg BID-WM VERONICA Administration Clonidine 0.1 mg 08/29/19 23:45 08/30/19 00:05 Catapres PO 0.1 mg Q4H PRN Administration SBP > 180 Furosemide 20 mg 09/01/19 09:00 09/06/19 08:03 Lasix PO 20 mg DAILY VERONICA Administration Glyburide 5 mg 08/31/19 17:00 09/06/19 08:04 Diabeta PO 5 mg BID-WM VERONICA Administration Hydralazine HCl 10 mg 08/29/19 19:54 09/05/19 17:20 Apresoline SLOW IVP 10 mg Q4H PRN Administration SBP > 180 and HR < 70 Cefepime HCl 2 gm/ Sodium 100 mls @ 200 mls/hr 08/29/19 18:00 09/06/19 05:24 Chloride IVPB 100 mls 0600,1800 VERONICA Administration Insulin Human Lispro 0 units 08/31/19 11:23 09/05/19 17:11 Humalog SC 9 unit .AGGRESSIVE SLIDING PRN Administration AGGRESSIVE SLIDING SCALE Protocol Insulin Human Lispro 0 units 09/01/19 22:44 09/03/19 21:40 Humalog SC 3 unit .BEDTIME SLIDING SC PRN Administration Bedtime Correctional Scale Labetalol HCl 20 mg 08/31/19 21:09 08/31/19 21:13 Normodyne SLOW IVP 20 mg Q15MIN PRN Administration UNTIL SBP <180 Lisinopril 20 mg 08/30/19 09:00 09/06/19 08:04 Zestril PO 20 mg BID VERONICA Administration Lorazepam 1 mg 08/30/19 10:15 09/04/19 23:56 Ativan SLOW IVP 1 mg Q6H PRN Administration Anxiety/Agitation Metformin HCl 1,000 mg 08/31/19 17:00 09/06/19 08:03 Glucophage PO 1,000 mg BID-WM VERONICA Administration Prednisone 20 mg 09/04/19 08:00 09/06/19 08:04 Prednisone PO 20 mg QAM-WM VERONICA Administration Quetiapine Fumarate 25 mg 08/30/19 21:00 09/06/19 08:04 Seroquel PO 25 mg BID VERONICA Administration - Exam General Appearance: awake alert Eye: PERRL, anicteric sclera ENT: no oropharyngeal lesions, moist mucosa Neck: supple, no JVD Heart: RRR, no murmur Respiratory: no wheezes, rhonchi Gastrointestinal: soft, non-tender, non-distended, normal bowel sounds Extremities: no cyanosis, no edema Neurological: cranial nerve grossly intact, no focal deficits Psychiatric: normal affect, A&O x 3 Hosp A/P (1) Acute respiratory failure with hypoxemia Code(s): J96.01 - ACUTE RESPIRATORY FAILURE WITH HYPOXIA Status: Resolved (2) Recurrent pneumonia Code(s): J18.9 - PNEUMONIA, UNSPECIFIED ORGANISM Status: Acute (3) Methamphetamine abuse Code(s): F15.10 - OTHER STIMULANT ABUSE, UNCOMPLICATED Status: Acute (4) Sepsis due to pneumonia Code(s): J18.9 - PNEUMONIA, UNSPECIFIED ORGANISM; A41.9 - SEPSIS, UNSPECIFIED ORGANISM Status: Resolved (5) Type 2 diabetes mellitus Status: Chronic Qualifiers: 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 insulin 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: without chcf use (6) CKD (chronic kidney disease) stage 3, GFR 30-59 ml/min Code(s): N18.3 - CHRONIC KIDNEY DISEASE, STAGE 3 (MODERATE) Status: Chronic (7) Hypertension Code(s): I10 - ESSENTIAL (PRIMARY) HYPERTENSION Status: Chronic Qualifiers: Hypertension type: essential hypertension Qualified Code(s): I10 - Essential (primary) hypertension (8) Noncompliance with medication regimen Code(s): Z91.14 - PATIENT'S OTHER NONCOMPLIANCE WITH MEDICATION REGIMEN Status : Chronic (9) Acute pulmonary edema Code(s): J81.0 - ACUTE PULMONARY EDEMA Status: Resolved (10) Hypertensive emergency Code(s): I16.1 - HYPERTENSIVE EMERGENCY Status: Resolved - Plan is on cefipime, steroids, nebs. May switch to omnicef if ok with pulm dm is uncontrolled due to steroids, metformin and glyburide. continue coreg, lisinopril, prolonged steroid taper per pulm adv x 4 weeks echo showed ef of 55%, has mild mitral regurg hemostable appreciate help from to ambulate as tolerated, is off supplemental Oxygen. Likely dc today or am
[2019-09-06 11:37] VITALS: BP 116/73; TEMP 98.3
--- NOTE | 2019-09-06 13:25 | PRG ---
DATE OF SERVICE: 09/06/2019 SERVICE: Pulmonary Medicine. INTERVAL HISTORY: The patient is doing great from respiratory standpoint. Breathing comfortably. No complaints of chest discomfort, nausea, or vomiting. He has been weaned down to room air and saturations are 96%. Otherwise, there has been no interval change to his condition. PHYSICAL EXAMINATION: VITAL SIGNS: Afebrile, pulse 79, blood pressure 116/73, respirations 20, saturation 93% on room air. GENERAL: The patient is awake and alert, in no apparent distress. LUNGS: Wonderful air entry. No prolonged expiratory phase or wheezing is appreciated. HEART: Normal rate and regular. ABDOMEN: Soft, nontender, and nondistended. Bowel sounds are positive. MUSCULOSKELETAL: No cyanosis or clubbing. There is no pitting in the bilateral lower extremities. NEUROLOGIC: Grossly nonfocal. LABORATORY DATA: WBC 15.2, hemoglobin 10.3, platelets 208,000. ASSESSMENT: 1. Acute hypoxic respiratory failure, resolved. 2. Pulmonary infiltrate, characterized by "crazy paving.". 3. Acute on chronic diastolic and valvular heart failure (mitral regurgitation is moderate). 4. Hypertensive emergency on presentation, resolved. 5. Sepsis without end-organ damage. DISCUSSION AND PLAN: This patient had absolutely profoundly elevated oxygen requirements on presentation. He is now back down to room air. I would like for him to go out on a tapering course of steroids over 2 months. In addition to this, he will need a daily dose of Lasix. I will have him return to clinic to see me in 4 to 6 weeks in the outpatient setting with a preclinic chest x-ray. He has no further requirements for inpatient pulmonary opinion, and I will sign off. If this recurs a 3rd time, a biopsy will be mandatory, preferably before he is on 95% FiO2. Job ID: [id number]
--- NOTE | 2019-09-06 14:49 | DIS ---
DATE OF ADMISSION: 08/29/2019 DATE OF DISCHARGE: 09/06/2019 DISCHARGE DISPOSITION: To home. PRIMARY DISCHARGE DIAGNOSES: Sepsis with pneumonia, acute hypoxic respiratory failure resolved, methamphetamine abuse, diabetes mellitus type 2, chronic kidney disease stage 3, hypertension, noncompliance with medication regimen, possible moderate mitral regurgitation, hypertensive emergency on arrival resolved. PROCEDURES DONE DURING HOSPITALIZATION: Echo with 2D Doppler done showed EF of 60% to 65%, moderate concentric LVH was seen, mild mitral regurgitation was seen. CT chest showed multifocal pneumonia, infiltrates, bilateral pleural effusions. Blood cultures x2, no growth. Respiratory virus panel PCR was negative. Respiratory cultures showed normal respiratory mariusz. Had a white count of 26 with H and H of 11 and 34 on admission. Discharge white count of 15, H and H 10 and 30, platelet count 208, MCV is 94. Discharge BUN and creatinine are 18 and 0.8. BNP is 251. Albumin 3.4. Urine drug screen was positive for methamphetamines. Urine for Legionella pneumophila antigen negative. Urine for strep pneumo antigen negative. INPATIENT CONSULT: Dr. Hinds for Pulmonology. DISCHARGE MEDICATION: 1. Prednisone 10 mg twice daily for 30 days, then 10 mg daily for 15 days, then 5 mg daily for 16 days, and to discontinue. 2. Metformin 1000 mg twice daily. 3. Lisinopril 20 mg twice daily. 4. Glyburide 5 mg twice daily. 5. Coreg 6.25 mg twice daily. 6. Lasix 20 mg daily. ALLERGIES: ALLERGIC TO PENICILLIN. DISCHARGE PLAN: The patient to follow up with his primary care physician, Dr. Torrie Mosher in 1 week. He needs to follow up with Dr. Hinds in 3 to 4 weeks. BRIEF COURSE DURING HOSPITALIZATION: The patient initially got admitted on the 1st with complaints of shortness of breath and cough. He was initially severely hypoxic and had to be placed on non-rebreather, then BiPAP. He has had recent hospitalization for similar complaints with multifocal pneumonia. He was later downgraded to medical floor. The patient has had consultation with Dr. Hinds for Pulmonology. He was on broad-spectrum antibiotics including cefepime and vancomycin. The cultures have not grown any significant organism. The patient has known history of moderate mitral regurgitation and had hypertensive emergency on arrival as well. His blood pressure was tightly controlled during his stay here. At the time of discharge, the patient has been completely tapered off oxygen supplementation. He is ambulating in the hallway. He was counseled regarding substance use. He was also counseled with regard to medication compliance. He will be on prolonged steroid taper for a total duration of 2 months. The patient will have a followup appointment with Dr. Hinds in 4 to 6 weeks with a prior x-ray to see for resolution of his pneumonia. He is otherwise hemodynamically stable. His diabetes has been a bit uncontrolled due to him being on steroids. Please see a [id number] documentation for the day of discharge on [employer]. Job ID: [id number] [facility]
== END 2019-09-06 15:24 | disposition home or self-care (01) | DRG 871 ==
LOC: ERS 10:52 → ERHOLD 12:48 → IMCU/EMU 16:37 → T4-A 09-01 18:32
PROVIDERS: ADMIT Internal Medicine; ATTEND Internal Medicine
PROC: 5A09357 Assistance with Respiratory Ventilation, Less than 24 Consecutive Hours, Continuous Positive Airway Pressure (ICD-10-PCS; principal; 2019-08-29)
DX: A41.9 Sepsis, unspecified organism (principal); J18.9 Pneumonia, unspecified organism; J96.01 Acute respiratory failure with hypoxia; I50.33 Acute on chronic diastolic (congestive) heart failure; I16.1 Hypertensive emergency; I13.0 Hypertensive heart and chronic kidney disease with heart failure and stage 1 through stage 4 chronic kidney disease, or unspecified chronic kidney disease; F15.10 Other stimulant abuse, uncomplicated; E11.22 Type 2 diabetes mellitus with diabetic chronic kidney disease; N18.3 Chronic kidney disease, stage 3 (moderate); I34.0 Nonrheumatic mitral (valve) insufficiency; F41.9 Anxiety disorder, unspecified; F32.9 Major depressive disorder, single episode, unspecified; Z86.73 Personal history of transient ischemic attack (TIA), and cerebral infarction without residual deficits; Z86.718 Personal history of other venous thrombosis and embolism; Z79.84 Long term (current) use of oral hypoglycemic drugs; Z91.14 Patient's other noncompliance with medication regimen; Z88.0 Allergy status to penicillin; E78.5 Hyperlipidemia, unspecified; Z87.891 Personal history of nicotine dependence
CPT/HCPCS: 36415; 36416; 71045; 71250; 80048; 80053; 80202; 80306; 81003; 81015; 82805; 83605; 83690; 83735; 83880; 84100; 84484; 85025; 87040; 87070; 87086; 87205; 87449; 87633; 87804; 87899; 93005; 93306; 94150; 94640; 94760; 96365; 96367; J0360; J0456; J0692; J0696; J1815; J1940; J2060; J2248; J2920; J3370; J3475; J3490; J7050; J7512; J7620

== ENCOUNTER 2020-07-27 04:45 | Inpatient (IN) | payer SELFPAY ==
[2020-07-27] MEDS ORDERED: niCARdipine 20MG In NaCl 20 MG/200 ML BAG ONE (04:57)
[2020-07-27 05:32] LABS: Hemoglobin 16.7 g/dL (14.0-18.0); Mean Corpuscular HGB CONC 34.1 g/dL (32.0-36.0); Mean Corpuscular Hemoglobin 34.5 pg (27.0-31.0); Mean Platelet Volume 12.8 fL (7.4-10.4); Platelet Count 153 thou/uL (130-400); RBC Distribution Width 12.4 % (11.5-14.5); Red Blood Cell (RBC) Count 4.82 mill/uL (4.70-6.10); White Blood Cell (WBC) Count 15.3 thou/uL (4.8-10.8)
[2020-07-27 05:33] LABS: #Basophils 0.1 thou/uL (0.0-0.2); #Eosinphils 0.4 thou/uL (0.0-0.7); #Lymphocytes 1.9 thou/uL (1.20-3.40); #Monocytes 1.1 thou/uL (0.11-0.59); #Neutrophils 11.8 thou/uL (1.40-6.50); %Basophils 0.5 % (0.0-1.0); %Eosinophils 2.9 % (0.0-10.0); %Lymphocytes 12.4 % (21.0-51.0); %Monocytes 7.3 % (0.0-10.0)
[2020-07-27 05:51] LABS: ALT (SGPT) 12 U/L (8-55); AST (SGOT) 15 U/L (5-34); Albumin 3.2 g/dL (3.5-5.0); Alkaline Phosphatase 91 U/L (40-110); Anion Gap 14 mmol/L (10-20); BUN (Urea Nitrogen) 27 mg/dL (8.9-20.6); Bilirubin, Total 0.6 mg/dL (0.2-1.2); Calc. Creatinine Clearance 0 mL/min (70-130); Calcium 8.6 mg/dL (7.8-10.44); Carbon Dioxide 26 mmol/L (22-29); Chloride 104 mmol/L (98-107); Estimated GFR-MDRD 35; Globulin 3.4 g/dL (2.4-3.5); Glucose 254 mg/dL (70-105); Potassium 3.6 mmol/L (3.5-5.1); Protein, Total 6.6 g/dL (6.0-8.3); Sodium 140 mmol/L (136-145)
[2020-07-27] MEDS ORDERED: Labetalol HCl 100 MG/20 ML VIAL ONE (06:01)
[2020-07-27 07:17] LABS: SARS-CoV-2 NAA Rapid Test Not Detected (NotDetected)
[2020-07-27 07:54] LABS: CKMB 2.2 ng/mL (0-6.6)
[2020-07-27] MEDS ORDERED: Bisacodyl 5 MG TAB PO PRN (08:01)
[2020-07-27] MEDS ORDERED: Senokot S 8.6-50 MG TAB PO PRN (08:01)
[2020-07-27 08:03] LABS: Amphetamine Not Detected (NotDetected); Barbiturates Screen Not Detected (NotDetected); Benzodiazepine Screen Not Detected (NotDetected); Cocaine Metabolite Screen Detected (NotDetected); Medtox Control Line Valid? VALID (VALID); Medtox Reader # READER 1; Methadone Not Detected (NotDetected); Methamphetamine Not Detected (NotDetected); Opiate Screen Not Detected (NotDetected); Oxycodone Screen Not Detected (NotDetected); Phencyclidine (PCP) Not Detected (NotDetected); THC/Cannabinoid Screen Not Detected (NotDetected); Tricyclic Screen Not Detected (NotDetected)
[2020-07-27] MEDS ORDERED: HumaLOG 300 UNITS/3 ML VIAL SC PRN (08:03)
[2020-07-27] MEDS ORDERED: Dextrose 50% Abboject 50 ML SYRINGE SLOW IVP PRN (08:03)
[2020-07-27] MEDS ORDERED: Dextrose 5% in Water 1,000 ML IV PRN (08:03)
[2020-07-27] MEDS ORDERED: Labetalol HCl 100 MG/20 ML VIAL SLOW IVP PRN (08:04)
--- NOTE | 2020-07-27 08:36 | PDOC.HHP ---
Hospitalist HPI - History of Present Illness Shortness of breath History of Present Illness: Mr. Bonds is a 45-year-old male with a past medical history of cocaine abuse, hypertensive emergency, flash pulmonary edema, CKD, stroke, type 2 diabetes mellitus, congestive heart failure, mitral regurgitation who was brought in by ambulance for shortness of breath. Patient reports that over the past 3 days he has had worsening shortness of breath, particularly when he has been laying down. Has also been bringing up large amounts of white/yellow sputum. EMS found patient to be severely hypertensive to the 230s over 120s, as well as slightly hypoxic. EMS had initially started the patient on BiPAP, however this was discontinued when patient initially arrived to the emergency room since he was maintaining his oxygenation on nasal cannula. Patient has a history of hypertensive emergencies and of note was recently admitted in August of last year with multifocal pneumonia/sepsis, also has a history of stroke in 2018. Patient currently denies any chest pain, palpitations. Endorses cocaine use, and reports that his last use was just prior to his symptoms beginning which was approximately 3 days ago. Patient does note that he has reduced his cocaine use at 2 only a few times per week, and that last year he was using cocaine on a daily basis. He reports his breathing feels much improved and is maintaining his oxygenation on room air currently. He denies any changes in his vision, does endorse headache. Denies any numbness, weakness, paresthesias. Denies abdominal pain, hematochezia, melena. In emergency room initial vital signs 228/128, 83, 18, 96% on 3 L. EKG showed normal sinus rhythm with bilateral atrial enlargement and nonspecific T wave inversions. BUN/CR 27/2.04. Sodium 140, potassium 3.6. Glucose 254. Chest x- ray showed vascular congestion H/H 16.7/48.8. WBC 15.3. Patient was started on Cardene drip, and his blood pressure is now maintaining blood pressure on IV labetalol and Nitropaste. Pressures now improved to 171/96. Hospitalist ROS - Review of Systems Constitutional: denies: fever, chills, sweats, weakness, malaise, other Eyes: denies: pain, vision change, conjunctivae inflammation, eyelid inflammation, redness, other ENT: denies: ear pain, ear discharge, nose pain, nose discharge, nose congestion, mouth pain, mouth swelling, throat pain, throat swelling, other Respiratory: reports: cough, shortness of breath, sputum Cardiovascular: denies: chest pain, palpitations, orthopnea, paroxysmal noc. dyspnea, edema, light headedness, other Gastrointestinal: denies: nausea, vomiting, abdominal pain, diarrhea, constipation, melena, hematochezia, other Musculoskeletal: denies: neck pain, shoulder pain, arm pain, back pain, hand pain, leg pain, foot pain, other Skin: denies: rash, lesions, fredrick, bruising, other Neurological: denies: weakness, numbness, incoordination, change in speech, confusion, seizures, other - Medication Medications: Patient reports he is on multiple medications, however is unable to member any of the names of them. Patient does remember taking lisinopril. He will call his family members to help identify what home medications he takes. Patient reports allergy to penicillin which causes hives. Hospitalist History - Past Medical History Other Medical History: Past medical history includes Cocaine abuse Stroke in 2018 Type 2 diabetes mellitus on Metformin Congestive heart failure Mitral regurgitation Uncontrolled hypertension Admission in August 2019 for multifocal pneumonia, sepsis, hypertensive emergency - Past Surgical History Other Surgical History: Past surgical history includes Removal of testicle secondary to testicular torsion Recent laser eye surgery - Social History Smoking Status: Current some day smoker Tobacco Type: cigarettes Alcohol: reports: None Drugs: reports: cocaine, Other (former user) Living Situation: With Family Activity level: independent ambulation - Exam General Appearance: NAD, awake alert Eye: PERRL, anicteric sclera ENT: normocephalic atraumatic, no oropharyngeal lesions, moist mucosa Neck: supple, symmetric, no JVD, no thyromegaly, no lymphadenopathy, no carotid bruit Heart: RRR, no murmur, no gallops, no rubs, normal peripheral pulses Respiratory: CTAB, no wheezes, no rales, no ronchi, normal chest expansion, no tachypnea, normal percussion Gastrointestinal: soft, non-tender, non-distended, normal bowel sounds, no palpable masses, no hepatomegaly, no splenomegaly, no bruit Extremities: no cyanosis, no clubbing, no edema Skin: normal turgor, no lesions, no rashes Neurological: cranial nerve grossly intact, normal sensation to touch, no weakness, no focal deficits, no new deficit Musculoskeletal: normal tone, normal strength, no muscle wasting Psychiatric: normal affect, normal behavior, A&O x 3 Hospitalist Results - Labs Result Diagrams: 07/28/20 04:10 07/29/20 07:28 Lab results: WBC 15.3 thou/uL (4.8-10.8) H 07/27/20 05:06 Hgb 16.7 g/dL (14.0-18.0) 07/27/20 05:06 Hct 48.8 % (42.0-52.0) 07/27/20 05:06 MCV 101.0 fL (78.0-98.0) H 07/27/20 05:06 Plt Count 153 thou/uL (130-400) 07/27/20 05:06 Neutrophils % 77.0 % (42.0-75.0) H 07/27/20 05:06 Sodium 140 mmol/L (136-145) 07/27/20 05:06 Potassium 3.6 mmol/L (3.5-5.1) 07/27/20 05:06 Chloride 104 mmol/L (98-107) 07/27/20 05:06 Carbon Dioxide 26 mmol/L (22-29) 07/27/20 05:06 BUN 27 mg/dL (8.9-20.6) H 07/27/20 05:06 Creatinine 2.04 mg/dL (0.7-1.3) H 07/27/20 05:06 Glucose 254 mg/dL (70-105) H 07/27/20 05:06 Lactic Acid 1.3 mmol/L (0.5-2.2) 07/27/20 05:31 Calcium 8.6 mg/dL (7.8-10.44) 07/27/20 05:06 Total Bilirubin 0.6 mg/dL (0.2-1.2) 07/27/20 05:06 AST 15 U/L (5-34) 07/27/20 05:06 ALT 12 U/L (8-55) 07/27/20 05:06 Alkaline Phosphatase 91 U/L (40-110) 07/27/20 05:06 CK-MB (CK-2) 2.2 ng/mL (0-6.6) 07/27/20 05:06 Troponin I 0.102 ng/mL (< 0.028) H 07/27/20 05:06 B-Natriuretic Peptide 593.9 pg/mL (0-100) H 07/27/20 05:06 Serum Total Protein 6.6 g/dL (6.0-8.3) 07/27/20 05:06 Albumin 3.2 g/dL (3.5-5.0) L 07/27/20 05:06 Hospitalist H&P A/P - Plan Plan: 45-year-old male with past medical history of cocaine abuse, CKD, CHF, hypertensive emergencies, stroke, mitral regurgitation, type 2 diabetes mellitus presents with hypertensive emergency and pulmonary edema. Hypertensive emergency Patient with hypertensive emergency secondary to cocaine abuse. Initial blood pressures 230/130. BUNs/CR 27/2.04, troponin 0.11. Patient initially was on Cardene drip in the emergency room with reduction in his pressures to 170s over 90s. Patient was weaned off of Cardene drip successfully and is now on labetalol IV and Nitropaste. Patient denies chest pain. Denies visual changes, does endorse headache. No papilledema on exam. Patient alert and oriented x4 with no focal deficits.. Patient unsure of what medications he takes at home for his blood pressure. Does endorse recent cocaine use a few days ago so will avoid beta blockers. Will admit to telemetry floor for close monitoring and IV hydralazine and Nitropaste. Plan IV hydralazine, Nitropaste q2 hour vital signs Telemetry monitoring Congestive heart failure with pulmonary edema History of congestive heart failure, with prior admission for flash pulmonary edema secondary to hypertensive emergency. Patient does have history of mitral regurgitation. Recent echocardiogram in August 2019 showed an EF of 60 to 65% with moderate left ventricular hypertrophy and mild mitral regurgitation. Chest x-ray on admission showed vascular congestion. EKG showed normal sinus rhythm with bilateral atrial enlargement. BUN/CR 27/2.04. BNP 500. Covid negative. Patient's shortness of breath has greatly improved and is now maintaining O2 sats on room air. Will hold off on diuresis given patient's kidney function and closely monitor. Plan Supplemental O2 as needed Continue home medications once dosages confirmed Cardiology consult Pneumonia CXR showed multifocal pneumonia vs vascular congestion. COVID negative. WBC elevated. Patient has history of severe multifocal pneumonia with sepsis requiring ICU admissions. Will start IV ceftriaxone and azithromycin. Lactic acid nl. Plan -IV ceftriaxone, azithormycin -Trend fever curve, WBC, CBC Elevation in troponin Troponin mildly elevated to 0.102. EKG showed normal sinus rhythm with bilateral atrial enlargement and nonspecific T wave inversions. Patient without chest pain. Likely secondary to demand ischemia from hypertensive emergency. Will give patient aspirin and continue to trend troponin. Plan Trend troponin Aspirin Telemetry monitoring Cardiology consult Acute kidney injury Patient reports history of chronic kidney disease, however on review of labs appears patient's baseline creatinine is less than 1. BUN/CR today 27/2.04. Likely secondary to hypertensive emergency. We will continue to monitor and see if improves now that blood pressure is better controlled. Plan Trend kidney function Avoid nephrotoxic agents Renal dosing as appropriate Type 2 diabetes mellitus History of type 2 diabetes on Metformin. Will hold Metformin in setting of TAWANDA. Place patient on insulin sliding scale and ACH S glucose checks. Plan Carb consistent diet ACH S glucose checks ISS scale Cocaine abuse Patient has history of cocaine abuse and continues to abuse cocaine. Reports his last use was 3 days prior to admission. Reports he has tried to cut down, but has had difficulty completely stopping. Used to be a daily cocaine user last year. Had a lengthy discussion patient about his cocaine abuse and causing his hypertensive emergency, heart damage, kidney damage, brain damage, eye damage. We will continue to student success counselor on cocaine cessation. DVT prophylaxisSCDs Full code Case discussed with attending physician, Dr. Price.
[2020-07-27 08:43] LABS: Troponin I 0.106 ng/mL (< 0.028)
--- NOTE | 2020-07-27 08:49 | RAD ---
PORTABLE CHEST 1 VIEW: Date: 07/27/2020 Time: 0514 hours HISTORY: Dyspnea. Cough. FINDINGS/IMPRESSION: The heart size is normal. The lungs are well expanded. Patchy multifocal opacities are seen. No pneum othoraces or pleural effusions are identified. POS: [facility]
[2020-07-27] MEDS ORDERED: Aspirin 325 MG TAB PO SCH (09:00)
[2020-07-27] MEDS ORDERED: hydrALAZINE 20 MG/ML VIAL SLOW IVP SCH (09:45)
[2020-07-27] MEDS: Nitroglycerin 2% Ointment 1 INCH/1 GM Packet TOP SCH ×2 (09:54→22:11)
[2020-07-27] MEDS: hydrALAZINE 20 MG/ML VIAL SLOW IVP PRN ×4 (11:02→19:09)
[2020-07-27] MEDS: HumaLOG 300 UNITS/3 ML VIAL SC PRN (11:06)
[2020-07-27 11:27] LABS: Troponin I 0.091 ng/mL (< 0.028)
[2020-07-27] MEDS ORDERED: Prevnar 13-Val Conj/PF 0.5 ML SYRINGE IM ONE (11:45)
[2020-07-27] MEDS: Acetaminophen 325 MG TAB PO PRN (19:09)
[2020-07-27 20:27] LABS: #Basophils 0.1 thou/uL (0.0-0.2); #Eosinphils 0.5 thou/uL (0.0-0.7); #Lymphocytes 1.9 thou/uL (1.20-3.40); #Monocytes 1.1 thou/uL (0.11-0.59); #Neutrophils 12.2 thou/uL (1.40-6.50); %Basophils 0.7 % (0.0-1.0); %Eosinophils 2.9 % (0.0-10.0); %Lymphocytes 12.2 % (21.0-51.0); %Monocytes 7.1 % (0.0-10.0); %Neutrophils 77.1 % (42.0-75.0); Hemoglobin 15.1 g/dL (14.0-18.0); Mean Corpuscular HGB CONC 33.9 g/dL (32.0-36.0); Mean Corpuscular Hemoglobin 34.9 pg (27.0-31.0); Mean Platelet Volume 12.5 fL (7.4-10.4); Platelet Count 153 thou/uL (130-400); RBC Distribution Width 12.4 % (11.5-14.5); Red Blood Cell (RBC) Count 4.33 mill/uL (4.70-6.10); White Blood Cell (WBC) Count 15.9 thou/uL (4.8-10.8)
[2020-07-27] MEDS ORDERED: cefTRIAXone\\ROCEPHIN 1 GM in Sodium Chloride 0.9% 100 ML IVPB SCH (21:30)
[2020-07-27] MEDS ORDERED: Azithromycin 500 MG in Sodium Chloride 0.9% 250 ML 250 ML IVPB SCH (22:00)
[2020-07-28 04:48] LABS: #Basophils 0.1 thou/uL (0.0-0.2); #Eosinphils 0.5 thou/uL (0.0-0.7); #Lymphocytes 2.6 thou/uL (1.20-3.40); #Monocytes 0.9 thou/uL (0.11-0.59); #Neutrophils 7.8 thou/uL (1.40-6.50); %Basophils 0.9 % (0.0-1.0); %Eosinophils 4.2 % (0.0-10.0); %Lymphocytes 21.6 % (21.0-51.0); %Monocytes 7.8 % (0.0-10.0); %Neutrophils 65.5 % (42.0-75.0); Hemoglobin 13.9 g/dL (14.0-18.0); Mean Corpuscular HGB CONC 33.3 g/dL (32.0-36.0); Mean Corpuscular Hemoglobin 34.1 pg (27.0-31.0); Mean Platelet Volume 12.5 fL (7.4-10.4); Platelet Count 145 thou/uL (130-400); RBC Distribution Width 12.4 % (11.5-14.5); Red Blood Cell (RBC) Count 4.06 mill/uL (4.70-6.10); White Blood Cell (WBC) Count 11.8 thou/uL (4.8-10.8)
[2020-07-28 05:00] LABS: Anion Gap 10 mmol/L (10-20); BUN (Urea Nitrogen) 28 mg/dL (8.9-20.6); Calc. Creatinine Clearance 57 mL/min (70-130); Calcium 7.9 mg/dL (7.8-10.44); Carbon Dioxide 25 mmol/L (22-29); Chloride 106 mmol/L (98-107); Estimated GFR-MDRD 42; Glucose 221 mg/dL (70-105); Potassium 3.4 mmol/L (3.5-5.1); Sodium 138 mmol/L (136-145)
[2020-07-28] MEDS ORDERED: HumuLIN 70/30 (300 UNITS/3 ML VIAL) SC SCH ×2 (08:30→16:30)
[2020-07-28] MEDS: Acetaminophen 325 MG TAB PO PRN (08:38)
[2020-07-28] MEDS ORDERED: hydrALAZINE 25 MG TAB PO SCH ×2 (09:00)
[2020-07-28] MEDS ORDERED: Amlodipine 5 MG TAB PO SCH (09:00)
[2020-07-28] MEDS ORDERED: Atorvastatin Calcium 40 MG TAB PO SCH (09:00)
[2020-07-28] MEDS ORDERED: Furosemide 20 MG TAB PO SCH ×2 (09:00→12:30)
[2020-07-28 09:02] LABS: Hemoglobin A1c 7.9 % (4.0-6.0)
[2020-07-28 13:15] VITALS: BMI 26.7
[2020-07-28] MEDS: HumaLOG 300 UNITS/3 ML VIAL SC PRN (13:47)
--- NOTE | 2020-07-28 14:05 | CON ---
DATE OF CONSULTATION: HISTORY OF PRESENT ILLNESS: Kory Bonds is a 45-year-old male with history of hypertension, diabetes, and hypercholesterolemia, whom I have seen when he was hospitalized in August 2018. In January 2018, he was admitted for dizziness and MRI of the brain revealed an acute left cerebellar hemispheric infarct with possible hemorrhagic component. Also echo at that time revealed ejection fraction of 60% to 65% with moderate concentric left ventricular hypertrophy, mild mitral regurgitation, and mild tricuspid regurgitation. When he was hospitalized in August 2018, he had run out of his medications 2 to 3 months prior to that. He also abuses cocaine. He then awoke in the middle of the night with acute onset of shortness of breath, diaphoresis, and orthopnea. He denied any chest discomfort. In the emergency room, his blood pressure was 222/156 with O2 saturation of 78%. He was treated with nitroglycerin drip, given intravenous Lasix, and eventually placed back on his medications. He was again admitted in September 2018 with chest pain and again urine was positive for cocaine. In June 2019, he was admitted with pneumonia and again in August 2019. He now is brought to the hospital complaining of increased shortness of breath. He last used cocaine 2 to 3 days prior to admission. He denies having run out of any of his medications. He was short of breath, and pulmonary edema and blood pressure was 228/128. His dyspnea has significantly improved with intravenous diuretics. He denies any chest pain, fever, or chills. PAST MEDICAL HISTORY: Hypertension, diabetes, hypercholesterolemia, left cerebellar hemispheric infarct with possible hemorrhagic component in January 2018, and cocaine abuse. MEDICATIONS: 1. Atorvastatin 40 daily. 2. Carvedilol 6.25 b.i.d. 3. Lisinopril 20 mg b.i.d. 4. Torsemide 20 daily. 5. Glyburide 5 mg daily. 6. Metformin 1000 b.i.d. ALLERGIES: PENICILLIN. SOCIAL HISTORY: He drinks up to a 6 pack per day and abuses cocaine. He smokes. REVIEW OF SYSTEMS: A 10-point review of systems is otherwise unremarkable. PHYSICAL EXAMINATION: VITAL SIGNS: Blood pressure is 170/93 and pulse is 76. HEENT: PERRL. NECK: Supple. CHEST: Clear. CARDIAC: S1 and S2 normal without any S3, S4, or murmurs. Carotid upstrokes normal without bruits. ABDOMEN: Normal bowel sounds without tenderness or organomegaly. EXTREMITIES: Revealed no clubbing, cyanosis, or edema. NEUROLOGIC: Grossly intact. LABORATORY DATA: EKG revealed normal sinus rhythm and lateral T-wave inversion. Urine drug screen is positive for cocaine. Hemoglobin 13.9, hematocrit 41.6, white count 11,800, and platelets 145,000. Sodium 138, potassium 3.4, chloride 102, carbon dioxide 25, BUN 28, and creatinine 1.75. Troponin I 0.106. He has chronically elevated troponin I's. BNP 593.9. Admission creatinine was 2.04. IMPRESSION: 1. Hypertensive emergency. 2. Diastolic heart failure. 3. Cocaine abuse. 4. Smoker. 5. EtOH abuse. 6. Hypercholesterolemia. 7. Diabetes. RECOMMENDATIONS: Lisinopril will be discontinued at this time due to creatinine of over 2. He will be restarted on carvedilol on slightly larger dose. Torsemide also be resumed. We will follow the patient with you. Job ID: [id number] [facility] SYSTEMJonathan
[2020-07-28] MEDS ORDERED: Carvedilol 6.25 MG TAB PO SCH ×2 (15:00→21:00)
--- NOTE | 2020-07-28 15:22 | PDOC.HOSPP ---
- Subjective Encounter Date: 07/28/20 - Objective Vital Signs & Weight: Vital Signs (12 hours) Temp Pulse Resp BP BP BP Pulse Ox 07/28/20 12:30 98.7 F 86 20 170/83 H 97 07/28/20 09:00 94 L 07/28/20 08:41 76 170/93 H 07/28/20 08:39 76 170/93 H 07/28/20 08:11 97 07/28/20 08:00 98.8 F 76 18 170/93 H 99 07/28/20 06:05 71 142/87 H 07/28/20 04:24 97.9 F 78 16 174/93 H 97 Weight Admit Weight 175 lb Weight 170 lb 9.6 oz I&O: 07/27/20 07/28/20 07/29/20 06:59 06:59 06:59 Intake Total 720 Output Total 300 Balance 420 Result Diagrams: 07/28/20 04:10 07/28/20 04:10 Additional Labs: Accuchecks 07/28/20 07/28/20 07/27/20 11:02 05:36 21:24 POC Glucose 248 H 210 H 331 H Hospitalist ROS - Medication Medications: Active Medications Generic Name Dose Route Start Last Admin Trade Name Freq PRN Reason Stop Dose Admin Acetaminophen 650 mg 07/27/20 08:01 07/28/20 08:38 Acetaminophen 325 Mg Tab PO 650 mg Q4H PRN Administration Headache/Fever/Mild Pain (1-3) Amlodipine Besylate 5 mg 07/28/20 09:00 07/28/20 08:41 Amlodipine 5 Mg Tab PO 5 mg DAILY VERONICA Administration Atorvastatin Calcium 40 mg 07/28/20 09:00 07/28/20 08:42 Atorvastatin Calcium 40 Mg Tab PO 40 mg DAILY VERONICA Administration Hydralazine HCl 10 mg 07/27/20 10:45 07/27/20 19:09 Hydralazine 20 Mg/Ml Vial SLOW IVP 10 mg Q30MIN PRN Administration SBP>190 Insulin Human Lispro 0 units 07/27/20 08:03 07/28/20 13:47 Humalog 300 Units/3 Ml Vial SC 3 unit .MILD SLIDING SCALE PRN Administration Mild Correctional Scale Insulin Human Lispro 0 units 07/27/20 08:03 07/27/20 22:06 Humalog 300 Units/3 Ml Vial SC 4 units .BEDTIME SLIDING SC PRN Administration Bedtime Correctional Scale Isosorbide Mononitrate 30 mg 07/28/20 09:00 07/28/20 08:40 Isosorbide Mononitrate Er 30 Mg Tab PO 30 mg DAILY VERONICA Administration Sodium Chloride 10 ml 07/27/20 08:01 07/28/20 08:47 Flush - Normal Saline 10 Ml Syringe IVF 10 ml PRN PRN Administration Saline Flush - Exam General Appearance: awake alert ENT: normocephalic atraumatic Neck: supple, no JVD Heart: RRR Respiratory: normal chest expansion, no tachypnea Gastrointestinal: soft Extremities: no cyanosis Hosp A/P (1) Hypertensive emergency Code(s): I16.1 - HYPERTENSIVE EMERGENCY Status: Resolved (2) TAWANDA (acute kidney injury) Code(s): N17.9 - ACUTE KIDNEY FAILURE, UNSPECIFIED Status: Acute (3) CKD (chronic kidney disease) stage 3, GFR 30-59 ml/min Code(s): N18.3 - CHRONIC KIDNEY DISEASE, STAGE 3 (MODERATE) * DO NOT USE * Status: Chronic (4) Cocaine abuse Code(s): F14.10 - COCAINE ABUSE, UNCOMPLICATED Status: Chronic (5) Type 2 diabetes mellitus Status: Chronic Qualifiers: Diabetes mellitus shelter insulin use: without long term care administrator use - Plan The patient has been started on carvedilol, hydralazine, Imdur, and Lasix. His blood pressure is better than yesterday. Sugar levels has been uncontrolled. Check A1c. Start insulin regular 70/30 twice daily AC. Appreciate cardiology.
[2020-07-28] MEDS ORDERED: Dextrose 5% in Water 1,000 ML IV PRN (17:26)
[2020-07-28] MEDS ORDERED: Dextrose 50% Abboject 50 ML SYRINGE SLOW IVP PRN (17:26)
[2020-07-28] MEDS ORDERED: Bisacodyl 5 MG TAB PO PRN (17:26)
[2020-07-28] MEDS ORDERED: Senokot S 8.6-50 MG TAB PO PRN (17:26)
[2020-07-28] MEDS ORDERED: Acetaminophen 325 MG TAB PO PRN (17:26)
[2020-07-28] MEDS ORDERED: HumaLOG 300 UNITS/3 ML VIAL SC PRN ×2 (17:26)
[2020-07-28] MEDS: cefTRIAXone\\ROCEPHIN 1 GM in Sodium Chloride 0.9% 100 ML IVPB SCH (21:50)
[2020-07-28] MEDS: Azithromycin 500 MG in Sodium Chloride 0.9% 250 ML 250 ML IVPB SCH (23:01)
[2020-07-29] MEDS ORDERED: HumuLIN 70/30 (300 UNITS/3 ML VIAL) SC SCH (07:30)
[2020-07-29 08:05] LABS: Anion Gap 12 mmol/L (10-20); BUN (Urea Nitrogen) 33 mg/dL (8.9-20.6); Calc. Creatinine Clearance 56 mL/min (70-130); Calcium 8.6 mg/dL (7.8-10.44); Carbon Dioxide 27 mmol/L (22-29); Chloride 107 mmol/L (98-107); Estimated GFR-MDRD 40; Glucose 123 mg/dL (70-105); Potassium 4.2 mmol/L (3.5-5.1); Sodium 142 mmol/L (136-145)
[2020-07-29] MEDS: Carvedilol 6.25 MG TAB PO SCH ×2 (08:14→17:25)
[2020-07-29] MEDS ORDERED: Amlodipine 5 MG TAB PO SCH ×3 (09:00→09:30)
[2020-07-29] MEDS ORDERED: Furosemide 20 MG TAB PO SCH ×2 (09:00)
[2020-07-29] MEDS ORDERED: Atorvastatin Calcium 40 MG TAB PO SCH (09:00)
--- NOTE | 2020-07-29 15:07 | PDOC.DS.DS ---
Provider - Provider Date of Admission: 07/28/20 15:00 Date of Discharge: 07/29/20 Admitting Provider: Chico Price Primary Care Physician: [facility] Course - Hospital Course Hospital Course: "Mr. Bonds is a 45-year-old male with a past medical history of cocaine abuse, hypertensive emergency, flash pulmonary edema, CKD, stroke, type 2 diabetes mellitus, congestive heart failure, mitral regurgitation who was brought in by ambulance for shortness of breath. Patient reports that over the past 3 days he has had worsening shortness of breath, particularly when he has been laying down. Has also been bringing up large amounts of white/yellow sputum. EMS found patient to be severely hypertensive to the 230s over 120s, as well as slightly hypoxic. EMS had initially started the patient on BiPAP, however this was discontinued when patient initially arrived to the emergency room since he was maintaining his oxygenation on nasal cannula. Patient has a history of hypertensive emergencies and of note was recently admitted in August of last year with multifocal pneumonia/sepsis, also has a history of stroke in 2018. Patient currently denies any chest pain, palpitations. Endorses cocaine use, and reports that his last use was just prior to his symptoms beginning which was approximately 3 days ago. Patient does note that he has reduced his cocaine use at 2 only a few times per week, and that last year he was using cocaine on a daily basis. He reports his breathing feels much improved and is maintaining his oxygenation on room air currently. He denies any changes in his vision, does endorse headache. Denies any numbness, weakness, paresthesias. Denies abdominal pain, hematochezia, melena. In emergency room initial vital signs 228/128, 83, 18, 96% on 3 L. EKG showed normal sinus rhythm with bilateral atrial enlargement and nonspecific T wave inversions. BUN/CR 27/2.04. Sodium 140, potassium 3.6. Glucose 254. Chest x-ray showed vascular congestion H/H 16.7/48.8. WBC 15.3. Patient was started on Cardene drip, and his blood pressure is now maintaining blood pressure on IV labetalol and Nitropaste. Pressures now improved to 171/96." Oral antihypertensive medications were adjusted as noted in the discharge medication list and Cardene drip was weaned off. The patient's oxygenation also improved and he remained on room air for most of his hospital stay. Echocardiogram revealed preserved ejection fraction and chest x-ray showed multifocal infiltrates. This coupled with his hypoxia and leukocytosis suggest the presence of pneumonia and the patient was managed with IV antibiotics. Resuscitation Status: 07/27/20 08:01 Resuscitation Status Routine Co-Sign Provider: Resuscitation Status: FULL: Full Resuscitation - Labs Lab Results: 07/28/20 04:10 07/29/20 07:28 Abnormal Lab Results - Last 48 hrs 07/27/20 20:17: WBC 15.9 H, RBC 4.33 L, MCV 103.0 H, MCH 34.9 H, MPV 12.5 H, Neutrophils % 77.1 H, Lymphocytes % 12.2 L, Neutrophils # 12.2 H, Monocytes # 1.1 H 07/28/20 04:10: Potassium 3.4 L, BUN 28 H, Creatinine 1.75 H 07/28/20 04:10: WBC 11.8 H, RBC 4.06 L, Hgb 13.9 L, Hct 41.6 L, MCV 103.0 H, MCH 34.1 H, MPV 12.5 H, Neutrophils # 7.8 H, Monocytes # 0.9 H 07/28/20 08:39: Hemoglobin A1c 7.9 H 07/29/20 07:28: BUN 33 H, Creatinine 1.82 H - Physical Exam Vitals: Vital Signs (12 hours) Temp Pulse Resp BP BP Pulse Ox 07/29/20 11:27 98 F 73 18 149/82 H 95 07/29/20 10:57 96 07/29/20 09:34 74 125/68 07/29/20 08:10 98 F 73 16 195/106 H 96 07/29/20 04:00 98 F 77 14 162/88 H 97 Weight Admit Weight 175 lb Weight 174 lb 9.6 oz Physical Exam: The patient was seen and examined on the day of discharge. Problem - Problem (1) TAWANDA (acute kidney injury) Code(s): N17.9 - ACUTE KIDNEY FAILURE, UNSPECIFIED Status: Acute (2) CKD (chronic kidney disease) stage 3, GFR 30-59 ml/min Code(s): N18.3 - CHRONIC KIDNEY DISEASE, STAGE 3 (MODERATE) * DO NOT USE * Status: Chronic (3) Cocaine abuse Code(s): F14.10 - COCAINE ABUSE, UNCOMPLICATED Status: Chronic (4) Type 2 diabetes mellitus Status: Chronic Qualifiers: Diabetes mellitus intermediate card tender insulin use: without senior care use (5) Pneumonia Code(s): J18.9 - PNEUMONIA, UNSPECIFIED ORGANISM Status: Acute Plan - Discharge Medications Prescriptions: Azithromycin 500 mg PO DAILY #3 tablet Carvedilol 12.5 mg PO BID #60 tablet Isosorbide Mononitrate [Imdur ER] 30 mg PO DAILY #30 tab Amlodipine [Norvasc] 10 mg PO DAILY #30 tab Home Medications: Medication Instructions Recorded Confirmed Type metFORMIN HCl 1,000 mg PO BID-WM #60 tab 09/27/18 07/27/20 Rx Furosemide [Lasix] 20 mg PO DAILY #30 tab 09/06/19 07/27/20 Rx Lisinopril [Zestril] 20 mg PO BID #60 tab 09/06/19 07/27/20 Rx Atorvastatin Calcium 40 mg PO DAILY 07/27/20 07/27/20 History glyBURIDE 5 mg PO DAILY 07/27/20 07/27/20 History Amlodipine [Norvasc] 10 mg PO DAILY #30 tab 07/29/20 Rx Azithromycin 500 mg PO DAILY #3 tablet 07/29/20 Rx Carvedilol 12.5 mg PO BID #60 tablet 07/29/20 Rx Isosorbide Mononitrate [Imdur ER] 30 mg PO DAILY #30 tab 07/29/20 Rx Allergies: penicillin Allergy (Verified 08/29/19 17:04) - Follow up Plan Referrals: [facility] [Primary Care Provider] - Disposition: HOME Quality - Care Measures CORE MEASURES:: N/A
[2020-07-29] MEDS ORDERED: hydrALAZINE 25 MG TAB PO SCH (17:00)
[2020-07-29] MEDS: cefTRIAXone\\ROCEPHIN 1 GM in Sodium Chloride 0.9% 100 ML IVPB SCH (20:38)
[2020-07-29 20:53] VITALS: TEMP 98.2
[2020-07-29] MEDS: Azithromycin 500 MG in Sodium Chloride 0.9% 250 ML 250 ML IVPB SCH (21:25)
[2020-07-29 23:19] VITALS: BP 169/86
--- NOTE | 2020-07-30 07:35 | PQF ---
Dear : Hanh Justin Date 07/30/2020 Please exercise your independent, professional judgment in responding to the clarification form. Clinical indicators are provided on the bottom of this form for your review Can you please further clarify the diagnosis of the patient? Please check appropriate box(es): [ ] Sepsis [ > ] Severe sepsis with associated acute organ dysfunction: [ ] Acute Respiratory Failure [ ] Type 2 SD due to demand ischemia [ ] TAWANDA [ ] Localized infection without sepsis [ ] Other diagnosis please specify [ ] Unable to determine In addition, please specify: Present on Admission (POA): [> ] Yes [ ] No [ ] Unable to determine Physician Signature: Date/Time: For continuity of documentation, please document condition throughout progress notes and discharge summary. Thank You. To be completed by CDI/Coding staff for physician review: Present Clinical Indicators - Signs / Symptoms / Labs Results and Location in Medical Record [ x ] Shortness of breath H and P pg.1 [ x ] VS: BP: 228/128, Pulse 83, RR: 18 Vital Signs 07/28 [ x ] Elevation of troponin likely secondary to demand ischemia from hypertensive emergency H and P pg.5 [ x ] TAWANDA H and P pg. [ x ] Slightly hypoxic DS pg.1 [ x ] WBC 15.3H, 15.9H, 11.8H Laboratory [ x ] Chest Xray: patchy multifocal opacities Chest Xray 07/27 [ x ] Pneumonia DS pg.3 [ x ] Lactic: 07/27=1.3 Laboratory 07/27 Present Risk Factors Results and Location in Medical Record [ x ] Pneumonia DS pg.3 [ x ] CHF H and P pg.1 [ x ] CKD H and P pg.1 [ x ] Cocaine abuse H and P pg.1 [ x ] DM H and P pg.1 [ x ] Smoker H and P pg.2 Present Treatments Results and Location in Medical Record [ x ] Chest X ray Chest X ray 07/27 [ x ] IV Fluids MAR [ x ] Rocephin 1gm MAR [ x ] Azithromycin 500mg IV MAR CDS/Electric Truck Crane Operator Signature: Andrey Farah Phone #: ext [phone] Date 07/30/20 DAMARI
== END 2020-07-29 23:40 | disposition home or self-care (01) | DRG 871 ==
LOC: ERS 04:45 → UNDOADMIN 08:30 → 2NO 08:30 → UNDODISIN 07-28 16:45
PROVIDERS: ADMIT Internal Medicine; ATTEND Internal Medicine
DX: A41.9 Sepsis, unspecified organism (principal); J18.9 Pneumonia, unspecified organism; J81.0 Acute pulmonary edema; I16.1 Hypertensive emergency; I50.32 Chronic diastolic (congestive) heart failure; N17.9 Acute kidney failure, unspecified; I13.0 Hypertensive heart and chronic kidney disease with heart failure and stage 1 through stage 4 chronic kidney disease, or unspecified chronic kidney disease; T40.5X1A Poisoning by cocaine, accidental (unintentional), initial encounter; Z20.828 Contact with and (suspected) exposure to other viral communicable diseases; F14.10 Cocaine abuse, uncomplicated; E11.22 Type 2 diabetes mellitus with diabetic chronic kidney disease; I34.0 Nonrheumatic mitral (valve) insufficiency; F17.210 Nicotine dependence, cigarettes, uncomplicated; F41.9 Anxiety disorder, unspecified; F32.9 Major depressive disorder, single episode, unspecified; E78.00 Pure hypercholesterolemia, unspecified; R65.20 Severe sepsis without septic shock; N18.30 Chronic kidney disease, stage 3 unspecified; Z86.73 Personal history of transient ischemic attack (TIA), and cerebral infarction without residual deficits; Z88.0 Allergy status to penicillin
CPT/HCPCS: 36415; 36416; 71045; 80048; 80053; 80306; 82553; 82607; 82746; 83036; 83605; 83880; 84443; 84484; 85025; 85652; 86140; 93005; 93306; 94660; 94760; J0360; J0456; J0696; J1815; J3490; J7050; U0002

== ENCOUNTER 2020-10-30 08:29 | Inpatient (IN) | payer SELFPAY ==
[2020-10-30 09:17] LABS: #Basophils 0.1 thou/uL (0.0-0.2); #Eosinphils 0.7 thou/uL (0.0-0.7); #Lymphocytes 2.7 thou/uL (1.20-3.40); #Monocytes 0.8 thou/uL (0.11-0.59); #Neutrophils 6.3 thou/uL (1.40-6.50); %Basophils 0.6 % (0.0-1.0); %Eosinophils 6.7 % (0.0-10.0); %Lymphocytes 25.6 % (21.0-51.0); %Monocytes 7.3 % (0.0-10.0); %Neutrophils 59.7 % (42.0-75.0); Hemoglobin 12.7 g/dL (14.0-18.0); Mean Corpuscular HGB CONC 33.5 g/dL (32.0-36.0); Mean Corpuscular Hemoglobin 32.8 pg (27.0-31.0); Mean Corpuscular Volume 98.1 fL (78.0-98.0); Mean Platelet Volume 10.4 fL (7.4-10.4); Platelet Count 235 thou/uL (130-400); RBC Distribution Width 12.5 % (11.5-14.5); Red Blood Cell (RBC) Count 3.87 mill/uL (4.70-6.10); White Blood Cell (WBC) Count 10.5 thou/uL (4.8-10.8)
[2020-10-30 09:42] LABS: ALT (SGPT) 18 U/L (8-55); AST (SGOT) 20 U/L (5-34); Albumin 3.9 g/dL (3.5-5.0); Alkaline Phosphatase 84 U/L (40-110); Anion Gap 11 mmol/L (10-20); BUN (Urea Nitrogen) 31 mg/dL (8.9-20.6); Bilirubin, Total 0.4 mg/dL (0.2-1.2); Calc. Creatinine Clearance 0 mL/min (70-130); Calcium 8.9 mg/dL (7.8-10.44); Carbon Dioxide 27 mmol/L (22-29); Chloride 106 mmol/L (98-107); Globulin 3.1 g/dL (2.4-3.5); Glucose 68 mg/dL (70-105); Potassium 3.8 mmol/L (3.5-5.1); Sodium 140 mmol/L (136-145)
[2020-10-30 10:01] LABS: CKMB 3.2 ng/mL (0-6.6)
[2020-10-30] MEDS ORDERED: Aspirin Chewable 81 MG TAB ONE (10:11)
[2020-10-30] MEDS ORDERED: hydrALAZINE 20 MG/ML VIAL SLOW IVP PRN (11:44)
[2020-10-30] MEDS ORDERED: Acetaminophen 650 MG Suppository PR PRN (11:44)
[2020-10-30 12:26] LABS: Troponin I 0.056 ng/mL (< 0.028)
[2020-10-30 13:48] LABS: Hemoglobin A1c 6.9 % (4.0-6.0)
[2020-10-30] MEDS: Sodium Chloride 0.9% 1,000 ML IV SCH (14:42)
[2020-10-30 15:32] LABS: Troponin I 0.052 ng/mL (< 0.028)
[2020-10-30 16:17] LABS: SARS-CoV-2 PCR by NAA Not Detected (NotDetected)
[2020-10-30 17:30] VITALS: BMI 26.2
[2020-10-30] MEDS ORDERED: Atorvastatin Calcium 40 MG TAB PO SCH (21:00)
[2020-10-30] MEDS ORDERED: Dextrose 50% Abboject 50 ML SYRINGE SLOW IVP PRN (21:12)
[2020-10-30] MEDS ORDERED: HumaLOG 300 UNITS/3 ML VIAL SC PRN (21:12)
[2020-10-30] MEDS ORDERED: Dextrose 5% in Water 1,000 ML IV PRN (21:12)
[2020-10-30] MEDS: HumaLOG 300 UNITS/3 ML VIAL SC PRN (21:33)
[2020-10-30] MEDS: Acetaminophen 325 MG TAB PO PRN (23:54)
[2020-10-31] MEDS: Sodium Chloride 0.9% 1,000 ML IV SCH ×2 (04:52→19:30)
[2020-10-31 05:22] LABS: #Basophils 0.1 thou/uL (0.0-0.2); #Eosinphils 0.5 thou/uL (0.0-0.7); #Lymphocytes 2.6 thou/uL (1.20-3.40); #Monocytes 0.7 thou/uL (0.11-0.59); #Neutrophils 6.6 thou/uL (1.40-6.50); %Basophils 0.9 % (0.0-1.0); %Eosinophils 4.9 % (0.0-10.0); %Lymphocytes 24.8 % (21.0-51.0); %Monocytes 6.3 % (0.0-10.0); %Neutrophils 62.9 % (42.0-75.0); Hemoglobin 10.9 g/dL (14.0-18.0); Mean Corpuscular HGB CONC 34.5 g/dL (32.0-36.0); Mean Corpuscular Hemoglobin 33.6 pg (27.0-31.0); Mean Corpuscular Volume 97.3 fL (78.0-98.0); Mean Platelet Volume 10.6 fL (7.4-10.4); Platelet Count 187 thou/uL (130-400); RBC Distribution Width 12.6 % (11.5-14.5); Red Blood Cell (RBC) Count 3.24 mill/uL (4.70-6.10); White Blood Cell (WBC) Count 10.4 thou/uL (4.8-10.8)
[2020-10-31 05:43] LABS: Anion Gap 11 mmol/L (10-20); BUN (Urea Nitrogen) 23 mg/dL (8.9-20.6); Calc. Creatinine Clearance 58 mL/min (70-130); Calcium 7.7 mg/dL (7.8-10.44); Carbon Dioxide 23 mmol/L (22-29); Cardiac Risk 2.5 (Less than 4.5); Chloride 108 mmol/L (98-107); Cholesterol 103 mg/dl (< 200 Desired); Glucose 219 mg/dL (70-105); HDL Cholesterol 41 mg/dL (>60 Neg Risk); LDL Cholesterol, Calculated 45 mg/dL; Potassium 3.1 mmol/L (3.5-5.1); Sodium 139 mmol/L (136-145); Triglycerides 87 mg/dL (Less than 150)
[2020-10-31] MEDS: Aspirin 81 mg Enteric Coated Tablet PO SCH (09:59)
[2020-10-31] MEDS ORDERED: Docusate 100 MG CAP PO PRN (10:33)
[2020-10-31] MEDS ORDERED: Polyethylene Glycol 3350 17 GM Packet PO PRN (10:33)
[2020-10-31] MEDS ORDERED: Iopamidol-370 76% 500 ML 1 ML ONE (11:54)
[2020-10-31] MEDS: hydrALAZINE 20 MG/ML VIAL SLOW IVP PRN ×2 (14:57→23:36)
[2020-10-31] MEDS ORDERED: Amlodipine 10 MG TAB PO SCH (15:00)
[2020-10-31] MEDS ORDERED: Potassium Chloride 20 MEQ TAB PO SCH (16:00)
[2020-10-31] MEDS ORDERED: Labetalol HCl 100 MG/20 ML VIAL SLOW IVP SCH (16:30)
[2020-10-31] MEDS ORDERED: metFORMIN 500 MG TAB PO SCH (17:00)
[2020-10-31] MEDS ORDERED: Sodium Chloride 0.9% 1,000 ML IV SCH (17:43)
[2020-10-31] MEDS ORDERED: Atorvastatin Calcium 40 MG TAB PO SCH (21:00)
[2020-10-31] MEDS: Carvedilol 6.25 MG TAB PO SCH (22:11)
[2020-10-31] MEDS: HumaLOG 300 UNITS/3 ML VIAL SC PRN (22:15)
[2020-10-31] MEDS: Acetaminophen 325 MG TAB PO PRN (23:41)
[2020-11-01 05:22] LABS: #Basophils 0.1 thou/uL (0.0-0.2); #Eosinphils 0.6 thou/uL (0.0-0.7); #Lymphocytes 2.4 thou/uL (1.20-3.40); #Monocytes 0.9 thou/uL (0.11-0.59); #Neutrophils 9.1 thou/uL (1.40-6.50); %Basophils 0.7 % (0.0-1.0); %Eosinophils 4.5 % (0.0-10.0); %Neutrophils 69.8 % (42.0-75.0); Hemoglobin 10.9 g/dL (14.0-18.0); Mean Corpuscular HGB CONC 33.9 g/dL (32.0-36.0); Mean Corpuscular Hemoglobin 33.1 pg (27.0-31.0); Mean Corpuscular Volume 97.7 fL (78.0-98.0); Mean Platelet Volume 10.5 fL (7.4-10.4); Platelet Count 192 thou/uL (130-400); RBC Distribution Width 12.7 % (11.5-14.5); Red Blood Cell (RBC) Count 3.28 mill/uL (4.70-6.10); White Blood Cell (WBC) Count 13.1 thou/uL (4.8-10.8)
[2020-11-01 05:42] LABS: Anion Gap 11 mmol/L (10-20); BUN (Urea Nitrogen) 22 mg/dL (8.9-20.6); Calc. Creatinine Clearance 53 mL/min (70-130); Calcium 7.9 mg/dL (7.8-10.44); Carbon Dioxide 23 mmol/L (22-29); Chloride 109 mmol/L (98-107); Glucose 170 mg/dL (70-105); Potassium 3.3 mmol/L (3.5-5.1); Sodium 140 mmol/L (136-145)
[2020-11-01] MEDS: Acetaminophen 325 MG TAB PO PRN (06:26)
[2020-11-01] MEDS ORDERED: Potassium Chloride 20 MEQ TAB PO SCH (08:30)
[2020-11-01] MEDS ORDERED: Furosemide 20 MG TAB PO SCH (09:00)
[2020-11-01] MEDS ORDERED: Atorvastatin Calcium 40 MG TAB PO SCH (09:00)
[2020-11-01] MEDS ORDERED: Amlodipine 10 MG TAB PO SCH (09:00)
[2020-11-01] MEDS ORDERED: glyBURIDE 5 MG TAB PO SCH (09:00)
[2020-11-01] MEDS: Aspirin 81 mg Enteric Coated Tablet PO SCH (09:49)
[2020-11-01] MEDS: Carvedilol 6.25 MG TAB PO SCH (09:50)
[2020-11-01 12:07] VITALS: BP 139/79; TEMP 98.7
== END 2020-11-01 13:24 | disposition home or self-care (01) | DRG 69 ==
LOC: ERS 08:29 → 2SE 10:32 → OBSVTOIN 10-31 17:48
PROVIDERS: ADMIT Internal Medicine; ATTEND Internal Medicine
DX: G45.9 Transient cerebral ischemic attack, unspecified (principal); N17.9 Acute kidney failure, unspecified; I13.0 Hypertensive heart and chronic kidney disease with heart failure and stage 1 through stage 4 chronic kidney disease, or unspecified chronic kidney disease; E87.6 Hypokalemia; Z20.822 Contact with and (suspected) exposure to COVID-19; N18.30 Chronic kidney disease, stage 3 unspecified; E11.319 Type 2 diabetes mellitus with unspecified diabetic retinopathy without macular edema; I16.0 Hypertensive urgency; I50.9 Heart failure, unspecified; E78.5 Hyperlipidemia, unspecified; I34.0 Nonrheumatic mitral (valve) insufficiency; E11.65 Type 2 diabetes mellitus with hyperglycemia; E11.22 Type 2 diabetes mellitus with diabetic chronic kidney disease; R77.8 Other specified abnormalities of plasma proteins; F14.10 Cocaine abuse, uncomplicated; F41.9 Anxiety disorder, unspecified; F32.9 Major depressive disorder, single episode, unspecified; Z98.890 Other specified postprocedural states; Z87.891 Personal history of nicotine dependence; Z86.73 Personal history of transient ischemic attack (TIA), and cerebral infarction without residual deficits; Z88.0 Allergy status to penicillin; Z79.899 Other long term (current) drug therapy; Z79.84 Long term (current) use of oral hypoglycemic drugs; Z79.82 Long term (current) use of aspirin; Z79.2 Long term (current) use of antibiotics
CPT/HCPCS: 36415; 36416; 70450; 70496; 70498; 70551; 71045; 80048; 80053; 80061; 82553; 83036; 84484; 85025; 85379; 87635; 93005; 93306; 95712; 95819; 95957; 96374; 96375; G0378; J0360; J1815; Q9967; U0003; U0005

== ENCOUNTER 2020-12-26 05:42 | Inpatient (IN) | payer SELFPAY ==
[2020-12-26] MEDS ORDERED: Dexamethasone 10 MG/ML VIAL ONE (05:56)
[2020-12-26] MEDS ORDERED: Acetaminophen 500 MG TAB ONE (05:56)
[2020-12-26] MEDS ORDERED: Vancomycin 1 GM/200 ML BAG ONE (06:17)
[2020-12-26 06:28] LABS: Hemoglobin 10.5 g/dL (14.0-18.0); Mean Corpuscular HGB CONC 33.1 g/dL (32.0-36.0); Mean Corpuscular Hemoglobin 32.1 pg (27.0-31.0); Mean Corpuscular Volume 97.2 fL (78.0-98.0); Platelet Count 183 thou/uL (130-400); RBC Distribution Width 10.9 % (11.5-14.5); Red Blood Cell (RBC) Count 3.27 mill/uL (4.70-6.10); White Blood Cell (WBC) Count 22.8 thou/uL (4.8-10.8)
[2020-12-26 06:31] LABS: Bacteria/HPF None Seen HPF (None Seen); Bilirubin Negative (Negative); Blood, Urine 2+ (Negative); Clarity Clear (Clear); Glucose, Urine (Dipstick) 100 mg/dL (Negative); Ketone, Urine Negative (Negative); Leukocyte Negative Leu/uL (Negative); Nitrite Negative (Negative); Protein, Urine (Dipstick) 300 mg/dL (Neg-Trace); RBC/HPF 0-3 HPF (0-3); Specific Gravity, Urine 1.011 (1.002-1.036); Squamous Epithelial None Seen HPF (0-3); Urobilinogen Normal mg/dL (Less than 2); WBC/HPF 0-3 HPF (0-3)
[2020-12-26] MEDS ORDERED: Aztreonam 1 GM in Sodium Chloride 0.9% 100 ML IVPB SCH (06:45)
[2020-12-26 06:48] LABS: ALT (SGPT) 17 U/L (8-55); AST (SGOT) 14 U/L (5-34); Albumin 3.6 g/dL (3.5-5.0); Alkaline Phosphatase 79 U/L (40-110); Anion Gap 15 mmol/L (10-20); BUN (Urea Nitrogen) 44 mg/dL (8.9-20.6); Bilirubin, Total 0.4 mg/dL (0.2-1.2); Calc. Creatinine Clearance 0 mL/min (70-130); Carbon Dioxide 22 mmol/L (22-29); Chloride 104 mmol/L (98-107); Eosinophils 3 % (0-10); Globulin 3.5 g/dL (2.4-3.5); Glucose 192 mg/dL (70-105); Lymphocytes 10 % (21-51); MDiff Complete? YES; Monocytes 2 % (0-10); Neutrophil 85 % (42-75); Platelet Morphology Comment Appears Adequate; Protein, Total 7.1 g/dL (6.0-8.3); Sodium 137 mmol/L (136-145)
[2020-12-26 08:23] LABS: SARS-CoV-2 NAA Rapid Test Not Detected (NotDetected)
[2020-12-26] MEDS ORDERED: Sodium Chloride 0.9% 1,000 ML IV SCH (10:15)
[2020-12-26 11:59] LABS: Amphetamine Not Detected (NotDetected); Barbiturates Screen Not Detected (NotDetected); Benzodiazepine Screen Not Detected (NotDetected); Cocaine Metabolite Screen Not Detected (NotDetected); Medtox Control Line Valid? VALID (VALID); Medtox Reader # READER 1; Methadone Not Detected (NotDetected); Methamphetamine Not Detected (NotDetected); Opiate Screen Not Detected (NotDetected); Oxycodone Screen Not Detected (NotDetected); Phencyclidine (PCP) Not Detected (NotDetected); THC/Cannabinoid Screen Not Detected (NotDetected); Tricyclic Screen Not Detected (NotDetected)
[2020-12-26] MEDS: Meropenem 500 MG in Sodium Chloride 0.9% 100 ML IVPB SCH ×2 (13:47→23:40)
[2020-12-26] MEDS: Sodium Chloride 0.9% 1,000 ML IV SCH ×2 (13:47→20:22)
[2020-12-26 14:17] VITALS: BMI 28.3
[2020-12-26] MEDS ORDERED: Vancomycin 1 GM in Premix Bag 1 BAG IVPB SCH (21:00)
[2020-12-26] MEDS ORDERED: Dextrose 5% in Water 1,000 ML IV PRN (23:30)
[2020-12-26] MEDS ORDERED: Dextrose 50% Abboject 50 ML SYRINGE IVP PRN (23:30)
[2020-12-26] MEDS: HumaLOG 300 UNITS/3 ML VIAL SC PRN (23:41)
[2020-12-27] MEDS: Vancomycin 1 GM in Premix Bag 1 BAG IVPB SCH (05:30)
[2020-12-27] MEDS: HumaLOG 300 UNITS/3 ML VIAL SC PRN (06:13)
[2020-12-27] MEDS: Sodium Chloride 0.9% 1,000 ML IV SCH ×2 (06:39→12:33)
[2020-12-27 06:41] LABS: #Lymphocytes 1.1 thou/uL (1.20-3.40); #Neutrophils 17.5 thou/uL (1.40-6.50); %Basophils 0.1 % (0.0-1.0); %Eosinophils 0.1 % (0.0-10.0); %Lymphocytes 5.4 % (21.0-51.0); %Monocytes 4.9 % (0.0-10.0); %Neutrophils 89.5 % (42.0-75.0); Hemoglobin 10.3 g/dL (14.0-18.0); Mean Corpuscular HGB CONC 33.8 g/dL (32.0-36.0); Mean Corpuscular Hemoglobin 32.9 pg (27.0-31.0); Mean Corpuscular Volume 97.2 fL (78.0-98.0); Mean Platelet Volume 10.9 fL (7.4-10.4); Platelet Count 191 thou/uL (130-400); RBC Distribution Width 10.9 % (11.5-14.5); Red Blood Cell (RBC) Count 3.13 mill/uL (4.70-6.10); White Blood Cell (WBC) Count 19.5 thou/uL (4.8-10.8)
[2020-12-27 07:00] LABS: Anion Gap 14 mmol/L (10-20); BUN (Urea Nitrogen) 45 mg/dL (8.9-20.6); Calc. Creatinine Clearance 45 mL/min (70-130); Calcium 9.3 mg/dL (7.8-10.44); Carbon Dioxide 20 mmol/L (22-29); Chloride 109 mmol/L (98-107); Glucose 302 mg/dL (70-105); Potassium 3.9 mmol/L (3.5-5.1); Sodium 139 mmol/L (136-145)
[2020-12-27 08:17] LABS: Actual Bicarbonate (HCO3a) 19.9 mEq/L (22-28); Base Excess (BEa) -3.4 mEq/L (-2.0 to +3.0); CO2 Tension 30.7 mmHg (35.0-45.0); Calcium, Ionized (arterial) 1.21 mmol/L (1.12-1.30); Carboxyhemoglobin (COHb) 0.2 gm% (0.0-3.0); Hemoglobin (Hb) 12.7 g/dL (14.0-18.0); O2 Tension (PaO2), arterial 63.4 mmHg (80.0-100.0); Potassium - ABG Lab 3.68 mmol/L (3.70-5.30); pH, Arterial 7.43 (7.35-7.45)
[2020-12-27 08:21] LABS: Puncture Site RRA
[2020-12-27 08:22] LABS: ALV-art Gradient 361.675 mmHg (0-20)
[2020-12-27] MEDS ORDERED: Furosemide 40 MG/4 ML VIAL ONE (10:16)
[2020-12-27] MEDS: Enoxaparin Sodium 40 MG/0.4 ML SYRINGE SC SCH (10:20)
[2020-12-27] MEDS: Acetaminophen 500 MG TAB PO PRN ×2 (10:28→22:45)
[2020-12-27] MEDS ORDERED: Furosemide 100 MG/10 ML VIAL SLOW IVP SCH (10:30)
[2020-12-27 10:59] LABS: Hemoglobin A1c 6.7 % (4.0-6.0)
[2020-12-27] MEDS ORDERED: Sodium Chloride 0.9% 1,000 ML IV SCH (11:16)
[2020-12-27] MEDS: Meropenem 500 MG in Sodium Chloride 0.9% 100 ML IVPB SCH ×3 (13:00→22:40)
[2020-12-27] MEDS: methylPREDNISolone Sod Succ 40 MG VIAL IVP SCH (23:39)
[2020-12-28 05:39] LABS: #Lymphocytes 0.8 thou/uL (1.20-3.40); #Monocytes 0.2 thou/uL (0.11-0.59); #Neutrophils 12.4 thou/uL (1.40-6.50); %Basophils 0.1 % (0.0-1.0); %Eosinophils 0.3 % (0.0-10.0); %Lymphocytes 6.1 % (21.0-51.0); %Monocytes 1.7 % (0.0-10.0); %Neutrophils 91.7 % (42.0-75.0); Hemoglobin 10.1 g/dL (14.0-18.0); Mean Corpuscular HGB CONC 32.7 g/dL (32.0-36.0); Mean Corpuscular Hemoglobin 32.2 pg (27.0-31.0); Mean Corpuscular Volume 98.2 fL (78.0-98.0); Mean Platelet Volume 11.3 fL (7.4-10.4); Platelet Count 194 thou/uL (130-400); RBC Distribution Width 11.1 % (11.5-14.5); Red Blood Cell (RBC) Count 3.14 mill/uL (4.70-6.10); White Blood Cell (WBC) Count 13.5 thou/uL (4.8-10.8)
[2020-12-28 05:59] LABS: Vancomycin, Trough 10.3 ug/mL
[2020-12-28] MEDS ORDERED: Vancomycin 1.5 GRAM/300 ML BAG 1.5 GM in Premix Bag 1 BAG IVPB SCH (06:00)
[2020-12-28] MEDS: methylPREDNISolone Sod Succ 40 MG VIAL IVP SCH ×4 (06:11→23:14)
[2020-12-28] MEDS: HumaLOG 300 UNITS/3 ML VIAL SC PRN ×3 (06:16→20:32)
[2020-12-28 06:24] LABS: Hep C IgG Ab Reflex HepC Qnt (NonReactive)
[2020-12-28 06:26] LABS: Hep C Index 9.56 S/CO (0-0.79)
[2020-12-28] MEDS: Vancomycin 1 GM in Premix Bag 1 BAG IVPB SCH (07:10)
[2020-12-28] MEDS: Meropenem 500 MG in Sodium Chloride 0.9% 100 ML IVPB SCH ×2 (08:52→22:40)
[2020-12-28] MEDS: Enoxaparin Sodium 40 MG/0.4 ML SYRINGE SC SCH (08:52)
[2020-12-28] MEDS: Sodium Chloride 0.9% 1,000 ML IV SCH (08:53)
[2020-12-28] MEDS ORDERED: Famotidine/PF 20 mg/2ml Vial SLOW IVP SCH (09:00)
[2020-12-28 09:05] LABS: Anion Gap 15 mmol/L (10-20); BUN (Urea Nitrogen) 44 mg/dL (8.9-20.6); Calc. Creatinine Clearance 42 mL/min (70-130); Calcium 8.6 mg/dL (7.8-10.44); Carbon Dioxide 20 mmol/L (22-29); Chloride 105 mmol/L (98-107); Glucose 379 mg/dL (70-105); Potassium 4.2 mmol/L (3.5-5.1); Sodium 136 mmol/L (136-145)
[2020-12-28] MEDS ORDERED: Dextrose 5% in Water 1,000 ML IV PRN (15:50)
[2020-12-28] MEDS ORDERED: Dextrose 50% Abboject 50 ML SYRINGE SLOW IVP PRN (15:50)
[2020-12-28] MEDS: Insulin Regular 300 UNITS/3 ML VIAL SC PRN (17:18)
[2020-12-28] MEDS: Docusate 100 MG CAP PO SCH (20:29)
[2020-12-28] MEDS: Carvedilol 6.25 MG TAB PO SCH (20:29)
[2020-12-28] MEDS ORDERED: hydrALAZINE 20 MG/ML VIAL SLOW IVP PRN (21:46)
[2020-12-28] MEDS: Polyethylene Glycol 3350 17 GM Packet PO SCH (22:40)
[2020-12-29] MEDS: HumaLOG 300 UNITS/3 ML VIAL SC PRN ×4 (05:15→21:22)
[2020-12-29] MEDS: methylPREDNISolone Sod Succ 40 MG VIAL IVP SCH ×3 (05:16→17:37)
[2020-12-29 05:29] LABS: #Lymphocytes 0.9 thou/uL (1.20-3.40); #Monocytes 0.6 thou/uL (0.11-0.59); #Neutrophils 15.5 thou/uL (1.40-6.50); %Basophils 0.1 % (0.0-1.0); %Eosinophils 0.1 % (0.0-10.0); %Monocytes 3.5 % (0.0-10.0); %Neutrophils 91.2 % (42.0-75.0); Hemoglobin 9.2 g/dL (14.0-18.0); Mean Corpuscular HGB CONC 34.4 g/dL (32.0-36.0); Mean Corpuscular Hemoglobin 33.6 pg (27.0-31.0); Mean Corpuscular Volume 97.8 fL (78.0-98.0); Mean Platelet Volume 11.1 fL (7.4-10.4); Platelet Count 186 thou/uL (130-400); RBC Distribution Width 10.8 % (11.5-14.5); Red Blood Cell (RBC) Count 2.73 mill/uL (4.70-6.10)
[2020-12-29] MEDS: Sodium Chloride 0.9% 1,000 ML IV SCH (05:40)
[2020-12-29 05:55] LABS: Anion Gap 12 mmol/L (10-20); BUN (Urea Nitrogen) 54 mg/dL (8.9-20.6); Calc. Creatinine Clearance 48 mL/min (70-130); Calcium 8.5 mg/dL (7.8-10.44); Carbon Dioxide 20 mmol/L (22-29); Chloride 109 mmol/L (98-107); Glucose 494 mg/dL (70-105); Potassium 4.3 mmol/L (3.5-5.1); Sodium 137 mmol/L (136-145)
[2020-12-29] MEDS ORDERED: Lantus 1000 UNITS/10 ML VIAL SC SCH (07:11)
[2020-12-29] MEDS: Carvedilol 6.25 MG TAB PO SCH ×2 (08:51→20:24)
[2020-12-29] MEDS: Docusate 100 MG CAP PO SCH ×2 (08:51→20:24)
[2020-12-29] MEDS: Amlodipine 10 MG TAB PO SCH (08:52)
[2020-12-29] MEDS: Enoxaparin Sodium 40 MG/0.4 ML SYRINGE SC SCH (08:52)
[2020-12-29] MEDS: Meropenem 500 MG in Sodium Chloride 0.9% 100 ML IVPB SCH (11:27)
[2020-12-29] MEDS: Polyethylene Glycol 3350 17 GM Packet PO SCH (20:24)
[2020-12-29] MEDS: Lantus 1000 UNITS/10 ML VIAL SC SCH (21:23)
[2020-12-30] MEDS ORDERED: Aspirin 325 mg Enteric Coated Tablet PO SCH (01:00)
[2020-12-30] MEDS: methylPREDNISolone Sod Succ 40 MG VIAL IVP SCH ×2 (01:30→05:25)
[2020-12-30 05:35] LABS: Hemoglobin 10.5 g/dL (14.0-18.0); Mean Corpuscular HGB CONC 34.2 g/dL (32.0-36.0); Mean Corpuscular Hemoglobin 33.4 pg (27.0-31.0); Mean Corpuscular Volume 97.6 fL (78.0-98.0); Mean Platelet Volume 11.1 fL (7.4-10.4); Platelet Count 255 thou/uL (130-400); RBC Distribution Width 11.1 % (11.5-14.5); Red Blood Cell (RBC) Count 3.14 mill/uL (4.70-6.10); White Blood Cell (WBC) Count 24.3 thou/uL (4.8-10.8)
[2020-12-30 05:47] LABS: Lymphocytes 8 % (21-51); MDiff Complete? YES; Monocytes 2 % (0-10); Neutrophil 90 % (42-75); Platelet Morphology Comment Appears Adequate
[2020-12-30 05:49] LABS: Anion Gap 14 mmol/L (10-20); BUN (Urea Nitrogen) 53 mg/dL (8.9-20.6); Calc. Creatinine Clearance 54 mL/min (70-130); Calcium 9.2 mg/dL (7.8-10.44); Carbon Dioxide 22 mmol/L (22-29); Chloride 109 mmol/L (98-107); Glucose 231 mg/dL (70-105); Potassium 4.3 mmol/L (3.5-5.1); Sodium 141 mmol/L (136-145)
[2020-12-30] MEDS: Insulin Regular 300 UNITS/3 ML VIAL SC PRN ×3 (06:07→17:48)
[2020-12-30 07:44] LABS: HIV (1/2) Antibody/Antigen Non-Reactive (NonReactive); HIV 1/2 INDEX 0.17 S/CO (<1.00)
[2020-12-30] MEDS: hydrALAZINE 25 MG TAB PO SCH ×3 (09:11→21:23)
[2020-12-30] MEDS: Carvedilol 6.25 MG TAB PO SCH ×2 (09:11→21:22)
[2020-12-30] MEDS: Amlodipine 10 MG TAB PO SCH (09:11)
[2020-12-30] MEDS: Enoxaparin Sodium 40 MG/0.4 ML SYRINGE SC SCH (09:12)
[2020-12-30] MEDS: Docusate 100 MG CAP PO SCH ×2 (09:12→21:23)
[2020-12-30] MEDS: Lantus 1000 UNITS/10 ML VIAL SC SCH ×2 (09:13→22:06)
[2020-12-30 12:15] LABS: Hep C PCR-Quant HCV Not Detected IU/mL (.)
[2020-12-30] MEDS: Polyethylene Glycol 3350 17 GM Packet PO SCH (21:22)
[2020-12-30] MEDS: Atorvastatin Calcium 40 MG TAB PO SCH (21:22)
[2020-12-31 05:10] LABS: Anion Gap 9 mmol/L (10-20); BUN (Urea Nitrogen) 47 mg/dL (8.9-20.6); Calc. Creatinine Clearance 56 mL/min (70-130); Carbon Dioxide 27 mmol/L (22-29); Chloride 112 mmol/L (98-107); Potassium 3.8 mmol/L (3.5-5.1); Sodium 144 mmol/L (136-145)
[2020-12-31 05:11] LABS: Calcium 8.4 mg/dL (7.8-10.44); Glucose 72 mg/dL (70-105)
[2020-12-31] MEDS: hydrALAZINE 25 MG TAB PO SCH ×3 (08:42→21:51)
[2020-12-31] MEDS: Carvedilol 6.25 MG TAB PO SCH ×2 (08:42→21:52)
[2020-12-31] MEDS: Aspirin Chewable 81 MG TAB PO SCH (08:43)
[2020-12-31] MEDS: Lantus 1000 UNITS/10 ML VIAL SC SCH ×2 (08:43→21:53)
[2020-12-31] MEDS: Enoxaparin Sodium 40 MG/0.4 ML SYRINGE SC SCH (08:43)
[2020-12-31] MEDS: Amlodipine 10 MG TAB PO SCH (08:43)
[2020-12-31] MEDS: Docusate 100 MG CAP PO SCH ×2 (08:43→21:53)
[2020-12-31] MEDS: Polyethylene Glycol 3350 17 GM Packet PO SCH (21:50)
[2020-12-31] MEDS: Atorvastatin Calcium 40 MG TAB PO SCH (21:52)
[2021-01-01 05:09] LABS: Cardiac Risk 5.5 (Less than 4.5)
[2021-01-01 05:27] LABS: Thyroid Stimulating Hormone 1.2565 uIU/mL (0.35-4.94); Vitamin D, 25 Hydroxy 11.1 ng/ml (> 30.0)
[2021-01-01] MEDS: Carvedilol 6.25 MG TAB PO SCH ×2 (10:32→22:02)
[2021-01-01] MEDS: hydrALAZINE 25 MG TAB PO SCH ×3 (10:33→22:03)
[2021-01-01] MEDS: Docusate 100 MG CAP PO SCH ×2 (10:33→22:03)
[2021-01-01] MEDS: Aspirin Chewable 81 MG TAB PO SCH (10:33)
[2021-01-01] MEDS: Amlodipine 10 MG TAB PO SCH (10:33)
[2021-01-01] MEDS: Lantus 1000 UNITS/10 ML VIAL SC SCH ×2 (10:34→22:01)
[2021-01-01] MEDS: Enoxaparin Sodium 40 MG/0.4 ML SYRINGE SC SCH (10:34)
[2021-01-01] MEDS: Insulin Regular 300 UNITS/3 ML VIAL SC PRN (10:56)
[2021-01-01 14:00] LABS: Anion Gap 11 mmol/L (10-20); BUN (Urea Nitrogen) 40 mg/dL (8.9-20.6); Calc. Creatinine Clearance 53 mL/min (70-130); Calcium 8.4 mg/dL (7.8-10.44); Carbon Dioxide 26 mmol/L (22-29); Chloride 107 mmol/L (98-107); Glucose 90 mg/dL (70-105); Potassium 4.1 mmol/L (3.5-5.1); Sodium 140 mmol/L (136-145)
[2021-01-01] MEDS ORDERED: Ergocalciferol 1.25 MG(50,000 UNITS) CAP PO SCH (15:45)
[2021-01-01] MEDS: Atorvastatin Calcium 40 MG TAB PO SCH (22:02)
[2021-01-01] MEDS: Polyethylene Glycol 3350 17 GM Packet PO SCH (22:02)
[2021-01-02] MEDS: Aspirin Chewable 81 MG TAB PO SCH (08:51)
[2021-01-02] MEDS: Docusate 100 MG CAP PO SCH (08:51)
[2021-01-02] MEDS: Amlodipine 10 MG TAB PO SCH (08:51)
[2021-01-02] MEDS: Carvedilol 6.25 MG TAB PO SCH (08:52)
[2021-01-02] MEDS: hydrALAZINE 25 MG TAB PO SCH (08:52)
[2021-01-02] MEDS: Enoxaparin Sodium 40 MG/0.4 ML SYRINGE SC SCH (08:53)
[2021-01-02] MEDS: Lantus 1000 UNITS/10 ML VIAL SC SCH (08:53)
[2021-01-02 10:34] LABS: Anion Gap 13 mmol/L (10-20); BUN (Urea Nitrogen) 36 mg/dL (8.9-20.6); Calc. Creatinine Clearance 53 mL/min (70-130); Calcium 8.3 mg/dL (7.8-10.44); Carbon Dioxide 19 mmol/L (22-29); Chloride 110 mmol/L (98-107); Glucose 111 mg/dL (70-105); Potassium 4.8 mmol/L (3.5-5.1); Sodium 137 mmol/L (136-145)
[2021-01-02 12:03] VITALS: TEMP 98.2
[2021-01-02 14:09] VITALS: BP 120/72
== END 2021-01-02 15:31 | disposition home health service (06) | DRG 871 ==
LOC: SUATTDRO 05:42 → ERS 05:42 → IMCU/EMU 08:16 → SURG B 12-28 22:07 → 2SE 12-30 00:18
PROVIDERS: ADMIT Hospitalist; ATTEND Internal Medicine
DX: A41.9 Sepsis, unspecified organism (principal); J96.01 Acute respiratory failure with hypoxia; N17.0 Acute kidney failure with tubular necrosis; Z20.822 Contact with and (suspected) exposure to COVID-19; J15.9 Unspecified bacterial pneumonia; I63.39 Cerebral infarction due to thrombosis of other cerebral artery; I13.0 Hypertensive heart and chronic kidney disease with heart failure and stage 1 through stage 4 chronic kidney disease, or unspecified chronic kidney disease; I24.8 Other forms of acute ischemic heart disease; I16.1 Hypertensive emergency; G81.91 Hemiplegia, unspecified affecting right dominant side; E11.22 Type 2 diabetes mellitus with diabetic chronic kidney disease; R65.20 Severe sepsis without septic shock; I50.9 Heart failure, unspecified; E78.5 Hyperlipidemia, unspecified; F41.9 Anxiety disorder, unspecified; F32.9 Major depressive disorder, single episode, unspecified; I34.0 Nonrheumatic mitral (valve) insufficiency; D63.1 Anemia in chronic kidney disease; F15.10 Other stimulant abuse, uncomplicated; N18.30 Chronic kidney disease, stage 3 unspecified; E11.65 Type 2 diabetes mellitus with hyperglycemia; E11.39 Type 2 diabetes mellitus with other diabetic ophthalmic complication; B19.20 Unspecified viral hepatitis C without hepatic coma; Z86.73 Personal history of transient ischemic attack (TIA), and cerebral infarction without residual deficits; Z87.891 Personal history of nicotine dependence; Z88.0 Allergy status to penicillin; Z79.84 Long term (current) use of oral hypoglycemic drugs; Z79.82 Long term (current) use of aspirin; Z79.899 Other long term (current) drug therapy; Z87.01 Personal history of pneumonia (recurrent); Z91.14 Patient's other noncompliance with medication regimen
CPT/HCPCS: 0240U; 36415; 36416; 36600; 70450; 70551; 71045; 71250; 80048; 80053; 80061; 80202; 80306; 81003; 81015; 82306; 82607; 82746; 82805; 83036; 83605; 83880; 84443; 85025; 86803; 87040; 87086; 87389; 87521; 87522; 93005; 93306; 93880; 94640; 96365; 96375; J1100; J1650; J1815; J1940; J2185; J2920; J3370; J3490; J7620; S0028

== ENCOUNTER 2021-09-23 10:12 | Outpatient (CLI) | payer MEDICAID, OTHER | END 2021-09-23 10:13 | disposition home or self-care (01) | LOC: BICULT 10:12 | PROVIDERS: ATTEND Internal Medicine Nephrology | DX: I12.9 Hypertensive chronic kidney disease with stage 1 through stage 4 chronic kidney disease, or unspecified chronic kidney disease (principal); N18.4 Chronic kidney disease, stage 4 (severe); R93.421 Abnormal radiologic findings on diagnostic imaging of right kidney; E11.22 Type 2 diabetes mellitus with diabetic chronic kidney disease; R80.9 Proteinuria, unspecified | CPT/HCPCS: 36415; 76770; 80048; 81003; 82040; 82043; 82306; 83735; 83970; 84100; 84156; 85025; 93975 ==

== ENCOUNTER 2022-01-15 10:34 | Outpatient (CLI) | payer OTHER ==
[2022-01-15 12:37] LABS: #Basophils 0.1 10x3/uL (0.0-0.2); #Eosinphils 0.5 10x3/uL (0.0-0.5); #Monocytes 0.7 10x3/uL (0.0-1.1); #Neutrophils 7.9 10x3/uL (1.5-8.4); %Basophils 1.1 % (0.0-2.0); %Eosinophils 4.3 % (0.0-6.0); %Lymphocytes 19.6 % (18.0-47.0); %Monocytes 5.9 % (0.0-10.0); %Neutrophils 68.8 % (40.0-75.0); Hemoglobin 12.6 g/dL (13.5-17.5); Mean Corpuscular HGB CONC 33.4 g/dL (32.0-36.0); Mean Corpuscular Hemoglobin 31.1 pg (27.0-33.0); Mean Corpuscular Volume 93.1 fl (81.2-95.1); Mean Platelet Volume 12.9 fl (7.4-10.4); Platelet Count 221 10x3/uL (150-450); RBC Distribution Width 12.2 % (11.5-14.5); Red Blood Cell (RBC) Count 4.05 10x6/uL (4.32-5.72); White Blood Cell (WBC) Count 11.5 10x3/uL (3.5-10.5)
[2022-01-15 12:55] LABS: Anion Gap 17 mmol/L (10-20); BUN (Urea Nitrogen) 48 mg/dL (8.9-20.6); Calc. Creatinine Clearance 0 mL/min (70-130); Calcium 9.2 mg/dL (7.8-10.44); Carbon Dioxide 21 mmol/L (22-29); Chloride 108 mmol/L (98-107); Glucose 162 mg/dL (70-105); Potassium 3.8 mmol/L (3.5-5.1); Sodium 142 mmol/L (136-145)
[2022-01-15 23:49] LABS: SARS-CoV-2 PCR by NAA Not Detected (NotDetected)
== END 2022-01-15 10:35 | disposition home or self-care (01) ==
LOC: LABBT 10:34
PROVIDERS: ATTEND Internal Medicine Cardiovascular Disease
DX: Z01.818 Encounter for other preprocedural examination (principal); Z20.822 Contact with and (suspected) exposure to COVID-19
CPT/HCPCS: 80048; 85025; 93005; 93010; U0003; U0005

== ENCOUNTER 2022-01-18 10:48 | Day surgery (SDC) | payer OTHER ==
[2022-01-14 10:45] VITALS: BMI 27.8
[2022-01-18] MEDS ORDERED: Lidocaine 1% PF 5 ML VIAL ONE (13:18)
[2022-01-18] MEDS ORDERED: PROPOFOL 200 MG/20 ML VIAL ONE (13:18)
== END 2022-01-18 15:24 | disposition home or self-care (01) ==
LOC: SDC 10:48
PROVIDERS: ATTEND Internal Medicine Cardiovascular Disease
PROC: B246ZZ4 Ultrasonography of Right and Left Heart, Transesophageal (ICD-10-PCS; principal; 2022-01-18)
DX: Q21.1 Atrial septal defect (principal); I08.1 Rheumatic disorders of both mitral and tricuspid valves; I13.0 Hypertensive heart and chronic kidney disease with heart failure and stage 1 through stage 4 chronic kidney disease, or unspecified chronic kidney disease; E11.22 Type 2 diabetes mellitus with diabetic chronic kidney disease; N18.4 Chronic kidney disease, stage 4 (severe); I50.30 Unspecified diastolic (congestive) heart failure; E78.00 Pure hypercholesterolemia, unspecified; Z86.73 Personal history of transient ischemic attack (TIA), and cerebral infarction without residual deficits; Z87.891 Personal history of nicotine dependence; Z79.82 Long term (current) use of aspirin; Z79.84 Long term (current) use of oral hypoglycemic drugs; Z79.899 Other long term (current) drug therapy; Z88.0 Allergy status to penicillin
CPT/HCPCS: 93312; J2704

== ENCOUNTER 2022-02-27 04:39 | Emergency (ER) | payer OTHER | END 2022-02-27 05:41 | disposition home or self-care (01) | LOC: ERS 04:39 | DX: B34.9 Viral infection, unspecified (principal); I11.0 Hypertensive heart disease with heart failure; I50.9 Heart failure, unspecified; E11.9 Type 2 diabetes mellitus without complications; Z87.891 Personal history of nicotine dependence | CPT/HCPCS: 99282 ==

== ENCOUNTER 2023-04-05 14:33 | Outpatient (CLI) | payer OTHER | END 2023-04-05 14:34 | disposition home or self-care (01) | LOC: RAD 14:33 | PROVIDERS: ATTEND Internal Medicine Nephrology | DX: N18.5 Chronic kidney disease, stage 5 (principal) | CPT/HCPCS: 36415; 71046; 80048; 86704; 86706; 86803; 87340; 87522 ==

== ENCOUNTER 2023-04-19 14:12 | Inpatient (IN) | payer MEDICARE, OTHER ==
[~2023-04-19 14:12] MED LIST: Iopamidol-370 76% 500 ML MDV (1 ML CHARGE) ONE
[2023-04-19 14:29] LABS: #Basophils 0.2 thou/uL (0.0-0.2); #Eosinphils 0.6 thou/uL (0.0-0.7); #Monocytes 0.8 thou/uL (0.11-0.59); #Neutrophils 10.5 thou/uL (1.40-6.50); %Basophils 1.1 % (0.0-1.0); %Eosinophils 4.2 % (0.0-10.0); %Lymphocytes 12.8 % (21.0-51.0); %Neutrophils 75.5 % (42.0-75.0); Hematocrit 33.2 % (42.0-52.0); Hemoglobin 11.3 g/dL (14.0-18.0); Mean Corpuscular Hemoglobin 31.2 pg (27.0-31.0); Mean Corpuscular Volume 91.7 fl (78.0-98.0); Mean Platelet Volume 12.2 fL (7.4-10.4); Platelet Count 265 10x3/uL (130-400); RBC Distribution Width 13.1 % (11.5-14.5); Red Blood Cell (RBC) Count 3.62 mill/uL (4.70-6.10); White Blood Cell (WBC) Count 13.9 10x3/uL (4.8-10.8)
[2023-04-19 14:39] LABS: Prothrombin Time 14.3 sec (12.0-14.7)
[2023-04-19 14:40] LABS: PTT 28.3 sec (22.9-36.1)
[2023-04-19 14:43] LABS: INR-International Normal Ratio 1.1
[2023-04-19] MEDS ORDERED: Tenecteplase 50 MG ONE (14:49)
[2023-04-19 15:05] LABS: Albumin 3.8 g/dL (3.5-5.0); Anion Gap 14 mmol/L (10-20); BUN (Urea Nitrogen) 55 mg/dL (8.9-20.6); Bilirubin, Total 0.3 mg/dL (0.2-1.2); Calc. Creatinine Clearance 0 mL/min (70-130); Carbon Dioxide 16 mmol/L (22-29); Chloride 113 mmol/L (98-107); Estimated GFR 11; Globulin 2.5 g/dL (2.4-3.5); Glucose 213 mg/dL (70-105); Potassium 3.8 mmol/L (3.5-5.1); Protein, Total 6.3 g/dL (6.0-8.3); Sodium 139 mmol/L (136-145)
[2023-04-19 15:06] LABS: ALT (SGPT) 16 U/L (8-55); AST (SGOT) 16 U/L (5-34); Alkaline Phosphatase 72 U/L (40-110)
[2023-04-19 15:13] LABS: Troponin I 0.045 ng/mL (< 0.028)
[2023-04-19] MEDS ORDERED: Mag-Al 1200 mg/1200 mg/30 ML UDCUP PO PRN (16:42)
[2023-04-19] MEDS ORDERED: niCARdipine 25 MG in Sodium Chloride 0.9% 250 ML 250 ML IVPB PRN (16:42)
[2023-04-19] MEDS ORDERED: Docusate 100 MG CAP PO PRN (16:42)
[2023-04-19] MEDS ORDERED: Acetaminophen 650 MG Suppository PR PRN (16:42)
[2023-04-19] MEDS ORDERED: Communication Order-Pharmacy FS SCH (16:42)
[2023-04-19] MEDS ORDERED: Ondansetron ODT 4 MG TAB SL PRN (16:45)
[2023-04-19] MEDS ORDERED: Sodium Chloride 0.9% 1,000 ML IV SCH (16:45)
[2023-04-19] MEDS ORDERED: Acetaminophen 325 MG TAB PO PRN (16:45)
[2023-04-19] MEDS ORDERED: Ondansetron PF 4 MG/2 ML Vial IVP PRN (16:45)
[2023-04-19 18:10] LABS: Troponin I 0.043 ng/mL (< 0.028)
[2023-04-19] MEDS: Sodium Bicarbonate Tab 325 MG TAB PO SCH (19:36)
[2023-04-19] MEDS: Rosuvastatin 10 MG TAB PO SCH (19:36)
[2023-04-19] MEDS: hydrALAZINE 25 MG TAB PO SCH (19:36)
[2023-04-19] MEDS: Labetalol HCl 100 MG/20 ML VIAL SLOW IVP PRN (19:57)
[2023-04-19] MEDS: hydrALAZINE 20 MG/ML VIAL SLOW IVP PRN (20:41)
[2023-04-19] MEDS ORDERED: Insulin Glargine 30 UNITS/0.3 ML VIAL SC SCH (21:00)
[2023-04-20] MEDS: Labetalol HCl 100 MG/20 ML VIAL SLOW IVP PRN ×2 (01:06→05:47)
[2023-04-20] MEDS: Sodium Bicarbonate Tab 325 MG TAB PO SCH ×3 (09:09→20:41)
[2023-04-20] MEDS: Carvedilol 6.25 MG TAB PO SCH ×2 (09:09→16:49)
[2023-04-20] MEDS: hydrALAZINE 25 MG TAB PO SCH ×3 (09:09→20:41)
[2023-04-20] MEDS: NIFEdipine XL 30 MG TAB PO SCH (09:09)
[2023-04-20 12:47] VITALS: BMI 28.3
[2023-04-20 15:12] LABS: #Basophils 0.1 thou/uL (0.0-0.2); #Eosinphils 0.5 thou/uL (0.0-0.7); #Monocytes 0.8 thou/uL (0.11-0.59); #Neutrophils 6.9 thou/uL (1.40-6.50); %Basophils 1.2 % (0.0-1.0); %Eosinophils 5.1 % (0.0-10.0); %Lymphocytes 17.7 % (21.0-51.0); %Monocytes 7.6 % (0.0-10.0); Hematocrit 31.6 % (42.0-52.0); Hemoglobin 10.6 g/dL (14.0-18.0); Mean Corpuscular HGB CONC 33.5 g/dL (32.0-36.0); Mean Corpuscular Hemoglobin 30.9 pg (27.0-31.0); Mean Corpuscular Volume 92.1 fl (78.0-98.0); Mean Platelet Volume 12.2 fL (7.4-10.4); Platelet Count 227 10x3/uL (130-400); RBC Distribution Width 13.3 % (11.5-14.5); Red Blood Cell (RBC) Count 3.43 mill/uL (4.70-6.10); White Blood Cell (WBC) Count 10.1 10x3/uL (4.8-10.8)
[2023-04-20] MEDS ORDERED: Aspirin 300 MG Suppository PR SCH (16:00)
[2023-04-20] MEDS ORDERED: Aspirin 325 mg Enteric Coated Tablet PO SCH (16:00)
[2023-04-20 16:02] LABS: Hemoglobin A1c 6.4 % (4.0-6.0)
[2023-04-20 16:03] LABS: Cardiac Risk 5.2 (Less than 4.5)
[2023-04-20 16:07] LABS: Troponin I 0.038 ng/mL (< 0.028)
[2023-04-20 16:10] LABS: ALT (SGPT) 13 U/L (8-55); AST (SGOT) 11 U/L (5-34); Albumin 3.4 g/dL (3.5-5.0); Alkaline Phosphatase 66 U/L (40-110); Anion Gap 14 mmol/L (10-20); BUN (Urea Nitrogen) 45 mg/dL (8.9-20.6); Bilirubin, Total 0.3 mg/dL (0.2-1.2); Calc. Creatinine Clearance 21 mL/min (70-130); Calcium 7.9 mg/dL (7.8-10.44); Carbon Dioxide 17 mmol/L (22-29); Chloride 114 mmol/L (98-107); Estimated GFR 13; Globulin 2.4 g/dL (2.4-3.5); Glucose 121 mg/dL (70-105); Potassium 3.5 mmol/L (3.5-5.1); Protein, Total 5.8 g/dL (6.0-8.3); Sodium 141 mmol/L (136-145)
[2023-04-20] MEDS: hydrALAZINE 20 MG/ML VIAL SLOW IVP PRN (19:53)
[2023-04-20] MEDS: Insulin Regular 300 UNITS/3 ML VIAL SC PRN (20:42)
[2023-04-20] MEDS: Rosuvastatin 10 MG TAB PO SCH (20:42)
[2023-04-20] MEDS: Heparin 5,000 UNITS/ML VIAL SC SCH (20:43)
[2023-04-20] MEDS ORDERED: Insulin Glargine 30 UNITS/0.3 ML VIAL SC SCH (21:00)
[2023-04-20] MEDS: Acetaminophen 325 MG TAB PO PRN (23:48)
[2023-04-21 08:03] LABS: Anion Gap 11 mmol/L (10-20); BUN (Urea Nitrogen) 44 mg/dL (8.9-20.6); Calc. Creatinine Clearance 22 mL/min (70-130); Calcium 8.1 mg/dL (7.8-10.44); Carbon Dioxide 19 mmol/L (22-29); Chloride 114 mmol/L (98-107); Estimated GFR 13; Glucose 97 mg/dL (70-105); Potassium 3.5 mmol/L (3.5-5.1); Sodium 140 mmol/L (136-145)
[2023-04-21] MEDS ORDERED: Aspirin 300 MG Suppository PR SCH (09:00)
[2023-04-21] MEDS: Carvedilol 6.25 MG TAB PO SCH (09:05)
[2023-04-21] MEDS: NIFEdipine XL 30 MG TAB PO SCH ×2 (09:05→20:02)
[2023-04-21] MEDS: hydrALAZINE 25 MG TAB PO SCH ×3 (09:05→20:02)
[2023-04-21] MEDS: Heparin 5,000 UNITS/ML VIAL SC SCH ×2 (09:05→20:03)
[2023-04-21] MEDS: Aspirin 325 mg Enteric Coated Tablet PO SCH (09:05)
[2023-04-21] MEDS: Sodium Bicarbonate Tab 325 MG TAB PO SCH ×3 (09:11→20:02)
[2023-04-21] MEDS: Labetalol HCl 100 MG/20 ML VIAL SLOW IVP PRN (12:34)
[2023-04-21] MEDS ORDERED: hydrALAZINE 25 MG TAB PO SCH (15:04)
[2023-04-21] MEDS: Carvedilol 25 MG TAB PO SCH (15:29)
[2023-04-21] MEDS: Rosuvastatin 10 MG TAB PO SCH (20:03)
[2023-04-22 05:08] LABS: Anion Gap 11 mmol/L (10-20); BUN (Urea Nitrogen) 42 mg/dL (8.9-20.6); Calc. Creatinine Clearance 23 mL/min (70-130); Calcium 7.9 mg/dL (7.8-10.44); Carbon Dioxide 19 mmol/L (22-29); Chloride 111 mmol/L (98-107); Estimated GFR 14; Glucose 118 mg/dL (70-105); Potassium 3.2 mmol/L (3.5-5.1); Sodium 138 mmol/L (136-145)
[2023-04-22] MEDS: Heparin 5,000 UNITS/ML VIAL SC SCH ×2 (08:38→21:25)
[2023-04-22] MEDS: NIFEdipine XL 30 MG TAB PO SCH ×2 (08:38→21:23)
[2023-04-22] MEDS: Sodium Bicarbonate Tab 325 MG TAB PO SCH ×3 (08:38→21:24)
[2023-04-22] MEDS: Carvedilol 25 MG TAB PO SCH ×2 (08:39→17:14)
[2023-04-22] MEDS: Aspirin 325 mg Enteric Coated Tablet PO SCH (08:39)
[2023-04-22] MEDS: hydrALAZINE 25 MG TAB PO SCH ×3 (08:39→21:26)
[2023-04-22] MEDS ORDERED: Potassium Chloride 20 MEQ TAB PO SCH (12:00)
[2023-04-22] MEDS: Insulin Regular 300 UNITS/3 ML VIAL SC PRN (12:06)
[2023-04-22] MEDS ORDERED: Alogliptin 6.25 MG TAB PO SCH (18:35)
[2023-04-22] MEDS: Rosuvastatin 10 MG TAB PO SCH (21:25)
[2023-04-22] MEDS: Acetaminophen 325 MG TAB PO PRN (23:31)
[2023-04-23 04:58] LABS: Anion Gap 9 mmol/L (10-20); BUN (Urea Nitrogen) 44 mg/dL (8.9-20.6); Calc. Creatinine Clearance 22 mL/min (70-130); Calcium 7.9 mg/dL (7.8-10.44); Carbon Dioxide 19 mmol/L (22-29); Chloride 112 mmol/L (98-107); Estimated GFR 13; Glucose 108 mg/dL (70-105); Magnesium 1.6 mg/dL (1.6-2.6); Potassium 3.4 mmol/L (3.5-5.1); Sodium 137 mmol/L (136-145)
[2023-04-23] MEDS ORDERED: Alogliptin 6.25 MG TAB PO SCH (09:00)
[2023-04-23] MEDS: Carvedilol 25 MG TAB PO SCH (09:21)
[2023-04-23] MEDS: Aspirin 325 mg Enteric Coated Tablet PO SCH (09:22)
[2023-04-23] MEDS: hydrALAZINE 25 MG TAB PO SCH ×2 (09:23→16:06)
[2023-04-23] MEDS: NIFEdipine XL 30 MG TAB PO SCH (09:24)
[2023-04-23] MEDS: Heparin 5,000 UNITS/ML VIAL SC SCH (09:25)
[2023-04-23] MEDS: Sodium Bicarbonate Tab 325 MG TAB PO SCH ×2 (10:55→16:06)
[2023-04-23 12:33] VITALS: BP 152/81; TEMP 98.2
[2023-04-23] MEDS: Insulin Regular 300 UNITS/3 ML VIAL SC PRN (13:50)
== END 2023-04-23 16:00 | disposition home or self-care (01) | DRG 62 ==
LOC: ERS 14:12 → CCU 16:42 → 2SE 04-22 20:05
PROVIDERS: ADMIT Family Medicine; ATTEND Internal Medicine
DX: I63.9 Cerebral infarction, unspecified (principal); E87.20 Acidosis, unspecified; N18.5 Chronic kidney disease, stage 5; N17.9 Acute kidney failure, unspecified; I13.2 Hypertensive heart and chronic kidney disease with heart failure and with stage 5 chronic kidney disease, or end stage renal disease; G81.91 Hemiplegia, unspecified affecting right dominant side; R29.708 NIHSS score 8; E11.22 Type 2 diabetes mellitus with diabetic chronic kidney disease; D63.1 Anemia in chronic kidney disease; I50.9 Heart failure, unspecified; R29.810 Facial weakness; R47.81 Slurred speech; E87.6 Hypokalemia; R47.01 Aphasia; I16.0 Hypertensive urgency; Z88.0 Allergy status to penicillin; Z98.890 Other specified postprocedural states; Z86.73 Personal history of transient ischemic attack (TIA), and cerebral infarction without residual deficits; Z79.84 Long term (current) use of oral hypoglycemic drugs; Z82.49 Family history of ischemic heart disease and other diseases of the circulatory system; Z83.3 Family history of diabetes mellitus; Z79.82 Long term (current) use of aspirin; Z79.899 Other long term (current) drug therapy
CPT/HCPCS: 36415; 36416; 70450; 70496; 70498; 70551; 71045; 80048; 80053; 80061; 83036; 83735; 84484; 85025; 85610; 85730; 93005; 93306; 94760; 96374; J0360; J1644; J1815; J3101; J7050; Q9967

== ENCOUNTER 2023-05-06 10:57 | Emergency (ER) | payer OTHER ==
[2023-05-06 11:39] LABS: #Basophils 0.1 thou/uL (0.0-0.2); #Eosinphils 0.4 thou/uL (0.0-0.7); #Monocytes 0.7 thou/uL (0.11-0.59); #Neutrophils 9.6 thou/uL (1.40-6.50); %Basophils 0.9 % (0.0-1.0); %Eosinophils 3.1 % (0.0-10.0); %Lymphocytes 10.1 % (21.0-51.0); %Neutrophils 79.5 % (42.0-75.0); Hematocrit 33.5 % (42.0-52.0); Hemoglobin 11.3 g/dL (14.0-18.0); Mean Corpuscular HGB CONC 33.7 g/dL (32.0-36.0); Mean Corpuscular Hemoglobin 30.7 pg (27.0-31.0); Platelet Count 218 10x3/uL (130-400); RBC Distribution Width 12.4 % (11.5-14.5); Red Blood Cell (RBC) Count 3.68 mill/uL (4.70-6.10); White Blood Cell (WBC) Count 12.1 10x3/uL (4.8-10.8)
[2023-05-06 12:03] LABS: ALT (SGPT) 12 U/L (8-55); AST (SGOT) 14 U/L (5-34); Albumin 3.7 g/dL (3.5-5.0); Alkaline Phosphatase 67 U/L (40-110); Anion Gap 13 mmol/L (10-20); BUN (Urea Nitrogen) 43 mg/dL (8.9-20.6); Bilirubin, Total 0.3 mg/dL (0.2-1.2); Calc. Creatinine Clearance 0 mL/min (70-130); Calcium 8.5 mg/dL (7.8-10.44); Carbon Dioxide 22 mmol/L (22-29); Chloride 105 mmol/L (98-107); Estimated GFR 13; Globulin 3.1 g/dL (2.4-3.5); Glucose 83 mg/dL (70-105); Potassium 3.2 mmol/L (3.5-5.1); Protein, Total 6.8 g/dL (6.0-8.3); Sodium 137 mmol/L (136-145)
[2023-05-06 12:07] LABS: Troponin I 0.034 ng/mL (< 0.028)
== END 2023-05-06 14:00 | disposition home or self-care (01) ==
LOC: ERS 10:57
DX: E11.649 Type 2 diabetes mellitus with hypoglycemia without coma (principal); I13.0 Hypertensive heart and chronic kidney disease with heart failure and stage 1 through stage 4 chronic kidney disease, or unspecified chronic kidney disease; N18.6 End stage renal disease; I50.9 Heart failure, unspecified; Z87.891 Personal history of nicotine dependence; Z79.899 Other long term (current) drug therapy; Z79.82 Long term (current) use of aspirin; Z86.73 Personal history of transient ischemic attack (TIA), and cerebral infarction without residual deficits
CPT/HCPCS: 36415; 36416; 80053; 83605; 84484; 85025; 93005

== ENCOUNTER 2023-05-10 18:33 | Inpatient (IN) | payer OTHER ==
[2023-05-10 19:11] LABS: #Basophils 0.1 thou/uL (0.0-0.2); #Eosinphils 0.6 thou/uL (0.0-0.7); #Monocytes 0.6 thou/uL (0.11-0.59); #Neutrophils 7.3 thou/uL (1.40-6.50); %Basophils 1.3 % (0.0-1.0); %Eosinophils 5.2 % (0.0-10.0); %Lymphocytes 17.5 % (21.0-51.0); %Monocytes 5.6 % (0.0-10.0); %Neutrophils 69.9 % (42.0-75.0); Hematocrit 31.9 % (42.0-52.0); Hemoglobin 11.1 g/dL (14.0-18.0); Mean Corpuscular HGB CONC 34.8 g/dL (32.0-36.0); Mean Corpuscular Volume 89.1 fl (78.0-98.0); Mean Platelet Volume 12.9 fL (7.4-10.4); Platelet Count 200 10x3/uL (130-400); RBC Distribution Width 12.3 % (11.5-14.5); Red Blood Cell (RBC) Count 3.58 mill/uL (4.70-6.10); White Blood Cell (WBC) Count 10.5 10x3/uL (4.8-10.8)
[2023-05-10 19:25] LABS: INR-International Normal Ratio 1.2; PTT 30.7 sec (22.9-36.1); Prothrombin Time 15.3 sec (12.0-14.7)
[2023-05-10 19:47] LABS: ALT (SGPT) 15 U/L (8-55); AST (SGOT) 15 U/L (5-34); Albumin 3.8 g/dL (3.5-5.0); Alkaline Phosphatase 77 U/L (40-110); Anion Gap 14 mmol/L (10-20); BUN (Urea Nitrogen) 49 mg/dL (8.9-20.6); Bilirubin, Total 0.3 mg/dL (0.2-1.2); Calc. Creatinine Clearance 0 mL/min (70-130); Calcium 8.5 mg/dL (7.8-10.44); Carbon Dioxide 22 mmol/L (22-29); Chloride 107 mmol/L (98-107); Estimated GFR 12; Globulin 2.6 g/dL (2.4-3.5); Glucose 161 mg/dL (70-105); Potassium 3.7 mmol/L (3.5-5.1); Protein, Total 6.4 g/dL (6.0-8.3); Sodium 139 mmol/L (136-145)
[2023-05-10 19:51] LABS: Troponin I 0.045 ng/mL (< 0.028)
[2023-05-10] MEDS ORDERED: Ondansetron PF 4 MG/2 ML Vial IVP PRN (20:57)
[2023-05-10] MEDS ORDERED: Dextrose 50% Abboject 50 ML SYRINGE SLOW IVP PRN (21:06)
[2023-05-10] MEDS ORDERED: Dextrose 5% in Water 1,000 ML IV PRN (21:06)
[2023-05-10] MEDS ORDERED: HumaLOG 300 UNITS/3 ML VIAL SC PRN (21:06)
[2023-05-10] MEDS ORDERED: Glucagon 1 MG/ML KIT IM PRN (21:06)
[2023-05-10] MEDS ORDERED: Labetalol HCl 100 MG/20 ML VIAL SLOW IVP PRN (21:27)
[2023-05-10] MEDS ORDERED: Atorvastatin Calcium 40 MG TAB PO SCH (21:30)
[2023-05-10] MEDS ORDERED: Sodium Chloride 0.9% 1,000 ML IV SCH (21:30)
[2023-05-10] MEDS ORDERED: hydrALAZINE 20 MG/ML VIAL ONE (23:07)
[2023-05-10] MEDS: hydrALAZINE 20 MG/ML VIAL SLOW IVP PRN (23:11)
[2023-05-10] MEDS ORDERED: Labetalol HCl 100 MG/20 ML VIAL ONE (23:23)
[2023-05-10] MEDS: Labetalol HCl 100 MG/20 ML VIAL SLOW IVP PRN (23:27)
[2023-05-10 23:46] LABS: Troponin I 0.045 ng/mL (< 0.028)
[2023-05-11] MEDS: hydrALAZINE 20 MG/ML VIAL SLOW IVP PRN ×4 (00:02→17:06)
[2023-05-11] MEDS ORDERED: NIFEdipine XL 30 MG TAB PO SCH (00:45)
[2023-05-11] MEDS ORDERED: hydrALAZINE 25 MG TAB PO SCH (00:45)
[2023-05-11] MEDS ORDERED: niCARdipine 25 MG in Sodium Chloride 0.9% 250 ML 250 ML IVPB SCH (00:45)
[2023-05-11] MEDS ORDERED: Carvedilol 25 MG TAB PO SCH (00:45)
[2023-05-11] MEDS ORDERED: Acetaminophen 325 MG TAB ONE (00:46)
[2023-05-11] MEDS: Acetaminophen 325 MG TAB PO PRN ×6 (00:49→21:52)
[2023-05-11] MEDS ORDERED: traMADol HCl 50 MG TAB PO SCH (02:45)
[2023-05-11 02:58] VITALS: BMI 27.3
[2023-05-11 05:29] LABS: #Basophils 0.1 thou/uL (0.0-0.2); #Eosinphils 0.6 thou/uL (0.0-0.7); #Monocytes 0.7 thou/uL (0.11-0.59); #Neutrophils 7.6 thou/uL (1.40-6.50); %Basophils 1.3 % (0.0-1.0); %Eosinophils 5.4 % (0.0-10.0); %Lymphocytes 19.1 % (21.0-51.0); %Neutrophils 67.8 % (42.0-75.0); Hematocrit 29.1 % (42.0-52.0); Hemoglobin 10.1 g/dL (14.0-18.0); Mean Corpuscular HGB CONC 34.7 g/dL (32.0-36.0); Mean Corpuscular Hemoglobin 30.9 pg (27.0-31.0); Mean Platelet Volume 13.5 fL (7.4-10.4); Platelet Count 188 10x3/uL (130-400); RBC Distribution Width 12.2 % (11.5-14.5); Red Blood Cell (RBC) Count 3.27 mill/uL (4.70-6.10); White Blood Cell (WBC) Count 11.2 10x3/uL (4.8-10.8)
[2023-05-11 05:48] LABS: Anion Gap 13 mmol/L (10-20); BUN (Urea Nitrogen) 46 mg/dL (8.9-20.6); CK (CPK) 127 U/L (30-200); Calc. Creatinine Clearance 22 mL/min (70-130); Calcium 8.2 mg/dL (7.8-10.44); Carbon Dioxide 21 mmol/L (22-29); Chloride 107 mmol/L (98-107); Estimated GFR 13; Glucose 157 mg/dL (70-105); Magnesium 1.6 mg/dL (1.6-2.6); Potassium 3.1 mmol/L (3.5-5.1); Sodium 138 mmol/L (136-145)
[2023-05-11 05:52] LABS: Troponin I 0.038 ng/mL (< 0.028)
[2023-05-11] MEDS: Carvedilol 25 MG TAB PO SCH ×2 (08:44→16:42)
[2023-05-11] MEDS: hydrALAZINE 25 MG TAB PO SCH ×3 (08:44→21:53)
[2023-05-11] MEDS: NIFEdipine XL 30 MG TAB PO SCH ×2 (08:45→21:53)
[2023-05-11] MEDS: HumaLOG 300 UNITS/3 ML VIAL SC PRN ×2 (08:46→16:39)
[2023-05-11] MEDS ORDERED: Potassium Chloride 20 MEQ TAB PO SCH (09:00)
[2023-05-11] MEDS: EPOETIN ALFA-EPBX (ESRD) 10,000 UNITS/ML VIAL SC SCH ×2 (11:15→12:19)
[2023-05-11] MEDS ORDERED: Epoetin (ESRD) 10,000 UNITS/ML VIAL SC SCH (12:00)
[2023-05-11] MEDS ORDERED: Magnesium 2 GM/50 ML(in water) 2 GM in Premix Bag 1 BAG IVPB SCH (12:15)
[2023-05-11] MEDS ORDERED: Racepinephrine 2.25% 0.5 ML NEB ONE (12:22)
[2023-05-11] MEDS: Atorvastatin Calcium 40 MG TAB PO SCH (21:53)
[2023-05-12] MEDS ORDERED: HYDROcodone/Acetaminophen 5/325 mg Tablet PO SCH (00:45)
[2023-05-12 03:53] LABS: #Basophils 0.2 thou/uL (0.0-0.2); #Eosinphils 0.5 thou/uL (0.0-0.7); #Monocytes 0.7 thou/uL (0.11-0.59); #Neutrophils 6.3 thou/uL (1.40-6.50); %Basophils 1.5 % (0.0-1.0); %Eosinophils 4.7 % (0.0-10.0); %Lymphocytes 24.4 % (21.0-51.0); %Monocytes 6.5 % (0.0-10.0); %Neutrophils 62.6 % (42.0-75.0); Hematocrit 32.3 % (42.0-52.0); Mean Corpuscular HGB CONC 34.1 g/dL (32.0-36.0); Mean Platelet Volume 13.2 fL (7.4-10.4); Platelet Count 197 10x3/uL (130-400); RBC Distribution Width 12.4 % (11.5-14.5); Red Blood Cell (RBC) Count 3.55 mill/uL (4.70-6.10)
[2023-05-12 04:21] LABS: Anion Gap 12 mmol/L (10-20); BUN (Urea Nitrogen) 41 mg/dL (8.9-20.6); Calc. Creatinine Clearance 22 mL/min (70-130); Calcium 8.4 mg/dL (7.8-10.44); Carbon Dioxide 21 mmol/L (22-29); Chloride 110 mmol/L (98-107); Estimated GFR 13; Glucose 115 mg/dL (70-105); Potassium 3.6 mmol/L (3.5-5.1); Sodium 139 mmol/L (136-145)
[2023-05-12] MEDS: hydrALAZINE 20 MG/ML VIAL SLOW IVP PRN (05:13)
[2023-05-12] MEDS ORDERED: QUEtiapine 25 MG TAB PO SCH (05:15)
[2023-05-12] MEDS: NIFEdipine XL 30 MG TAB PO SCH (08:24)
[2023-05-12] MEDS: hydrALAZINE 25 MG TAB PO SCH ×3 (08:25→20:52)
[2023-05-12] MEDS: Carvedilol 25 MG TAB PO SCH ×2 (08:25→16:57)
[2023-05-12] MEDS: Labetalol HCl 100 MG/20 ML VIAL SLOW IVP PRN (12:52)
[2023-05-12] MEDS ORDERED: NIFEdipine XL 30 MG TAB PO SCH (13:00)
[2023-05-12] MEDS: Acetaminophen 325 MG TAB PO PRN (16:07)
[2023-05-12] MEDS: HumaLOG 300 UNITS/3 ML VIAL SC PRN (16:26)
[2023-05-12] MEDS: metroNIDAZOLE 250 MG TAB PO SCH (20:51)
[2023-05-12] MEDS: Atorvastatin Calcium 40 MG TAB PO SCH (20:51)
[2023-05-12] MEDS: traMADol HCl 50 MG TAB PO PRN (20:51)
[2023-05-12] MEDS ORDERED: Cefdinir 300 MG CAP PO SCH (21:00)
[2023-05-13 04:10] LABS: #Basophils 0.1 thou/uL (0.0-0.2); #Eosinphils 0.5 thou/uL (0.0-0.7); #Monocytes 0.8 thou/uL (0.11-0.59); #Neutrophils 6.4 thou/uL (1.40-6.50); %Basophils 1.3 % (0.0-1.0); %Lymphocytes 24.2 % (21.0-51.0); %Monocytes 7.2 % (0.0-10.0); %Neutrophils 61.8 % (42.0-75.0); Hematocrit 33.5 % (42.0-52.0); Hemoglobin 11.4 g/dL (14.0-18.0); Mean Corpuscular Hemoglobin 30.8 pg (27.0-31.0); Mean Corpuscular Volume 90.5 fl (78.0-98.0); Mean Platelet Volume 13.2 fL (7.4-10.4); Platelet Count 207 10x3/uL (130-400); RBC Distribution Width 12.5 % (11.5-14.5); White Blood Cell (WBC) Count 10.4 10x3/uL (4.8-10.8)
[2023-05-13 04:35] LABS: Anion Gap 11 mmol/L (10-20); BUN (Urea Nitrogen) 41 mg/dL (8.9-20.6); Calc. Creatinine Clearance 21 mL/min (70-130); Calcium 8.5 mg/dL (7.8-10.44); Carbon Dioxide 23 mmol/L (22-29); Chloride 109 mmol/L (98-107); Estimated GFR 13; Glucose 161 mg/dL (70-105); Potassium 3.5 mmol/L (3.5-5.1); Sodium 139 mmol/L (136-145)
[2023-05-13] MEDS: HumaLOG 300 UNITS/3 ML VIAL SC PRN (06:26)
[2023-05-13] MEDS: traMADol HCl 50 MG TAB PO PRN (06:29)
[2023-05-13] MEDS: Labetalol HCl 100 MG/20 ML VIAL SLOW IVP PRN (06:37)
[2023-05-13] MEDS: Carvedilol 25 MG TAB PO SCH (08:31)
[2023-05-13] MEDS: hydrALAZINE 25 MG TAB PO SCH ×2 (08:31→15:16)
[2023-05-13] MEDS: metroNIDAZOLE 250 MG TAB PO SCH ×2 (08:31→15:16)
[2023-05-13] MEDS ORDERED: NIFEdipine XL 60 MG TAB PO SCH (09:00)
[2023-05-13 13:20] VITALS: TEMP 97.3
[2023-05-13 16:54] VITALS: BP 120/70
== END 2023-05-13 15:59 | disposition home or self-care (01) | DRG 65 ==
LOC: ERS 18:33 → ERHOLD 20:57 → CCU 05-11 01:56 → IMCU/EMU 05-12 04:51
PROVIDERS: ADMIT Internal Medicine; ATTEND Internal Medicine
PROC: 4A10X4Z Monitoring of Central Nervous Electrical Activity, External Approach (ICD-10-PCS; principal; 2023-05-13)
DX: I63.9 Cerebral infarction, unspecified (principal); E87.20 Acidosis, unspecified; I69.351 Hemiplegia and hemiparesis following cerebral infarction affecting right dominant side; I16.1 Hypertensive emergency; N17.9 Acute kidney failure, unspecified; N18.5 Chronic kidney disease, stage 5; I13.2 Hypertensive heart and chronic kidney disease with heart failure and with stage 5 chronic kidney disease, or end stage renal disease; I50.9 Heart failure, unspecified; E78.5 Hyperlipidemia, unspecified; F41.9 Anxiety disorder, unspecified; F32.A Depression, unspecified; E11.22 Type 2 diabetes mellitus with diabetic chronic kidney disease; D63.1 Anemia in chronic kidney disease; E11.65 Type 2 diabetes mellitus with hyperglycemia; F14.10 Cocaine abuse, uncomplicated; K04.7 Periapical abscess without sinus; Z98.890 Other specified postprocedural states; Z87.891 Personal history of nicotine dependence; Z88.0 Allergy status to penicillin; I69.320 Aphasia following cerebral infarction; Z79.82 Long term (current) use of aspirin; Z79.899 Other long term (current) drug therapy; Z91.148 Patient's other noncompliance with medication regimen for other reason
CPT/HCPCS: 36415; 36416; 70450; 70496; 70498; 80048; 80053; 82550; 83735; 84484; 85025; 85610; 85730; 93005; 95711; 95819; 95957; J0360; J1815; J3475; J7050; Q4081; Q5105; Q9967

== ENCOUNTER 2023-05-13 20:16 | Inpatient (IN) | payer OTHER ==
[2023-05-13 22:40] LABS: #Basophils 0.2 thou/uL (0.0-0.2); #Eosinphils 0.4 thou/uL (0.0-0.7); #Neutrophils 16.8 thou/uL (1.40-6.50); %Basophils 0.8 % (0.0-1.0); %Lymphocytes 7.8 % (21.0-51.0); %Monocytes 5.1 % (0.0-10.0); %Neutrophils 83.8 % (42.0-75.0); Hematocrit 34.9 % (42.0-52.0); Hemoglobin 11.9 g/dL (14.0-18.0); Mean Corpuscular HGB CONC 34.1 g/dL (32.0-36.0); Mean Corpuscular Hemoglobin 31.2 pg (27.0-31.0); Mean Corpuscular Volume 91.4 fl (78.0-98.0); Mean Platelet Volume 13.4 fL (7.4-10.4); Platelet Count 217 10x3/uL (130-400); RBC Distribution Width 12.5 % (11.5-14.5); Red Blood Cell (RBC) Count 3.82 mill/uL (4.70-6.10)
[2023-05-13 22:51] LABS: Bilirubin Negative (Negative); Blood, Urine Negative (Negative); CAUTI Indications for Culture Dysuria,urgency,freq; Clarity Turbid (Clear); Glucose, Urine (Dipstick) 300 mg/dL (Negative); Ketone, Urine Negative (Negative); Leukocyte Negative Leu/uL (Negative); Nitrite Negative (Negative); Protein, Urine (Dipstick) 300 mg/dL (Neg-Trace); RBC/HPF 0-3 HPF (0-3); Specific Gravity, Urine 1.016 (1.002-1.036); Squamous Epithelial 0-3 HPF (0-3); Urobilinogen Normal mg/dL (Less than 2); WBC/HPF 0-3 HPF (0-3)
[2023-05-13 22:59] LABS: Bacteria/HPF Rare-Few HPF (None Seen)
[2023-05-13 23:00] LABS: ALT (SGPT) 16 U/L (8-55); AST (SGOT) 17 U/L (5-34); Albumin 4.3 g/dL (3.5-5.0); Alkaline Phosphatase 84 U/L (40-110); Anion Gap 16 mmol/L (10-20); BUN (Urea Nitrogen) 43 mg/dL (8.9-20.6); Bilirubin, Total 0.3 mg/dL (0.2-1.2); Calc. Creatinine Clearance 0 mL/min (70-130); Calcium 9.3 mg/dL (7.8-10.44); Carbon Dioxide 18 mmol/L (22-29); Chloride 105 mmol/L (98-107); Estimated GFR 12; Globulin 3.3 g/dL (2.4-3.5); Glucose 188 mg/dL (70-105); Protein, Total 7.6 g/dL (6.0-8.3); Sodium 135 mmol/L (136-145)
[2023-05-13 23:01] LABS: Urine Culture Reflex No No
[2023-05-14] MEDS ORDERED: Ondansetron PF 4 MG/2 ML Vial ONE (00:58)
[2023-05-14] MEDS ORDERED: Morphine 4 MG/ML VIAL ONE (00:58)
[2023-05-14] MEDS ORDERED: Morphine 4 MG/ML VIAL SLOW IVP PRN (03:08)
[2023-05-14] MEDS ORDERED: Ondansetron ODT 4 MG TAB SL PRN (03:15)
[2023-05-14] MEDS ORDERED: Acetaminophen 325 MG TAB PO PRN (03:15)
[2023-05-14] MEDS ORDERED: Ondansetron PF 4 MG/2 ML Vial IVP PRN (03:15)
[2023-05-14] MEDS ORDERED: Labetalol HCl 100 MG/20 ML VIAL SLOW IVP SCH (03:45)
[2023-05-14] MEDS ORDERED: Melatonin 3 MG TAB PO SCH (03:45)
[2023-05-14] MEDS: Sodium Chloride 0.9% 1,000 ML IV SCH ×2 (03:54→17:48)
[2023-05-14] MEDS ORDERED: Meropenem 1 GM in Sodium Chloride 0.9% 100 ML IVPB SCH (04:00)
[2023-05-14 04:24] VITALS: BMI 27.5
[2023-05-14 05:21] LABS: #Basophils 0.1 thou/uL (0.0-0.2); #Eosinphils 0.4 thou/uL (0.0-0.7); #Neutrophils 12.7 thou/uL (1.40-6.50); %Basophils 0.6 % (0.0-1.0); %Eosinophils 2.3 % (0.0-10.0); %Lymphocytes 9.8 % (21.0-51.0); %Monocytes 6.2 % (0.0-10.0); %Neutrophils 80.7 % (42.0-75.0); Hematocrit 30.2 % (42.0-52.0); Hemoglobin 10.2 g/dL (14.0-18.0); Mean Corpuscular HGB CONC 33.8 g/dL (32.0-36.0); Mean Corpuscular Hemoglobin 31.3 pg (27.0-31.0); Mean Corpuscular Volume 92.6 fl (78.0-98.0); Mean Platelet Volume 12.8 fL (7.4-10.4); Platelet Count 184 10x3/uL (130-400); RBC Distribution Width 12.6 % (11.5-14.5); Red Blood Cell (RBC) Count 3.26 mill/uL (4.70-6.10); White Blood Cell (WBC) Count 15.8 10x3/uL (4.8-10.8)
[2023-05-14] MEDS: Tamsulosin HCl 0.4 MG CAP PO SCH (10:19)
[2023-05-14] MEDS: Sodium Bicarbonate Tab 325 MG TAB PO SCH ×3 (10:19→20:49)
[2023-05-14] MEDS: Isosorbide Mononitrate 30 MG ER.TAB PO SCH (10:19)
[2023-05-14] MEDS: Calcitriol 0.25 MCG CAP PO SCH (10:20)
[2023-05-14] MEDS: Carvedilol 25 MG TAB PO SCH ×2 (10:20→16:15)
[2023-05-14] MEDS: hydrALAZINE 25 MG TAB PO SCH ×3 (10:20→20:49)
[2023-05-14] MEDS: NIFEdipine XL 30 MG ER.TAB PO SCH ×2 (10:21→20:49)
[2023-05-14] MEDS: Meropenem 500 MG in Sodium Chloride 0.9% 100 ML IVPB SCH ×2 (14:50→23:53)
[2023-05-14] MEDS: Senokot S 8.6-50 MG TAB PO PRN (16:15)
[2023-05-14] MEDS: Atorvastatin Calcium 40 MG TAB PO SCH (20:49)
[2023-05-15 06:55] LABS: #Basophils 0.1 thou/uL (0.0-0.2); #Eosinphils 0.4 thou/uL (0.0-0.7); #Monocytes 0.9 thou/uL (0.11-0.59); %Basophils 0.8 % (0.0-1.0); %Eosinophils 3.4 % (0.0-10.0); %Lymphocytes 14.7 % (21.0-51.0); %Monocytes 7.5 % (0.0-10.0); %Neutrophils 73.3 % (42.0-75.0); Hematocrit 29.9 % (42.0-52.0); Mean Corpuscular HGB CONC 33.4 g/dL (32.0-36.0); Mean Corpuscular Hemoglobin 31.2 pg (27.0-31.0); Mean Corpuscular Volume 93.1 fl (78.0-98.0); Mean Platelet Volume 13.3 fL (7.4-10.4); Platelet Count 183 10x3/uL (130-400); RBC Distribution Width 12.6 % (11.5-14.5); Red Blood Cell (RBC) Count 3.21 mill/uL (4.70-6.10); White Blood Cell (WBC) Count 12.3 10x3/uL (4.8-10.8)
[2023-05-15 07:26] LABS: Anion Gap 14 mmol/L (10-20); BUN (Urea Nitrogen) 37 mg/dL (8.9-20.6); Calc. Creatinine Clearance 20 mL/min (70-130); Calcium 8.4 mg/dL (7.8-10.44); Carbon Dioxide 21 mmol/L (22-29); Chloride 110 mmol/L (98-107); Estimated GFR 13; Glucose 133 mg/dL (70-105); Potassium 3.4 mmol/L (3.5-5.1); Sodium 142 mmol/L (136-145)
[2023-05-15] MEDS ORDERED: Tamsulosin HCl 0.4 MG CAP PO SCH (09:22)
[2023-05-15] MEDS ORDERED: NIFEdipine XL 30 MG ER.TAB PO SCH (09:22)
[2023-05-15] MEDS: Isosorbide Mononitrate 30 MG ER.TAB PO SCH (09:27)
[2023-05-15] MEDS: Sodium Bicarbonate Tab 325 MG TAB PO SCH ×3 (09:27→21:23)
[2023-05-15] MEDS: hydrALAZINE 25 MG TAB PO SCH ×3 (09:28→21:24)
[2023-05-15] MEDS: Carvedilol 25 MG TAB PO SCH ×2 (09:28→17:06)
[2023-05-15] MEDS: Calcitriol 0.25 MCG CAP PO SCH (09:28)
[2023-05-15] MEDS: Meropenem 500 MG in Sodium Chloride 0.9% 100 ML IVPB SCH (11:12)
[2023-05-15] MEDS: NIFEdipine XL 30 MG ER.TAB PO SCH ×2 (12:51→21:23)
[2023-05-15] MEDS: Tamsulosin HCl 0.4 MG CAP PO SCH (12:52)
[2023-05-15] MEDS ORDERED: HYDROcodone/Acetaminophen 5/325 mg Tablet PO SCH (16:15)
[2023-05-15] MEDS: Atorvastatin Calcium 40 MG TAB PO SCH (21:24)
[2023-05-16] MEDS: Meropenem 500 MG in Sodium Chloride 0.9% 100 ML IVPB SCH ×2 (00:24→11:51)
[2023-05-16 06:29] LABS: #Basophils 0.1 thou/uL (0.0-0.2); #Eosinphils 0.5 thou/uL (0.0-0.7); #Neutrophils 10.8 thou/uL (1.40-6.50); %Basophils 0.8 % (0.0-1.0); %Eosinophils 3.6 % (0.0-10.0); %Lymphocytes 13.4 % (21.0-51.0); %Monocytes 6.9 % (0.0-10.0); Hematocrit 32.3 % (42.0-52.0); Hemoglobin 10.7 g/dL (14.0-18.0); Mean Corpuscular HGB CONC 33.1 g/dL (32.0-36.0); Mean Corpuscular Volume 93.6 fl (78.0-98.0); Mean Platelet Volume 13.1 fL (7.4-10.4); Platelet Count 197 10x3/uL (130-400); RBC Distribution Width 12.6 % (11.5-14.5); Red Blood Cell (RBC) Count 3.45 mill/uL (4.70-6.10); White Blood Cell (WBC) Count 14.4 10x3/uL (4.8-10.8)
[2023-05-16 06:51] LABS: Anion Gap 14 mmol/L (10-20); BUN (Urea Nitrogen) 40 mg/dL (8.9-20.6); Calc. Creatinine Clearance 19 mL/min (70-130); Calcium 8.4 mg/dL (7.8-10.44); Carbon Dioxide 21 mmol/L (22-29); Chloride 109 mmol/L (98-107); Estimated GFR 12; Glucose 166 mg/dL (70-105); Potassium 3.6 mmol/L (3.5-5.1); Sodium 140 mmol/L (136-145)
[2023-05-16] MEDS: hydrALAZINE 25 MG TAB PO SCH ×3 (08:04→21:02)
[2023-05-16] MEDS: NIFEdipine XL 30 MG ER.TAB PO SCH ×2 (08:05→21:03)
[2023-05-16] MEDS: Sodium Bicarbonate Tab 325 MG TAB PO SCH ×3 (08:05→21:03)
[2023-05-16] MEDS: Tamsulosin HCl 0.4 MG CAP PO SCH (08:05)
[2023-05-16] MEDS: Isosorbide Mononitrate 30 MG ER.TAB PO SCH (08:06)
[2023-05-16] MEDS: Calcitriol 0.25 MCG CAP PO SCH (08:06)
[2023-05-16] MEDS: Carvedilol 25 MG TAB PO SCH ×2 (08:06→15:47)
[2023-05-16] MEDS ORDERED: hydrALAZINE 20 MG/ML VIAL SLOW IVP PRN (14:10)
[2023-05-16] MEDS: HYDROcodone/Acetaminophen 5/325 mg Tablet PO PRN (17:50)
[2023-05-16] MEDS: Atorvastatin Calcium 40 MG TAB PO SCH (21:03)
[2023-05-17] MEDS: Meropenem 500 MG in Sodium Chloride 0.9% 100 ML IVPB SCH ×3 (00:07→23:23)
[2023-05-17 05:39] LABS: #Basophils 0.1 thou/uL (0.0-0.2); #Eosinphils 0.6 thou/uL (0.0-0.7); #Monocytes 1.2 thou/uL (0.11-0.59); #Neutrophils 11.2 thou/uL (1.40-6.50); %Basophils 0.6 % (0.0-1.0); %Eosinophils 4.1 % (0.0-10.0); %Lymphocytes 15.8 % (21.0-51.0); %Monocytes 7.8 % (0.0-10.0); %Neutrophils 71.3 % (42.0-75.0); Hematocrit 30.9 % (42.0-52.0); Hemoglobin 10.4 g/dL (14.0-18.0); Mean Corpuscular HGB CONC 33.7 g/dL (32.0-36.0); Mean Corpuscular Hemoglobin 30.6 pg (27.0-31.0); Mean Corpuscular Volume 90.9 fl (78.0-98.0); Mean Platelet Volume 13.1 fL (7.4-10.4); Platelet Count 192 10x3/uL (130-400); RBC Distribution Width 12.4 % (11.5-14.5); White Blood Cell (WBC) Count 15.7 10x3/uL (4.8-10.8)
[2023-05-17 05:52] LABS: INR-International Normal Ratio 1.2; PTT 34.1 sec (22.9-36.1); Prothrombin Time 15.3 sec (12.0-14.7)
[2023-05-17 06:04] LABS: Anion Gap 15 mmol/L (10-20); BUN (Urea Nitrogen) 43 mg/dL (8.9-20.6); Calc. Creatinine Clearance 20 mL/min (70-130); Calcium 8.6 mg/dL (7.8-10.44); Carbon Dioxide 22 mmol/L (22-29); Chloride 106 mmol/L (98-107); Estimated GFR 13; Glucose 213 mg/dL (70-105); Potassium 3.5 mmol/L (3.5-5.1); Sodium 139 mmol/L (136-145)
[2023-05-17] MEDS: Sodium Bicarbonate Tab 325 MG TAB PO SCH ×3 (08:12→20:17)
[2023-05-17] MEDS: hydrALAZINE 25 MG TAB PO SCH ×3 (08:13→20:15)
[2023-05-17] MEDS: Tamsulosin HCl 0.4 MG CAP PO SCH (08:13)
[2023-05-17] MEDS: Carvedilol 25 MG TAB PO SCH ×2 (08:13→16:11)
[2023-05-17] MEDS: Calcitriol 0.25 MCG CAP PO SCH (08:13)
[2023-05-17] MEDS: NIFEdipine XL 30 MG ER.TAB PO SCH ×2 (08:13→20:18)
[2023-05-17] MEDS: Isosorbide Mononitrate 30 MG ER.TAB PO SCH (08:13)
[2023-05-17] MEDS: HYDROcodone/Acetaminophen 5/325 mg Tablet PO PRN ×2 (11:39→16:11)
[2023-05-17] MEDS: Atorvastatin Calcium 40 MG TAB PO SCH (20:18)
[2023-05-18 06:29] LABS: #Basophils 0.1 thou/uL (0.0-0.2); #Eosinphils 0.6 thou/uL (0.0-0.7); %Basophils 0.7 % (0.0-1.0); %Eosinophils 4.4 % (0.0-10.0); %Lymphocytes 14.9 % (21.0-51.0); %Monocytes 7.5 % (0.0-10.0); %Neutrophils 72.1 % (42.0-75.0); Hemoglobin 10.4 g/dL (14.0-18.0); Mean Corpuscular HGB CONC 33.5 g/dL (32.0-36.0); Mean Corpuscular Volume 92.3 fl (78.0-98.0); Platelet Count 180 10x3/uL (130-400); RBC Distribution Width 12.5 % (11.5-14.5); Red Blood Cell (RBC) Count 3.36 mill/uL (4.70-6.10); White Blood Cell (WBC) Count 13.8 10x3/uL (4.8-10.8)
[2023-05-18 07:27] LABS: Anion Gap 14 mmol/L (10-20); BUN (Urea Nitrogen) 42 mg/dL (8.9-20.6); Calc. Creatinine Clearance 20 mL/min (70-130); Calcium 8.4 mg/dL (7.8-10.44); Carbon Dioxide 22 mmol/L (22-29); Chloride 104 mmol/L (98-107); Estimated GFR 13; Glucose 182 mg/dL (70-105); Potassium 3.5 mmol/L (3.5-5.1); Sodium 136 mmol/L (136-145)
[2023-05-18] MEDS: Isosorbide Mononitrate 30 MG ER.TAB PO SCH (08:36)
[2023-05-18] MEDS: Sodium Bicarbonate Tab 325 MG TAB PO SCH ×3 (08:36→21:14)
[2023-05-18] MEDS: Tamsulosin HCl 0.4 MG CAP PO SCH (08:36)
[2023-05-18] MEDS: NIFEdipine XL 30 MG ER.TAB PO SCH ×2 (08:37→21:15)
[2023-05-18] MEDS: Carvedilol 25 MG TAB PO SCH ×2 (08:37→17:53)
[2023-05-18] MEDS: Calcitriol 0.25 MCG CAP PO SCH (08:37)
[2023-05-18] MEDS: hydrALAZINE 25 MG TAB PO SCH ×3 (08:37→21:15)
[2023-05-18] MEDS: HYDROcodone/Acetaminophen 5/325 mg Tablet PO PRN ×2 (08:41→21:14)
[2023-05-18] MEDS: Meropenem 500 MG in Sodium Chloride 0.9% 100 ML IVPB SCH ×2 (11:31→23:47)
[2023-05-18] MEDS: Senokot S 8.6-50 MG TAB PO PRN (11:37)
[2023-05-18] MEDS: Atorvastatin Calcium 40 MG TAB PO SCH (21:15)
[2023-05-19 05:45] LABS: #Basophils 0.1 thou/uL (0.0-0.2); #Eosinphils 0.7 thou/uL (0.0-0.7); #Neutrophils 9.7 thou/uL (1.40-6.50); %Basophils 0.7 % (0.0-1.0); %Eosinophils 4.9 % (0.0-10.0); %Lymphocytes 15.6 % (21.0-51.0); %Monocytes 7.4 % (0.0-10.0); %Neutrophils 71.1 % (42.0-75.0); Hematocrit 30.4 % (42.0-52.0); Hemoglobin 10.3 g/dL (14.0-18.0); Mean Corpuscular HGB CONC 33.9 g/dL (32.0-36.0); Mean Corpuscular Hemoglobin 30.7 pg (27.0-31.0); Mean Corpuscular Volume 90.5 fl (78.0-98.0); Mean Platelet Volume 13.4 fL (7.4-10.4); Platelet Count 181 10x3/uL (130-400); RBC Distribution Width 12.1 % (11.5-14.5); Red Blood Cell (RBC) Count 3.36 mill/uL (4.70-6.10); White Blood Cell (WBC) Count 13.6 10x3/uL (4.8-10.8)
[2023-05-19 06:13] LABS: Anion Gap 18 mmol/L (10-20); BUN (Urea Nitrogen) 46 mg/dL (8.9-20.6); Calc. Creatinine Clearance 19 mL/min (70-130); Calcium 8.3 mg/dL (7.8-10.44); Carbon Dioxide 19 mmol/L (22-29); Chloride 104 mmol/L (98-107); Estimated GFR 12; Glucose 174 mg/dL (70-105); Potassium 3.7 mmol/L (3.5-5.1); Sodium 137 mmol/L (136-145)
[2023-05-19] MEDS: NIFEdipine XL 30 MG ER.TAB PO SCH (09:40)
[2023-05-19] MEDS: Sodium Bicarbonate Tab 325 MG TAB PO SCH ×2 (09:40→14:49)
[2023-05-19] MEDS: hydrALAZINE 25 MG TAB PO SCH ×2 (09:40→14:49)
[2023-05-19] MEDS: Calcitriol 0.25 MCG CAP PO SCH (09:40)
[2023-05-19] MEDS: Tamsulosin HCl 0.4 MG CAP PO SCH (09:40)
[2023-05-19] MEDS: Isosorbide Mononitrate 30 MG ER.TAB PO SCH (09:40)
[2023-05-19] MEDS: Carvedilol 25 MG TAB PO SCH ×2 (09:40→16:39)
[2023-05-19] MEDS: Meropenem 500 MG in Sodium Chloride 0.9% 100 ML IVPB SCH (12:01)
[2023-05-19] MEDS: Senokot S 8.6-50 MG TAB PO PRN (14:48)
[2023-05-19 16:48] VITALS: BP 118/67; TEMP 98.4
== END 2023-05-19 17:05 | DRG 64 ==
LOC: ERS 20:16 → SJJU 05-14 01:29 → OBSVTOIN 05-16 10:22
PROVIDERS: ADMIT Internal Medicine Nephrology; ATTEND Hospitalist
PROC: 0T9B70Z Drainage of Bladder with Drainage Device, Via Natural or Artificial Opening (ICD-10-PCS; principal; 2023-05-16)
DX: I63.9 Cerebral infarction, unspecified (principal); N17.0 Acute kidney failure with tubular necrosis; N18.5 Chronic kidney disease, stage 5; I13.2 Hypertensive heart and chronic kidney disease with heart failure and with stage 5 chronic kidney disease, or end stage renal disease; E87.20 Acidosis, unspecified; I24.8 Other forms of acute ischemic heart disease; R33.9 Retention of urine, unspecified; E11.22 Type 2 diabetes mellitus with diabetic chronic kidney disease; E78.5 Hyperlipidemia, unspecified; F41.9 Anxiety disorder, unspecified; F32.A Depression, unspecified; Z51.5 Encounter for palliative care; Z87.891 Personal history of nicotine dependence; Z79.82 Long term (current) use of aspirin; Z79.899 Other long term (current) drug therapy; Z88.0 Allergy status to penicillin; D72.829 Elevated white blood cell count, unspecified; N13.9 Obstructive and reflux uropathy, unspecified; I50.9 Heart failure, unspecified; E87.6 Hypokalemia; Z82.49 Family history of ischemic heart disease and other diseases of the circulatory system; Z83.3 Family history of diabetes mellitus; Z98.890 Other specified postprocedural states; F14.10 Cocaine abuse, uncomplicated; E11.65 Type 2 diabetes mellitus with hyperglycemia; Z91.148 Patient's other noncompliance with medication regimen for other reason; D63.1 Anemia in chronic kidney disease
CPT/HCPCS: 36415; 51702; 70450; 70551; 71045; 74176; 76870; 80048; 81001; 83605; 83690; 85025; 85610; 85730; 87040; 87086; 93976; 96360; 96361; 96365; 96366; 96375; 96376; G0378; J2185; J2270; J2405; J3490; J7050

== ENCOUNTER 2023-06-20 17:40 | Emergency (ER) | payer OTHER ==
[2023-06-20] MEDS ORDERED: HYDROcodone/Acetaminophen 10/325 mg Tablet ONE (21:24)
== END 2023-06-20 21:40 | disposition home or self-care (01) ==
LOC: ERS 17:40
DX: K03.81 Cracked tooth (principal); I11.0 Hypertensive heart disease with heart failure; I50.9 Heart failure, unspecified; E11.9 Type 2 diabetes mellitus without complications; E78.5 Hyperlipidemia, unspecified; F17.210 Nicotine dependence, cigarettes, uncomplicated
CPT/HCPCS: 99282

== ENCOUNTER 2023-07-16 16:29 | Emergency (ER) | payer MEDICARE, OTHER ==
[2023-07-16 17:28] LABS: #Basophils 0.2 thou/uL (0.0-0.2); #Eosinphils 0.7 thou/uL (0.0-0.7); #Monocytes 0.4 thou/uL (0.11-0.59); #Neutrophils 6.4 thou/uL (1.40-6.50); %Basophils 1.8 % (0.0-1.0); %Eosinophils 6.9 % (0.0-10.0); %Lymphocytes 18.9 % (21.0-51.0); %Monocytes 4.7 % (0.0-10.0); %Neutrophils 67.2 % (42.0-75.0); Hematocrit 29.9 % (42.0-52.0); Hemoglobin 10.1 g/dL (14.0-18.0); Mean Corpuscular HGB CONC 33.8 g/dL (32.0-36.0); Mean Corpuscular Hemoglobin 30.7 pg (27.0-31.0); Mean Corpuscular Volume 90.9 fl (78.0-98.0); Mean Platelet Volume 12.3 fL (7.4-10.4); Platelet Count 227 10x3/uL (130-400); RBC Distribution Width 13.1 % (11.5-14.5); Red Blood Cell (RBC) Count 3.29 mill/uL (4.70-6.10); White Blood Cell (WBC) Count 9.5 10x3/uL (4.8-10.8)
[2023-07-16 17:51] LABS: ALT (SGPT) 12 U/L (8-55); AST (SGOT) 13 U/L (5-34); Alkaline Phosphatase 63 U/L (40-110); Anion Gap 16 mmol/L (10-20); BUN (Urea Nitrogen) 33 mg/dL (8.9-20.6); Bilirubin, Total 0.3 mg/dL (0.2-1.2); Calc. Creatinine Clearance 0 mL/min (70-130); Calcium 8.3 mg/dL (7.8-10.44); Carbon Dioxide 20 mmol/L (22-29); Chloride 99 mmol/L (98-107); Estimated GFR 17; Globulin 2.8 g/dL (2.4-3.5); Glucose 323 mg/dL (70-105); Potassium 4.5 mmol/L (3.5-5.1); Protein, Total 6.8 g/dL (6.0-8.3); Sodium 130 mmol/L (136-145)
[2023-07-16 18:07] LABS: Bacteria/HPF None Seen HPF (None Seen); Bilirubin Negative (Negative); Blood, Urine Negative (Negative); CAUTI Indications for Culture Dysuria,urgency,freq; Clarity Clear (Clear); Glucose, Urine (Dipstick) >=1000 mg/dL (Negative); Ketone, Urine Negative (Negative); Leukocyte 25 Leu/uL (Negative); Nitrite Negative (Negative); Protein, Urine (Dipstick) 100 mg/dL (Neg-Trace); RBC/HPF 0-3 HPF (0-3); Specific Gravity, Urine 1.006 (1.002-1.036); Squamous Epithelial None Seen HPF (0-3); Urobilinogen Normal mg/dL (Less than 2); pH, Urine 6.5 (5.0-9.0)
[2023-07-16 18:13] LABS: Urine Culture Reflex No No
== END 2023-07-16 19:14 | disposition home or self-care (01) ==
LOC: ERS 16:29
DX: R33.9 Retention of urine, unspecified (principal); R30.0 Dysuria; F17.210 Nicotine dependence, cigarettes, uncomplicated; E11.9 Type 2 diabetes mellitus without complications; I13.0 Hypertensive heart and chronic kidney disease with heart failure and stage 1 through stage 4 chronic kidney disease, or unspecified chronic kidney disease; E11.22 Type 2 diabetes mellitus with diabetic chronic kidney disease; N18.9 Chronic kidney disease, unspecified; I50.9 Heart failure, unspecified
CPT/HCPCS: 36415; 80053; 81001; 85025; 99283

== ENCOUNTER 2023-09-09 18:02 | Emergency (ER) | payer MEDICARE ==
[2023-09-09 19:45] LABS: Bacteria/HPF None Seen HPF (None Seen); Bilirubin Negative (Negative); Blood, Urine 1+ (Negative); CAUTI Indications for Culture Dysuria,urgency,freq; Clarity Clear (Clear); Glucose, Urine (Dipstick) 100 mg/dL (Negative); Ketone, Urine Negative (Negative); Leukocyte Negative Leu/uL (Negative); Nitrite Negative (Negative); Protein, Urine (Dipstick) 200 mg/dL (Neg-Trace); Specific Gravity, Urine 1.008 (1.002-1.036); Squamous Epithelial 0-3 HPF (0-3); Urobilinogen Normal mg/dL (Less than 2); WBC/HPF 0-3 HPF (0-3)
[2023-09-09 19:54] LABS: Urine Culture Reflex No No
== END 2023-09-09 20:11 | disposition home or self-care (01) ==
LOC: ERS 18:02
DX: R33.9 Retention of urine, unspecified (principal); I13.0 Hypertensive heart and chronic kidney disease with heart failure and stage 1 through stage 4 chronic kidney disease, or unspecified chronic kidney disease; E11.22 Type 2 diabetes mellitus with diabetic chronic kidney disease; N18.9 Chronic kidney disease, unspecified; E78.5 Hyperlipidemia, unspecified; I50.9 Heart failure, unspecified; F17.210 Nicotine dependence, cigarettes, uncomplicated; Z79.899 Other long term (current) drug therapy; Z79.84 Long term (current) use of oral hypoglycemic drugs; Z79.82 Long term (current) use of aspirin
CPT/HCPCS: 51798; 81001; 99283

== ENCOUNTER 2024-01-19 10:10 | Emergency (ER) | payer MEDICARE, MEDICAID ==
[2024-01-19] MEDS ORDERED: Ketorolac Tromethamine 30 MG (1 mL) VIAL ONE (10:53)
[2024-01-19] MEDS ORDERED: Ampicillin/Sulbactam 3 GM VIAL ONE (10:53)
[2024-01-19 11:16] LABS: #Basophils 0.09 10x3/uL (0.0-0.2); %Basophils 0.5 % (0.0-1.0); %Eosinophils 0.8 % (0.0-10.0); %Lymphocytes 11.8 % (21.0-51.0); %Monocytes 7.1 % (0.0-10.0); %Neutrophils 79.1 % (42.0-75.0); Hematocrit 29.9 % (42.0-52.0); Hemoglobin 10.4 g/dL (14.0-18.0); Mean Corpuscular HGB CONC 34.8 g/dL (32.0-36.0); Mean Corpuscular Hemoglobin 32.5 pg (27.0-31.0); Mean Corpuscular Volume 93.4 fL (78.0-98.0); Mean Platelet Volume 12.1 fL (7.4-10.4); Platelet Count 211 10x3/uL (130-400)
[2024-01-19 11:34] LABS: ALT (SGPT) 7 U/L (8-55); AST (SGOT) 6 U/L (5-34); Albumin 3.5 g/dL (3.5-5.0); Alkaline Phosphatase 55 U/L (40-110); Anion Gap 15 mmol/L (10-20); BUN (Urea Nitrogen) 62 mg/dL (8.9-20.6); Bilirubin, Total 0.5 mg/dL (0.2-1.2); CRP,High Sensitivity (Inhouse) 11.78 mg/dL (< or = 0.5); Calc. Creatinine Clearance 0 mL/min (70-130); Carbon Dioxide 20 mmol/L (22-29); Chloride 107 mmol/L (98-107); Estimated GFR 10; Globulin 4.1 g/dL (2.4-3.5); Glucose 177 mg/dL (70-105); Potassium 3.6 mmol/L (3.5-5.1); Protein, Total 7.6 g/dL (6.0-8.3); Sodium 138 mmol/L (136-145)
[2024-01-19 12:47] LABS: Bacteria/HPF None Seen HPF (None Seen); Bilirubin Negative (Negative); Blood, Urine 1+ (Negative); CAUTI Indications for Culture Fever or rigors; Clarity Clear (Clear); Glucose, Urine (Dipstick) 300 mg/dL (Negative); Ketone, Urine Negative (Negative); Leukocyte Negative Leu/uL (Negative); Nitrite Negative (Negative); Protein, Urine (Dipstick) 300 mg/dL (Neg-Trace); RBC/HPF 0-3 HPF (0-3); Squamous Epithelial 0-3 HPF (0-3); Urobilinogen Normal mg/dL (Less than 2); WBC/HPF 0-3 HPF (0-3); pH, Urine 6.5 (5.0-9.0)
[2024-01-19 12:48] LABS: Urine Culture Reflex No No
== END 2024-01-19 14:22 ==
LOC: ERS 10:10
DX: L03.211 Cellulitis of face (principal); I13.0 Hypertensive heart and chronic kidney disease with heart failure and stage 1 through stage 4 chronic kidney disease, or unspecified chronic kidney disease; E11.22 Type 2 diabetes mellitus with diabetic chronic kidney disease; N18.9 Chronic kidney disease, unspecified; I50.9 Heart failure, unspecified; Z86.73 Personal history of transient ischemic attack (TIA), and cerebral infarction without residual deficits; Z55.0 Illiteracy and low-level literacy
CPT/HCPCS: 36415; 70486; 80053; 81001; 83605; 84145; 85025; 86141; 87040; 96365; 96375; J0295; J1885

== ENCOUNTER 2024-02-18 16:35 | Inpatient (IN) | payer MEDICARE, MEDICAID ==
[2024-02-18] MEDS ORDERED: Glucagon 1 MG/ML KIT IM PRN (21:36)
[2024-02-18] MEDS ORDERED: Dextrose 50% Abboject 50 ML SYRINGE SLOW IVP PRN (21:36)
[2024-02-18] MEDS ORDERED: HumaLOG 300 UNITS/3 ML VIAL SC PRN (21:36)
[2024-02-18] MEDS ORDERED: Dextrose 5% in Water 1,000 ML IV PRN (21:36)
[2024-02-18] MEDS: Morphine 2 MG/ML VIAL SLOW IVP PRN (21:58)
[2024-02-18 22:24] VITALS: BMI 23.9
[2024-02-18] MEDS ORDERED: Vancomycin Dose by Levels Sliding Scale (Wt 71-99) FS SCH (22:45)
[2024-02-19] MEDS: Lactated Ringer's 1,000 ML IV SCH (01:45)
[2024-02-19] MEDS: Acetaminophen 325 MG TAB PO PRN (01:46)
[2024-02-19 04:46] LABS: Anion Gap 14 mmol/L (10-20); BUN (Urea Nitrogen) 60 mg/dL (8.9-20.6); Calc. Creatinine Clearance 14 mL/min (70-130); Calcium 8.1 mg/dL (7.8-10.44); Carbon Dioxide 16 mmol/L (22-29); Chloride 113 mmol/L (98-107); Estimated GFR 9; Glucose 157 mg/dL (70-105); Potassium 3.4 mmol/L (3.5-5.1); Sodium 140 mmol/L (136-145)
[2024-02-19 04:50] LABS: #Basophils 0.06 10x3/uL (0.0-0.2); %Basophils 0.4 % (0.0-1.0); %Eosinophils 3.1 % (0.0-10.0); %Lymphocytes 13.8 % (21.0-51.0); %Monocytes 9.6 % (0.0-10.0); %Neutrophils 72.6 % (42.0-75.0); Hematocrit 23.4 % (42.0-52.0); Hemoglobin 7.9 g/dL (14.0-18.0); Mean Corpuscular HGB CONC 33.8 g/dL (32.0-36.0); Mean Corpuscular Hemoglobin 32.6 pg (27.0-31.0); Mean Corpuscular Volume 96.7 fL (78.0-98.0); Mean Platelet Volume 13.2 fL (7.4-10.4); Platelet Count 160 10x3/uL (130-400); RBC Distribution Width 12.8 % (11.5-14.5); Red Blood Cell (RBC) Count 2.42 mill/uL (4.70-6.10)
[2024-02-19] MEDS: Carvedilol 25 MG TAB PO SCH (09:11)
[2024-02-19] MEDS: Tamsulosin HCl 0.4 MG CAP PO SCH (09:11)
[2024-02-19] MEDS: hydrALAZINE 25 MG TAB PO SCH (09:11)
[2024-02-19] MEDS: Heparin 5,000 UNITS/ML VIAL SC SCH (09:11)
[2024-02-19] MEDS: NIFEdipine XL 30 MG ER.TAB PO SCH (09:11)
[2024-02-19] MEDS: Pantoprazole DR 40 MG TAB PO SCH (09:11)
[2024-02-19] MEDS: Sodium Bicarbonate Tab 325 MG TAB PO SCH (09:17)
[2024-02-19] MEDS: HumaLOG 300 UNITS/3 ML VIAL SC PRN (11:45)
[2024-02-19 15:32] LABS: Vancomycin, Trough 19.4 ug/mL
[2024-02-19] MEDS: Vancomycin HCl 500 MG in Sodium Chloride 0.9% 100 ML IV SCH (17:35)
[2024-02-20 08:34] LABS: Anion Gap 16 mmol/L (10-20); BUN (Urea Nitrogen) 55 mg/dL (8.9-20.6); Calc. Creatinine Clearance 14 mL/min (70-130); Calcium 8.3 mg/dL (7.8-10.44); Carbon Dioxide 14 mmol/L (22-29); Chloride 111 mmol/L (98-107); Estimated GFR 10; Glucose 125 mg/dL (70-105); Potassium 3.6 mmol/L (3.5-5.1); Sodium 137 mmol/L (136-145)
[2024-02-20 08:38] LABS: #Basophils 0.06 10x3/uL (0.0-0.2); %Basophils 0.5 % (0.0-1.0); %Eosinophils 3.1 % (0.0-10.0); %Lymphocytes 11.9 % (21.0-51.0); %Monocytes 8.1 % (0.0-10.0); %Neutrophils 75.9 % (42.0-75.0); Hematocrit 25.6 % (42.0-52.0); Hemoglobin 8.5 g/dL (14.0-18.0); Mean Corpuscular HGB CONC 33.2 g/dL (32.0-36.0); Mean Corpuscular Hemoglobin 32.4 pg (27.0-31.0); Mean Corpuscular Volume 97.7 fL (78.0-98.0); Mean Platelet Volume 13.3 fL (7.4-10.4); Platelet Count 195 10x3/uL (130-400); RBC Distribution Width 13.1 % (11.5-14.5); Red Blood Cell (RBC) Count 2.62 mill/uL (4.70-6.10)
[2024-02-20] MEDS ORDERED: Epoetin (ESRD) 10,000 UNITS/ML VIAL SC SCH (09:00)
[2024-02-20] MEDS: Sodium Bicarbonate Tab 325 MG TAB PO SCH (09:13)
[2024-02-20] MEDS: EPOETIN ALFA-EPBX (ESRD) 10,000 UNITS/ML VIAL SC SCH (13:01)
[2024-02-20 16:31] LABS: Vancomycin, Trough 20.2 ug/mL
[2024-02-20] MEDS: Polyethylene Glycol 3350 17 GM Packet PO PRN (16:38)
[2024-02-20 18:59] LABS: Anion Gap 18 mmol/L (10-20); BUN (Urea Nitrogen) 55 mg/dL (8.9-20.6); Calc. Creatinine Clearance 14 mL/min (70-130); Carbon Dioxide 14 mmol/L (22-29); Chloride 109 mmol/L (98-107); Estimated GFR 10; Glucose 162 mg/dL (70-105); Potassium 3.7 mmol/L (3.5-5.1); Sodium 137 mmol/L (136-145)
[2024-02-20] MEDS: Artificial Tear Ophth Sol 15 ML BOT EA EYE PRN (20:00)
[2024-02-20] MEDS: traMADol HCl 50 MG TAB PO PRN (20:01)
[2024-02-21 05:39] LABS: #Basophils 0.03 10x3/uL (0.0-0.2); %Basophils 0.2 % (0.0-1.0); %Eosinophils 2.4 % (0.0-10.0); %Lymphocytes 11.1 % (21.0-51.0); %Monocytes 9.6 % (0.0-10.0); %Neutrophils 76.1 % (42.0-75.0); Hematocrit 24.2 % (42.0-52.0); Hemoglobin 8.1 g/dL (14.0-18.0); Mean Corpuscular HGB CONC 33.5 g/dL (32.0-36.0); Mean Corpuscular Hemoglobin 32.1 pg (27.0-31.0); Platelet Count 204 10x3/uL (130-400); Red Blood Cell (RBC) Count 2.52 mill/uL (4.70-6.10)
[2024-02-21 05:52] LABS: Anion Gap 14 mmol/L (10-20); BUN (Urea Nitrogen) 52 mg/dL (8.9-20.6); Calc. Creatinine Clearance 14 mL/min (70-130); Calcium 8.1 mg/dL (7.8-10.44); Carbon Dioxide 18 mmol/L (22-29); Chloride 108 mmol/L (98-107); Estimated GFR 10; Glucose 147 mg/dL (70-105); Potassium 3.6 mmol/L (3.5-5.1); Sodium 136 mmol/L (136-145)
[2024-02-21] MEDS: Tuberculin PPD 0.1 ML SYRINGE (10 TEST VIAL) I-DERMAL SCH (09:19)
[2024-02-21 14:42] LABS: HBSAB Concentration Less than 8.00 mIU/mL; HBsAg Index 0.36 S/CO (0-0.99); Hep B Core Total Ab NONREACTIVE (NonReactive); Hep B Core Total Index 0.18 S/CO (0-0.79); Hep B Surf AB NONREACTIVE (NonReactive); Hep B Surf Ag NONREACTIVE S/CO (NonReactive); Hep C IgG Ab Reflex HepC Qnt S/CO (NonReactive); Hep C Index 9.11 S/CO (0-0.79)
[2024-02-21 19:17] LABS: Vancomycin, Trough 14.2 ug/mL
[2024-02-21] MEDS: Vancomycin HCl 750 MG in Sodium Chloride 0.9% 250 ML 250 ML IVPB SCH (23:25)
[2024-02-22 09:12] LABS: #Basophils 0.07 10x3/uL (0.0-0.2); %Basophils 0.5 % (0.0-1.0); %Monocytes 10.9 % (0.0-10.0); %Neutrophils 72.5 % (42.0-75.0); Hematocrit 25.3 % (42.0-52.0); Hemoglobin 8.3 g/dL (14.0-18.0); Mean Corpuscular HGB CONC 32.8 g/dL (32.0-36.0); Mean Corpuscular Hemoglobin 32.2 pg (27.0-31.0); Mean Corpuscular Volume 98.1 fL (78.0-98.0); Platelet Count 226 10x3/uL (130-400); RBC Distribution Width 13.2 % (11.5-14.5); Red Blood Cell (RBC) Count 2.58 mill/uL (4.70-6.10)
[2024-02-22 10:00] LABS: Anion Gap 18 mmol/L (10-20); BUN (Urea Nitrogen) 51 mg/dL (8.9-20.6); Calc. Creatinine Clearance 14 mL/min (70-130); Calcium 8.3 mg/dL (7.8-10.44); Carbon Dioxide 16 mmol/L (22-29); Chloride 108 mmol/L (98-107); Estimated GFR 10; Glucose 138 mg/dL (70-105); Potassium 3.8 mmol/L (3.5-5.1); Sodium 138 mmol/L (136-145)
[2024-02-22] MEDS: cefTRIAXone\\ROCEPHIN 2 GM in Sodium Chloride 0.9% 100 ML IVPB SCH (16:50)
[2024-02-22 16:56] LABS: HBCM Index 0.06 S/CO (0-0.79); HBsAg Index 0.27 S/CO (0-0.99); Hep B Surf Ag NONREACTIVE S/CO (NonReactive); Hep C IgG Ab Reflex HepC Qnt S/CO (NonReactive); Hep C Index 8.74 S/CO (0-0.79); Hepatitis B Core IgM Abs NONREACTIVE S/CO (NonReactive)
[2024-02-22 17:03] LABS: Anion Gap 15 mmol/L (10-20); BUN (Urea Nitrogen) 50 mg/dL (8.9-20.6); Calc. Creatinine Clearance 14 mL/min (70-130); Calcium 7.7 mg/dL (7.8-10.44); Carbon Dioxide 19 mmol/L (22-29); Chloride 109 mmol/L (98-107); Estimated GFR 10; Glucose 191 mg/dL (70-105); Potassium 3.9 mmol/L (3.5-5.1); Sodium 139 mmol/L (136-145)
[2024-02-22] MEDS: Sodium Bicarbonate 150 MEQ in Dextrose 5% in Water 1,000 ML IV SCH (17:59)
[2024-02-22 20:54] LABS: Vancomycin, Trough 19.9 ug/mL
[2024-02-22] MEDS: Vancomycin HCl 500 MG in Sodium Chloride 0.9% 100 ML IV SCH (23:49)
[2024-02-23] MEDS ORDERED: READ PPD TEST SITE PO SCH (07:30)
[2024-02-23 08:28] LABS: Anion Gap 13 mmol/L (10-20); BUN (Urea Nitrogen) 46 mg/dL (8.9-20.6); Calc. Creatinine Clearance 14 mL/min (70-130); Calcium 7.9 mg/dL (7.8-10.44); Carbon Dioxide 20 mmol/L (22-29); Chloride 110 mmol/L (98-107); Estimated GFR 10; Glucose 153 mg/dL (70-105); Potassium 3.5 mmol/L (3.5-5.1); Sodium 139 mmol/L (136-145)
[2024-02-23] MEDS ORDERED: Heparin 10,000 UNITS/ 10 ML VIAL ONE ×3 (12:09→14:20)
[2024-02-23] MEDS ORDERED: PROPOFOL 40 ML ONE (14:14)
[2024-02-23] MEDS ORDERED: fentaNYL 50 mcg/mL 1 mL Vial ONE (14:14)
[2024-02-23] MEDS ORDERED: EPINEPHrine 1 MG/ML VIAL ONE (14:20)
[2024-02-23] MEDS ORDERED: Lidocaine 2% PF 5 ML VIAL ONE (14:21)
[2024-02-23] MEDS ORDERED: Bupivacaine PF 0.5% 30 ML VIAL ONE (14:21)
[2024-02-23] MEDS ORDERED: Lidocaine 2% 6 ML (Jelly) SYR ONE (14:59)
[2024-02-23] MEDS ORDERED: Ondansetron PF 4 MG/2 ML Vial ONE (15:01)
[2024-02-23 23:19] LABS: Vancomycin, Trough 16.4 ug/mL
[2024-02-24] MEDS: Vancomycin HCl 500 MG in Sodium Chloride 0.9% 100 ML IV SCH (05:29)
[2024-02-24 06:11] LABS: Anion Gap 16 mmol/L (10-20); BUN (Urea Nitrogen) 31 mg/dL (8.9-20.6); Calc. Creatinine Clearance 20 mL/min (70-130); Calcium 7.9 mg/dL (7.8-10.44); Carbon Dioxide 22 mmol/L (22-29); Chloride 105 mmol/L (98-107); Estimated GFR 15; Glucose 122 mg/dL (70-105); Potassium 3.7 mmol/L (3.5-5.1); Sodium 139 mmol/L (136-145)
[2024-02-24] MEDS ORDERED: Epoetin (ESRD) 10,000 UNITS/ML VIAL SC SCH (12:00)
[2024-02-24 12:47] VITALS: BMI 23.9
[2024-02-24] MEDS ORDERED: Heparin 5,000 UNITS/ML VIAL ONE (13:35)
[2024-02-24] MEDS ORDERED: EPINEPHrine 1 MG/ML VIAL ONE (13:35)
[2024-02-24] MEDS ORDERED: Protamine Sulfate 50 MG/5 ML VIAL ONE (13:35)
[2024-02-24] MEDS ORDERED: Bupivacaine PF 0.5% 30 ML VIAL ONE (13:35)
[2024-02-24] MEDS ORDERED: PROPOFOL 20 ML ONE ×2 (13:39→14:16)
[2024-02-24] MEDS ORDERED: Dexamethasone 20 MG/5 ML VIAL ONE (14:14)
[2024-02-24] MEDS ORDERED: fentaNYL 50 mcg/mL 1 mL Vial ONE (14:25)
[2024-02-24] MEDS ORDERED: fentaNYL PF 100 MCG/2 ML SYRINGE ONE (15:02)
[2024-02-24] MEDS: EPOETIN ALFA-EPBX (ESRD) 10,000 UNITS/ML VIAL SC SCH (17:57)
[2024-02-24] MEDS: Amlodipine 10 MG TAB PO SCH (17:57)
[2024-02-24] MEDS ORDERED: Insulin Lispro 100 UNIT/ML 10 ML VIAL SC PRN ×2 (21:19→21:20)
[2024-02-25] MEDS: Amlodipine 10 MG TAB PO SCH (08:20)
[2024-02-25 09:21] LABS: Vancomycin, Trough 14.4 ug/mL
[2024-02-25] MEDS ORDERED: Vancomycin Diaylsis Sliding Scale (Wt 71-99) FS SCH (10:00)
[2024-02-25] MEDS: Vancomycin 1 GM in Premix 1 BAG IVPB SCH (10:10)
[2024-02-26 10:25] LABS: #Basophils 0.06 10x3/uL (0.0-0.2); %Basophils 0.4 % (0.0-1.0); %Eosinophils 3.4 % (0.0-10.0); %Lymphocytes 14.3 % (21.0-51.0); %Monocytes 6.7 % (0.0-10.0); %Neutrophils 71.1 % (42.0-75.0); Hematocrit 25.1 % (42.0-52.0); Hemoglobin 8.2 g/dL (14.0-18.0); Mean Corpuscular HGB CONC 32.7 g/dL (32.0-36.0); Mean Corpuscular Hemoglobin 31.9 pg (27.0-31.0); Mean Corpuscular Volume 97.7 fL (78.0-98.0); Platelet Count 259 10x3/uL (130-400); RBC Distribution Width 13.7 % (11.5-14.5); Red Blood Cell (RBC) Count 2.57 mill/uL (4.70-6.10)
[2024-02-26 10:32] LABS: Anion Gap 14 mmol/L (10-20); BUN (Urea Nitrogen) 32 mg/dL (8.9-20.6); Calc. Creatinine Clearance 19 mL/min (70-130); Calcium 7.7 mg/dL (7.8-10.44); Carbon Dioxide 22 mmol/L (22-29); Chloride 107 mmol/L (98-107); Estimated GFR 14; Glucose 150 mg/dL (70-105); Potassium 3.4 mmol/L (3.5-5.1); Sodium 140 mmol/L (136-145)
[2024-02-26] MEDS: Potassium Chloride 20 MEQ TAB PO SCH (15:11)
[2024-02-26] MEDS: Losartan 25 MG TAB PO SCH (15:11)
[2024-02-27] MEDS: NIFEdipine XL 60 MG ER.TAB PO SCH (09:41)
[2024-02-27] MEDS: Losartan 25 MG TAB PO SCH (09:41)
[2024-02-27 12:54] LABS: %Basophils 0.9 % (0.0-1.0); %Lymphocytes 13.5 % (21.0-51.0); %Monocytes 6.1 % (0.0-10.0); %Neutrophils 73.4 % (42.0-75.0); Hematocrit 25.5 % (42.0-52.0); Hemoglobin 8.4 g/dL (14.0-18.0); Mean Corpuscular HGB CONC 32.9 g/dL (32.0-36.0); Mean Corpuscular Hemoglobin 31.7 pg (27.0-31.0); Mean Corpuscular Volume 96.2 fL (78.0-98.0); Mean Platelet Volume 12.1 fL (7.4-10.4); Platelet Count 253 10x3/uL (130-400); RBC Distribution Width 13.7 % (11.5-14.5); Red Blood Cell (RBC) Count 2.65 mill/uL (4.70-6.10)
[2024-02-27 13:29] LABS: Potassium 3.7 mmol/L (3.5-5.1)
[2024-02-28 07:29] VITALS: TEMP 98.6
[2024-02-28 16:22] VITALS: BP 136/74
[2024-03-01] MEDS ORDERED: Ergocalciferol 1.25 MG(50,000 UNITS) CAP PO SCH (09:00)
== END 2024-02-28 16:34 | DRG 570 ==
LOC: 2NO 16:35 → T4-B 02-19 17:33
PROVIDERS: ADMIT Family Medicine; ATTEND Internal Medicine
PROC: 0JH60XZ Insertion of Tunneled Vascular Access Device into Chest Subcutaneous Tissue and Fascia, Open Approach (ICD-10-PCS; principal; 2024-02-23)
PROC: 0JBL0ZZ Excision of Right Upper Leg Subcutaneous Tissue and Fascia, Open Approach (ICD-10-PCS; 2024-02-23)
PROC: 02HV33Z Insertion of Infusion Device into Superior Vena Cava, Percutaneous Approach (ICD-10-PCS; 2024-02-23)
PROC: B518ZZA Fluoroscopy of Superior Vena Cava, Guidance (ICD-10-PCS; 2024-02-23)
PROC: B548ZZA Ultrasonography of Superior Vena Cava, Guidance (ICD-10-PCS; 2024-02-23)
PROC: 5A1D70Z Performance of Urinary Filtration, Intermittent, Less than 6 Hours Per Day (ICD-10-PCS; 2024-02-23)
PROC: 03170ZD Bypass Right Brachial Artery to Upper Arm Vein, Open Approach (ICD-10-PCS; 2024-02-24)
DX: L03.317 Cellulitis of buttock (principal); N18.6 End stage renal disease; I12.0 Hypertensive chronic kidney disease with stage 5 chronic kidney disease or end stage renal disease; I69.351 Hemiplegia and hemiparesis following cerebral infarction affecting right dominant side; N17.9 Acute kidney failure, unspecified; E87.20 Acidosis, unspecified; L02.225 Furuncle of perineum; E78.5 Hyperlipidemia, unspecified; F41.9 Anxiety disorder, unspecified; E87.6 Hypokalemia; D64.9 Anemia, unspecified; K59.00 Constipation, unspecified; I69.320 Aphasia following cerebral infarction; E55.9 Vitamin D deficiency, unspecified; E11.22 Type 2 diabetes mellitus with diabetic chronic kidney disease; L72.9 Follicular cyst of the skin and subcutaneous tissue, unspecified; Z79.82 Long term (current) use of aspirin; Z79.899 Other long term (current) drug therapy; Z79.4 Long term (current) use of insulin; Z88.0 Allergy status to penicillin
CPT/HCPCS: 36415; 36416; 54700; 71045; 74176; 80048; 80053; 80202; 82306; 82728; 83540; 83550; 83605; 83970; 84132; 85025; 86141; 86580; 86704; 86705; 86706; 86803; 87040; 87081; 87340; 88304; 93970; 96374; 96375; A6258; C1750; C1751; J0171; J0665; J0696; J1100; J1644; J1885; J2001; J2272; J2405; J2704; J2720; J3010; J3370; J3370-JW; J3490; J7050; J7070; J7120; Q5105

== ENCOUNTER 2024-07-17 04:53 | Inpatient (IN) | payer MEDICARE, MEDICAID ==
[2024-07-17] MEDS ORDERED: Ondansetron PF 4 MG/2 ML Vial ONE (04:59)
[2024-07-17 05:22] LABS: #Basophils 0.17 10x3/uL (0.0-0.2); %Basophils 0.9 % (0.0-1.0); %Eosinophils 5.2 % (0.0-10.0); %Lymphocytes 7.9 % (21.0-51.0); %Monocytes 4.9 % (0.0-10.0); %Neutrophils 80.6 % (42.0-75.0); Hematocrit 33.3 % (42.0-52.0); Mean Corpuscular Hemoglobin 33.6 pg (27.0-31.0); Mean Corpuscular Volume 93.3 fL (78.0-98.0); Mean Platelet Volume 12.7 fL (7.4-10.4); Platelet Count 187 10x3/uL (130-400); RBC Distribution Width 13.2 % (11.5-14.5); Red Blood Cell (RBC) Count 3.57 mill/uL (4.70-6.10)
[2024-07-17 05:29] LABS: Actual Bicarbonate (HCO3v) 24.3 mEq/L (22-28); Analyzer IN Cardio ER; Base Excess -1.9 mEq/L (-2.0 to +3.0); Calcium, Ionized (venous) 1.06 mmol/L (1.16-1.32); Chloride (VBG) 89 mmol/L (98-106); Hematocrit-VBG 37 % (42.0-52.0); Hemoglobin (Hb) 12.7 g/dL (13.1-17.2); Sodium 128 mmol/L (133-146); pH (venous) 7.332 (7.32-7.43)
[2024-07-17] MEDS ORDERED: cefTRIAXone (ROCEPHIN) 2 GM VIAL ONE (05:44)
[2024-07-17] MEDS ORDERED: Sodium Chloride 0.9% 100 ML ONE (05:44)
[2024-07-17] MEDS ORDERED: Azithromycin 500 MG VIAL ONE (05:44)
[2024-07-17 05:48] LABS: ALT (SGPT) 20 U/L (8-55); AST (SGOT) 26 U/L (5-34); Albumin 3.6 g/dL (3.5-5.0); Alkaline Phosphatase 75 U/L (40-110); Anion Gap 16 mmol/L (10-20); BUN (Urea Nitrogen) 60 mg/dL (8.4-25.7); Bilirubin, Total 0.4 mg/dL (0.2-1.2); Calc. Creatinine Clearance 0 mL/min (70-130); Calcium 8.3 mg/dL (7.8-10.44); Carbon Dioxide 21 mmol/L (22-29); Chloride 93 mmol/L (98-107); Estimated GFR 11; Globulin 3.4 g/dL (2.4-3.5); Glucose 207 mg/dL (70-105); Potassium 3.9 mmol/L (3.5-5.1); Sodium 126 mmol/L (136-145)
[2024-07-17 05:52] LABS: Troponin I 0.046 ng/mL (< 0.028)
[2024-07-17] MEDS ORDERED: Ondansetron ODT 4 MG TAB SL PRN (07:00)
[2024-07-17] MEDS ORDERED: Ondansetron PF 4 MG/2 ML Vial IVP PRN (07:00)
[2024-07-17] MEDS ORDERED: metroNIDAZOLE 500 MG (100 mL) BAG ONE (07:43)
[2024-07-17] MEDS ORDERED: Dextrose 50% Abboject 50 ML SYRINGE SLOW IVP PRN (08:10)
[2024-07-17] MEDS ORDERED: Dextrose 5% in Water 1,000 ML IV PRN (08:10)
[2024-07-17] MEDS ORDERED: Glucagon 1 MG/ML KIT IM PRN (08:10)
[2024-07-17 09:37] LABS: Troponin I 0.041 ng/mL (< 0.028)
[2024-07-17] MEDS: Heparin 5,000 UNITS/ML VIAL SC SCH (13:13)
[2024-07-17 14:35] LABS: HBSAB Concentration Less than 8.00 mIU/mL; HBsAg Index 0.32 S/CO (0-0.99); Hep B Core Total Ab NONREACTIVE (NonReactive); Hep B Surf AB NONREACTIVE (NonReactive); Hep B Surf Ag NONREACTIVE S/CO (NonReactive); Hep C IgG Ab Reflex HepC Qnt S/CO (NonReactive); Hep C Index 9.73 S/CO (0-0.79)
[2024-07-17] MEDS ORDERED: Heparin 10,000 UNITS/ 10 ML VIAL ONE (14:41)
[2024-07-17] MEDS: metroNIDAZOLE 500 MG in Premix 1 BAG IVPB SCH (16:55)
[2024-07-17] MEDS ORDERED: Acetaminophen 650 MG Suppository PR PRN (19:55)
[2024-07-17] MEDS: Calcium Carbonate 500 MG ChewTAB PO SCH (20:59)
[2024-07-17] MEDS: Acetaminophen 500 MG TAB PO SCH (21:02)
[2024-07-18 03:27] LABS: #Basophils 0.07 10x3/uL (0.0-0.2); #Eosinophils Less than 0.03 10x3/uL (0.0-0.7); %Basophils 0.3 % (0.0-1.0); %Lymphocytes 6.3 % (21.0-51.0); %Neutrophils 86.3 % (42.0-75.0); Hematocrit 31.6 % (42.0-52.0); Hemoglobin 11.1 g/dL (14.0-18.0); Mean Corpuscular HGB CONC 35.1 g/dL (32.0-36.0); Mean Corpuscular Hemoglobin 33.2 pg (27.0-31.0); Mean Corpuscular Volume 94.6 fL (78.0-98.0); Mean Platelet Volume 12.6 fL (7.4-10.4); Platelet Count 149 10x3/uL (130-400); RBC Distribution Width 13.4 % (11.5-14.5); Red Blood Cell (RBC) Count 3.34 mill/uL (4.70-6.10)
[2024-07-18 03:47] LABS: Anion Gap 16 mmol/L (10-20); BUN (Urea Nitrogen) 39 mg/dL (8.4-25.7); Calc. Creatinine Clearance 24 mL/min (70-130); Calcium 8.1 mg/dL (7.8-10.44); Carbon Dioxide 22 mmol/L (22-29); Chloride 100 mmol/L (98-107); Estimated GFR 15; Glucose 131 mg/dL (70-105); Potassium 3.5 mmol/L (3.5-5.1); Sodium 134 mmol/L (136-145)
[2024-07-18] MEDS: cefTRIAXone\\ROCEPHIN 2 GM in Sodium Chloride 0.9% 100 ML IVPB SCH (06:45)
[2024-07-18] MEDS: Carvedilol 25 MG TAB PO SCH ×2 (09:59→19:27)
[2024-07-18] MEDS: Divalproex Sodium 125 mg Sprinkle Capsule PO SCH (10:00)
[2024-07-18] MEDS: Fluticasone Propionate Nasal Spray 16 gm Bottle NASAL SCH (10:00)
[2024-07-18] MEDS: Isosorbide Mononitrate 30 MG ER.TAB PO SCH (10:00)
[2024-07-18] MEDS: Midazolam HCl 2 mg/2 ml Vial ONE ×2 (10:00→14:52)
[2024-07-18] MEDS: Tamsulosin HCl 0.4 MG CAP PO SCH (10:00)
[2024-07-18] MEDS: Pantoprazole 40 MG VIAL IVP SCH (10:03)
[2024-07-18] MEDS: Midazolam HCl 2 mg/2 ml Vial SLOW IVP SCH (12:25)
[2024-07-18] MEDS: Propofol 1,000 MG/100 ML VIAL IV PRN (12:35)
[2024-07-18] MEDS: Vecuronium 10 MG VIAL IVP SCH (12:35)
[2024-07-18] MEDS ORDERED: Heparin 10,000 UNITS/ 10 ML VIAL ONE (13:25)
[2024-07-18] MEDS ORDERED: Morphine 2 MG/ML VIAL SLOW IVP PRN (13:30)
[2024-07-18] MEDS ORDERED: Propofol BOLUS 1,000 MG/100 ML VIAL IV PRN (13:30)
[2024-07-18] MEDS ORDERED: Fentanyl BOLUS 250 ML IVPB PRN (13:30)
[2024-07-18 14:04] LABS: Actual Bicarbonate (HCO3a) 23.6 mEq/L (22-28); Base Excess (BEa) -0.4 mEq/L (-2.0 to +3.0); CO2 Tension 36.7 mmHg (35.0-45.0); Calcium, Ionized (arterial) 1.07 mmol/L (1.12-1.30); Carboxyhemoglobin (COHb) 0.7 gm% (0.0-3.0); Hematocrit-ABG 34 % (42.0-52.0); Hemoglobin (Hb) 11.6 g/dL (14.0-18.0); Potassium - ABG Lab 3.41 mmol/L (3.70-5.30); pH, Arterial 7.427 (7.35-7.45)
[2024-07-18 14:17] LABS: ALV-art Gradient 405.825 mmHg (0-20); O2 Tension (PaO2), arterial 47.4 mmHg (80.0-100.0); Puncture Site Left Radial artery
[2024-07-18] MEDS: Lorazepam 2 MG/ML VIAL SLOW IVP PRN (14:49)
[2024-07-18] MEDS: Propofol 1,000 MG/100 ML VIAL IV ONE (14:52)
[2024-07-18] MEDS: Vecuronium 10 MG VIAL ONE (14:53)
[2024-07-18] MEDS: Ventilator Sedation Protocol 1 EACH FS ONE (14:59)
[2024-07-18] MEDS: Insulin Lispro 100 UNIT/ML 10 ML VIAL SC PRN (15:52)
[2024-07-18] MEDS: Vecuronium 10 MG VIAL IVP PRN (15:59)
[2024-07-18] MEDS: Fentanyl CADD 100 ML IV SCH (16:30)
[2024-07-18] MEDS: methylPREDNISolone Sod Succ 40 MG VIAL IVP SCH (19:27)
[2024-07-18] MEDS: Acetaminophen 325 MG TAB PO PRN (21:18)
[2024-07-19 06:19] VITALS: BMI 27.7
[2024-07-19 08:19] LABS: Actual Bicarbonate (HCO3a) 21.5 mEq/L (22-28); Base Excess (BEa) 0.3 mEq/L (-2.0 to +3.0); CO2 Tension 26.8 mmHg (35.0-45.0); Calcium, Ionized (arterial) 1.13 mmol/L (1.12-1.30); O2 Tension (PaO2), arterial 134.5 mmHg (80.0-100.0); Potassium - ABG Lab 3.06 mmol/L (3.70-5.30); pH, Arterial 7.523 (7.35-7.45)
[2024-07-19 08:21] LABS: Puncture Site Left Brachial artery
[2024-07-19] MEDS: Albumin 25% 25 GM (100 mL) BOT IVPB SCH (09:29)
[2024-07-19] MEDS ORDERED: Heparin 10,000 UNITS/ 10 ML VIAL ONE (13:48)
[2024-07-19 20:37] LABS: Hep C PCR-Quant HCV Not Detected IU/mL (.)
[2024-07-20 04:13] LABS: #Basophils Less than 0.03 10x3/uL (0.0-0.2); #Eosinophils Less than 0.03 10x3/uL (0.0-0.7); %Basophils 0.1 % (0.0-1.0); %Lymphocytes 5.1 % (21.0-51.0); %Monocytes 3.1 % (0.0-10.0); %Neutrophils 90.9 % (42.0-75.0); Hematocrit 29.2 % (42.0-52.0); Hemoglobin 10.1 g/dL (14.0-18.0); Mean Corpuscular HGB CONC 34.6 g/dL (32.0-36.0); Mean Corpuscular Hemoglobin 33.4 pg (27.0-31.0); Mean Corpuscular Volume 96.7 fL (78.0-98.0); Mean Platelet Volume 13.1 fL (7.4-10.4); Platelet Count 140 10x3/uL (130-400); RBC Distribution Width 14.6 % (11.5-14.5); Red Blood Cell (RBC) Count 3.02 mill/uL (4.70-6.10)
[2024-07-20 04:27] LABS: Anion Gap 19 mmol/L (10-20); BUN (Urea Nitrogen) 62 mg/dL (8.4-25.7); Calc. Creatinine Clearance 20 mL/min (70-130); Calcium 9.2 mg/dL (7.8-10.44); Carbon Dioxide 21 mmol/L (22-29); Chloride 99 mmol/L (98-107); Estimated GFR 14; Glucose 302 mg/dL (70-105); Potassium 3.2 mmol/L (3.5-5.1); Sodium 136 mmol/L (136-145)
[2024-07-20] MEDS: hydrALAZINE 20 MG/ML VIAL SLOW IVP SCH (06:17)
[2024-07-20 09:55] LABS: Actual Bicarbonate (HCO3a) 23.5 mEq/L (22-28); CO2 Tension 33.9 mmHg (35.0-45.0); Calcium, Ionized (arterial) 1.14 mmol/L (1.12-1.30); Carboxyhemoglobin (COHb) 0.4 gm% (0.0-3.0); Hematocrit-ABG 33 % (42.0-52.0); Hemoglobin (Hb) 11.2 g/dL (14.0-18.0); O2 Tension (PaO2), arterial 168.2 mmHg (80.0-100.0); Potassium - ABG Lab 3.21 mmol/L (3.70-5.30); pH, Arterial 7.458 (7.35-7.45)
[2024-07-20 09:57] LABS: ALV-art Gradient 145.925 mmHg (0-20); Puncture Site Left Brachial artery
[2024-07-20] MEDS: methylPREDNISolone Sod Succ 40 MG VIAL IVP SCH (10:25)
[2024-07-21 04:41] LABS: Anion Gap 21 mmol/L (10-20); BUN (Urea Nitrogen) 114 mg/dL (8.4-25.7); Calc. Creatinine Clearance 15 mL/min (70-130); Calcium 8.8 mg/dL (7.8-10.44); Carbon Dioxide 21 mmol/L (22-29); Chloride 100 mmol/L (98-107); Estimated GFR 10; Glucose 307 mg/dL (70-105); Potassium 3.2 mmol/L (3.5-5.1); Sodium 139 mmol/L (136-145)
[2024-07-21 07:21] LABS: Actual Bicarbonate (HCO3a) 23.3 mEq/L (22-28); Base Excess (BEa) -1.9 mEq/L (-2.0 to +3.0); CO2 Tension 41.5 mmHg (35.0-45.0); Calcium, Ionized (arterial) 1.15 mmol/L (1.12-1.30); Carboxyhemoglobin (COHb) 0.7 gm% (0.0-3.0); Hematocrit-ABG 36 % (42.0-52.0); Hemoglobin (Hb) 12.1 g/dL (14.0-18.0); O2 Tension (PaO2), arterial 85.8 mmHg (80.0-100.0); pH, Arterial 7.368 (7.35-7.45)
[2024-07-21 07:32] LABS: ALV-art Gradient 147.525 mmHg (0-20); Puncture Site Left Radial artery
[2024-07-21] MEDS: methylPREDNISolone Sod Succ 40 MG VIAL IVP SCH (10:54)
[2024-07-21] MEDS ORDERED: Heparin 10,000 UNITS/ 10 ML VIAL ONE (11:00)
[2024-07-21] MEDS: Insulin Lispro 100 UNIT/ML 10 ML VIAL SC PRN (11:15)
[2024-07-21] MEDS: EPOETIN ALFA-EPBX (ESRD) 10,000 UNITS/ML VIAL IVP SCH (13:27)
[2024-07-22 05:33] LABS: Anion Gap 20 mmol/L (10-20); BUN (Urea Nitrogen) 83 mg/dL (8.4-25.7); Calc. Creatinine Clearance 19 mL/min (70-130); Calcium 8.6 mg/dL (7.8-10.44); Carbon Dioxide 23 mmol/L (22-29); Chloride 99 mmol/L (98-107); Estimated GFR 14; Glucose 358 mg/dL (70-105); Potassium 3.5 mmol/L (3.5-5.1); Sodium 138 mmol/L (136-145)
[2024-07-22 05:45] LABS: #Basophils 0.05 10x3/uL (0.0-0.2); #Eosinophils Less than 0.03 10x3/uL (0.0-0.7); %Basophils 0.4 % (0.0-1.0); %Lymphocytes 6.9 % (21.0-51.0); %Monocytes 6.7 % (0.0-10.0); %Neutrophils 82.9 % (42.0-75.0); Hematocrit 35.8 % (42.0-52.0); Hemoglobin 12.4 g/dL (14.0-18.0); Mean Corpuscular HGB CONC 34.6 g/dL (32.0-36.0); Mean Corpuscular Hemoglobin 32.8 pg (27.0-31.0); Mean Corpuscular Volume 94.7 fL (78.0-98.0); Mean Platelet Volume 13.1 fL (7.4-10.4); Platelet Count 156 10x3/uL (130-400); RBC Distribution Width 14.5 % (11.5-14.5); Red Blood Cell (RBC) Count 3.78 mill/uL (4.70-6.10)
[2024-07-22] MEDS: Bisacodyl 5 MG TAB PO SCH (10:45)
[2024-07-23 06:02] LABS: #Basophils 0.06 10x3/uL (0.0-0.2); %Basophils 0.4 % (0.0-1.0); %Eosinophils 0.7 % (0.0-10.0); %Lymphocytes 13.8 % (21.0-51.0); %Monocytes 10.3 % (0.0-10.0); %Neutrophils 70.2 % (42.0-75.0); Hematocrit 35.5 % (42.0-52.0); Hemoglobin 12.1 g/dL (14.0-18.0); Mean Corpuscular HGB CONC 34.1 g/dL (32.0-36.0); Mean Corpuscular Hemoglobin 32.8 pg (27.0-31.0); Mean Corpuscular Volume 96.2 fL (78.0-98.0); Mean Platelet Volume 12.7 fL (7.4-10.4); Platelet Count 174 10x3/uL (130-400); RBC Distribution Width 14.4 % (11.5-14.5); Red Blood Cell (RBC) Count 3.69 mill/uL (4.70-6.10)
[2024-07-23 06:11] LABS: Anion Gap 19 mmol/L (10-20); BUN (Urea Nitrogen) 107 mg/dL (8.4-25.7); Calc. Creatinine Clearance 16 mL/min (70-130); Calcium 8.3 mg/dL (7.8-10.44); Carbon Dioxide 21 mmol/L (22-29); Chloride 102 mmol/L (98-107); Estimated GFR 11; Glucose 283 mg/dL (70-105); Potassium 3.2 mmol/L (3.5-5.1); Sodium 139 mmol/L (136-145)
[2024-07-23] MEDS ORDERED: Heparin 10,000 UNITS/ 10 ML VIAL ONE (08:17)
[2024-07-23 10:16] VITALS: BMI 27.1
[2024-07-24 06:05] LABS: Hematocrit 35.9 % (42.0-52.0); Hemoglobin 12.4 g/dL (14.0-18.0); Mean Corpuscular HGB CONC 34.5 g/dL (32.0-36.0); Mean Corpuscular Hemoglobin 32.9 pg (27.0-31.0); Mean Corpuscular Volume 95.2 fL (78.0-98.0); Mean Platelet Volume 12.6 fL (7.4-10.4); Platelet Count 160 10x3/uL (130-400); RBC Distribution Width 14.2 % (11.5-14.5); Red Blood Cell (RBC) Count 3.77 mill/uL (4.70-6.10)
[2024-07-24 06:31] LABS: Anion Gap 18 mmol/L (10-20); BUN (Urea Nitrogen) 75 mg/dL (8.4-25.7); Calc. Creatinine Clearance 18 mL/min (70-130); Calcium 8.2 mg/dL (7.8-10.44); Carbon Dioxide 23 mmol/L (22-29); Chloride 100 mmol/L (98-107); Estimated GFR 13; Glucose 205 mg/dL (70-105); Potassium 3.1 mmol/L (3.5-5.1); Sodium 138 mmol/L (136-145)
[2024-07-24 06:33] LABS: Anisocytosis MARKED = >30 cells HPF (0-5); Eosinophils 1 % (0-10); Lymphocytes 10 % (21-51); Macrocytosis MODERATE=16-30 cells HPF (0-5); Monocytes 7 % (0-10); Neutrophil 80 % (42-75); Nucleated RBC (Manual Ct) 1 % (0); Platelet Adequacy Comment Platelets Normal; Polychromasia SLIGHT = 2-3 cells HPF (0-2); Reactive Lymphocytes 2 % (0-10)
[2024-07-24 07:05] VITALS: TEMP 97.6
[2024-07-24] MEDS: Lidocaine-Prilocaine 2.5% Cream 5 GM TUBE TOP PRN (09:48)
[2024-07-24 16:37] VITALS: BP 120/74
== END 2024-07-24 17:14 | DRG 871 ==
LOC: ERS 04:53 → ERHOLD 06:42 → CCU 10:11 → T4-A 07-22 16:11
PROVIDERS: ADMIT Internal Medicine; ATTEND Internal Medicine
PROC: 3E03329 Introduction of Other Anti-infective into Peripheral Vein, Percutaneous Approach (ICD-10-PCS; 2024-07-17)
PROC: 5A09357 Assistance with Respiratory Ventilation, Less than 24 Consecutive Hours, Continuous Positive Airway Pressure (ICD-10-PCS; 2024-07-17)
PROC: 0B9D8ZX Drainage of Right Middle Lung Lobe, Via Natural or Artificial Opening Endoscopic, Diagnostic (ICD-10-PCS; principal; 2024-07-18)
PROC: 4A133R1 Monitoring of Arterial Saturation, Peripheral, Percutaneous Approach (ICD-10-PCS; 2024-07-18)
PROC: 30233J1 Transfusion of Nonautologous Serum Albumin into Peripheral Vein, Percutaneous Approach (ICD-10-PCS; 2024-07-18)
PROC: 5A1945Z Respiratory Ventilation, 24-96 Consecutive Hours (ICD-10-PCS; 2024-07-18)
DX: A41.9 Sepsis, unspecified organism (principal); I21.A1 Myocardial infarction type 2; J69.0 Pneumonitis due to inhalation of food and vomit; N18.6 End stage renal disease; J96.01 Acute respiratory failure with hypoxia; E87.1 Hypo-osmolality and hyponatremia; I13.2 Hypertensive heart and chronic kidney disease with heart failure and with stage 5 chronic kidney disease, or end stage renal disease; E87.20 Acidosis, unspecified; I50.9 Heart failure, unspecified; E11.22 Type 2 diabetes mellitus with diabetic chronic kidney disease; E78.5 Hyperlipidemia, unspecified; D63.1 Anemia in chronic kidney disease; Z88.0 Allergy status to penicillin; Z99.2 Dependence on renal dialysis; Z79.01 Long term (current) use of anticoagulants; Z79.899 Other long term (current) drug therapy; R65.20 Severe sepsis without septic shock
CPT/HCPCS: 36415; 36416; 36600; 71045; 80048; 80053; 82805; 83605; 83880; 84484; 85025; 86704; 86706; 86803; 87040; 87070; 87081; 87102; 87116; 87206; 87340; 87428; 87522; 88112; 88305; 88312; 88313; 90935; 93005; 93306; 94002; 94003; 94660; 96374; 96375; G0257; J0360; J0456; J0696; J1644; J1815; J2060; J2250; J2405; J2470; J2704; J2919; J3010; P9047; Q5105

== ENCOUNTER 2024-08-19 10:53 | Inpatient (IN) | payer MEDICARE, MEDICAID ==
[2024-08-19] MEDS ORDERED: Ondansetron PF 4 MG/2 ML Vial ONE (12:15)
[2024-08-19] MEDS ORDERED: Morphine 4 MG/ML VIAL ONE (12:15)
[2024-08-19] MEDS ORDERED: Acetaminophen 650 MG/20.3 ML UDCUP ONE (12:15)
[2024-08-19] MEDS ORDERED: Sodium Chloride 0.9% 100 ML ONE (12:15)
[2024-08-19] MEDS ORDERED: Cefepime 2 GM VIAL ONE (12:15)
[2024-08-19] MEDS ORDERED: metroNIDAZOLE 500 MG (100 mL) BAG ONE (12:15)
[2024-08-19 12:39] LABS: #Basophils 0.06 10x3/uL (0.0-0.2); %Basophils 0.5 % (0.0-1.0); %Eosinophils 2.4 % (0.0-10.0); %Lymphocytes 18.9 % (21.0-51.0); %Monocytes 11.1 % (0.0-10.0); %Neutrophils 66.8 % (42.0-75.0); Hematocrit 28.2 % (42.0-52.0); Hemoglobin 9.9 g/dL (14.0-18.0); Mean Corpuscular HGB CONC 35.1 g/dL (32.0-36.0); Mean Corpuscular Hemoglobin 34.1 pg (27.0-31.0); Mean Corpuscular Volume 97.2 fL (78.0-98.0); Mean Platelet Volume 12.2 fL (7.4-10.4); Platelet Count 175 10x3/uL (130-400); RBC Distribution Width 13.1 % (11.5-14.5)
[2024-08-19] MEDS ORDERED: Iopamidol-370 76% 500 ML MDV (1 ML CHARGE) ONE (12:46)
[2024-08-19 12:56] LABS: ALT (SGPT) 10 U/L (8-55); AST (SGOT) 12 U/L (5-34); Alkaline Phosphatase 88 U/L (40-110); Anion Gap 12 mmol/L (10-20); BUN (Urea Nitrogen) 33 mg/dL (8.4-25.7); Bilirubin, Total 0.3 mg/dL (0.2-1.2); CRP,High Sensitivity (Inhouse) 6.34 mg/dL (< or = 0.5); Calc. Creatinine Clearance 0 mL/min (70-130); Calcium 8.3 mg/dL (7.8-10.44); Carbon Dioxide 28 mmol/L (22-29); Chloride 95 mmol/L (98-107); Estimated GFR 16; Globulin 3.3 g/dL (2.4-3.5); Glucose 135 mg/dL (70-105); Potassium 3.1 mmol/L (3.5-5.1); Protein, Total 6.3 g/dL (6.0-8.3); Sodium 132 mmol/L (136-145)
[2024-08-19 13:05] LABS: Bacteria/HPF None Seen HPF (None Seen); Bilirubin Negative (Negative); Blood, Urine Negative (Negative); CAUTI Indications for Culture Pelvic or flank pain; Clarity Clear (Clear); Glucose, Urine (Dipstick) 100 mg/dL (Negative); Ketone, Urine Negative (Negative); Leukocyte Negative Leu/uL (Negative); Nitrite Negative (Negative); Protein, Urine (Dipstick) 300 mg/dL (Neg-Trace); RBC/HPF 0-3 HPF (0-3); Specific Gravity, Urine 1.008 (1.002-1.036); Squamous Epithelial None Seen HPF (0-3); Urobilinogen Normal mg/dL (Less than 2); WBC/HPF 0-3 HPF (0-3)
[2024-08-19 13:07] LABS: Urine Culture Reflex No No
[2024-08-19] MEDS: Vancomycin (BATCH) 1.5 GM in Premix 1 BAG IVPB SCH (16:59)
[2024-08-19] MEDS: Clindamycin/D5W 900 MG in Premix 1 BAG IVPB SCH ×2 (16:59→22:06)
[2024-08-19] MEDS ORDERED: Bisacodyl 5 MG TAB PO PRN (17:31)
[2024-08-19] MEDS ORDERED: Ondansetron PF 4 MG/2 ML Vial IVP PRN (17:31)
[2024-08-19 17:54] VITALS: BMI 25.8
[2024-08-19] MEDS ORDERED: Vancomycin Diaylsis Sliding Scale (Wt 71-99) FS SCH (19:00)
[2024-08-19] MEDS: Heparin 5,000 UNITS/ML VIAL SC SCH (20:23)
[2024-08-19] MEDS ORDERED: Vancomycin 1 GM in Premix 1 BAG IVPB SCH (21:00)
[2024-08-20] MEDS: Ipratropium/Albuterol 3 ML NEB NEB PRN (03:08)
[2024-08-20] MEDS: Furosemide 20 MG (2 mL) VIAL SLOW IVP SCH (03:42)
[2024-08-20 04:17] LABS: Actual Bicarbonate (HCO3a) 26.6 mEq/L (22-28); Base Excess (BEa) 1.4 mEq/L (-2.0 to +3.0); CO2 Tension 44.2 mmHg (35.0-45.0); Calcium, Ionized (arterial) 1.08 mmol/L (1.12-1.30); Carboxyhemoglobin (COHb) 0.4 gm% (0.0-3.0); Hematocrit-ABG 34 % (42.0-52.0); Hemoglobin (Hb) 11.4 g/dL (14.0-18.0); O2 Tension (PaO2), arterial 61.3 mmHg (80.0-100.0); Potassium - ABG Lab 3.34 mmol/L (3.70-5.30); pH, Arterial 7.397 (7.35-7.45)
[2024-08-20] MEDS: Nitroglycerin 2% Ointment 1 INCH/1 GM Packet TOP SCH (04:51)
[2024-08-20] MEDS: Furosemide 40 MG (4 mL) VIAL SLOW IVP SCH (04:52)
[2024-08-20 05:09] LABS: #Basophils 0.06 10x3/uL (0.0-0.2); %Basophils 0.6 % (0.0-1.0); %Lymphocytes 9.7 % (21.0-51.0); %Monocytes 6.8 % (0.0-10.0); %Neutrophils 79.5 % (42.0-75.0); Hematocrit 31.5 % (42.0-52.0); Hemoglobin 10.5 g/dL (14.0-18.0); Mean Corpuscular HGB CONC 33.3 g/dL (32.0-36.0); Mean Corpuscular Hemoglobin 33.1 pg (27.0-31.0); Mean Corpuscular Volume 99.4 fL (78.0-98.0); Mean Platelet Volume 12.5 fL (7.4-10.4); Platelet Count 186 10x3/uL (130-400); RBC Distribution Width 13.2 % (11.5-14.5); Red Blood Cell (RBC) Count 3.17 mill/uL (4.70-6.10)
[2024-08-20 05:25] LABS: Anion Gap 13 mmol/L (10-20); BUN (Urea Nitrogen) 37 mg/dL (8.4-25.7); Calc. Creatinine Clearance 19 mL/min (70-130); Calcium 7.9 mg/dL (7.8-10.44); Carbon Dioxide 26 mmol/L (22-29); Chloride 100 mmol/L (98-107); Estimated GFR 14; Glucose 154 mg/dL (70-105); Potassium 3.3 mmol/L (3.5-5.1); Sodium 136 mmol/L (136-145)
[2024-08-20 06:33] LABS: HBSAB Concentration Less than 8.00 mIU/mL; HBsAg Index 0.26 S/CO (0-0.99); Hep B Core Total Ab NONREACTIVE (NonReactive); Hep B Core Total Index 0.15 S/CO (0-0.79); Hep B Surf AB NONREACTIVE (NonReactive); Hep B Surf Ag NONREACTIVE S/CO (NonReactive); Hep C IgG Ab Reflex HepC Qnt S/CO (NonReactive); Hep C Index 10.73 S/CO (0-0.79)
[2024-08-20] MEDS: Acetaminophen 325 MG TAB PO PRN (07:32)
[2024-08-20] MEDS ORDERED: Heparin 10,000 UNITS/ 10 ML VIAL ONE (10:21)
[2024-08-20] MEDS ORDERED: Etomidate 40 MG (20 mL) VIAL ONE (11:00)
[2024-08-20] MEDS ORDERED: Rocuronium Bromide 10 MG/ML (10ML VIAL) ONE (11:00)
[2024-08-20] MEDS ORDERED: Ventilator Sedation Protocol 1 EACH FS SCH (11:30)
[2024-08-20 11:49] LABS: Actual Bicarbonate (HCO3a) 26.6 mEq/L (22-28); Base Excess (BEa) 1.5 mEq/L (-2.0 to +3.0); CO2 Tension 43.8 mmHg (35.0-45.0); Calcium, Ionized (arterial) 1.06 mmol/L (1.12-1.30); Carboxyhemoglobin (COHb) 0.3 gm% (0.0-3.0); Hematocrit-ABG 34 % (42.0-52.0); Hemoglobin (Hb) 11.4 g/dL (14.0-18.0); O2 Tension (PaO2), arterial 235.5 mmHg (80.0-100.0); pH, Arterial 7.401 (7.35-7.45)
[2024-08-20 11:53] LABS: Puncture Site Left Radial artery
[2024-08-20] MEDS ORDERED: Propofol BOLUS 1,000 MG/100 ML VIAL IV PRN (12:00)
[2024-08-20] MEDS ORDERED: Lorazepam 2 MG/ML VIAL SLOW IVP PRN (12:00)
[2024-08-20] MEDS ORDERED: Morphine 2 MG/ML VIAL SLOW IVP PRN (12:00)
[2024-08-20] MEDS ORDERED: DISCONTINUE PREVIOUS NARCOTIC PAIN MEDICATIONS AND BENZODIAZEPINES FS SCH (12:00)
[2024-08-20] MEDS ORDERED: Fentanyl BOLUS 250 ML IVPB PRN (12:00)
[2024-08-20] MEDS: Cefepime 1 GM in Sodium Chloride 0.9% 100 ML IVPB SCH (12:45)
[2024-08-20] MEDS: Fentanyl CADD 100 ML IV SCH (12:51)
[2024-08-20 13:13] LABS: Influenza A by NAA Not Detected (NotDetected); Influenza B by NAA Not Detected (NotDetected); RSV by NAA Not Detected (NotDetected); SARS-CoV-2 NAA Rapid Test Not Detected (NotDetected)
[2024-08-20] MEDS: NOREPINEPHRINE 8 MG/250 ML-D5W 250 ML IVPB SCH (13:17)
[2024-08-20] MEDS: Propofol 1,000 MG/100 ML VIAL IV ONE (13:17)
[2024-08-20 17:28] LABS: Vancomycin, Trough 7.8 ug/mL
[2024-08-20] MEDS: VANCOMYCIN 1.25 GM/250 ML BAG 1.25 GM in Premix 1 BAG IVPB SCH (18:22)
[2024-08-20] MEDS: Propofol 1,000 MG/100 ML VIAL IV PRN (22:30)
[2024-08-21 04:09] LABS: #Basophils 0.07 10x3/uL (0.0-0.2); %Basophils 0.6 % (0.0-1.0); %Lymphocytes 15.3 % (21.0-51.0); %Monocytes 10.1 % (0.0-10.0); %Neutrophils 71.5 % (42.0-75.0); Hematocrit 27.1 % (42.0-52.0); Hemoglobin 9.2 g/dL (14.0-18.0); Mean Corpuscular HGB CONC 33.9 g/dL (32.0-36.0); Mean Corpuscular Volume 97.1 fL (78.0-98.0); Mean Platelet Volume 12.6 fL (7.4-10.4); Platelet Count 167 10x3/uL (130-400); Red Blood Cell (RBC) Count 2.79 mill/uL (4.70-6.10)
[2024-08-21 04:28] LABS: Anion Gap 16 mmol/L (10-20); BUN (Urea Nitrogen) 24 mg/dL (8.4-25.7); Calc. Creatinine Clearance 24 mL/min (70-130); Calcium 8.1 mg/dL (7.8-10.44); Carbon Dioxide 22 mmol/L (22-29); Chloride 104 mmol/L (98-107); Estimated GFR 18; Glucose 163 mg/dL (70-105); Potassium 3.6 mmol/L (3.5-5.1); Sodium 138 mmol/L (136-145)
[2024-08-21] MEDS: Pantoprazole 40 MG VIAL IVP SCH (10:05)
[2024-08-21] MEDS ORDERED: Heparin 10,000 UNITS/ 10 ML VIAL ONE (10:31)
[2024-08-21 13:35] VITALS: BMI 25.7
[2024-08-21] MEDS ORDERED: Melatonin 3 MG TAB PO PRN (14:12)
[2024-08-21] MEDS ORDERED: Ipratropium/Albuterol 3 ML NEB NEB PRN (14:32)
[2024-08-21] MEDS: Calcium Carbonate 500 MG ChewTAB PO SCH (15:07)
[2024-08-21] MEDS: Doxazosin 2 MG TAB PO SCH (15:07)
[2024-08-21] MEDS: Amlodipine 5 MG TAB PO SCH (15:07)
[2024-08-21] MEDS: Carvedilol 25 MG TAB PO SCH ×2 (15:07→16:20)
[2024-08-21] MEDS: hydrALAZINE 25 MG TAB PO SCH (15:08)
[2024-08-21] MEDS: Cefepime 1 GM in Sodium Chloride 0.9% 100 ML IVPB SCH (17:17)
[2024-08-21] MEDS ORDERED: Famotidine 20 MG TAB PO SCH (21:00)
[2024-08-21] MEDS: Artificial Tear Ophth Sol 15 ML BOT EA EYE SCH (21:08)
[2024-08-21] MEDS: Floranex 1 GM Packet PO SCH (21:08)
[2024-08-21] MEDS: Isosorbide Mononitrate 30 MG ER.TAB PO SCH (21:09)
[2024-08-21] MEDS: Docusate 100 MG CAP PO SCH (21:09)
[2024-08-22 05:14] LABS: #Basophils 0.06 10x3/uL (0.0-0.2); %Basophils 0.6 % (0.0-1.0); %Eosinophils 2.5 % (0.0-10.0); %Lymphocytes 17.7 % (21.0-51.0); %Monocytes 12.8 % (0.0-10.0); %Neutrophils 65.7 % (42.0-75.0); Hemoglobin 8.6 g/dL (14.0-18.0); Mean Corpuscular HGB CONC 33.1 g/dL (32.0-36.0); Mean Corpuscular Hemoglobin 32.6 pg (27.0-31.0); Mean Corpuscular Volume 98.5 fL (78.0-98.0); Mean Platelet Volume 12.1 fL (7.4-10.4); Platelet Count 157 10x3/uL (130-400); RBC Distribution Width 13.2 % (11.5-14.5); Red Blood Cell (RBC) Count 2.64 mill/uL (4.70-6.10)
[2024-08-22 05:28] LABS: Anion Gap 13 mmol/L (10-20); BUN (Urea Nitrogen) 35 mg/dL (8.4-25.7); Calc. Creatinine Clearance 16 mL/min (70-130); Calcium 8.2 mg/dL (7.8-10.44); Carbon Dioxide 24 mmol/L (22-29); Chloride 103 mmol/L (98-107); Estimated GFR 11; Glucose 130 mg/dL (70-105); Potassium 3.3 mmol/L (3.5-5.1); Sodium 137 mmol/L (136-145)
[2024-08-22 07:41] LABS: Vancomycin, Trough 23.2 ug/mL
[2024-08-22] MEDS ORDERED: Heparin 10,000 UNITS/ 10 ML VIAL ONE (10:28)
[2024-08-22] MEDS: Fluticasone Propionate Nasal Spray 16 gm Bottle NASAL SCH (13:37)
[2024-08-22] MEDS: Doxazosin 2 MG TAB PO SCH (13:38)
[2024-08-22] MEDS: Polyethylene Glycol 3350 17 GM Packet PO SCH (13:38)
[2024-08-22] MEDS: FLUoxetine HCl 20 MG CAP PO SCH (13:39)
[2024-08-22] MEDS: Amlodipine 5 MG TAB PO SCH (13:40)
[2024-08-22] MEDS: Divalproex Sodium 125 mg Sprinkle Capsule PO SCH (13:41)
[2024-08-22] MEDS: Topiramate 25 MG TAB PO SCH (13:42)
[2024-08-22] MEDS: Insulin Glargine 30 UNITS/0.3 ML VIAL SC SCH (13:47)
[2024-08-22] MEDS: oxyCODONE 5 MG TAB PO PRN (15:44)
[2024-08-22] MEDS ORDERED: Vancomycin 250 MG in Sodium Chloride 0.9% 100 ML IVPB SCH (17:00)
[2024-08-22] MEDS: Doxycycline 100 MG CAP PO SCH (22:52)
[2024-08-23 08:40] LABS: #Basophils 0.06 10x3/uL (0.0-0.2); %Basophils 0.7 % (0.0-1.0); %Lymphocytes 21.4 % (21.0-51.0); %Neutrophils 61.8 % (42.0-75.0); Hematocrit 24.6 % (42.0-52.0); Hemoglobin 8.1 g/dL (14.0-18.0); Mean Corpuscular HGB CONC 32.9 g/dL (32.0-36.0); Mean Corpuscular Hemoglobin 32.8 pg (27.0-31.0); Mean Corpuscular Volume 99.6 fL (78.0-98.0); Mean Platelet Volume 12.4 fL (7.4-10.4); Platelet Count 171 10x3/uL (130-400); RBC Distribution Width 13.2 % (11.5-14.5); Red Blood Cell (RBC) Count 2.47 mill/uL (4.70-6.10)
[2024-08-23 09:08] LABS: Anion Gap 14 mmol/L (10-20); BUN (Urea Nitrogen) 28 mg/dL (8.4-25.7); Calc. Creatinine Clearance 20 mL/min (70-130); Calcium 8.5 mg/dL (7.8-10.44); Carbon Dioxide 27 mmol/L (22-29); Chloride 101 mmol/L (98-107); Estimated GFR 14; Glucose 131 mg/dL (70-105); Potassium 3.5 mmol/L (3.5-5.1); Sodium 138 mmol/L (136-145)
[2024-08-23] MEDS: Pantoprazole DR 40 MG TAB PO SCH (10:36)
[2024-08-23] MEDS: Bacitracin 1 PK TOP SCH (10:39)
[2024-08-23] MEDS ORDERED: Iopamidol 370 76% 100 ML VIAL ONE (14:48)
[2024-08-23 15:44] VITALS: BP 119/69
[2024-08-23 16:18] VITALS: TEMP 97.7
[2024-08-23] MEDS ORDERED: Cefepime 1 GM in Sodium Chloride 0.9% 100 ML IVPB SCH (17:00)
== END 2024-08-23 16:00 | DRG 727 ==
LOC: ERS 10:53 → OBSVTOIN 14:49 → MSONC 14:49 → CCU 08-20 11:09 → MSONC 08-21 18:16
PROVIDERS: ADMIT Internal Medicine; ATTEND Internal Medicine
PROC: 0BH17EZ Insertion of Endotracheal Airway into Trachea, Via Natural or Artificial Opening (ICD-10-PCS; 2024-08-19)
PROC: 5A1935Z Respiratory Ventilation, Less than 24 Consecutive Hours (ICD-10-PCS; 2024-08-19)
PROC: 0V95XZZ Drainage of Scrotum, External Approach (ICD-10-PCS; principal; 2024-08-20)
PROC: 4A133R1 Monitoring of Arterial Saturation, Peripheral, Percutaneous Approach (ICD-10-PCS; 2024-08-20)
DX: N49.2 Inflammatory disorders of scrotum (principal); J69.0 Pneumonitis due to inhalation of food and vomit; N18.6 End stage renal disease; J81.0 Acute pulmonary edema; J80 Acute respiratory distress syndrome; I69.351 Hemiplegia and hemiparesis following cerebral infarction affecting right dominant side; I16.1 Hypertensive emergency; I13.2 Hypertensive heart and chronic kidney disease with heart failure and with stage 5 chronic kidney disease, or end stage renal disease; I69.320 Aphasia following cerebral infarction; F41.9 Anxiety disorder, unspecified; F32.A Depression, unspecified; E78.5 Hyperlipidemia, unspecified; E87.6 Hypokalemia; E87.70 Fluid overload, unspecified; D64.9 Anemia, unspecified; Z88.0 Allergy status to penicillin; Z99.2 Dependence on renal dialysis; Z22.322 Carrier or suspected carrier of Methicillin resistant Staphylococcus aureus; I50.9 Heart failure, unspecified
CPT/HCPCS: 0241U; 36415; 36416; 36600; 71045; 71260; 74177; 76870; 80048; 80053; 80202; 81001; 82805; 83605; 83880; 84145; 85025; 86141; 86704; 86706; 86803; 87040; 87070; 87077; 87086; 87186; 87205; 87340; 90935; 90945; 93005; 93010; 93976; 94002; 94003; 94640; 94760; 96365; 96367; 96368; 96375; 97139; G0257; J0692; J1644; J1815; J1940; J2272; J2405; J2470; J2704; J3010; J3370; J3490; J7620; Q9967